=== PATIENT | female | born 1940 ===

== ENCOUNTER 2019-12-03 11:58 | Outpatient (REF) | payer OTHER, SELFPAY ==
[2019-12-03 14:17] LABS: Anion Gap 16 (12-20); Blood Urea Nitrogen 11 mg/dL (9-16); Calcium 9.4 mg/dL (8.4-10.2); Carbon Dioxide 30 mmol/L (22-29); Chloride 101 mmol/L (96-108); Cholesterol 117 mg/dL; Creatinine Urine 184.07 mg/dL; Estimated Glomerular Filt Rate 50; Glucose Random 154 mg/dL (60-115); HDL Cholesterol 45 mg/dL; LDL Cholesterol Calculated 43 mg/dl; Microalbum/Creatinine Ratio Ur 54.3 ug/mg cr; Potassium 4.8 mmol/l (3.3-5.1); Sodium 142 mmol/L (135-145); Triglycerides 149 mg/dL
[2019-12-03 14:28] LABS: Estimated Average Glucose 183 mg/dL
[2019-12-03 14:37] LABS: TSH reflex Free T4 0.76 mIU/mL (0.32-4.0)
== END 2019-12-03 11:59 | disposition home or self-care (01) ==
LOC: HO.HMGCLDS 11:58
PROVIDERS: PCP Nurse Practitioner Family; Visit Provider Nurse Practitioner Family
DX: E03.9 Hypothyroidism, unspecified (principal); E11.9 Type 2 diabetes mellitus without complications
CPT/HCPCS: 80048; 80061; 82043; 83036; 84443

== ENCOUNTER 2020-07-14 12:09 | Outpatient (REF) | payer OTHER, SELFPAY ==
[2020-07-14 14:14] LABS: Estimated Average Glucose 217 mg/dL; Hemoglobin A1c % 9.2 %
[2020-07-14 14:42] LABS: Alanine Aminotransferase 30 U/L (0-31); Albumin Level 4.1 g/dL (3.5-5.0); Alkaline Phosphatase 86 U/L (39-117); Anion Gap 20 (12-20); Aspartate Amino Transferase 32 U/L (5-31); Bilirubin Total 0.6 mg/dL (0.0-1.0); Blood Urea Nitrogen 13 mg/dL (9-16); Calcium 9.5 mg/dL (8.4-10.2); Carbon Dioxide 24 mmol/L (22-29); Chloride 100 mmol/L (96-108); Cholesterol 121 mg/dL; Estimated Glomerular Filt Rate 39; Glucose Fasting 273 mg/dL (60-99); HDL Cholesterol 49 mg/dL; LDL Cholesterol Calculated 43 mg/dl; Potassium 5.3 mmol/L (3.3-5.1); Sodium 139 mmol/L (135-145); Total Protein 6.7 g/dL (6.5-8.0); Triglycerides 148 mg/dL
[2020-07-14 14:49] LABS: TSH reflex Free T4 0.36 uIU/mL (0.32-4.0)
== END 2020-07-14 12:10 | disposition home or self-care (01) ==
LOC: HO.HMGCLDS 12:09
PROVIDERS: PCP Nurse Practitioner Family; Visit Provider Nurse Practitioner Family
DX: E11.9 Type 2 diabetes mellitus without complications (principal); E78.5 Hyperlipidemia, unspecified; Z78.0 Asymptomatic menopausal state
CPT/HCPCS: 36415; 80053; 80061; 83036; 84443

== ENCOUNTER 2020-07-17 | Outpatient (REF) | payer OTHER, SELFPAY ==
[2020-07-17 14:01] LABS: Glucose Urine UA NEG (NEG); Leukocyte Esterase Urine TRACE (NEG); Nitrite Urine NEG (NEG); PH 6.5 (5.0-8.0); Specific Gravity - Urine <= 1.005 (1.005-1.025); Urine Blood NEG (NEG); Urine Ketones NEG (NEG); Urine Protein NEG (NEG-TRACE)
[2020-07-17 14:02] LABS: Appearance Urine CLEAR; Color Urine STRAW
[2020-07-17 14:11] LABS: Oval Fat Bodies Urine NOTED; RBC Urine 0 /HPF (0); Renal Epithelial Cells Urine TRACE /LPF; Squamous Epithelial Cell Urine 1+ /LPF; WBC Urine 0-2 /HPF (0-4)
[2020-07-17 14:37] LABS: Creatinine Urine 40.28 mg/dL; Microalbum/Creatinine Ratio Ur 71.9 ug/mg cr
== END 2020-07-17 00:01 | disposition home or self-care (01) ==
LOC: HO.HMGCLNP
PROVIDERS: Visit Provider Nurse Practitioner Family
DX: E11.9 Type 2 diabetes mellitus without complications (principal)
CPT/HCPCS: 81001; 82043; 87086

== ENCOUNTER 2020-11-20 15:08 | Outpatient (REF) | payer MEDICARE, SELFPAY ==
[2020-11-20 15:40] LABS: MANUAL DIFF FLAG NO
[2020-11-20 15:51] LABS: Basophils Absolute Auto 0.1 X10*3/uL (0.0-0.2); Basophils Percent Auto 0.6 % (0-2); Eosinophils Absolute Auto 0.2 X10*3/uL (0.0-0.4); Eosinophils Percent Auto 2.1 % (0-4); Hematocrit 40.6 % (37-47); Hemoglobin 12.8 g/dl (12.0-16.0); Imm Gran Abs Auto 0.03 X10*3/uL (0.00-0.03); Imm Gran Pct Auto 0.4 % (0.0-0.4); Lymphocytes Absolute Auto 2.5 X10*3/uL (1.2-4.9); Lymphocytes Percent Auto 31.7 % (20-40); Mean Corpuscular HGB Conc 31.5 g/dl (31.0-35.0); Mean Corpuscular Hemoglobin 28.4 pg (27.0-33.0); Mean Platelet Volume 10.7 fL (9.4-12.3); Monocytes Absolute Auto 0.6 X10*3/uL (0.1-1.2); Monocytes Percent Auto 7.2 % (2-11); Neutrophils Absolute Auto 4.5 X10*3/uL (2.0-8.3); Platelet Count 204 X10*3/uL (160-400); Red Blood Count 4.51 X10*6/uL (4.20-5.50); Red Cell Distribution Width 14.1 % (11.0-16.0); White Blood Count 7.7 X10*3/uL (4.8-10.8)
[2020-11-20 15:58] LABS: Estimated Average Glucose 240 mg/dL
[2020-11-20 16:17] LABS: Alanine Aminotransferase 35 U/L (0-31); Albumin Level 4.2 g/dL (3.5-5.0); Alkaline Phosphatase 85 U/L (39-117); Anion Gap 13 (12-20); Aspartate Amino Transferase 35 U/L (5-31); Bilirubin Total 0.5 mg/dL (0.0-1.0); Blood Urea Nitrogen 12 mg/dL (9-16); Calcium 9.1 mg/dL (8.4-10.2); Carbon Dioxide 28 mmol/L (22-29); Chloride 100 mmol/L (96-108); Cholesterol 128 mg/dL; Estimated Glomerular Filt Rate 43; Glucose Fasting 188 mg/dL (60-99); HDL Cholesterol 37 mg/dL; Iron 65 mcg/dL (30-160); LDL Cholesterol Calculated 50 mg/dl; Percent Iron Saturation 20 % (15-50); Potassium 4.5 mmol/L (3.3-5.1); Sodium 136 mmol/L (135-145); Total Iron Binding Capacity 322 mcg/dL (228-428); Total Protein 6.9 g/dL (6.5-8.0); Triglycerides 205 mg/dL; Unsaturated Iron Binding 257 ug/dL
[2020-11-20 16:37] LABS: Ferritin 51 ng/mL (10-250)
[2020-11-20 16:47] LABS: Vitamin B12 240 pg/mL (200-900)
== END 2020-11-20 15:09 | disposition home or self-care (01) ==
LOC: HO.LAB 15:08
PROVIDERS: PCP Nurse Practitioner Family; Visit Provider Nurse Practitioner Family
DX: E11.9 Type 2 diabetes mellitus without complications (principal); R53.83 Other fatigue
CPT/HCPCS: 36415; 80053; 80061; 82607; 82728; 82746; 83036; 83540; 85025

== ENCOUNTER 2022-06-08 11:45 | Outpatient (REF) | payer MEDICARE, MEDICAID, SELFPAY ==
[2022-06-08 14:08] LABS: MANUAL DIFF FLAG NO
[2022-06-08 14:12] LABS: Basophils Percent Auto 0.6 % (0-2); Eosinophils Absolute Auto 0.2 X10*3/uL (0.0-0.4); Eosinophils Percent Auto 2.3 % (0-4); Hematocrit 42.4 % (37.0-47.0); Hemoglobin 13.4 g/dl (12.0-16.0); Imm Gran Abs Auto 0.03 X10*3/uL (0.00-0.03); Imm Gran Pct Auto 0.5 % (0.0-0.4); Lymphocytes Absolute Auto 1.5 X10*3/uL (1.2-4.9); Lymphocytes Percent Auto 22.4 % (20-40); Mean Corpuscular HGB Conc 31.6 g/dl (31.0-35.0); Mean Corpuscular Hemoglobin 28.8 pg (27.0-33.0); Mean Corpuscular Volume 91.2 fL (80.0-98.0); Mean Platelet Volume 11.1 fL (9.4-12.3); Monocytes Absolute Auto 0.4 X10*3/uL (0.1-1.2); Monocytes Percent Auto 6.3 % (2-11); Neutrophils Absolute Auto 4.5 x10*3/uL (2.0-8.3); Neutrophils Percent Auto 67.9 % (45-73); Platelet Count 245 X10*3/uL (160-400); Red Blood Count 4.65 X10*6/uL (4.20-5.50); Red Cell Distribution Width 13.8 % (11.0-16.0); White Blood Count 6.6 X10*3/uL (4.8-10.8)
[2022-06-08 14:30] LABS: Alanine Aminotransferase 22 U/L (0-31); Albumin Level 3.9 g/dL (3.5-5.0); Alkaline Phosphatase 77 U/L (39-117); Anion Gap 14 (12-20); Aspartate Amino Transferase 20 U/L (5-31); Bilirubin Total 0.6 mg/dL (0.0-1.0); Blood Urea Nitrogen 14 mg/dL (9-16); Calcium 9.2 mg/dL (8.4-10.2); Carbon Dioxide 30 mmol/L (22-29); Chloride 100 mmol/L (96-108); Cholesterol 109 mg/dL; Estimated Glomerular Filt Rate 48; Glucose Fasting 265 mg/dL (60-99); HDL Cholesterol 40 mg/dL; LDL Cholesterol Calculated 46 mg/dl; Potassium 4.5 mmol/L (3.3-5.1); Sodium 139 mmol/L (135-145); Total Protein 6.2 g/dL (6.5-8.0); Triglycerides 115 mg/dL
[2022-06-08 14:32] LABS: Estimated Average Glucose 243 mg/dL; Hemoglobin A1c % 10.1 %
[2022-06-08 14:47] LABS: TSH reflex Free T4 0.31 uIU/mL (0.32-4.0)
[2022-06-08 15:47] LABS: Free T4 (Free Thyroxine) 1.55 ng/dL (0.71-1.85)
== END 2022-06-08 11:46 | disposition home or self-care (01) ==
LOC: HO.HMGCLDS 11:45
PROVIDERS: PCP Nurse Practitioner Family; Visit Provider Nurse Practitioner Family
DX: E11.9 Type 2 diabetes mellitus without complications (principal)
CPT/HCPCS: 36415; 80053; 80061; 83036; 84439; 84443; 85025

== ENCOUNTER 2022-08-16 11:27 | Outpatient (REF) | payer MEDICARE, MEDICAID, SELFPAY ==
[2022-08-16 14:21] LABS: Appearance Urine Clear; Color Urine Yellow; Glucose Urine UA >=1000 mg/dL (Negative); Leukocyte Esterase Urine Negative (Negative); Nitrite Urine Negative (Negative); Specific Gravity - Urine >= 1.030 (1.005-1.025); UMIC TRIGGER UACC YES; Urine Blood Negative (Negative); Urine Ketones Trace mg/dL (Negative); Urine Protein Negative (Neg-Trace)
[2022-08-16 14:28] LABS: Bacteria Urine None Seen (None Seen); Hyaline Casts Urine 0-2 /LPF (0-2); RBC Urine 0-2 /HPF (0-2); UACC Culture Trigger YES
[2022-08-16 14:48] LABS: Creatinine Urine 84.23 mg/dL
== END 2022-08-16 11:28 | disposition home or self-care (01) ==
LOC: HO.LAB 11:27
PROVIDERS: Visit Provider Nurse Practitioner Family
DX: E11.9 Type 2 diabetes mellitus without complications (principal); R82.90 Unspecified abnormal findings in urine
CPT/HCPCS: 81001; 81003; 82043; 87086

== ENCOUNTER 2023-03-23 13:11 | Outpatient (AMB) | payer MEDICARE, MEDICAID, SELFPAY ==
[2023-03-23 13:19] VITALS: BP 138/80; PULSE 69; O2SAT 100; BMI 23.3
--- NOTE | 2023-03-23 13:19 | A.OFFPC_ITS ---
Vital Signs 03/23/23 13:19 Height 5 ft Weight 119 lb 4 oz BMI 23.3 BP 138/80 Blood Pressure Location Lt brachial Position Sitting Pulse 69 Pulse Source Pulse Oximeter Pulse Oximetry (%) 100 Oxygen Delivery Method Room Air Intake Visit Reasons: F/U Appt. Intake Note: Pt is here to follow up for her DM Allergies No Known Allergies [No Known Allergies*] Allergy (Verified 03/23/23 13:36) Medication List - Last Reconciled 03/23/23 by MARTHA Ding citalopram 30 mg (1.5 x 20 mg) PO DAILY empagliflozin (Jardiance) 10 mg PO DAILY insulin glargine (Lantus U-100 Insulin) 10 units (0.1 mL) subcut QPM levothyroxine 100 mcg PO DAILY lisinopril 20 mg PO DAILY 90 days loperamide 2 mg PO QID PRN metformin 1,000 mg PO BID olanzapine 1.25 mg (1/2 x 2.5 mg) PO DAILY rosuvastatin 5 mg PO DAILY Tobacco use date assessed: 03/23/23 Fall risk assessment: 2 + Falls in past year Last assessed Fall Risk: 03/23/23 Dental Screening Dental Screen Date: 03/23/23 Did you have a dental visit in the last 12 months?: No Did you have a dental problem in the last 6 months where you did not have access to dental care?: No Was dental information given to patient?: No HPI F/U Appt. HPI Details Pt is a diabetic, on an NENA and a statin. A1C in office today is 9.1. Microalbumin is up to date. Denies polyuria, polydipsia, and neuropathy. Pt denies any signs and symptoms of hypoglycemia and does know how to correct it. Eye exam is up to date. Pt is not currently on any insulin. Will start lantus 10 units. Pt has dementia, she is here with her son who is her primary caregiver. [facility] Medical History Hypertension Osteoporosis Hearing decreased Hypothyroid Diabetes Surgical History History of lumpectomy of right breast Family History Father CAD (coronary artery disease) CVD (cardiovascular disease) Mother Lymphoma Cancer Sister Thyroid disorder Other Substance use disorder Social History Housing: House Patient Tobacco Use Status: Never used Tobacco Second Hand Smoke Exposure: Yes Current occupational status: retired Questionnaire Thrive Questionnaire Date Thrive assessed: 11/04/20 VIRAJ-7 AMB Questionnaire VIRAJ-7 Date VIRAJ - 7 assessed: 08/13/21 Source: Developed by Drs. Srini Sosa, Amalia Mcdowell, Reed Way and colleagues, with an educational jason from [employer]. Review of Systems Const Reports as per HPI Physical exam (Primary Care) Vital Signs: Last Vital Signs Pulse 69 03/23/23 13:19 BP 138/80 03/23/23 13:19 Pulse Ox 100 03/23/23 13:19 Oxygen Delivery Method Room Air 03/23/23 13:19 BMI result Body Mass Index 23.3 Tobacco/Smoking Status: Tobacco use Status Tobacco use date assessed 03/23/23 03/23/23 13:27 Patient Tobacco Use Status Never used Tobacco 03/23/23 13:27 Thrive Assessment: Date of Thrive Assessment Date Thrive assessed 11/04/20 03/23/23 13:27 Const Other: in wheelchair, Hx of dementia General: cooperative Resp Effort & Inspection: normal respiratory effort Auscultation: clear to auscultation bilaterally (slightly dim bilat) Cardio Rate: regular rate Rhythm: regular rhythm Heart sounds: S1 normal heart sound present and S2 normal heart sound present Extrem Other: bilat feet: + sensation with use of monofilament, feet intact Psych Appearance: grossly normal Speech and movement: Normal speech and movement present Affect: normal affect Attitude: cooperative Results AMB Hemoglobin A1c AMB Hemoglobin A1c 9.1 % Last Edit by Margy Benavidez CMA on 03/23/23 13: 58 Assessment and Plan Assessment & Plan (1) Diabetes: Code(s): E11.9 - Type 2 diabetes mellitus without complications Plan: starting lantus, 10 units Q night Plan The patient agreed to the use of a medical technologist for this encounter. Scribed for MARTHA Sr by Ariana Pro medical technologist, on 03/23/2023 at 13:30 EST. Orders: Orders AMB Hemoglobin A1c Today E11.9 - Type 2 diabetes mellitus without complications Medications: New pen needle, diabetic (BD Ultra-Fine Mini Pen Needle) QHS 100 ea 3RF diabetes insulin glargine 10 units (0.1 mL) subcut QPM 15 mL 0RF Discontinued insulin glargine (Lantus U-100 Insulin) Discontinued Reason: Duplicate 10 units (0.1 mL) subcut QPM 10 mL 0RF Coding Level of Care Code Est Pt Level 3 (63935) Diagnoses Diabetes E11.9
== END 2023-03-23 14:43 | disposition home or self-care (01) ==
PROVIDERS: PCP Nurse Practitioner Family; Visit Provider Nurse Practitioner Family
DX: E11.9 Type 2 diabetes mellitus without complications (principal)
CPT/HCPCS: 83036; 99213

== ENCOUNTER 2023-03-23 14:02 | Outpatient (REF) | payer MEDICARE, MEDICAID, SELFPAY ==
[2023-03-23 16:07] LABS: MANUAL DIFF FLAG NO
[2023-03-23 16:14] LABS: Basophils Absolute Auto 0.1 X10*3/uL (0.0-0.2); Basophils Percent Auto 1.1 % (0-2); Eosinophils Absolute Auto 0.1 X10*3/uL (0.0-0.4); Eosinophils Percent Auto 2.5 % (0-4); Hematocrit 42.7 % (37.0-47.0); Hemoglobin 13.4 g/dl (12.0-16.0); Imm Gran Abs Auto 0.02 X10*3/uL (0.00-0.03); Imm Gran Pct Auto 0.4 % (0.0-0.4); Lymphocytes Absolute Auto 1.6 X10*3/uL (1.2-4.9); Lymphocytes Percent Auto 28.5 % (20-40); Mean Corpuscular HGB Conc 31.4 g/dl (31.0-35.0); Mean Corpuscular Hemoglobin 29.1 pg (27.0-33.0); Mean Corpuscular Volume 92.8 fL (80.0-98.0); Mean Platelet Volume 10.9 fL (9.4-12.3); Monocytes Absolute Auto 0.4 X10*3/uL (0.1-1.2); Monocytes Percent Auto 7.4 % (2-11); Neutrophils Absolute Auto 3.4 x10*3/uL (2.0-8.3); Neutrophils Percent Auto 60.1 % (45-73); Platelet Count 212 X10*3/uL (160-400); Red Cell Distribution Width 14.5 % (11.0-16.0); White Blood Count 5.6 X10*3/uL (4.8-10.8)
[2023-03-23 16:40] LABS: Alanine Aminotransferase 24 U/L (0-31); Albumin Level 3.8 g/dL (3.5-5.0); Alkaline Phosphatase 64 U/L (39-117); Anion Gap 13 (12-20); Aspartate Amino Transferase 22 U/L (5-31); Bilirubin Total 0.4 mg/dL (0.0-1.0); Blood Urea Nitrogen 17 mg/dL (9-16); Calcium 9.5 mg/dL (8.4-10.2); Carbon Dioxide 29 mmol/L (22-29); Chloride 103 mmol/L (96-108); Cholesterol 115 mg/dL (<200); Estimated Glomerular Filt Rate 52; Glucose Fasting 161 mg/dL (60-99); HDL Cholesterol 45 mg/dL (>40); LDL Cholesterol Calculated 48 mg/dL (<100); Potassium 4.3 mmol/L (3.3-5.1); Sodium 141 mmol/L (135-145); Total Protein 6.5 g/dL (6.5-8.0); Triglycerides 111 mg/dL (<150)
[2023-03-23 16:47] LABS: TSH reflex Free T4 1.02 uIU/mL (0.32-4.0)
== END 2023-03-23 14:03 | disposition home or self-care (01) ==
LOC: HO.HMGCLDS 14:02
PROVIDERS: PCP Nurse Practitioner Family; Visit Provider Nurse Practitioner Family
DX: E11.9 Type 2 diabetes mellitus without complications (principal)
CPT/HCPCS: 36415; 80053; 80061; 84443; 85025

== ENCOUNTER 2023-09-05 14:34 | Outpatient (AMB) | payer MEDICARE, MEDICAID, SELFPAY ==
--- NOTE | 2023-09-05 14:37 | A.OFFVIS_ITS ---
Intake Vital Signs 09/05/23 14:44 Weight 120 lb BP 116/74 Blood Pressure Location Rt brachial Position Sitting Pulse 86 Pulse Source Pulse Oximeter Pulse Oximetry (%) 97 Oxygen Delivery Method Room Air Intake Visit Reasons: AWV G0439 Allergies No Known Allergies [No Known Allergies*] Allergy (Verified 09/05/23 14:42) Do you need a note to return to daycare/school/sports/work: No HPI AWV G0439 HPI Details AWV. no longer gets colon screens or mammos. Son is pt's primary caregiver, here with mother (pt). Pt has dementia as well. Son is looking to get her into a chcf. Pt is becoming more uncooperative. DALY not filled out. PPP checklist in skin pile. Pt is a diabetic, takes her medication (administered by son). Pt also sees endo. most questions were answered by son (HCP) [facility] Medical History Hypertension Osteoporosis Hearing decreased Hypothyroid Diabetes Surgical History History of lumpectomy of right breast Family History Father CAD (coronary artery disease) CVD (cardiovascular disease) Mother Lymphoma Cancer Sister Thyroid disorder Other Substance use disorder Social History Housing: House Patient Tobacco Use Status: Never used Tobacco Second Hand Smoke Exposure: Yes Current occupational status: retired Questionnaire Medicare Wellness Checkup What is your age?: 80 or older What gender do you identify with?: male During the past 4 weeks, how much have you been bothered by emotional problems such as feeling anxious, depressed, irritable, sad or downhearted, and blue?: quite a bit During the past 4 weeks, has your physical & emotional health limited your social activities with family, friends, neighbors, or groups?: quite a bit During the past 4 weeks, how much bodily pain have you generally had?: no pain During the past 4 weeks, was someone available to help you if you needed & wanted help?: yes, quite a bit During the past 4 weeks, what was the hardest physical activity you could do for at least 2 minutes?: very light Can you get to places out of walking distance without help? (For eg., can you travel alone on buses, taxis or drive your car?): No Can you go shopping for groceries or clothes without someone's help?: No Can you prepare your own meals?: No Can you do your housework without help?: No Because of any health problems, do you need the help of another person with your personal care needs such as eating, bathing, dressing or getting around the house?: Yes Can you handle your own money without help?: No During the past 4 weeks, how would you rate your health in general?: fair During the past 4 weeks how have things been going for you?: pretty bad Are you having difficulties driving your car?: no Do you always fasten your seat belt when you are in a car?: no During past 4 weeks, have you been bothered by the following: never: Sexual problems?, Trouble eating well? and Teeth or denture problems? and often: Falling or dizzy when standing up, Problems using the telephone? and Tiredness or fatigue? Have you fallen 2 or more times in the past year?: No Are you afraid of falling?: Yes Are you a smoker?: no During the past 4 weeks, how many drinks of wine, beer, or other alcoholic beverages did you have?: no alcohol at all Do you exercise for about 20 minutes 3 or more times a week?: no, I usually do not exercise this much Have you been given information to help with the following?: yes: Hazards in your house that might hurt you? and no: Keeping track of your medications? How often do you have trouble taking medicines the way you have been told to take them?: I always take medicine as prescribed How confident are you that you can control & manage most of your health problems?: not very confident What is your race?: White Mini Mental State Exam (MMSE) Orientation What is the (year) (season) (date) (day) (month)?: year (does not know), season (does not know), date, day (does not know) and month (does not know) Where are we (state) (county) (town or city) (hospital) (floor)?: state ([facility] and town or city (unable to answer) Attention & Calculation (CHOOSE ONE) Spell WORLD backwards (DLROW): 0 letters Language Show patient a wristwatch & ask what it is. Repeat for pencil.: watch and pencil Ask the patient to repeat the phrase 'No ifs, ands, or buts' after you.: incorrect Score Score: 10 Activity of Daily Living Bathing - sponge bath, tub bath or shower: receives help in bathing more than one body part (or not bathed) Dressing - getting clothes from closets & drawers, including inner/outer garments & fasteners.: receives help getting clothes or getting dressed, or stays undressed Toileting - going to the 'toilet room' for urine/bowel elimination & cleaning self/arranging clothes: does not go to room termed toilet for elimination process Transfer: moves in & out of bed or chair with help Continence: supervision helps urination/bowel control; catheter use; incontinent Feeding: receives help feeding or is partly/completely fed by tubes/intravenous Total Score: 5 Information obtained from: patient (and HCP (son alec)) Using telephone: dependent Traveling: dependent Shopping: dependent Preparing meals: dependent Housework: dependent Taking medicine: dependent Managing money: dependent PHQ-9 Over the last 2 weeks, how often have you been bothered by any of the following problems? 30677 - PHQ-9 Billing: Patient declined-do not bill Source: Developed by Drs. Srini Sosa, Amalia Mcdowell, Reed Way and colleagues, with an educational jason from [employer]. Physical Exam Vital Signs: Last Vital Signs Pulse 86 09/05/23 14:44 BP 116/74 09/05/23 14:44 Pulse Ox 97 09/05/23 14:44 Oxygen Delivery Method Room Air 09/05/23 14:44 Const Other: pleasantly confused., in wheelchair Skin Other: female health science specialist in room. diaper present, no skin breakdown to buttocks noted. Assessment & Plan Assessment & Plan (1) Diabetes: Code(s): E11.9 - Type 2 diabetes mellitus without complications Plan: will await labs and adjust meds accordingly (2) Encounter for annual wellness visit (AWV) in Medicare patient: Code(s): Z00.00 - Encounter for general adult medical examination without abnormal findings Plan: dementia (pleasantly confused) (3) Dementia: Code(s): F03.90 - Unspecified dementia, unspecified severity, without behavioral disturbance, psychotic disturbance, mood disturbance, and anxiety Plan: pt has a primary caregiver that liver with her. Son looking into chcf Orders: Orders Comprehensive [place]. Panel Fast Today E11.9 - Type 2 diabetes mellitus without complications, Z00.00 - Encounter for general adult medical examination without abnormal findings UA CC w/rflx Micro + Cult Today E11.9 - Type 2 diabetes mellitus without complications, Z00.00 - Encounter for general adult medical examination without abnormal findings Complete Blood Count Auto Diff Today E11.9 - Type 2 diabetes mellitus without complications, Z00.00 - Encounter for general adult medical examination without abnormal findings TSH reflex Free T4 Today E11.9 - Type 2 diabetes mellitus without complications, Z00.00 - Encounter for general adult medical examination without abnormal findings Lipid Panel Today E11.9 - Type 2 diabetes mellitus without complications, Z00.00 - Encounter for general adult medical examination without abnormal findings Hemoglobin A1c Today E11.9 - Type 2 diabetes mellitus without complications, Z00.00 - Encounter for general adult medical examination without abnormal findings Coding Level of Care Code Medicare Subsequent (G0439) Est Pt Level 3 (58211) Diagnoses Diabetes E11.9 Encounter for annual wellness visit (AWV) in Medicare patient Z00.00 Dementia F03.90 CPT Codes Advance Care Planning - Time spent: 1-15 minutes, on File ([id number]) Advance Care Planning Forms completed: Health Care Proxy (pt's son will drop off original), MOLST (original form at home, recommended getting us a copy) and Living will (not done) Time spent: 1-15 minutes, on File Actual minutes spent: 15
[2023-09-05 14:44] VITALS: BP 116/74; PULSE 86; O2SAT 97
== END 2023-09-05 16:22 | disposition home or self-care (01) ==
PROVIDERS: PCP Nurse Practitioner Family; Visit Provider Nurse Practitioner Family
DX: Z00.00 Encounter for general adult medical examination without abnormal findings (principal); E11.9 Type 2 diabetes mellitus without complications; F03.90 Unspecified dementia, unspecified severity, without behavioral disturbance, psychotic disturbance, mood disturbance, and anxiety
CPT/HCPCS: 1123F; 99213; G0439

== ENCOUNTER 2024-09-20 15:08 | Outpatient (AMB) | payer MEDICARE, MEDICAID, SELFPAY ==
[2024-09-20 15:10] VITALS: BP 120/70; PULSE 87; O2SAT 95
--- NOTE | 2024-09-20 15:10 | MHC.PC.OV ---
Vital Signs 09/20/24 15:10 Height 5 ft BMI Reason not done Patient refused/unable BP 120/70 Blood Pressure Location Lt brachial Position Sitting Pulse 87 Pulse Source Pulse Oximeter Pulse Oximetry (%) 95 Oxygen Delivery Method Room Air Intake Visit Reasons: HDF Rap Artist Required: No Accompanied by: Son Allergies No Known Allergies (No Known Allergies*) Allergy (Verified 09/20/24 15:10) Tobacco use date assessed: 09/20/24 Fall risk assessment: No Falls in past year Last assessed Fall Risk: 09/20/24 Dental Screening Dental Screen Date: 09/20/24 Did you have a dental visit in the last 12 months?: No Did you have a dental problem in the last 6 months where you did not have access to dental care?: No Was dental information given to patient?: Patient declined HPI HPI Comments History of Present Illness Details The patient is an 84-year-old female with a past medical history of severe dementia, hearing loss, DM2 and hypothyroid who is here with her son who is her bulk delivery driver for a hospital discharge follow-up. She was admitted to [facility] on August 31 and discharged on September 04. Her son brought her there because she had a change in mental status. Labs showed she was hyponatremic at 120 and that she had a urinary tract infection, she also had a TSH of 90.6 and a T4 of 0.66. Her A1c was 10.7. She had a head CT that showed no acute intracranial abnormalities and a cervical spine CT which showed no acute findings in the spine she had an EKG which was normal with no acute changes She looked volume depleted on exam according to the notes. The notes also state that her son said that she was not taking her levothyroxine for the past 2 weeks because she refuses take medication p.o. when she has a UTI. She was given 1L NS normal saline and benztropine and was admitted. Her sodium went up to 131, she had an evaluation and was found to meet severe malnutrition criteria she also had wounds noted on her backside, she failed a swallow screening and was made NPO. The notes from the hospital indicate she was made NPO and that she should follow up with her HCP to decide if tube feeds would be warranted this apparently was not done and she was discharged home. Today, her son is with her and reports she has a twice weekly nurse visit. He states she has a runny nose which is chronic and has a new cough. He tells me she is eating, last meal was a little bit of meatloaf yesterday and some fish last Tuesday, some banana here and there . Today, she has had a half of a sip of ice tea. He tells me she has been taking her levothyroxine 12/14 days since discharge . She took the Cipro for the ESBL UTI but he spilled some and states she got most of it , he tells me she does not appear to be back to her baseline. He says she has a bedsore on her backside which he is worried is infected. She has taken 500mg metformin once daily since discharge . She is not taking her statin or HTN meds. He has nursing visits twice a week and he says all they do for the wound is take pictures of it, they do not do wound care , however when we were cleaning her wound, he told me that he did have wound care supplies at home. [facility] Medical History Hypertension Osteoporosis Hearing decreased Hypothyroid Diabetes Surgical History History of lumpectomy of right breast Family History Father CAD (coronary artery disease) CVD (cardiovascular disease) Mother Lymphoma Cancer Sister Thyroid disorder Other Substance use disorder Social History Housing: House Patient Tobacco Use Status: Never used Tobacco Second Hand Smoke Exposure: Yes Current occupational status: retired Questionnaire PHQ-9 Over the last 2 weeks, how often have you been bothered by any of the following problems? 38946 - PHQ-9 Billing: Patient declined-do not bill Source: Developed by Drs. Srini Sosa, Amalia Mcdowell, Reed Way and colleagues, with an educational jason from [employer]. Thrive Questionnaire Date Thrive assessed: 09/20/24 (patient declined) AUDIT C Alcohol Use Questionnaire (AUDIT-C) 1. How often do you have a drink containing alcohol?: Never 3. How often do you have six or more drinks on one occasion?: Never Total Score: 0 Score Reviewed/Action Taken: Yes VIRAJ-7 AMB Questionnaire VIRAJ-7 Date VIRAJ - 7 assessed: 09/20/24 (patient declined) Source: Developed by Drs. Srini Sosa, Amalia Mcdowell, Reed Way and colleagues, with an educational jason from [employer]. Review of Systems Const All systems reviewed & are unremarkable except as noted in HPI and below Physical exam (Primary Care) Vital Signs: Last Vital Signs Pulse 87 09/20/24 15:10 BP 120/70 09/20/24 15:10 Pulse Ox 95 09/20/24 15:10 Oxygen Delivery Method Room Air 09/20/24 15:10 Tobacco/Smoking Status: Tobacco use Status Tobacco use date assessed 09/20/24 09/20/24 15:13 Patient Tobacco Use Status Never used Tobacco 09/20/24 15:13 Thrive Assessment: Date of Thrive Assessment Date Thrive assessed 09/20/24 (patient declined) 09/20/24 15:13 Const General: ill appearing and poor hygiene Nutritional Appearance: malnourished Orientation/consciousness: Other orientation findings (baseline severe dementia and is nonverbal, was awake ) Limitations: wheelchair HENAL Head: Yes normal to inspection and Yes No palpable skull fracture present Ears: external ears normal Face and sinus: Yes normal facial exam Eyes Periorbital: periorbital findings normal Eyelids: Yes eyelids normal Conjunctivae: conjunctivae normal Sclerae: sclerae normal EOM: movement deficit (upward gaze) Neck Neck: Yes torticollis (to the right) Chest Chest palpation & inspection: normal inspection of the chest Resp Effort & Inspection: normal respiratory effort Auscultation: clear to auscultation bilaterally Cardio Rate: regular rate Rhythm: regular rhythm Heart sounds: S1 normal heart sound present and S2 normal heart sound present GI Other: adult diaper overflowing with soft brown stool, extending to her low back and down bilateral legs Palpation (GI): Soft to palpation Auscultation: Hyperactive bowel sounds present Skin Other: measure is in cm coccyx/sacral ulcer with stool in it no warmth or drainage noted Neuro General: Unable to assess gait Cognition (Neuro): abnormal cognition Speech: Global aphasia present Gait exam (Neuro): Unable to assess gait Extrem Other: Bilateral upper extremities are contracted Coding Level of Care Code Est Pt Level 5 (09875) Diagnoses Diabetes E11.9 Diabetes mellitus terminal operator insulin use: without terminal operator use Diabetes mellitus type: type 2 Hypothyroidism, unspecified type E03.9 Hypothyroidism type: unspecified Severe dementia, unspecified dementia type, unspecified whether behavioral, psychotic, or mood disturbance or anxiety F03.C0 Dementia behavioral or psychological symptom: unspecified whether behavioral, psychotic, or mood disturbance or anxiety Dementia severity: severe Dementia type: unspecified type Elevated TSH R79.89 Hospital discharge follow-up Z09 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 L98.429 Assessment & Plan Assessment & Plan (1) Diabetes: Code(s): E11.9 - Type 2 diabetes mellitus without complications Category: Medical Qualifiers: Diabetes mellitus terminal operator insulin use: without terminal operator use Diabetes mellitus type: type 2 (2) Hypothyroid: Code(s): E03.9 - Hypothyroidism, unspecified Category: Medical Qualifiers: Hypothyroidism type: unspecified Qualified Code(s): E03.9 - Hypothyroidism, unspecified (3) Dementia: Code(s): F03.90 - Unspecified dementia, unspecified severity, without behavioral disturbance, psychotic disturbance, mood disturbance, and anxiety Category: Medical Qualifiers: Dementia behavioral or psychological symptom: unspecified whether behavioral, psychotic, or mood disturbance or anxiety Dementia severity: severe Dementia type: unspecified type Qualified Code(s): F03.C0 - Unspecified dementia, severe, without behavioral disturbance, psychotic disturbance, mood disturbance, and anxiety (4) Elevated TSH: Code(s): R79.89 - Other specified abnormal findings of blood chemistry Category: Medical (5) Hospital discharge follow-up: Code(s): Z09 - Encounter for follow-up examination after completed treatment for conditions other than malignant neoplasm Category: Medical (6) 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 Her son tells me he is not she is not back to her baseline her having the UTI. She has been sporadically taking her medications and barely able to eat. It is unclear if she is actually taking her medications and able to eat, he put a straw with some ice tea up to her mouth and she did not tried to drink anything. She was discharged from [facility] without passing a swallow test, they had speech evaluate her but she was a unable to swallow and they diagnosed her with dysphagia and made her NPO while there. She is clearly malnourished with hyperactive bowel sounds and likely starving to . For her physical exam, she was covered in stool, which went right into a non bandaged stage III sacral ulcer. I had to help him clean her up and during this, I was trying to explain to him that she needs to have the wound assessed and had a bare minimum she needs wound care. 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 I highly recommended that he bring his mother to the [facility] Emergency Department for an evaluation of several things including a retest of her urine to make sure she actually cleared the ESBL UTI, a recheck of her thyroid, and evaluation of her sacral wound and an evaluation by speech to see if she can actually swallow. I explained that if he is not going to give her the medical care and nutrition that she needs then he needs to put her on hospice. He says that they did come out once and talked to him about her but he declined it. I told him that if we do not see him bringing her to the emergency room in the next 24-48 hours that we would arrange for hospice to go back out and talk to him and his family. He was agreeable to this plan.
--- OUTSIDE RECORDS SUMMARY | 2024-09-20 15:15 | XMS_ITS | Patient Health Record ---
Author Organization [facility] Address [address] [place] [address] Care Team Providers Care Orthopedic Designer Name Role Phone ASHUTOSHTERRA ROB Primary Care Provider Srini Reilly Unavailable [phone] Reason For Referral No Information Medications Medication SIG (Take, Route, Frequency, Duration) Notes Start Date End Date Status Alendronate Sodium 70mg Unknown CeleXA 20 MG 1 tablet Orally Once a day Active Lisinopril 40mg 1 tablet Orally Once a day Active Synthroid 75mcg 1 tablet Orally Once a day Active metFORMIN HCl 500 MG 1 tablet with a amanda l Orally Twice a day Active Immunizations Vaccine Route Administration Date Status Comme nts Flu vaccine no Preserv 3 and > Unknown 11/26/2014 Admin istered Problems Problem Type SNOMED Code ICD Code Onset Dates Problem Status W/U Status Risk Notes Problem 80600830 Diarrhea (R19.7) Active confirmed Problem 16342006 Hypertension (I10) Active confirmed Plan Of Treatment Pending Test Test Name Order Date CLOSTRIDIUM DIFF TOXIN A&B (C DIFF) 05/23 STOOL WBC 06/18/2015 OVA & PARASITES (O&P) 06/18/2015 CULTURE, STOOL 06/18/2015 Future Test Test Name Order Date COLONOSCOPY 05/06/2011 Insurance Providers Payer Name Payer Address Payer Phone Subscriber Number Group Number Insured Name Patient Relationship to Insured Coverage Start Date Coverage End Date [place] [address] [place] [id number] [id number] Self - patient is the insured MEDICAID OF [facility] [address] [place] [phone] [id number] RICKY JULY Self - patient is the insured Medical (General) History Medical History History ICD Code NIDDM HTN Hypothyroidism Hyperlipidemia Scoliosis Osteoporosis Arthritis Denies CVA,Lung disease,renal disease Breast cancer with lumpectomy and XRT/ c hemo at age 57 Told of a silent AR Her son reports that she has a component of dementia Surgical History Surgery Date(Month/Year) Lumpectomy for breast cancer as above Cataracts/lens implants
== END 2024-09-20 17:04 | disposition home or self-care (01) ==
LOC: HO.HMCC 15:09
PROVIDERS: PCP Nurse Practitioner Family; Visit Provider Physician Assistant
DX: E11.9 Type 2 diabetes mellitus without complications (principal); F03.C0 Unspecified dementia, severe, without behavioral disturbance, psychotic disturbance, mood disturbance, and anxiety; L98.429 Non-pressure chronic ulcer of back with unspecified severity; E03.9 Hypothyroidism, unspecified; R79.89 Other specified abnormal findings of blood chemistry; Z09 Encounter for follow-up examination after completed treatment for conditions other than malignant neoplasm

== ENCOUNTER → 2024-09-20 15:08 | Outpatient (BNVA) | payer MEDICARE, MEDICAID, SELFPAY | PROVIDERS: PCP Nurse Practitioner Family; Visit Provider Physician Assistant | DX: Z09 Encounter for follow-up examination after completed treatment for conditions other than malignant neoplasm (principal); E11.9 Type 2 diabetes mellitus without complications; E03.9 Hypothyroidism, unspecified; F03.C0 Unspecified dementia, severe, without behavioral disturbance, psychotic disturbance, mood disturbance, and anxiety; R79.89 Other specified abnormal findings of blood chemistry; L98.429 Non-pressure chronic ulcer of back with unspecified severity | CPT/HCPCS: 99212 ==

== ENCOUNTER 2024-09-20 18:05 | Inpatient (IN) | payer MEDICARE, MEDICAID, SELFPAY ==
[2024-09-20] VITALS (12 sets, daily range): BP systolic 129–171; BP diastolic 55–84; PULSE 82–100; RESP 12–24; TEMP 36.2–36.9; O2SAT 88–98; BMI 17.2
--- NOTE | ~2024-09-20 | XR_ITS ---
CLINICAL HISTORY: ET OG 1 view chest x-ray Comparison: None provided Findings: Small to moderate right pleural effusion. Interstitial prominence in both lungs. ET tube is within the thoracic inlet. The enteric tube is looped within the gastric fundus with its tip is likely in the region of gastric antrum. Normal size heart. No acute fracture. IMPRESSION: Satisfactory placement of the ET tube and the enteric tube. This document has been electronically signed by: Vishnu Connor MD on 10/01/2024 23:05:18
--- NOTE | ~2024-09-20 | XR_ITS ---
EXAMINATION: XR CHEST CLINICAL INFORMATION: Hypoxia COMPARISON: None available. TECHNIQUE: AP view of the chest was obtained. FINDINGS: Study is somewhat limited as the patient's chin obscures medial apices bilaterally. The cardiac, hilar, and mediastinal contours are normal. Aortic mural calcifications. There is a small layering right pleural effusion with underlying parenchymal consolidation. The left lung appears clear. No perceptible pneumothorax. No focal osseous or soft tissue abnormality. XR/XR chest 1V IMPRESSION: 1. Small right layering pleural effusion with associated right basilar consolidation. Differential includes passive atelectasis versus pneumonia in the appropriate clinical setting. Electronically signed by: David Cordova MD 09/21/2024 04:32 PM EDT
--- NOTE | ~2024-09-20 | XR_ITS ---
EXAMINATION: XR CHEST 1 VIEW HISTORY: Low O2 sats COMPARISON: Comparison is made with the prior examination dated 1124. FINDINGS: A single AP portable view of the chest performed at 7:04 AM is submitted. The endotracheal and orogastric tubes. There is near complete opacification of the right hemithorax. There is shift of the trachea to the right and elevation of the right hemidiaphragm, suggestive of atelectasis. The left lung is clear. There is no pneumothorax. The heart is normal in size. There is degenerative disc disease of the spine. XR/XR chest 1V IMPRESSION: Complete opacification of the right hemithorax suggestive of atelectasis. Electronically signed by: Srini Jay MD 10/04/2024 07:40 AM EDT
--- NOTE | ~2024-09-20 | CT_ITS ---
CLINICAL HISTORY: sacral ulcer osteo? CT abdomen and pelvis with contrast Comparison: CT - CT ABDOMEN PELVIS W IV CON - 09/20/24 19:57 EDT Findings: There is right lower lobe atelectasis and a small right effusion. Severe atherosclerotic disease of the coronary arteries. Prominent elevation of the right hemidiaphragm. The liver, gallbladder, spleen, adrenal glands and pancreas demonstrate no acute process. Kidneys, ureters and bladder are unremarkable. There is severe fecal retention in the rectosigmoid and significant diffuse colonic fecal retention. No small bowel obstruction Skin thickening over the distal sacrum. No definite bone destruction to suggest osteomyelitis. Diffuse degenerative changes within the spine. Old L4 compression fracture suggested. Impression: Severe fecal retention in the rectosigmoid and diffuse fecal retention elsewhere throughout the colon. Impaction suspected. Skin thickening over the sacrum with no definite osteomyelitis. Right lower lobe atelectasis with small right effusion. This document has been electronically signed by: Raj Castillo MD on 09/20/2024 21:21:23
--- NOTE | ~2024-09-20 | XR_ITS ---
EXAMINATION: XR CHEST CLINICAL INFORMATION: s/p intubation COMPARISON: October 04, 2024 at 7:04 AM. TECHNIQUE: Frontal view of the chest was obtained. FINDINGS: The endotracheal tube ends 1 cm above fadia. There is herniation of the right lung with low lung volume. No gross pneumothorax. Probable skin fold and the lateral aspect of the right hemithorax. Blunting of the right costophrenic angle. Cardiomediastinal silhouette size is small. Multilevel thoracolumbar spondylosis no fully evaluated. Degenerative changes in the shoulders. Osteopenia versus osteoporosis. XR/XR chest 1V IMPRESSION: Status post intubation ending 1 cm above fadia with aerated right lung. Consider prior mucous plug. Right-sided pleural effusion, moderate volume. Electronically signed by: Ck Clayton MD 10/04/2024 09:29 AM EDT
--- NOTE | ~2024-09-20 | CT_ITS ---
CLINICAL HISTORY: aspiration pNA CT chest with contrast Comparison: None provided Findings: No cardiomegaly. Severe atherosclerotic disease of the coronary arteries. Moderate atherosclerotic disease of the aorta. No dissection or aneurysm. No pericardial effusion. Near-complete atelectasis of the right lower lobe. Small right effusion. Additional patchy ground-glass airspace density throughout the right upper lobe. The left lung is clear. No acute osseous finding. Old compression fracture at T3. Impression: Near-complete right lower lobe atelectasis as well as multifocal right-sided pneumonia. Small right effusion. This document has been electronically signed by: Raj Castillo MD on 09/20/2024 21:27:46
--- NOTE | ~2024-09-20 | CT_ITS ---
CLINICAL HISTORY: hyponatremia, AMS --- Additional Notes or Special Instructions: injected at 2000pm - will scan after 0200am, provider aware. jat CT head without contrast Comparison: None provided Findings: There is no acute intracranial hemorrhage. There is ex vacuo dilation of the ventricles. No mass effect or midline shift is present. The delgado-white matter differentiation appears normal. There is generalized cerebral atrophy. Hypoattenuation in the deep cerebral white matter is consistent with chronic small vessel ischemic disease. The visualized portions of the orbits, paranasal sinuses, and mastoids are unremarkable. No fractures are identified. IMPRESSION: No acute intracranial abnormality. This document has been electronically signed by: Gordo Kiser MD on 09/21/2024 03:50:26
--- NOTE | 2024-09-20 18:52 | PC.NURSE ---
84 F presents to ED with ulcer on buttocks, appears very thin and unwell. Pt not talking or responding to staff. RR even and unlabored, no visible s/s of distress but cough noted with rhonchi in L lung. Small ulcer noted to buttock.
[2024-09-20 19:14] LABS: MANUAL DIFF FLAG NO
[2024-09-20 19:23] LABS: Hematocrit 45.3 % (37.0-47.0); Hemoglobin 16.1 g/dl (12.0-16.0); Imm Gran Abs Auto 0.09 X10*3/uL (0.00-0.03); Imm Gran Pct Auto 0.9 % (0.0-0.4); Lymphocytes Absolute Auto 0.6 X10*3/uL (1.2-4.9); Mean Corpuscular HGB Conc 35.5 g/dl (31.0-35.0); Mean Corpuscular Hemoglobin 30.7 pg (27.0-33.0); Mean Corpuscular Volume 86.3 fL (80.0-98.0); NRBC Abs Auto 0.000 X10*3/uL (0.0-0.012); NRBC Pct Auto 0.0 /100WBC (0.0-0.2); Platelet Count 334 X10*3/uL (160-400); Red Blood Count 5.25 X10*6/uL (4.20-5.50); White Blood Count 10.3 X10*3/uL (4.8-10.8)
[2024-09-20 19:48] LABS: Alanine Aminotransferase 20 U/L (0-31); Albumin Level 4.3 g/dL (3.5-5.0); Alkaline Phosphatase 127 U/L (39-117); Anion Gap 20 (12-20); Aspartate Amino Transferase 31 U/L (5-31); Blood Urea Nitrogen 14 mg/dL (9-16); Calcium 9.4 mg/dL (8.4-10.2); Carbon Dioxide 25 mmol/L (22-29); Chloride 84 mmol/L (96-108); Creatinine Clr Calc Pharmacy 35.7; Estimated Glomerular Filt Rate > 60; Magnesium 1.7 mg/dL (1.6-2.6); Potassium 4.7 mmol/L (3.3-5.1); Sodium 124 mmol/L (135-145); Total Protein 8.0 g/dL (6.5-8.0)
[2024-09-20 19:54] LABS: Resp Syncy Virus RNA Qual PCR NEGATIVE (Negative); SARS COV2 PCR INHOUSE NEGATIVE (Negative)
[2024-09-20] MEDS: iohexoL 350 MG/ML 100 ML INFUS..BTL IV (20:07)
--- NOTE | 2024-09-20 20:08 | PC.NURSE ---
Pt with CT Plan of care ongoing.
--- NOTE | 2024-09-20 20:37 | PC.NURSE ---
Complete bed change and ramon care. Pt given warm blankets and positioned in bed for comfort on right lateral. ulcer padding placed on coccyx wound. Pts family at bedside Plan of care ongoing.
[2024-09-20 20:44] LABS: Appearance Urine Cloudy; Glucose Urine UA Negative (Negative); PH 7.0 (5.0-9.0); Specific Gravity - Urine 1.025 (1.005-1.025); UMIC TRIGGER UACC YES
[2024-09-20 20:53] LABS: UACC Culture Trigger YES
--- NOTE | 2024-09-20 21:35 | ED.GENADULT ---
HPI - General Adult General Chief complaint: General Medical Stated complaint: buttocks wound Time Seen by Provider: 09/20/24 18:18 Source: old records reviewed Limitations: other (Advanced dementia) History of Present Illness ED Provider: Nakita Granados PA-C HPI narrative: 84-year-old female with a history of severe dementia, diabetes, hypothyroidism, with known stage III sacral ulcer who presents with failure to thrive. Patient was seen by primary care prior to arrival, who sent her here for further assessment. I am gathering my information from the primary care note from today, the son at bedside is not forthcoming about details surrounding his mother's present state of health. Patient was recently hospitalized at [facility] on August 31 and discharged on September 04. Her son brought her there because she had a change in mental status. Patient was managed for hyponatremia, UTI, and TSH of 90.6. She also failed a swallow eval during that time. During her admission, she was made NPO, there was discussion over the need for a feeding tube, the family was advised to have discussion with primary care, she was discharged home. The son still insists that the patient is eating. Furthermore, he states that she ate ?a [employer] hamburger before coming in to the emergency room?. The son further indicates that he has VNA services to the home, and they have been managing her sacral wound. Overall, from the primary care note, there was obvious concern that the family is not caring for the patient, they are not tending to her medical needs nor her nutritional needs. It was recommended that the patient be placed in hospice. The son apparently declined, he was agreeable to bring his mother to the emergency department. She is still a full code, he brought the healthcare proxy with him, his brother is also here at bedside. To note, I attempted to retrieve records from [facility], however medical records is closed, our only hope is to receive records in the morning. Related Data Previous Rx's ?Medication ?Instructions ?Recorded levothyroxine 100 mcg tablet 100 mcg PO DAILY #90 tabs 08/30/24 metformin 1,000 mg tablet 1,000 mg PO BID #180 tabs 08/30/24 Allergies Allergy/AdvReac Type Severity Reaction Status Date / Time No Known Allergies (No Known Allergy Verified 09/20/24 18:31 Allergies*) Review of Systems Review of Systems: Unable to obtain secondary to advanced dementia Yes all other systems are reviewed and are negative [facility] Past Medical History Medical History Hypertension Osteoporosis Hearing decreased Hypothyroid Diabetes Surgical History History of lumpectomy of right breast Family History Family History Father CAD (coronary artery disease) CVD (cardiovascular disease) Mother Lymphoma Cancer Sister Thyroid disorder Other Substance use disorder Social History Social History Housing: House Unable to assess alcohol history related to: Unable to respond Patient Tobacco Use Status: Never used Tobacco Smoked in Last 30 Days: No Second Hand Smoke Exposure: Yes Use of substances other than those prescribed or required for medical reasons: No Advance Directives: Yes Advance Directives on File: Yes Advance Directives Date on File: 09/20/24 Do you have a plan to hurt others: No Plan Current occupational status: retired Physical Exam ED Vital Signs: Vital Signs - 24 hr 09/20/24 18:27 09/20/24 18:35 09/20/24 20:38 Temperature 98.5 F 98.5 F 97.2 F Pulse Rate 100 100 95 Respiratory Rate 18 18 16 Blood Pressure 151/82 H 151/82 H 171/84 H Pulse Oximetry 94 94 95 Oxygen Delivery Method Room Air Room Air Room Air Oxygen Flow Rate 09/20/24 20:56 09/20/24 21:01 09/20/24 21:16 Temperature 97.7 F Pulse Rate 87 87 84 Respiratory Rate 16 23 H 15 Blood Pressure 130/55 L 145/71 H 140/69 H Pulse Oximetry 96 95 96 Oxygen Delivery Method Room Air Room Air Room Air Oxygen Flow Rate 09/20/24 21:37 09/20/24 21:40 09/20/24 21:46 Temperature 97.9 F 98.1 F Pulse Rate 90 91 88 Respiratory Rate 19 15 24 H Blood Pressure 145/64 H 166/72 H 149/68 H Pulse Oximetry 98 98 96 Oxygen Delivery Method Room Air Room Air Room Air Oxygen Flow Rate 09/20/24 22:19 09/20/24 22:26 09/20/24 23:30 Temperature 98.2 F Pulse Rate 82 86 Respiratory Rate 12 21 H Blood Pressure 129/61 142/74 H Pulse Oximetry 93 91 L 88 L Oxygen Delivery Method Room Air Room Air Room Air Oxygen Flow Rate 09/21/24 00:05 09/21/24 01:46 09/21/24 02:12 Temperature 98.4 F 98.6 F 98.6 F Pulse Rate 85 80 88 Respiratory Rate 19 20 17 Blood Pressure 128/68 135/64 112/53 L Pulse Oximetry 95 99 95 Oxygen Delivery Method Nasal Cannula Nasal Cannula Nasal Cannula Oxygen Flow Rate 2 2 2 BMI result Body Mass Index 17.2 Const Other: Cachectic, disheveled, dirty, contracted Resp Other: Audible crackles, wet cough poor inspiratory effort Cardio Other: Normal peripheral perfusion Skin Other: Neuro Other: Nonverbal, we will look at you when you speak her name General: no focal motor deficits and CN's II-XI intact bilaterally Extrem Other: Bilateral upper extremities are contracted Psych Other: Flat affect Course Reevaluation(s) Reevaluation #1: At 11:37 p.m. on September 20, sepsis focused exam was performed. Blood cultures and lactic were obtained already, adding ceftriaxone. IV fluid therapy was already initiated. Sepsis was prompted by hypothermia, warming blankets in place, nursing placed attempts sensing Granados Time: 20:37 Reevaluation #2: Lactic 1.9 Reevaluation #3: CT scan of the abdomen reveals severe constipation and impaction, ordering an enema Additional Reevaluation(s): I received report from nursing, the patient has spontaneously started having large volume bowel movements Medications Administered Generic Name Dose Route Start Last Admin Trade Name Freq PRN Reason Stop Dose Admin Piperacillin Sod/Tazobactam 50 mls @ 100 mls/hr 09/21/24 03:00 09/21/24 03:20 Sod 3.375 gm/ Sodium Chloride IV 100 mls/hr Q6H KARIME Administration Discontinued Medications Generic Name Dose Route Start Last Admin Trade Name Freq PRN Reason Stop Dose Admin Ceftriaxone Sodium 2 gm 09/20/24 20:37 09/20/24 20:39 Ceftriaxone Sodium 2 Gm Vial IVPUSH 09/20/24 20:38 2 gm ONCE ONE Administration Sodium Chloride 500 mls @ 500 mls/hr 09/20/24 19:50 09/20/24 21:32 Ns IV 09/20/24 20:49 Infused .Q1H ONE Infusion Doxycycline Hyclate 100 mg/ 250 mls @ 166.67 mls/hr 09/20/24 21:41 09/20/24 23:55 Sodium Chloride IV 09/20/24 23:10 Infused ONCE ONE Infusion Iohexol 100 ml 09/20/24 20:07 09/20/24 20:07 Iohexol 350 Mg/Ml 100 Ml Infus..Btl IV 09/20/24 20:08 85 ml ONCE ONE Administration Mineral Oil 133 ml 09/20/24 21:36 09/20/24 22:09 Mineral Oil Enema 133 Ml Enema TX 09/20/24 21:37 Not Given ONCE ONE Procedures Procedure Narrative Procedure Narrative: Ultrasound-guided IV 20 gauge 1.16 in IV placed in left lower extremity. Adequate blood return, flushes well, secured with Tegaderm Need for additional access, 18 gauge 1-3/4 inch IV placed in right upper extremity. Adequate blood return, flushes well secured with Tegaderm. Medical Decision Making Medical Decision Making MDM Narrative: 84-year-old female with a history of severe dementia, diabetes, hypothyroidism, with known stage III sacral ulcer who presents with failure to thrive. Patient was seen by primary care prior to arrival, who sent her here for further assessment. I am gathering my information from the primary care note from today, the son at bedside is not forthcoming about details surrounding his mother's present state of health. Patient was recently hospitalized at [facility] on August 31 and discharged on September 04. Her son brought her there because she had a change in mental status. Patient was managed for hyponatremia, UTI, and TSH of 90.6. She also failed a swallow eval during that time. During her admission, she was made NPO, there was discussion over the need for a feeding tube, the family was advised to have discussion with primary care, she was discharged home. The son still insists that the patient is eating. Furthermore, he states that she ate ?a [employer] hamburger before coming in to the emergency room?. The son further indicates that he has VNA services to the home, and they have been managing her sacral wound. Overall, from the primary care note, there was obvious concern that the family is not caring for the patient, they are not tending to her medical needs nor her nutritional needs. It was recommended that the patient be placed in hospice. The son apparently declined, he was agreeable to bring his mother to the emergency department. She is still a full code, he brought the healthcare proxy with him, his brother is also here at bedside. To note, I attempted to retrieve records from [facility], however medical records is closed, our only hope is to receive records in the morning. Problem: Advanced dementia, diabetes, nonverbal, bed-bound, known sacral ulcer History: Per primary care record I have considered the following differential diagnoses: Failure to thrive, sepsis, myxedema coma, UTI, pneumonia, osteomyelitis, electrolyte abnormality, dehydration, Plan: Thus far the patient's vitals are stable, however we placed attempts sensing Granados, it revealed she is hypothermic. This is likely from her known underlying thyroid dysfunction, she has not been taking her medications. In addition to screening labs we will be adding on TSH and free T4. Now that it is known she is hypothermic, she meets sepsis criteria, we will be adding blood cultures, lactic, giving IV fluid, placing a temperature sensing Granados. I am concerned for pneumonia, she has a audible crackles. I am concerned for potential osteomyelitis over her known sacral ulcer. We will be obtaining a CT scan of the chest and abdomen and pelvis. We will also collect a urine sample, adding on a viral panel. Labs: No overall leukocytosis, left shift noted, not anemic, hemo concentrated, hyponatremic , no additional electrolyte abnormalities, lactic 1.9, TSH 34.89, urine infected, viral panel negative We will be adding on CT brain given the hyponatremia CT abdomen and pelvis:Findings: There is right lower lobe atelectasis and a small right effusion. Severe atherosclerotic disease of the coronary arteries. Prominent elevation of the right hemidiaphragm. The liver, gallbladder, spleen, adrenal glands and pancreas demonstrate no acute process. Kidneys, ureters and bladder are unremarkable. There is severe fecal retention in the rectosigmoid and significant diffuse colonic fecal retention. No small bowel obstruction Skin thickening over the distal sacrum. No definite bone destruction to suggest osteomyelitis. Diffuse degenerative changes within the spine. Old L4 compression fracture suggested. Impression: Severe fecal retention in the rectosigmoid and diffuse fecal retention elsewhere throughout the colon. Impaction suspected. Skin thickening over the sacrum with no definite osteomyelitis. Right lower lobe atelectasis with small right effusion. CT chest:No cardiomegaly. Severe atherosclerotic disease of the coronary arteries. Moderate atherosclerotic disease of the aorta. No dissection or aneurysm. No pericardial effusion. Near-complete atelectasis of the right lower lobe. Small right effusion. Additional patchy ground-glass airspace density throughout the right upper lobe. The left lung is clear. No acute osseous finding. Old compression fracture at T3. Impression: Near-complete right lower lobe atelectasis as well as multifocal right-sided pneumonia. Small right effusion. CT brain: Lab Data 09/20/24 19:09 09/20/24 19:09 Labs: Lab Results 09/20/24 09/20/24 09/20/24 Range/Units 19:07 19:09 19:33 WBC 10.3 (4.8-10.8) X10*3/uL RBC 5.25 (4.20-5.50) X10*6/uL Hgb 16.1 H D (12.0-16.0) g/dl Hct 45.3 (37.0-47.0) % MCV 86.3 (80.0-98.0) fL MCH 30.7 (27.0-33.0) pg MCHC 35.5 H (31.0-35.0) g/dl RDW 14.3 (11.0-16.0) % Plt Count 334 D (160-400) X10*3/uL MPV 9.5 (9.4-12.3) fL Immature Gran % (Auto) 0.9 H (0.0-0.4) % Neut % (Auto) 88.2 H (45-73) % Lymph % (Auto) 6.0 L (20-40) % Warrick % (Auto) 4.2 (2-11) % Eos % (Auto) 0.1 (0-4) % Baso % (Auto) 0.6 (0-2) % Lymph # (Auto) 0.6 L (1.2-4.9) X10*3/uL Warrick # (Auto) 0.4 (0.1-1.2) X10*3/uL Eos # (Auto) 0.0 (0.0-0.4) X10*3/uL Baso # (Auto) 0.1 (0.0-0.2) X10*3/uL Abs Immat Gran (auto) 0.09 H (0.00-0.03) X10*3/uL Absolute Neuts (auto) 9.1 H (2.0-8.3) x10*3/uL Absolute Nucleated RBC 0.000 (0.0-0.012) X10*3/uL Nucleated RBC % (auto) 0.0 (0.0-0.2) /100WBC Sodium 124 L (135-145) mmol/L Potassium 4.7 (3.3-5.1) mmol/L Chloride 84 L (96-108) mmol/L Carbon Dioxide 25 (22-29) mmol/L Anion Gap 20 (12-20) BUN 14 (9-16) mg/dL Creatinine 0.70 (0.5-1.4) mg/dL Estim Creat Clear Calc 35.7 Estimated GFR > 60 Random Glucose 224 H (60-115) mg/dL Lactic Acid 1.9 (0.5-2.0) mmol/L Calcium 9.4 (8.4-10.2) mg/dL Magnesium 1.7 (1.6-2.6) mg/dL Total Bilirubin 1.0 (0.0-1.0) mg/dL AST 31 (5-31) U/L ALT 20 (0-31) U/L Alkaline Phosphatase 127 H (39-117) U/L Total Protein 8.0 (6.5-8.0) g/dL Albumin 4.3 (3.5-5.0) g/dL TSH 34.89 H (0.32-4.0) uIU/mL Free T4 0.94 (0.71-1.85) ng/dL Urine Color Urine Appearance Urine pH (5.0-9.0) Ur Specific [place] (1.005-1.025) Urine Protein (Neg-Trace) mg/dL Urine Glucose (UA) (Negative) mg/dL Urine Ketones (Negative) mg/dL Urine Blood (Negative) Urine Nitrite (Negative) Ur Leukocyte Esterase (Negative) Urine RBC (0-2) /HPF Urine WBC (0-5) /HPF Ur Squamous Epith Cells (0-2) /HPF Urine Bacteria (None Seen) Hyaline Casts (0-2) /LPF Influenza Type A (PCR) NEGATIVE (Negative) Influenza Type B (PCR) NEGATIVE (Negative) RSV RNA Qual (PCR) NEGATIVE (Negative) SARS-CoV-2 RNA (RT-PCR) NEGATIVE (Negative) 09/20/24 Range/Units 20:33 WBC (4.8-10.8) X10*3/uL RBC (4.20-5.50) X10*6/uL Hgb (12.0-16.0) g/dl Hct (37.0-47.0) % MCV (80.0-98.0) fL MCH (27.0-33.0) pg MCHC (31.0-35.0) g/dl RDW (11.0-16.0) % Plt Count (160-400) X10*3/uL MPV (9.4-12.3) fL Immature Gran % (Auto) (0.0-0.4) % Neut % (Auto) (45-73) % Lymph % (Auto) (20-40) % [place]rick % (Auto) (2-11) % Eos % (Auto) (0-4) % Baso % (Auto) (0-2) % Lymph # (Auto) (1.2-4.9) X10*3/uL [place]rick # (Auto) (0.1-1.2) X10*3/uL Eos # (Auto) (0.0-0.4) X10*3/uL Baso # (Auto) (0.0-0.2) X10*3/uL Abs Immat Gran (auto) (0.00-0.03) X10*3/uL Absolute Neuts (auto) (2.0-8.3) x10*3/uL Absolute Nucleated RBC (0.0-0.012) X10*3/uL Nucleated RBC % (auto) (0.0-0.2) /100WBC Sodium (135-145) mmol/L Potassium (3.3-5.1) mmol/L Chloride (96-108) mmol/L Carbon Dioxide (22-29) mmol/L Anion Gap (12-20) BUN (9-16) mg/dL Creatinine (0.5-1.4) mg/dL Estim Creat Clear Calc Estimated GFR Random Glucose (60-115) mg/dL Lactic Acid (0.5-2.0) mmol/L Calcium (8.4-10.2) mg/dL Magnesium (1.6-2.6) mg/dL Total Bilirubin (0.0-1.0) mg/dL AST (5-31) U/L ALT (0-31) U/L Alkaline Phosphatase (39-117) U/L Total Protein (6.5-8.0) g/dL Albumin (3.5-5.0) g/dL TSH (0.32-4.0) uIU/mL Free T4 (0.71-1.85) ng/dL Urine Color Yellow Urine Appearance Cloudy Urine pH 7.0 (5.0-9.0) Ur Specific [place] 1.025 (1.005-1.025) Urine Protein Trace (Neg-Trace) mg/dL Urine Glucose (UA) Negative (Negative) mg/dL Urine Ketones 15 (Negative) mg/dL Urine Blood Small (1+) H (Negative) Urine Nitrite Negative (Negative) Ur Leukocyte Esterase Large (3+) H (Negative) Urine RBC >20 H (0-2) /HPF Urine WBC 11-20 H (0-5) /HPF Ur Squamous Epith Cells 11-20 (0-2) /HPF Urine Bacteria 4+ (None Seen) Hyaline Casts 3-5 (0-2) /LPF Influenza Type A (PCR) (Negative) Influenza Type B (PCR) (Negative) RSV RNA Qual (PCR) (Negative) SARS-CoV-2 RNA (RT-PCR) (Negative) Critical Care Time Critical Care Time Critical Care Time: Yes Total Critical Care Time: 45 Attestation: I Nakita Granados PA-C have personally performed 45 minutes of critical care time not including lines and procedures; sepsis measures, hyponatremia, Discharge Plan Discharge Clinical Impression: Sepsis, Adult failure to thrive, Dementia, Urinary tract infection, Cellulitis, Hypothyroidism, Constipation Patient Disposition: Admitted As Inpatient
--- NOTE | 2024-09-20 22:07 | PC.NURSE ---
per PA Granados, no enema need as patient is actively passing stool at this time.
[2024-09-20 22:11] LABS: Free T4 (Free Thyroxine) 0.94 ng/dL (0.71-1.85)
--- NOTE | 2024-09-20 22:24 | PC.NURSE ---
Pt medicated per [facility] Plan of care ongoing.
--- NOTE | 2024-09-20 22:24 | PC.NURSE ---
Pts son jenelle would like to be called with any updates @ [phone].
[2024-09-21] VITALS (7 sets, daily range): BP systolic 112–160; BP diastolic 53–92; PULSE 80–91; RESP 12–20; TEMP 36.1–37.1; O2SAT 95–100; BMI 17.6
--- NOTE | 2024-09-21 00:08 | PC.NURSE ---
RN to charge station at which time it could be noted that the pt had an O2 sat of 87-88% with a good pleth. Upon arrival to bedside, the pt was found laying on her right side resting comfortably without distress noted as she appeared to be sleeping. The pt was placed on supplemental O2 at 2lpm via NC to assist with O2 support while sleeping with positive effect. Provider to be made aware.
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
[2024-09-21] MEDS: Dextrose 5 % and Lactated Ring 1,000 ML 50 ML IVCONT (05:38)
[2024-09-21 05:39] LABS: MANUAL DIFF FLAG NO
[2024-09-21 05:41] LABS: Hematocrit 36.5 % (37.0-47.0); Hemoglobin 12.9 g/dl (12.0-16.0); Imm Gran Abs Auto 0.04 X10*3/uL (0.00-0.03); Imm Gran Pct Auto 0.5 % (0.0-0.4); Lymphocytes Absolute Auto 1.0 X10*3/uL (1.2-4.9); Mean Corpuscular HGB Conc 35.3 g/dl (31.0-35.0); Mean Corpuscular Hemoglobin 30.5 pg (27.0-33.0); Mean Corpuscular Volume 86.3 fL (80.0-98.0); NRBC Abs Auto 0.000 X10*3/uL (0.0-0.012); NRBC Pct Auto 0.0 /100WBC (0.0-0.2); Platelet Count 254 X10*3/uL (160-400); Red Blood Count 4.23 X10*6/uL (4.20-5.50); White Blood Count 7.6 X10*3/uL (4.8-10.8)
[2024-09-21 05:57] LABS: Alanine Aminotransferase 10 U/L (0-31); Albumin Level 3.1 g/dL (3.5-5.0); Alkaline Phosphatase 93 U/L (39-117); Anion Gap 14 (12-20); Aspartate Amino Transferase 20 U/L (5-31); Blood Urea Nitrogen 12 mg/dL (9-16); Calcium 8.0 mg/dL (8.4-10.2); Carbon Dioxide 25 mmol/L (22-29); Chloride 93 mmol/L (96-108); Creatinine Clr Calc Pharmacy 46.3; Estimated Glomerular Filt Rate > 60; Potassium 3.6 mmol/L (3.3-5.1); Sodium 128 mmol/L (135-145); Total Protein 5.8 g/dL (6.5-8.0)
--- NOTE | 2024-09-21 07:24 | PC.NURSE ---
patient awake, non verbal to this nurse, surgery at bedside-evaluated wound and did digital stool removal- pt tolerated well. pt cardiac nurse intact- nsr on monitor vss, rr equal/non labored- lungs clear at this time despite cough, mckeon cath patient/draining clear yellow urine, turned/positioned, IVF running per order, pt medicated per order, call singh within reach, plan of care ongoing
[2024-09-21 07:40] LABS: Glucose, Whole Blood 133 mg/dL (60-115)
--- NOTE | 2024-09-21 08:14 | HO.PM.IMPN ---
Subjective Subjective Date of Service: 09/21/24 Review of Systems Review of Systems: Yes Unobtainable due to mental condition Physical Exam Exam: Exam: Alert, nonverbal, non participatory, contracted, decubitus ulcer, decreased breath sounds on right Vital Signs: Vital Signs: Last Vital Signs Temp 98.4 F 09/21/24 05:08 Pulse 88 09/21/24 05:08 Resp 16 09/21/24 05:08 BP 123/66 09/21/24 05:08 Pulse Ox 99 09/21/24 05:08 O2 Del Method Nasal Cannula 09/21/24 05:08 O2 Flow Rate 2 09/21/24 05:08 BMI result Body Mass Index 17.2 Objective Data Active Medications Acetaminophen (Acetaminophen 325 Mg Tablet) 650 mg PO Q6H PRN PRN Reason: Pain, Mild 1-3,fever,headache Calcium Carbonate (Calcium Carbonate 750 Mg Tab.Chew) 750 mg PO Q4H PRN PRN Reason: Heartburn Dextrose (Dextrose 50 % 25 Gm/50 Ml Syringe) 25 gm IVPUSH Q15M PRN; Protocol PRN Reason: per Hypoglycemia Standing Ord. Glucose (Glucose Gel 15 Gm Gel..Gram.) 15 gm PO Q15M PRN; Protocol PRN Reason: per Hypoglycemia Standing Ord. Piperacillin Sod/Tazobactam (Sod 3.375 gm/ Sodium Chloride) 50 mls @ 100 mls/hr IV Q6H [facility] Last Infusion: 09/21/24 03:58 Dose: Infused Documented By: NITHIN Vancomycin HCl 500 mg/ Sodium (Chloride) 110 mls @ 110 mls/hr IV Q12H [facility] Sodium Chloride (Ns) 1,000 mls @ 75 mls/hr IVCONT .[id number] [facility] Last Admin: 09/21/24 07:56 Dose: 75 mls/hr Documented By: LACEY Insulin Human Lispro (Insulin Lispro 100 Unit/Ml 3 Ml Vial) 0 unit SUBCUT QIDACHS [facility]; Protocol Last Admin: 09/21/24 07:50 Dose: Not Given Documented By: LACEY Non-Admin Reason: No Insulin Coverage Levothyroxine Sodium (Levothyroxine Sodium 100 Mcg/5 Ml Vial) 50 mcg IVPUSH DAILY@0600 [facility] Last Admin: 09/21/24 07:21 Dose: 50 mcg Documented By: LACEY Magnesium Hydroxide (Milk Of Magnesia 30 Ml Oral.Susp) 30 ml PO DAILY PRN PRN Reason: Constipation Melatonin (Melatonin 3 Mg Tablet) 6 mg PO BEDTIME PRN PRN Reason: Insomnia Pharmacy Consult (Consult Rx Vancomycin Dosing) 1 each MISCELLANE DAILY PRN PRN Reason: Consult order Sodium Chloride (0.9 % Sodium Chloride Flush 3 Ml Syringe) 3 ml IVFLUSH QSHIFT [facility] Last Admin: 09/21/24 06:58 Dose: Not Given Documented By: LACEY Non-Admin Reason: IV Running Labs 09/21/24 05:17 09/21/24 05:17 Labs: Laboratory Results - last 24 hr 09/20/24 09/20/24 09/20/24 19:07 19:09 19:33 MCV 86.3 MCH 30.7 MCHC 35.5 H RDW 14.3 Plt Count 334 D MPV 9.5 Immature Gran % (Auto) 0.9 H Neut % (Auto) 88.2 H Lymph % (Auto) 6.0 L [place] % (Auto) 4.2 Eos % (Auto) 0.1 Baso % (Auto) 0.6 Lymph # (Auto) 0.6 L [place] # (Auto) 0.4 Eos # (Auto) 0.0 Baso # (Auto) 0.1 Abs Immat Gran (auto) 0.09 H Absolute Neuts (auto) 9.1 H Absolute Nucleated RBC 0.000 Nucleated RBC % (auto) 0.0 Anion Gap 20 Estim Creat Clear Calc 35.7 Estimated GFR > 60 POC Glucose Random Glucose 224 H Lactic Acid 1.9 Calcium 9.4 Magnesium 1.7 Total Bilirubin 1.0 AST 31 ALT 20 Alkaline Phosphatase 127 H Total Protein 8.0 Albumin 4.3 TSH 34.89 H Free T4 0.94 Urine Color Urine Appearance Urine pH Ur Specific [place] Urine Protein Urine Glucose (UA) Urine Ketones Urine Blood Urine Nitrite Ur Leukocyte Esterase Urine RBC Urine WBC Ur Squamous Epith Cells Urine Bacteria Hyaline Casts Urine Osmolality Ur Random Sodium Influenza Type A (PCR) NEGATIVE Influenza Type B (PCR) NEGATIVE RSV RNA Qual (PCR) NEGATIVE SARS-CoV-2 RNA (RT-PCR) NEGATIVE 09/20/24 09/21/24 09/21/24 20:33 05:17 07:37 MCV 86.3 MCH 30.5 MCHC 35.3 H RDW 14.3 Plt Count 254 MPV 9.0 L Immature Gran % (Auto) 0.5 H Neut % (Auto) 77.8 H Lymph % (Auto) 13.1 L [place] % (Auto) 7.8 Eos % (Auto) 0.4 Baso % (Auto) 0.4 Lymph # (Auto) 1.0 L [place] # (Auto) 0.6 Eos # (Auto) 0.0 Baso # (Auto) 0.0 Abs Immat Gran (auto) 0.04 H Absolute Neuts (auto) 5.9 Absolute Nucleated RBC 0.000 Nucleated RBC % (auto) 0.0 Anion Gap 14 Estim Creat Clear Calc 46.3 Estimated GFR > 60 POC Glucose 133 H Random Glucose 131 H Lactic Acid Calcium 8.0 L D Magnesium Total Bilirubin 0.5 AST 20 ALT 10 Alkaline Phosphatase 93 Total Protein 5.8 L Albumin 3.1 L TSH Free T4 Urine Color Yellow Urine Appearance Cloudy Urine pH 7.0 Ur Specific [place] 1.025 Urine Protein Trace Urine Glucose (UA) Negative Urine Ketones 15 Urine Blood Small (1+) H Urine Nitrite Negative Ur Leukocyte Esterase Large (3+) H Urine RBC >20 H Urine WBC 11-20 H Ur Squamous Epith Cells 11-20 Urine Bacteria 4+ Hyaline Casts 3-5 Urine Osmolality Ur Random Sodium Influenza Type A (PCR) Influenza Type B (PCR) RSV RNA Qual (PCR) SARS-CoV-2 RNA (RT-PCR) 09/21/24 07:44 MCV MCH MCHC RDW Plt Count MPV Immature Gran % (Auto) Neut % (Auto) Lymph % (Auto) [place] % (Auto) Eos % (Auto) Baso % (Auto) Lymph # (Auto) [place] # (Auto) Eos # (Auto) Baso # (Auto) Abs Immat Gran (auto) Absolute Neuts (auto) Absolute Nucleated RBC Nucleated RBC % (auto) Anion Gap Estim Creat Clear Calc Estimated GFR POC Glucose Random Glucose Lactic Acid Calcium Magnesium Total Bilirubin AST ALT Alkaline Phosphatase Total Protein Albumin TSH Free T4 Urine Color Urine Appearance Urine pH Ur Specific [place] Urine Protein Urine Glucose (UA) Urine Ketones Urine Blood Urine Nitrite Ur Leukocyte Esterase Urine RBC Urine WBC Ur Squamous Epith Cells Urine Bacteria Hyaline Casts Urine Osmolality 348 L Ur Random Sodium 45.0 Influenza Type A (PCR) Influenza Type B (PCR) RSV RNA Qual (PCR) SARS-CoV-2 RNA (RT-PCR) Assessment and Plan (1) Hypothyroidism: Status: Acute Plan 84F PMH advanced Alzheimer dementia with severe protein calorie malnutrition, nonverbal, hypothyroid, sacral decubitus ulcer sent by PCP for failure to thrive, hyponatremia, infected ulcer Advanced Alzheimer's dementia with failure to thrive, severe protein calorie malnutrition, dysphagia Currently NPO, we will likely there need feeding tube versus hospice Speech eval Aspiration pneumonia Not septic Continue vancomycin and Zosyn Stage III decubitus ulcer with surrounding cellulitis Vancomycin Zosyn, wound care Hypothyroid Continue Synthroid IV Diabetes Insulin sliding scale DVT prophylaxis with heparin subQ Full code reason for continued hospitalization: IV antibiotics, NPO Quality Stroke Does the patient have a stroke diagnosis?: No VTE Prior VTE?: No VTE Risk Level:: Medical - moderate - high VTE Device Contraindication: Treatment Not Indicated VTE Drug Contraindication: N/A - Med Ordered
--- NOTE | 2024-09-21 08:24 | PHA.MEDREC ---
Addendum entered by Ganesh Madden PharmD 09/21/24 08:27: reviewed Original Note: Pharmacy Consult ? Medication Reconciliation Pharmacy has completed the medication reconciliation. Spoke to patients manpreet Rosas to confirm med list. Son states patient only takes Levothyroxine 100 mcg and Metformin 1,000 mg. Son states patient last had her medications 09/19/24.
--- NOTE | 2024-09-21 08:37 | PM.CNGS ---
History of Present Illness Consult details Consult date: 09/21/24 Reason for consult: other (fecal impaction ) Narrative: History obtained from EMR. 84 year old female with PMH of advanced Alzheimer dementia, nonverbal, severe protein calorie malnutrition, hypothyroid, sacral decubitus ulcer brought to ED by family. She had a recent admission to [facility] for UTI. She had a follow-up appointment with the PCP yesterday and was sent to the ED with concern for failure to thrive, hyponatremia, concern for infected sacral ulcer. She was admitted to the hospitalist service for failure to thrive with severe protein calorie malnutrition, dysphagia and aspiration pneumonia. She had a CT scan abd pelvis as part of her work up which showed colon full of stool throughout with severe fecal retention in the rectosigmoid. General surgery was consulted for fecal impaction. RN at bedside reports she has been having soft bowel movements. Review of Systems Review of Systems: Yes Unobtainable due to mental condition PMFSH Past Medical History Medical History Hypertension Osteoporosis Hearing decreased Hypothyroid Diabetes Family History Family History Father CAD (coronary artery disease) CVD (cardiovascular disease) Mother Lymphoma Cancer Sister Thyroid disorder Other Substance use disorder Surgical History Surgical History History of lumpectomy of right breast Social History Social History Housing: House Unable to assess alcohol history related to: Unable to respond Patient Tobacco Use Status: Never used Tobacco Smoked in Last 30 Days: No Second Hand Smoke Exposure: Yes Use of substances other than those prescribed or required for medical reasons: No Advance Directives: Yes Advance Directives on File: Yes Advance Directives Date on File: 09/20/24 Do you have a plan to hurt others: No Plan Current occupational status: retired [employer] Allergies Allergy/AdvReac Type Severity Reaction Status Date / Time No Known Allergies (No Known Allergy Verified 09/20/24 18:31 Allergies*) Active Medications: Current Medications Acetaminophen (Acetaminophen 325 Mg Tablet) 650 mg PO Q6H PRN PRN Reason: Pain, Mild 1-3,fever,headache Calcium Carbonate (Calcium Carbonate 750 Mg Tab.Chew) 750 mg PO Q4H PRN PRN Reason: Heartburn Dextrose (Dextrose 50 % 25 Gm/50 Ml Syringe) 25 gm IVPUSH Q15M PRN; Protocol PRN Reason: per Hypoglycemia Standing Ord. Glucose (Glucose Gel 15 Gm Gel..Gram.) 15 gm PO Q15M PRN; Protocol PRN Reason: per Hypoglycemia Standing Ord. Piperacillin Sod/Tazobactam (Sod 3.375 gm/ Sodium Chloride) 50 mls @ 100 mls/hr IV Q6H [facility] Last Admin: 09/21/24 08:17 Dose: 100 mls/hr Vancomycin HCl 500 mg/ Sodium (Chloride) 110 mls @ 110 mls/hr IV Q12H [facility] Sodium Chloride (Ns) 1,000 mls @ 75 mls/hr IVCONT .[id number] [facility] Last Admin: 09/21/24 07:56 Dose: 75 mls/hr Insulin Human Lispro (Insulin Lispro 100 Unit/Ml 3 Ml Vial) 0 unit SUBCUT QIDACHS [facility]; Protocol Last Admin: 09/21/24 07:50 Dose: Not Given Levothyroxine Sodium (Levothyroxine Sodium 100 Mcg/5 Ml Vial) 50 mcg IVPUSH DAILY@0600 [facility] Last Admin: 09/21/24 07:21 Dose: 50 mcg Magnesium Hydroxide (Milk Of Magnesia 30 Ml Oral.Susp) 30 ml PO DAILY PRN PRN Reason: Constipation Melatonin (Melatonin 3 Mg Tablet) 6 mg PO BEDTIME PRN PRN Reason: Insomnia Pharmacy Consult (Consult Rx Vancomycin Dosing) 1 each MISCELLANE DAILY PRN PRN Reason: Consult order Sodium Chloride (0.9 % Sodium Chloride Flush 3 Ml Syringe) [facility] Last Admin: 09/21/24 06:58 Dose: Not Given Home Medications ?Medication ?Instructions ?Recorded ?Confirmed ?Last Taken ?Type levothyroxine 100 mcg tablet 100 mcg PO DAILY@0600 09/21/24 09/21/24 09/19/24 History Physical Exam Vital Signs: Vital Signs: Last Vital Signs Temp 98.4 F 09/21/24 05:08 Pulse 88 09/21/24 05:08 Resp 16 09/21/24 05:08 BP 123/66 09/21/24 05:08 Pulse Ox 99 09/21/24 05:08 O2 Del Method Nasal Cannula 09/21/24 05:08 O2 Flow Rate 2 09/21/24 05:08 BMI result Body Mass Index 17.2 Const: Nutritional Appearance: cachectic GI: Other: large amount of soft brown stool in rectal vault, gentle disimpaction performed with evacuation of moderate amount of stool Back/Spine/Pelvis: Other: sacral decubitus ulcer with shallow ulceration into subq tissue with mild surrounding erythema, no necrotic tissue Results Labs 09/21/24 05:17 09/21/24 05:17 Labs: Abnormal lab results 09/20/24 09/20/24 09/21/24 Range/Units 19:09 20:33 05:17 Hgb 16.1 H D (12.0-16.0) g/dl Hct 36.5 L (37.0-47.0) % MCHC 35.5 H 35.3 H (31.0-35.0) g/dl MPV 9.0 L (9.4-12.3) fL Immature Gran % (Auto) 0.9 H 0.5 H (0.0-0.4) % Neut % (Auto) 88.2 H 77.8 H (45-73) % Lymph % (Auto) 6.0 L 13.1 L (20-40) % Lymph # (Auto) 0.6 L 1.0 L (1.2-4.9) X10*3/uL Abs Immat Gran (auto) 0.09 H 0.04 H (0.00-0.03) X10*3/uL Absolute Neuts (auto) 9.1 H (2.0-8.3) x10*3/uL Sodium 124 L 128 L (135-145) mmol/L Chloride 84 L 93 L (96-108) mmol/L POC Glucose (60-115) mg/dL Random Glucose 224 H 131 H (60-115) mg/dL Calcium 8.0 L D (8.4-10.2) mg/dL Alkaline Phosphatase 127 H (39-117) U/L Total Protein 5.8 L (6.5-8.0) g/dL Albumin 3.1 L (3.5-5.0) g/dL TSH 34.89 H (0.32-4.0) uIU/mL Urine Blood Small (1+) H (Negative) Ur Leukocyte Esterase Large (3+) H (Negative) Urine RBC >20 H (0-2) /HPF Urine WBC 11-20 H (0-5) /HPF Urine Osmolality (373-1093) mosm/kg 09/21/24 09/21/24 Range/Units 07:37 07:44 Hgb (12.0-16.0) g/dl Hct (37.0-47.0) % MCHC (31.0-35.0) g/dl MPV (9.4-12.3) fL Immature Gran % (Auto) (0.0-0.4) % Neut % (Auto) (45-73) % Lymph % (Auto) (20-40) % Lymph # (Auto) (1.2-4.9) X10*3/uL Abs Immat Gran (auto) (0.00-0.03) X10*3/uL Absolute Neuts (auto) (2.0-8.3) x10*3/uL Sodium (135-145) mmol/L Chloride (96-108) mmol/L POC Glucose 133 H (60-115) mg/dL Random Glucose (60-115) mg/dL Calcium (8.4-10.2) mg/dL Alkaline Phosphatase (39-117) U/L Total Protein (6.5-8.0) g/dL Albumin (3.5-5.0) g/dL TSH (0.32-4.0) uIU/mL Urine Blood (Negative) Ur Leukocyte Esterase (Negative) Urine RBC (0-2) /HPF Urine WBC (0-5) /HPF Urine Osmolality 348 L (373-1093) mosm/kg Short CBC 09/20/24 09/21/24 Range/Units 19:09 05:17 WBC 10.3 7.6 (4.8-10.8) X10*3/uL Hgb 16.1 H D 12.9 (12.0-16.0) g/dl Hct 45.3 36.5 L (37.0-47.0) % Plt Count 334 D 254 (160-400) X10*3/uL BMP 09/20/24 09/21/24 19:09 05:17 Sodium 124 L 128 L Potassium 4.7 3.6 D Chloride 84 L 93 L Carbon Dioxide 25 25 BUN 14 12 Creatinine 0.70 0.54 Calcium 9.4 8.0 L D Liver Function 09/20/24 09/21/24 Range/Units 19:09 05:17 Total Bilirubin 1.0 0.5 (0.0-1.0) mg/dL AST 31 20 (5-31) U/L ALT 20 10 (0-31) U/L Alkaline Phosphatase 127 H 93 (39-117) U/L Albumin 4.3 3.1 L (3.5-5.0) g/dL Urine 09/20/24 Range/Units 20:33 Urine Color Yellow Urine Appearance Cloudy Urine pH 7.0 (5.0-9.0) Ur Specific [place] 1.025 (1.005-1.025) Urine Protein Trace (Neg-Trace) mg/dL Urine Glucose (UA) Negative (Negative) mg/dL All other labs normal. Imaging Abdomen CT scan report/results: report reviewed and image reviewed Assessment and Plan (1) Constipation: Status: Acute (2) 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: Status: Acute Plan 84 year old female with PMH of advanced Alzheimer dementia, nonverbal, severe protein calorie malnutrition, hypothyroid, sacral decubitus ulcer admitted for failure to thrive, hyponatremia, sacral ulcer with surrounding cellulitis. Colon FOS on imaging with large stool burden in rectosigmoid. She is having soft, formed bowel movements per nursing staff however she did have a large amount of soft stool in her rectal vault which was gently disimpacted. Would recommend bowel regimen once able to tolerate oral intake. Stage III decubitus ulcer with surrounding cellulitis- no necrotic tissue to debride currently. Recommend allevyn foam pad, frequent repositioning and offloading, wound care consult for further recommendations. Procedures Date of Service Date of Service: 09/21/24
--- NOTE | 2024-09-21 09:03 | MHC.CM.PN ---
Patient has Advanced Alzheimer's Dementia and is non-verbal; CM spoke with listed Primary Contact/Son/ Ralph at [phone] and addressed IMM with him (original will be mailed certified letter to Son and a copy placed on the chart). Patient lives in a house with her Son/Ralph and is active with a VNA for sacral ulcer wound care;Son does not know the name of the VNA(CM awaits a return call from PCP/[facility] TE[facility]NICIAN Cameron Ferrera's office with the name of the VNA). Son's goal is for Patient to return home and resume existing services. CM has initiated and will follow for dc planning. There is documentation that questions if Patient is receiving adequate care/nutrition at home; an [facility] may be helpful if Patient does return home. CM will follow. [facility]/Ralph will transport to home and [facility] is the Primary HCP.
--- NOTE | 2024-09-21 10:13 | HO.SKINPHOTO ---
Location: Category: Stage: Length: Width: Depth: cm Location: Category: Stage: Length: Width: Depth: cm Location: Category: Stage: Length: Width: Depth: cm Location: Category: Stage: Length: Width: Depth: cm Location: Category: Stage: Length: Width: Depth: cm Location: Category: Stage: Length: Width: Depth: cm
--- NOTE | 2024-09-21 10:35 | MHC.SLORD ---
Speech Language Pathology Order Status: Order received for bedside dysphagia evaluation. Nursing staff were unable to complete RN swallow screening in the ED d/t difficulty positioning patient, therefore patient is NPO pending [employer] eval. Patient was unkempt on presentation when seen by PCP, covered in feces, and reportedly has not been eating. RN adjusted patient to sit upright in bed. Patient is contracted, head tucked downward into chest. Patient opened eyes, pumping tongue when lips were brushed, butt closed mouth tightly and would not allow for swabbing or administration of ice chips. Unable to complete clinical swallow evaluation at this time. Notified RN & Dr. Thibodeaux via [place].
[2024-09-21 11:06] LABS: Glucose, Whole Blood 126 mg/dL (60-115)
--- NOTE | 2024-09-21 11:39 | MHC.CLN ---
PT IS SEVERELY MALNOURISHED PT WITH MODERATELY DEPLETED SUBCUTANEOUS FAT AND MUSCLE MASS WITH BMI 17 AND 29% SIGNIFICANT WT LOSS X1 YEAR WITH CHRONIC POOR PO INTAKE IN ADDITION, PT WITH INCREASED NUTRITION RISK R/T PRESSURE INJURY PT IS NPO PENDING SWALLOW EVAL WHEN DIET TO ADVANCE, RECOMMEND ADDING ENSURE BID TO INCREASE KCALS SUPP TO PROVIDE 700KCALS, 40G PROTEIN MONITOR PO INTAKE AND ENCOURAGE SUPPLEMENTS SEE FULL NUTRITION ASSESSMENT
--- NOTE | 2024-09-21 11:40 | P.PNNP_ITS ---
Subjective Subjective Date of Service: 09/21/24 Interval history: 84 y/o female with hypothyroidism, alzheimers, sacral decubitus ulcer, hx UTI, diabetes, chronic hyponatremia, severe protein calorie malnutrition, nonverbal, ESBL infection. Presented 09/20 with altered mental status from PCP office. Imaging suggested pneumonia, also being treated for cellulitis around sacral ulcer. Nephrology consulted for hyponatremia. Serum sodium 124 on presentation, has received IVF and sodium this a.m. is 128 TSH is elevated at 34 on presentation, reportedly higher on previous labs per hospitalist note. urine sodium 45, urine osm 348 this a.m. Patient is in bed, contracted, nonverbal. Son is at bedside, states she lives with other son in [facility], has been caring for her and doing the best he can per son. Physical Exam 2 Vital Signs: Vital Signs: Last Vital Signs Temp 98.8 F 09/21/24 10:29 Pulse 91 09/21/24 10:29 Resp 18 09/21/24 10:29 BP 114/81 09/21/24 10:29 Pulse Ox 97 09/21/24 10:29 O2 Del Method Nasal Cannula 09/21/24 10:29 O2 Flow Rate 2 09/21/24 10:29 BMI result Body Mass Index 17.6 Const: General: no acute distress and awake Resp: Effort & Inspection: normal respiratory effort Auscultation: rhonchi Cardio: Rate: regular rate Rhythm: regular rhythm Heart sounds: S1 normal heart sound present and S2 normal heart sound present Skin: Rashes: no rashes Extrem: General: No edema Objective Data Labs 09/21/24 05:17 09/21/24 05:17 Labs: Laboratory Results - last 24 hr 09/20/24 09/20/24 09/20/24 19:07 19:09 19:33 WBC 10.3 RBC 5.25 Hgb 16.1 H D Hct 45.3 MCV 86.3 MCH 30.7 MCHC 35.5 H RDW 14.3 Plt Count 334 D MPV 9.5 Immature Gran % (Auto) 0.9 H Neut % (Auto) 88.2 H Lymph % (Auto) 6.0 L [place] % (Auto) 4.2 Eos % (Auto) 0.1 Baso % (Auto) 0.6 Lymph # (Auto) 0.6 L [place] # (Auto) 0.4 Eos # (Auto) 0.0 Baso # (Auto) 0.1 Abs Immat Gran (auto) 0.09 H Absolute Neuts (auto) 9.1 H Absolute Nucleated RBC 0.000 Nucleated RBC % (auto) 0.0 Sodium 124 L Potassium 4.7 Chloride 84 L Carbon Dioxide 25 Anion Gap 20 BUN 14 Creatinine 0.70 Estim Creat Clear Calc 35.7 Estimated GFR > 60 POC Glucose Random Glucose 224 H Lactic Acid 1.9 Calcium 9.4 Magnesium 1.7 Total Bilirubin 1.0 AST 31 ALT 20 Alkaline Phosphatase 127 H Total Protein 8.0 Albumin 4.3 TSH 34.89 H Free T4 0.94 Urine Color Urine Appearance Urine pH Ur Specific [employer] Urine Protein Urine Glucose (UA) Urine Ketones Urine Blood Urine Nitrite Ur Leukocyte Esterase Urine RBC Urine WBC Ur Squamous Epith Cells Urine Bacteria Hyaline Casts Urine Osmolality Ur Random Sodium Influenza Type A (PCR) NEGATIVE Influenza Type B (PCR) NEGATIVE RSV RNA Qual (PCR) NEGATIVE SARS-CoV-2 RNA (RT-PCR) NEGATIVE 09/20/24 09/21/24 09/21/24 20:33 05:17 07:37 WBC 7.6 RBC 4.23 Hgb 12.9 Hct 36.5 L MCV 86.3 MCH 30.5 MCHC 35.3 H RDW 14.3 Plt Count 254 MPV 9.0 L Immature Gran % (Auto) 0.5 H Neut % (Auto) 77.8 H Lymph % (Auto) 13.1 L [place] % (Auto) 7.8 Eos % (Auto) 0.4 Baso % (Auto) 0.4 Lymph # (Auto) 1.0 L [place] # (Auto) 0.6 Eos # (Auto) 0.0 Baso # (Auto) 0.0 Abs Immat Gran (auto) 0.04 H Absolute Neuts (auto) 5.9 Absolute Nucleated RBC 0.000 Nucleated RBC % (auto) 0.0 Sodium 128 L Potassium 3.6 D Chloride 93 L Carbon Dioxide 25 Anion Gap 14 BUN 12 Creatinine 0.54 Estim Creat Clear Calc 46.3 Estimated GFR > 60 POC Glucose 133 H Random Glucose 131 H Lactic Acid Calcium 8.0 L D Magnesium Total Bilirubin 0.5 AST 20 ALT 10 Alkaline Phosphatase 93 Total Protein 5.8 L Albumin 3.1 L TSH Free T4 Urine Color Yellow Urine Appearance Cloudy Urine pH 7.0 Ur Specific [employer] 1.025 Urine Protein Trace Urine Glucose (UA) Negative Urine Ketones 15 Urine Blood Small (1+) H Urine Nitrite Negative Ur Leukocyte Esterase Large (3+) H Urine RBC >20 H Urine WBC 11-20 H Ur Squamous Epith Cells 11-20 Urine Bacteria 4+ Hyaline Casts 3-5 Urine Osmolality Ur Random Sodium Influenza Type A (PCR) Influenza Type B (PCR) RSV RNA Qual (PCR) SARS-CoV-2 RNA (RT-PCR) 09/21/24 09/21/24 07:44 11:01 WBC RBC Hgb Hct MCV MCH MCHC RDW Plt Count MPV Immature Gran % (Auto) Neut % (Auto) Lymph % (Auto) [place] % (Auto) Eos % (Auto) Baso % (Auto) Lymph # (Auto) [place] # (Auto) Eos # (Auto) Baso # (Auto) Abs Immat Gran (auto) Absolute Neuts (auto) Absolute Nucleated RBC Nucleated RBC % (auto) Sodium Potassium Chloride Carbon Dioxide Anion Gap BUN Creatinine Estim Creat Clear Calc Estimated GFR POC Glucose 126 H Random Glucose Lactic Acid Calcium Magnesium Total Bilirubin AST ALT Alkaline Phosphatase Total Protein Albumin TSH Free T4 Urine Color Urine Appearance Urine pH Ur Specific [employer] Urine Protein Urine Glucose (UA) Urine Ketones Urine Blood Urine Nitrite Ur Leukocyte Esterase Urine RBC Urine WBC Ur Squamous Epith Cells Urine Bacteria Hyaline Casts Urine Osmolality 348 L Ur Random Sodium 45.0 Influenza Type A (PCR) Influenza Type B (PCR) RSV RNA Qual (PCR) SARS-CoV-2 RNA (RT-PCR) Microbiology Microbiology Results: Microbiology 09/20/24 20:55 Urine clean catch - Clean Catch Midstream Urine Culture - Preliminary No growth to date. Procedures Date of Service Date of Service: 09/21/24 Assessment & Plan Assessment and plan (1) Hyponatremia: Status: Acute Plan Hyponatremia likely multifactorial urine sodium and osm suggest hypothyroidism likely significant contributor to hyponatremia- though may have also been dry on presentation (urine osm and urine sodium collected today) which may have contributed given serum sodium has improved with fluids. recommend continuing thyroid replacement. Recommend continuing IVF. recommend repeating BMP in afternoon for monitoring. Oral fluid restriction of 1.5L/24hrs. Discussed with Dr Fabian. Time Spent With Patient Time: Total time managing care of this patient today ____ minutes. Progress Note: Quality Stroke Does the patient have a stroke diagnosis?: No
[2024-09-21 12:40] LABS: Glucose, Whole Blood 218 mg/dL (60-115)
--- NOTE | 2024-09-21 13:36 | MHC.CM.PN ---
[phone] and confirmed that Patient was admitted yesterday for FTT.
[2024-09-21 13:53] LABS: Anion Gap 13 (12-20); Blood Urea Nitrogen 9 mg/dL (9-16); Calcium 8.1 mg/dL (8.4-10.2); Carbon Dioxide 27 mmol/L (22-29); Chloride 93 mmol/L (96-108); Creatinine Clr Calc Pharmacy 42.7; Estimated Glomerular Filt Rate > 60; Potassium 4.4 mmol/L (3.3-5.1); Sodium 129 mmol/L (135-145)
[2024-09-21] MEDS: 0.9 % Sodium Chloride Flush 3 ML SYRINGE IVFLUSH (16:08)
[2024-09-21 16:20] LABS: Glucose, Whole Blood 147 mg/dL (60-115)
[2024-09-21 21:21] LABS: Glucose, Whole Blood 132 mg/dL (60-115)
[2024-09-22 00:01] VITALS: BP 178/82; PULSE 87; RESP 12; TEMP 36.1; O2SAT 100
[2024-09-22] MEDS: 0.9 % Sodium Chloride Flush 3 ML SYRINGE IVFLUSH ×3 (02:46→21:38)
[2024-09-22 03:34] VITALS: BP 155/76; PULSE 80; RESP 12; TEMP 36; O2SAT 100
[2024-09-22 07:20] LABS: Glucose, Whole Blood 104 mg/dL (60-115)
[2024-09-22 08:00] VITALS: BP 158/79; PULSE 77; RESP 20; TEMP 36.1; O2SAT 100
--- NOTE | 2024-09-22 09:17 | P.PNIM_ITS ---
Subjective Subjective Date of Service: 09/22/24 Review of Systems Review of Systems: Yes Unobtainable due to mental condition Physical Exam 2 Vital Signs: Vital Signs: Last Vital Signs Temp 97.0 F 09/22/24 08:00 Pulse 77 09/22/24 08:00 Resp 20 09/22/24 08:00 BP 158/79 H 09/22/24 08:00 Pulse Ox 100 09/22/24 08:00 O2 Del Method Nasal Cannula 09/22/24 08:00 O2 Flow Rate 2 09/22/24 08:00 BMI result Body Mass Index 17.6 Const: General: no acute distress and awake Resp: Effort & Inspection: normal respiratory effort Auscultation: rhonchi Cardio: Rate: regular rate Rhythm: regular rhythm Heart sounds: S1 normal heart sound present and S2 normal heart sound present Skin: Rashes: no rashes Extrem: General: No edema Objective Data Active Medications Acetaminophen (Acetaminophen 325 Mg Tablet) 650 mg PO Q6H PRN PRN Reason: Pain, Mild 1-3,fever,headache Calcium Carbonate (Calcium Carbonate 750 Mg Tab.Chew) 750 mg PO Q4H PRN PRN Reason: Heartburn Dextrose (Dextrose 50 % 25 Gm/50 Ml Syringe) 25 gm IVPUSH Q15M PRN; Protocol PRN Reason: per Hypoglycemia Standing Ord. Glucose (Glucose Gel 15 Gm Gel..Gram.) 15 gm PO Q15M PRN; Protocol PRN Reason: per Hypoglycemia Standing Ord. Piperacillin Sod/Tazobactam (Sod 3.375 gm/ Sodium Chloride) 50 mls @ 100 mls/hr IV Q6H [facility] Last Infusion: 09/22/24 03:16 Dose: Infused Documented By: THELMA Vancomycin HCl 500 mg/ Sodium (Chloride) 110 mls @ 110 mls/hr IV Q12H [facility] Last Infusion: 09/22/24 04:48 Dose: Infused Documented By: THELMA Sodium Chloride (Ns) 1,000 mls @ 75 mls/hr IVCONT .[id number] [facility] Last Admin: 09/21/24 21:43 Dose: 75 mls/hr Documented By: THELMA Insulin Human Lispro (Insulin Lispro 100 Unit/Ml 3 Ml Vial) 0 unit SUBCUT QIDACHS [facility]; Protocol Last Admin: 09/21/24 21:02 Dose: Not Given Documented By: THELMA Non-Admin Reason: No Insulin Coverage Levothyroxine Sodium (Levothyroxine Sodium 100 Mcg/5 Ml Vial) 50 mcg IVPUSH DAILY@0600 [facility] Last Admin: 09/22/24 05:49 Dose: 50 mcg Documented By: THELMA Magnesium Hydroxide (Milk Of Magnesia 30 Ml Oral.Susp) 30 ml PO DAILY PRN PRN Reason: Constipation Melatonin (Melatonin 3 Mg Tablet) 6 mg PO BEDTIME PRN PRN Reason: Insomnia Pharmacy Consult (Consult Rx Vancomycin Dosing) 1 each MISCELLANE DAILY PRN PRN Reason: Consult order Sodium Chloride (0.9 % Sodium Chloride Flush 3 Ml Syringe) 3 ml IVFLUSH QSHIFT [facility] Last Admin: 09/22/24 02:46 Dose: 3 ml Documented By: THELMA Labs 09/21/24 05:17 09/21/24 13:04 Labs: Laboratory Results - last 24 hr 09/20/24 09/21/24 09/21/24 18:39 11:01 13:04 Anion Gap 13 Estim Creat Clear Calc 42.7 Estimated GFR > 60 POC Glucose 218 H 126 H Random Glucose 138 H Calcium 8.1 L 09/21/24 09/21/24 09/22/24 16:16 21:17 07:11 Anion Gap Estim Creat Clear Calc Estimated GFR POC Glucose 147 H 132 H 104 Random Glucose Calcium Microbiology Microbiology Results: Microbiology 09/20/24 19:09 Blood Culture - Preliminary Blood - Venous No growth after 24 hours. 09/20/24 19:09 Blood Culture - Preliminary Blood - Venous No growth after 24 hours. 09/20/24 20:55 Urine Culture - Preliminary Urine clean catch - Clean Catch Midstream No growth to date. Assessment and Plan (1) Hypothyroidism: Status: Acute Plan 84F PMH advanced Alzheimer dementia with severe protein calorie malnutrition, nonverbal, hypothyroid, sacral decubitus ulcer sent by PCP for failure to thrive, hyponatremia, infected ulcer Advanced Alzheimer's dementia with failure to thrive, severe protein calorie malnutrition, dysphagia Currently NPO, will likely need feeding tube versus hospice, patient's sons to discuss Speech eval Aspiration pneumonia Not septic Continue vancomycin and Zosyn Stage III decubitus ulcer with surrounding cellulitis Vancomycin Zosyn, wound care Hypothyroid Continue Synthroid IV Diabetes Insulin sliding scale DVT prophylaxis with heparin subQ Full code reason for continued hospitalization: IV antibiotics, NPO Quality Stroke Does the patient have a stroke diagnosis?: No VTE Prior VTE?: No VTE Risk Level:: Medical - moderate - high VTE Device Contraindication: Treatment Not Indicated VTE Drug Contraindication: N/A - Med Ordered
[2024-09-22 09:50] LABS: Hematocrit 29.2 % (37.0-47.0); Mean Corpuscular HGB Conc 35.6 g/dl (31.0-35.0); Mean Corpuscular Hemoglobin 31.0 pg (27.0-33.0); Mean Corpuscular Volume 87.2 fL (80.0-98.0); NRBC Abs Auto 0.000 X10*3/uL (0.0-0.012); NRBC Pct Auto 0.0 /100WBC (0.0-0.2); Platelet Count 199 X10*3/uL (160-400); Red Blood Count 3.35 X10*6/uL (4.20-5.50); White Blood Count 5.2 X10*3/uL (4.8-10.8)
[2024-09-22 10:12] LABS: Hemoglobin 10.4 g/dl (12.0-16.0)
[2024-09-22 10:15] LABS: Anion Gap 15 (12-20); Blood Urea Nitrogen 6 mg/dL (9-16); Calcium 7.3 mg/dL (8.4-10.2); Carbon Dioxide 24 mmol/L (22-29); Chloride 98 mmol/L (96-108); Creatinine Clr Calc Pharmacy 54.5; Estimated Glomerular Filt Rate > 60; Magnesium 1.4 mg/dL (1.6-2.6); Potassium 2.8 mmol/L (3.3-5.1); Sodium 134 mmol/L (135-145)
[2024-09-22] MEDS: Magnesium Sulfate/H2O 2 GM/50 ML PIGGYBACK IV (10:58)
[2024-09-22 11:36] LABS: Glucose, Whole Blood 100 mg/dL (60-115)
[2024-09-22 11:53] VITALS: BP 152/77; PULSE 86; RESP 20; TEMP 36.2; O2SAT 100
[2024-09-22] MEDS: Potassium Chloride/H20 10 MEQ/100 ML PIGGYBACK 100 MEQ IV ×4 (12:24→16:36)
[2024-09-22 16:00] VITALS: BP 169/81; PULSE 85; RESP 20; TEMP 36.1; O2SAT 100
[2024-09-22 16:25] LABS: Glucose, Whole Blood 101 mg/dL (60-115)
[2024-09-22 19:18] VITALS: BP 169/77; PULSE 92; RESP 12; TEMP 36.4; O2SAT 100
[2024-09-22 21:36] LABS: Glucose, Whole Blood 84 mg/dL (60-115)
[2024-09-23 00:54] LABS: Glucose, Whole Blood 73 mg/dL (60-115)
[2024-09-23] MEDS: Dextrose 5 % and Lactated Ring 1,000 ML 50 ML IVCONT ×3 (01:15→23:33)
[2024-09-23 03:27] VITALS: BP 131/85; PULSE 87; RESP 12; TEMP 36.5; O2SAT 100
[2024-09-23 05:21] LABS: Glucose, Whole Blood 105 mg/dL (60-115)
[2024-09-23 06:55] LABS: Creatinine Clr Calc Pharmacy 45.7; Estimated Glomerular Filt Rate > 60
[2024-09-23 07:25] LABS: Glucose, Whole Blood 125 mg/dL (60-115)
[2024-09-23 08:00] VITALS: BP 168/81; PULSE 89; RESP 20; TEMP 36.5; O2SAT 98
--- NOTE | 2024-09-23 08:42 | HO.PM.IMPN ---
Subjective Subjective Date of Service: 09/23/24 Review of Systems Review of Systems: Yes Unobtainable due to mental condition Physical Exam Vital Signs: Vital Signs: Last Vital Signs Temp 97.7 F 09/23/24 08:00 Pulse 89 09/23/24 08:00 Resp 20 09/23/24 08:00 BP 168/81 H 09/23/24 08:00 Pulse Ox 98 09/23/24 08:00 O2 Del Method Nasal Cannula 09/23/24 08:00 O2 Flow Rate 2 09/23/24 08:00 BMI result Body Mass Index 17.6 Const: General: no acute distress and awake Resp: Effort & Inspection: normal respiratory effort Auscultation: rhonchi Cardio: Rate: regular rate Rhythm: regular rhythm Heart sounds: S1 normal heart sound present and S2 normal heart sound present Skin: Rashes: no rashes Extrem: General: No edema Objective Data Active Medications Acetaminophen (Acetaminophen 325 Mg Tablet) 650 mg PO Q6H PRN PRN Reason: Pain, Mild 1-3,fever,headache Calcium Carbonate (Calcium Carbonate 750 Mg Tab.Chew) 750 mg PO Q4H PRN PRN Reason: Heartburn Dextrose (Dextrose 50 % 25 Gm/50 Ml Syringe) 25 gm IVPUSH Q15M PRN; Protocol PRN Reason: per Hypoglycemia Standing Ord. Glucose (Glucose Gel 15 Gm Gel..Gram.) 15 gm PO Q15M PRN; Protocol PRN Reason: per Hypoglycemia Standing Ord. Piperacillin Sod/Tazobactam (Sod 3.375 gm/ Sodium Chloride) 50 mls @ 100 mls/hr IV Q6H [facility] Last Infusion: 09/23/24 03:55 Dose: Infused Documented By: THELMA Vancomycin HCl 750 mg/ Sodium (Chloride) 265 mls @ 265 mls/hr IV Q12H [facility] Last Infusion: 09/23/24 05:06 Dose: Infused Documented By: THELMA Dextrose/Lactated Ringer's (D5lr) 1,000 mls @ 50 mls/hr IVCONT .Q20H [facility] Last Admin: 09/23/24 01:15 Dose: 50 mls/hr Documented By: THELMA Insulin Human Lispro (Insulin Lispro 100 Unit/Ml 3 Ml Vial) 0 unit SUBCUT QIDACHS [facility]; Protocol Last Admin: 09/23/24 08:09 Dose: Not Given Documented By: JEREMIAH Non-Admin Reason: No Insulin Coverage Levothyroxine Sodium (Levothyroxine Sodium 100 Mcg/5 Ml Vial) 50 mcg IVPUSH DAILY@0600 [facility] Last Admin: 09/23/24 06:01 Dose: 50 mcg Documented By: THELMA Magnesium Hydroxide (Milk Of Magnesia 30 Ml Oral.Susp) 30 ml PO DAILY PRN PRN Reason: Constipation Melatonin (Melatonin 3 Mg Tablet) 6 mg PO BEDTIME PRN PRN Reason: Insomnia Pharmacy Consult (Consult Rx Vancomycin Dosing) 1 each MISCELLANE DAILY PRN PRN Reason: Consult order Sodium Chloride (0.9 % Sodium Chloride Flush 3 Ml Syringe) 3 ml IVFLUSH QSHIFT [facility] Last Admin: 09/22/24 21:38 Dose: 3 ml Documented By: THELMA Labs 09/22/24 09:38 09/23/24 06:28 Labs: Laboratory Results - last 24 hr 09/22/24 09/22/24 09/22/24 09:38 11:10 13:46 MCV 87.2 MCH 31.0 MCHC 35.6 H RDW 14.3 Plt Count 199 MPV 8.7 L Absolute Nucleated RBC 0.000 Nucleated RBC % (auto) 0.0 Anion Gap 15 Estim Creat Clear Calc 54.5 Estimated GFR > 60 POC Glucose 100 Random Glucose 100 Calcium 7.3 L D Magnesium 1.4 L* Random Vancomycin 12.6 L 09/22/24 09/22/24 09/23/24 16:08 21:32 00:48 MCV MCH MCHC RDW Plt Count MPV Absolute Nucleated RBC Nucleated RBC % (auto) Anion Gap Estim Creat Clear Calc Estimated GFR POC Glucose 101 84 73 Random Glucose Calcium Magnesium Random Vancomycin 09/23/24 09/23/24 09/23/24 05:14 06:28 07:22 MCV MCH MCHC RDW Plt Count MPV Absolute Nucleated RBC Nucleated RBC % (auto) Anion Gap Estim Creat Clear Calc 45.7 Estimated GFR > 60 POC Glucose 105 125 H Random Glucose Calcium Magnesium Random Vancomycin Microbiology Microbiology Results: Microbiology 09/20/24 19:09 Blood Culture - Preliminary Blood - Venous No growth after 48 hours. 09/20/24 19:09 Blood Culture - Preliminary Blood - Venous No growth after 48 hours. 09/20/24 20:55 Urine Culture - Final Urine clean catch - Clean Catch Midstream Assessment and Plan (1) Hypothyroidism: Status: Acute Plan 84F PMH advanced Alzheimer dementia with severe protein calorie malnutrition, nonverbal, hypothyroid, sacral decubitus ulcer sent by PCP for failure to thrive, hyponatremia, infected ulcer Advanced Alzheimer's dementia with failure to thrive, severe protein calorie malnutrition, dysphagia Currently NPO, d/w hcp, jenelle, would like surgical eval for possible Gtube Speech following Aspiration pneumonia Not septic Continue vancomycin and Zosyn Stage III decubitus ulcer with surrounding cellulitis Vancomycin Zosyn, wound care Hypothyroid Continue Synthroid IV Diabetes Insulin sliding scale DVT prophylaxis with heparin subQ Full code reason for continued hospitalization: IV antibiotics, NPO Quality Stroke Does the patient have a stroke diagnosis?: No VTE Prior VTE?: No VTE Risk Level:: Medical - moderate - high VTE Device Contraindication: Treatment Not Indicated VTE Drug Contraindication: N/A - Med Ordered
[2024-09-23] MEDS: 0.9 % Sodium Chloride Flush 3 ML SYRINGE IVFLUSH ×2 (09:44→17:06)
[2024-09-23 11:54] LABS: Glucose, Whole Blood 170 mg/dL (60-115)
[2024-09-23 12:00] VITALS: BP 194/92; PULSE 96; RESP 20; TEMP 36.2; O2SAT 100
--- NOTE | 2024-09-23 14:05 | HE.PHANOTE ---
RE VANCO TROUGH SLIGHTLY ELEVATED. LIKELY STILL WITHIN THERAPEUTIC AUC BUT WILL DECREASE DOSING TO 1250 Q24 AND PUSH NEXT DOSE TO 2200 TONIGHT WITH NEXT LEVEL TO BE DRAWN 09/24 @1999.
[2024-09-23 15:48] VITALS: BP 152/74; PULSE 98; RESP 20; TEMP 36.5; O2SAT 100
[2024-09-23 17:07] LABS: Glucose, Whole Blood 142 mg/dL (60-115)
[2024-09-23 20:00] VITALS: BP 134/70; PULSE 95; RESP 20; TEMP 36.2; O2SAT 100
[2024-09-23 22:13] LABS: Glucose, Whole Blood 157 mg/dL (60-115)
[2024-09-24] VITALS (7 sets, daily range): BP systolic 118–169; BP diastolic 69–89; PULSE 83–102; RESP 14–22; TEMP 36.2–36.7; O2SAT 96–100
[2024-09-24 07:22] LABS: Hematocrit 38.7 % (37.0-47.0); Hemoglobin 13.6 g/dl (12.0-16.0); Mean Corpuscular HGB Conc 35.1 g/dl (31.0-35.0); Mean Corpuscular Hemoglobin 30.9 pg (27.0-33.0); Mean Corpuscular Volume 88.0 fL (80.0-98.0); NRBC Abs Auto 0.000 X10*3/uL (0.0-0.012); NRBC Pct Auto 0.0 /100WBC (0.0-0.2); Platelet Count 316 X10*3/uL (160-400); Red Blood Count 4.40 X10*6/uL (4.20-5.50); White Blood Count 7.2 X10*3/uL (4.8-10.8)
[2024-09-24 07:33] LABS: Glucose, Whole Blood 197 mg/dL (60-115)
--- NOTE | 2024-09-24 07:39 | P.PNGS_ITS ---
Subjective Subjective Date of Service: 09/24/24 <Sruthi Mejia PA-C - Last Filed: 09/24/24 07:55> 09/24/24 <Tuan Shirley MD - Last Filed: 09/24/24 13:01> Interval history: Family requesting PEG tube placement. <Sruthi Mejia PA-C - Last Filed: 09/24/24 07:55> Physical Exam 2 Vital Signs: Vital Signs: Last Vital Signs Temp 97.8 F 09/24/24 07:22 Pulse 102 H 09/24/24 07:22 Resp 20 09/24/24 07:22 BP 118/69 09/24/24 07:22 Pulse Ox 98 09/24/24 07:22 O2 Del Method Nasal Cannula 09/24/24 07:22 O2 Flow Rate 4 09/24/24 07:22 BMI result Body Mass Index 17.6 <Sruthi Mejia PA-C - Last Filed: 09/24/24 07:55> Const: General: no acute distress; No ill appearing <Sruthi Mejia PA-C - Last Filed: 09/24/24 07:55> Nutritional Appearance: cachectic <Sruthi Mejia PA-C - Last Filed: 09/24/24 07:55> Resp: Effort & Inspection: normal respiratory effort <YO Weinstein Last Filed: 09/24/24 07:55> GI: Other: rectal vault with large amount of soft stool, gently disimpacted and removed <Sruthi Mejia PA-C - Last Filed: 09/24/24 07:55> Inspection: Yes normal to inspection, No distended and No scar <Sruthi Mejia PA-C - Last Filed: 09/24/24 07:55> Palpation (GI): Soft to palpation, nontender and no guarding <YO Weinstein Last Filed: 09/24/24 07:55> Percussion: Yes normal to percussion <YO Weinstein Last Filed: 09/24/24 07:55> Objective Data Active Medications Acetaminophen (Acetaminophen 325 Mg Tablet) 650 mg PO Q6H PRN PRN Reason: Pain, Mild 1-3,fever,headache Calcium Carbonate (Calcium Carbonate 750 Mg Tab.Chew) 750 mg PO Q4H PRN PRN Reason: Heartburn Dextrose (Dextrose 50 % 25 Gm/50 Ml Syringe) 25 gm IVPUSH Q15M PRN; Protocol PRN Reason: per Hypoglycemia Standing Ord. Glucose (Glucose Gel 15 Gm Gel..Gram.) 15 gm PO Q15M PRN; Protocol PRN Reason: per Hypoglycemia Standing Ord. Piperacillin Sod/Tazobactam (Sod 3.375 gm/ Sodium Chloride) 50 mls @ 100 mls/hr IV Q6H [facility] Last Infusion: 09/24/24 03:20 Dose: Infused Documented By: FARHAT Dextrose/Lactated Ringer's (D5lr) 1,000 mls @ 50 mls/hr IVCONT .Q20H [facility] Last Admin: 09/23/24 23:33 Dose: 50 mls/hr Documented By: FARHAT Vancomycin HCl 1,250 mg/ (Sodium Chloride) 250 mls @ 166.667 mls/hr IV Q24H [facility] Last Infusion: 09/24/24 00:47 Dose: Infused Documented By: FARHAT Insulin Human Lispro (Insulin Lispro 100 Unit/Ml 3 Ml Vial) 0 unit SUBCUT QIDACHS [facility]; Protocol Last Admin: 09/23/24 22:17 Dose: 2 unit Documented By: FARHAT Levothyroxine Sodium (Levothyroxine Sodium 100 Mcg/5 Ml Vial) 50 mcg IVPUSH DAILY@0600 [facility] Last Admin: 09/24/24 06:07 Dose: 50 mcg Documented By: FARHAT Magnesium Hydroxide (Milk Of Magnesia 30 Ml Oral.Susp) 30 ml PO DAILY PRN PRN Reason: Constipation Melatonin (Melatonin 3 Mg Tablet) 6 mg PO BEDTIME PRN PRN Reason: Insomnia Pharmacy Consult (Consult Rx Vancomycin Dosing) 1 each MISCELLANE DAILY PRN PRN Reason: Consult order Sodium Chloride (0.9 % Sodium Chloride Flush 3 Ml Syringe) 3 ml IVFLUSH QSHIFT [facility] Last Admin: 09/24/24 01:22 Dose: Not Given Documented By: FARHAT Non-Admin Reason: IV Running <Sruthi Mejia PA-C - Last Filed: 09/24/24 07:55> Labs CBC & Chem 7: 09/24/24 06:48 09/24/24 06:48 <Sruthi Mejia PA-C - Last Filed: 09/24/24 07:55> Labs: Laboratory Results - last 24 hr 09/23/24 09/23/24 09/23/24 11:50 13:38 16:52 MCV MCH MCHC RDW Plt Count MPV Absolute Nucleated RBC Nucleated RBC % (auto) POC Glucose 170 H 142 H Random Vancomycin 20.2 H 09/23/24 09/24/24 09/24/24 20:53 06:48 07:19 MCV 88.0 MCH 30.9 MCHC 35.1 H RDW 14.1 Plt Count 316 D MPV 8.9 L Absolute Nucleated RBC 0.000 Nucleated RBC % (auto) 0.0 POC Glucose 157 H 197 H Random Vancomycin <Sruthi Mejia PA-C - Last Filed: 09/24/24 07:55> Procedures Date of Service Date of Service: 09/24/24 <Sruthi Mejia PA-C - Last Filed: 09/24/24 07:55> 09/24/24 <Tuan Shirley MD - Last Filed: 09/24/24 13:01> Progress Note: A&P Assessment and plan (1) Adult failure to thrive: Status: Acute <Sruthi Mejia PA-C - Last Filed: 09/24/24 07:55> Assessment and Plan: Patient is not communicative Failure to thrive with poor oral intake Abdomen is soft and benign No obvious surgical scars Cat scan reviewed - good window for accessing the anterior stomach wall for PEG tube Attempted to call healthcare proxy multiple times today Temporarily on the schedule for PEG tube placement tomorrow in the OR if the family consents Seen and examined independently <Tuan Shirley MD - Last Filed: 09/24/24 13:01> (2) Constipation: Status: Acute <Sruthi Mejia PA-C - Last Filed: 09/24/24 07:55> Assessment and Plan: 84 year old female with PMH of advanced Alzheimer dementia with severe protein calorie malnutrition, nonverbal, hypothyroid, sacral decubitus ulcer sent to the ED by PCP for failure to thrive, hyponatremia, infected ulcer. She was admitted to the hospitalist service for further treatment. Initially seen for fecal impaction with large amount of stool in rectal vault which was gently disimpacted. She has had no further BM since 09/21/24- CT scan shows colon FOS- large amount of stool on rectal exam again which was gently disimpacted again at bedside with large amount of soft stool evacuated. Needs good bowel regimen. Family has requested PEG tube. No hx of abdominal surgeries noted in EMR, no abdominal scars present. Abd very benign- soft, nontender, non distended. CT scan again reviewed and good window for PEG tube placement. Will discuss with family and add tenatively onto OR schedule for tomorrow. <Sruthi Mejia PA-C - Last Filed: 09/24/24 07:55> Time Spent With Patient Time: Total time managing care of this patient today ____ minutes. <Sruthi Mejia PA-C - Last Filed: 09/24/24 07:55> Quality Stroke Does the patient have a stroke diagnosis?: No <Sruthi Mejia PA-C - Last Filed: 09/24/24 07:55> VTE Prior VTE?: No <Sruthi Mejia PA-C - Last Filed: 09/24/24 07:55> VTE Risk Level:: Medical - moderate - high <YO Weinstein Last Filed: 09/24/24 07:55> VTE Device Contraindication: Treatment Not Indicated <YO Weinstein Last Filed: 09/24/24 07:55> VTE Drug Contraindication: N/A - Med Ordered <YO Weinstein Last Filed: 09/24/24 07:55>
[2024-09-24 07:57] LABS: Blood Urea Nitrogen 6 mg/dL (9-16); Creatinine Clr Calc Pharmacy 45.0; Estimated Glomerular Filt Rate > 60; Magnesium 1.5 mg/dL (1.6-2.6)
[2024-09-24] MEDS: 0.9 % Sodium Chloride Flush 3 ML SYRINGE IVFLUSH ×2 (07:59→15:51)
[2024-09-24 08:17] LABS: Anion Gap 15 (12-20); Calcium 8.5 mg/dL (8.4-10.2); Carbon Dioxide 26 mmol/L (22-29); Chloride 95 mmol/L (96-108); Potassium 2.9 mmol/L (3.3-5.1); Sodium 133 mmol/L (135-145)
--- NOTE | 2024-09-24 09:40 | P.PNIM_ITS ---
Subjective Subjective Date of Service: 09/24/24 Review of Systems Review of Systems: Yes Unobtainable due to mental condition Physical Exam 2 Vital Signs: Vital Signs: Last Vital Signs Temp 97.8 F 09/24/24 07:22 Pulse 102 H 09/24/24 07:22 Resp 20 09/24/24 07:22 BP 118/69 09/24/24 07:22 Pulse Ox 98 09/24/24 07:22 O2 Del Method Nasal Cannula 09/24/24 07:22 O2 Flow Rate 4 09/24/24 07:22 BMI result Body Mass Index 17.6 Const: General: no acute distress; No ill appearing Nutritional Appearance: cachectic Resp: Effort & Inspection: normal respiratory effort GI: Other: rectal vault with large amount of soft stool, gently disimpacted and removed Inspection: Yes normal to inspection, No distended and No scar Palpation (GI): Soft to palpation, nontender and no guarding Percussion: Yes normal to percussion Objective Data Active Medications Acetaminophen (Acetaminophen 325 Mg Tablet) 650 mg PO Q6H PRN PRN Reason: Pain, Mild 1-3,fever,headache Calcium Carbonate (Calcium Carbonate 750 Mg Tab.Chew) 750 mg PO Q4H PRN PRN Reason: Heartburn Dextrose (Dextrose 50 % 25 Gm/50 Ml Syringe) 25 gm IVPUSH Q15M PRN; Protocol PRN Reason: per Hypoglycemia Standing Ord. Glucose (Glucose Gel 15 Gm Gel..Gram.) 15 gm PO Q15M PRN; Protocol PRN Reason: per Hypoglycemia Standing Ord. Piperacillin Sod/Tazobactam (Sod 3.375 gm/ Sodium Chloride) 50 mls @ 100 mls/hr IV Q6H [facility] Last Admin: 09/24/24 07:59 Dose: 100 mls/hr Documented By: KELLEE Dextrose/Lactated Ringer's (D5lr) 1,000 mls @ 50 mls/hr IVCONT .Q20H [facility] Last Admin: 09/23/24 23:33 Dose: 50 mls/hr Documented By: FARHAT Vancomycin HCl 1,250 mg/ (Sodium Chloride) 250 mls @ 166.667 mls/hr IV Q24H [facility] Last Infusion: 09/24/24 00:47 Dose: Infused Documented By: FARHAT Magnesium Sulfate (Magnesium Sulfate/H2o) 2 gm in 50 mls @ 25 mls/hr IV ONCE ONE Stop: 09/24/24 10:13 Potassium Chloride (Potassium Chloride/H20) 10 meq in 100 mls @ 100 mls/hr IV Q1H [facility] Stop: 09/24/24 12:14 Insulin Human Lispro (Insulin Lispro 100 Unit/Ml 3 Ml Vial) 0 unit SUBCUT QIDACHS [facility]; Protocol Last Admin: 09/24/24 07:58 Dose: 2 unit Documented By: KELLEE Levothyroxine Sodium (Levothyroxine Sodium 100 Mcg/5 Ml Vial) 50 mcg IVPUSH DAILY@0600 [facility] Last Admin: 09/24/24 06:07 Dose: 50 mcg Documented By: FARHAT Magnesium Hydroxide (Milk Of Magnesia 30 Ml Oral.Susp) 30 ml PO DAILY PRN PRN Reason: Constipation Melatonin (Melatonin 3 Mg Tablet) 6 mg PO BEDTIME PRN PRN Reason: Insomnia Pharmacy Consult (Consult Rx Vancomycin Dosing) 1 each MISCELLANE DAILY PRN PRN Reason: Consult order Sodium Chloride (0.9 % Sodium Chloride Flush 3 Ml Syringe) 3 ml IVFLUSH [facility] Last Admin: 09/24/24 07:59 Dose: 3 ml Documented By: KELLEE Labs 09/24/24 06:48 09/24/24 06:48 Labs: Laboratory Results - last 24 hr 09/23/24 09/23/24 09/23/24 11:50 13:38 16:52 MCV MCH MCHC RDW Plt Count MPV Absolute Nucleated RBC Nucleated RBC % (auto) Anion Gap Estim Creat Clear Calc Estimated GFR POC Glucose 170 H 142 H Random Glucose Calcium Magnesium Random Vancomycin 20.2 H 09/23/24 09/24/24 09/24/24 20:53 06:48 07:19 MCV 88.0 MCH 30.9 MCHC 35.1 H RDW 14.1 Plt Count 316 D MPV 8.9 L Absolute Nucleated RBC 0.000 Nucleated RBC % (auto) 0.0 Anion Gap 15 Estim Creat Clear Calc 45.0 Estimated GFR > 60 POC Glucose 157 H 197 H Random Glucose 191 H Calcium 8.5 D Magnesium 1.5 L Random Vancomycin Assessment and Plan (1) Hypothyroidism: Status: Acute Plan 84F PMH advanced Alzheimer dementia with severe protein calorie malnutrition, nonverbal, hypothyroid, sacral decubitus ulcer sent by PCP for failure to thrive, hyponatremia, infected ulcer Advanced Alzheimer's dementia with failure to thrive, severe protein calorie malnutrition, dysphagia Currently NPO, d/w hcp, jenelle, would like surgical eval for possible Gtube - possibly 09/25/24 with gen surgery Speech following Aspiration pneumonia Not septic Continue vancomycin and Zosyn acute hypokalemia replace and monitor Stage III decubitus ulcer with surrounding cellulitis Vancomycin Zosyn, wound care Hypothyroid Continue Synthroid IV Diabetes Insulin sliding scale DVT prophylaxis with heparin subQ Full code reason for continued hospitalization: IV antibiotics, NPO Quality Stroke Does the patient have a stroke diagnosis?: No VTE Prior VTE?: No VTE Risk Level:: Medical - moderate - high VTE Device Contraindication: Treatment Not Indicated VTE Drug Contraindication: N/A - Med Ordered
--- NOTE | 2024-09-24 10:26 | MHC.CM.PN ---
Per ROUNDS discussion, Patient is not yet medically cleared for dc (PEG tomorrow); Patient may benefit from a PT Eval to assist with disposition.CM will continue to follow.
[2024-09-24] MEDS: Potassium Chloride/H20 10 MEQ/100 ML PIGGYBACK 100 MEQ IV ×4 (10:37→15:49)
[2024-09-24] MEDS: Magnesium Sulfate/H2O 2 GM/50 ML PIGGYBACK IV (10:40)
--- NOTE | 2024-09-24 10:51 | P.PNNP_ITS ---
Subjective Subjective Date of Service: 09/24/24 Interval history: pt here with altered mental status from PCP office. Being treated for failure to thrive, cellulitis around sacral ulcer and hyponatremia. Nephrology following for hyponatremia. Serum sodium 124 on presentation, receiving gentle IVF hydration. Serum sodium 133 today, 134 yesterday. TSH is elevated at 34 on presentation, reportedly higher on previous labs per hospitalist note. urine sodium 45, urine osm 348 on 09/21 Patient is in bed, contracted, nonverbal. Physical Exam 2 Vital Signs: Vital Signs: Last Vital Signs Temp 97.8 F 09/24/24 07:22 Pulse 102 H 09/24/24 07:22 Resp 20 09/24/24 07:22 BP 118/69 09/24/24 07:22 Pulse Ox 98 09/24/24 07:22 O2 Del Method Nasal Cannula 09/24/24 07:22 O2 Flow Rate 4 09/24/24 07:22 BMI result Body Mass Index 17.6 Const: General: no acute distress and awake Resp: Effort & Inspection: normal respiratory effort Auscultation: rhonchi Cardio: Rate: regular rate Rhythm: regular rhythm Heart sounds: S1 normal heart sound present and S2 normal heart sound present Skin: Rashes: no rashes Extrem: General: No edema Objective Data Labs 09/24/24 06:48 09/24/24 06:48 Labs: Laboratory Results - last 24 hr 09/23/24 09/23/24 09/23/24 11:50 13:38 16:52 WBC RBC Hgb Hct MCV MCH MCHC RDW Plt Count MPV Absolute Nucleated RBC Nucleated RBC % (auto) Sodium Potassium Chloride Carbon Dioxide Anion Gap BUN Creatinine Estim Creat Clear Calc Estimated GFR POC Glucose 170 H 142 H Random Glucose Calcium Magnesium Random Vancomycin 20.2 H 09/23/24 09/24/24 09/24/24 20:53 06:48 07:19 WBC 7.2 RBC 4.40 D Hgb 13.6 D Hct 38.7 D MCV 88.0 MCH 30.9 MCHC 35.1 H RDW 14.1 Plt Count 316 D MPV 8.9 L Absolute Nucleated RBC 0.000 Nucleated RBC % (auto) 0.0 Sodium 133 L Potassium 2.9 L* Chloride 95 L Carbon Dioxide 26 Anion Gap 15 BUN 6 L Creatinine 0.57 Estim Creat Clear Calc 45.0 Estimated GFR > 60 POC Glucose 157 H 197 H Random Glucose 191 H Calcium 8.5 D Magnesium 1.5 L Random Vancomycin Microbiology Microbiology Results: Microbiology 09/20/24 19:09 Blood - Venous Blood Culture - Preliminary No growth after 48 hours. 09/20/24 19:09 Blood - Venous Blood Culture - Preliminary No growth after 48 hours. 09/20/24 20:55 Urine clean catch - Clean Catch Midstream Urine Culture - Final Procedures Date of Service Date of Service: 09/24/24 Assessment & Plan Assessment and plan (1) Hyponatremia: Status: Acute Plan Hyponatremia likely multifactorial - improving urine sodium and osm suggest hypothyroidism likely significant contributor to hyponatremia- though may have also been dry on presentation (urine osm and urine sodium collected today) which may have contributed given serum sodium has improved with fluids. serum sodium is acceptable, recommend continuing with current regimen, will continue to monitor. recommend continuing thyroid replacement. Recommend continuing IVF. Continue oral fluid restriction of 1.5L/24hrs. Discussed with Dr Costa. Time Spent With Patient Time: Total time managing care of this patient today ____ minutes. Progress Note: Quality Stroke Does the patient have a stroke diagnosis?: No
[2024-09-24 11:15] LABS: Glucose, Whole Blood 135 mg/dL (60-115)
--- NOTE | 2024-09-24 11:18 | MHC.SL.SWA ---
Speech Pathologist Impression: Age-related dysphagia (presbyphagia), significant0 weakness and advanced dementia Risk of Aspiration Due to: Hx of aspiration Weakness FTT Advancing Alzheimer's Dysphasia Diet Status: Liquid Consistency and Strategies for Safe Swallow: Liquid Intake Recommendation: [place] Thick Liquid Intake Strategies: Solid Food Consistency: Dietary Recommendations: Pureed (NDD1) Additional Modifications to Solid Foods: Oral Medication Intake: Crushed with Puree Please contact the pharmacy regarding appropriate crushable or liquid drug formulations that are available whenever modified delivery is recommended. Compensatory Strategies and Precautions to be Taken for Safe Swallow: Supervision While Eating and Drinking for Safe Swallow: Total Assistance (1:1) Foods to Avoid: Swallowing Recommended Treatments: Recommendation for Speech: Inpatient Speech Therapy Comment: Pt is contracted, unable to vocalize, but pt does look at others when spoken to. RN providing care, repositioned pt in upright position. RN and [employer] [facility] spoke to pt during care, and pt maintained excellent eye contact. Pt alert to oral stim task, opening mouth for swab when oral swabbing provided. Oral phase of swallow WFL for trials of small boluses of applesauce, water sips by tsp, water by straw sips, NTL by straw sips and small boluses of ice cream. Pharyngeal phase of swallow unremarkable, but pt showed mild tongue pumping s/p consecutive swallows of thins. Pt is non-verbal; therefore, changes to voicing could not be assessed. It is anticipated pt intake will be limited d/t hx of FTT and advanced stage of dementia. [employer] recc NDD1 with NTL by straw sips, 1:1 feeding, meds crushed in puree, aspiration precautions. Frequency/Duration: M-F daily Date Range for Service Req: Timeline to reassess: Nail Machine Operator Clinican/Clinical Fellow: No Supervisory Statement: I have reviewed and agree with the student/clinical fellow's documentation: N/A Speech Language Pathologist: Natalie Thorpe M.S., [facility]-[employer] [facility]
--- NOTE | 2024-09-24 13:25 | MHC.CLN ---
F/U PT IS SEVERELY MALNOURISHED SEE FULL NUTRITION ASSESSMENT DATED 09/21/24 IN ADDITION, PT WITH INCREASED NUTRITION RISK R/T PRESSURE INJURY DIET ADVANCED TO PUREED WITH NT LIQ PER COMPOUNDING PHARMACY TECHNICIAN RECOMMEND ADDING ENSURE BID TO INCREASE KCALS SUPP TO PROVIDE 700KCALS, 40G PROTEIN MONITOR PO INTAKE AND ENCOURAGE SUPPLEMENTS
[2024-09-24 16:10] LABS: Glucose, Whole Blood 165 mg/dL (60-115)
--- NOTE | 2024-09-24 18:34 | HO.WOUND ---
Wound Consult: Initial 84yr old?female admitted to [facility] [place] on 09/21/24 - See progress notes and H&P for detailed history.? Wound consult placed for coccyx.? Patient agreeable to assessment and photo documentation.? Sacrum Etiology: ?Deep Tissue Injury in Evolution ?Present on Admission Wound Bed: marbled red nonblanchable purple and adherent white yellow slough Edges: ? Irregular Preeti wound: ?MASD No Induration, Fluctuance or Warmth noted Goals of Treatment: ? Off Load Pressure and Triad Recommendations: 1. Turn and Reposition every 2 hours and as needed for patient comfort.? Use pillows or wedges to support off loading positions. 2. Off Load all bony prominences with use of pillows and heel boots if needed.? Apply Preventative foams where needed. ? 3. Monitor for incontinence and moisture control, use barrier creams when needed for prevention and treatment. 4. Provide adequate and supplemental nutrition.? 5. Order low air loss mattress. 6. When applicable maintain blood glucose levels per Providers order. Sacrum - Off Load Pressure with Q2 hr turns and use of willows. Cleanse with NS or PH balanced wipes, pat dry. Apply Triad layer to wound bed and surrounding tissue.? Do not remove all of paste between applications as this may cause further damage to wound bed. Re-consult wound care Nurse for wound deterioration or wound changes.
--- NOTE | 2024-09-24 20:25 | HE.PHANOTE ---
Re: [place] Stable renal function. Trough returned high: 21.4. Dose held for 10 hours and reduced, next dose to start 09/25 @ 0800. New dose to be 1,000mg q24h with predict AUC 559, and predicted trough 16.5. next trough 09/26 @ 0600.
[2024-09-24 20:57] LABS: Glucose, Whole Blood 177 mg/dL (60-115)
[2024-09-25 03:56] VITALS: BP 151/82; PULSE 85; RESP 18; TEMP 36.2; O2SAT 99
[2024-09-25] MEDS: 0.9 % Sodium Chloride Flush 3 ML SYRINGE IVFLUSH ×4 (05:00→21:05)
[2024-09-25] MEDS: Dextrose 5 % and Lactated Ring 1,000 ML 50 ML IVCONT (05:49)
[2024-09-25 07:01] LABS: Hematocrit 39.2 % (37.0-47.0); Hemoglobin 13.7 g/dl (12.0-16.0); Mean Corpuscular HGB Conc 34.9 g/dl (31.0-35.0); Mean Corpuscular Hemoglobin 30.5 pg (27.0-33.0); Mean Corpuscular Volume 87.3 fL (80.0-98.0); NRBC Abs Auto 0.000 X10*3/uL (0.0-0.012); NRBC Pct Auto 0.0 /100WBC (0.0-0.2); Platelet Count 298 X10*3/uL (160-400); Red Blood Count 4.49 X10*6/uL (4.20-5.50); White Blood Count 6.6 X10*3/uL (4.8-10.8)
[2024-09-25 07:24] LABS: Glucose, Whole Blood 170 mg/dL (60-115)
[2024-09-25 07:36] LABS: Anion Gap 11 (12-20); Blood Urea Nitrogen 4 mg/dL (9-16); Calcium 8.4 mg/dL (8.4-10.2); Carbon Dioxide 31 mmol/L (22-29); Chloride 93 mmol/L (96-108); Creatinine Clr Calc Pharmacy 53.4; Estimated Glomerular Filt Rate > 60; Magnesium 1.4 mg/dL (1.6-2.6); Potassium 3.1 mmol/L (3.3-5.1); Sodium 132 mmol/L (135-145)
[2024-09-25 07:55] VITALS: BP 150/81; PULSE 89; RESP 17; TEMP 36.2; O2SAT 100
--- NOTE | 2024-09-25 08:06 | PC.NURSE ---
Pt. kept NPO last evening as pt. w/ mild cough and unable to follow commands. At approx. 2330 pt. desat'd to 85-86%, increased from 1L NC to 3NC and sat's 84-86%; respiration shallow and weak cough. Pt. very rhonchorus on auscultation ARABELLA > RUL and unable to produce. RT in and deep suctioned pt. for large amt of liquid results. O2 sat's up to 99-100% on 3L NC; pt. decreased back to L NC and maintained sat's of 99% remainder of night. NPO after 12am.
[2024-09-25] MEDS: Magnesium Sulfate/H2O 2 GM/50 ML PIGGYBACK IV (08:14)
--- NOTE | 2024-09-25 09:46 | MHC.SLORD ---
Speech Language Pathology Order Status: Pt NPO for PEG placement, therefore not appropriate to participate in PO trials w/ WOMENS VOLLEYBALL COACH.
--- NOTE | 2024-09-25 10:35 | HO.PM.IMPN ---
Subjective Subjective Date of Service: 09/25/24 Review of Systems Review of Systems: Yes Unobtainable due to mental condition Physical Exam Vital Signs: Vital Signs: Last Vital Signs Temp 97.2 F 09/25/24 07:55 Pulse 89 09/25/24 07:55 Resp 17 09/25/24 07:55 BP 150/81 H 09/25/24 07:55 Pulse Ox 100 09/25/24 07:55 O2 Del Method Nasal Cannula 09/25/24 07:55 O2 Flow Rate 2 09/25/24 07:55 BMI result Body Mass Index 17.6 Const: General: no acute distress and awake Resp: Effort & Inspection: normal respiratory effort Auscultation: rhonchi Cardio: Rate: regular rate Rhythm: regular rhythm Heart sounds: S1 normal heart sound present and S2 normal heart sound present Skin: Rashes: no rashes Extrem: General: No edema Objective Data Active Medications Acetaminophen (Acetaminophen 325 Mg Tablet) 650 mg PO Q6H PRN PRN Reason: Pain, Mild 1-3,fever,headache Calcium Carbonate (Calcium Carbonate 750 Mg Tab.Chew) 750 mg PO Q4H PRN PRN Reason: Heartburn Dextrose (Dextrose 50 % 25 Gm/50 Ml Syringe) 25 gm IVPUSH Q15M PRN; Protocol PRN Reason: per Hypoglycemia Standing Ord. Glucose (Glucose Gel 15 Gm Gel..Gram.) 15 gm PO Q15M PRN; Protocol PRN Reason: per Hypoglycemia Standing Ord. Piperacillin Sod/Tazobactam (Sod 3.375 gm/ Sodium Chloride) 50 mls @ 100 mls/hr IV Q6H ON LICENSE OF [facility] Last Infusion: 09/25/24 09:43 Dose: Infused Documented By: BEATRIZ Dextrose/Lactated Ringer's (D5lr) 1,000 mls @ 50 mls/hr IVCONT .Q20H ON LICENSE OF [facility] Last Admin: 09/25/24 05:49 Dose: 50 mls/hr Documented By: FARHAT Vancomycin HCl 1,000 mg/ (Sodium Chloride) 270 mls @ 270 mls/hr IV Q24H ON LICENSE OF [facility] Last Admin: 09/25/24 10:24 Dose: 270 mls/hr Documented By: BEATRIZ Insulin Human Lispro (Insulin Lispro 100 Unit/Ml 3 Ml Vial) 0 unit SUBCUT QIDACHS ON LICENSE OF [facility]; Protocol Last Admin: 09/25/24 09:03 Dose: Not Given Documented By: BEATRIZ Non-Admin Reason: med held pt VALERIO MD loza Levothyroxine Sodium (Levothyroxine Sodium 100 Mcg/5 Ml Vial) 50 mcg IVPUSH DAILY@0600 ON LICENSE OF [facility] Last Admin: 09/25/24 05:36 Dose: 50 mcg Documented By: FARHAT Magnesium Hydroxide (Milk Of Magnesia 30 Ml Oral.Susp) 30 ml PO DAILY PRN PRN Reason: Constipation Melatonin (Melatonin 3 Mg Tablet) 6 mg PO BEDTIME PRN PRN Reason: Insomnia Pharmacy Consult (Consult Rx Vancomycin Dosing) 1 each MISCELLANE DAILY PRN PRN Reason: Consult order Sodium Chloride (0.9 % Sodium Chloride Flush 3 Ml Syringe) 3 ml IVFLUSH QSHIFT ON LICENSE OF [facility] Last Admin: 09/25/24 08:18 Dose: 3 ml Documented By: BEATRIZ Labs 09/25/24 06:25 09/25/24 06:25 Labs: Laboratory Results - last 24 hr 09/24/24 09/24/24 09/24/24 11:06 16:06 19:52 MCV MCH MCHC RDW Plt Count MPV Absolute Nucleated RBC Nucleated RBC % (auto) Anion Gap Estim Creat Clear Calc Estimated GFR POC Glucose 135 H 165 H Random Glucose Calcium Magnesium Random Vancomycin 21.4 H 09/24/24 09/25/24 09/25/24 20:45 06:25 07:18 MCV 87.3 MCH 30.5 MCHC 34.9 RDW 14.3 Plt Count 298 MPV 8.8 L Absolute Nucleated RBC 0.000 Nucleated RBC % (auto) 0.0 Anion Gap 11 L Estim Creat Clear Calc 53.4 Estimated GFR > 60 POC Glucose 177 H 170 H Random Glucose 193 H Calcium 8.4 Magnesium 1.4 L* Random Vancomycin Assessment and Plan (1) Hypothyroidism: Status: Acute Plan 84F PMH advanced Alzheimer dementia with severe protein calorie malnutrition, nonverbal, hypothyroid, sacral decubitus ulcer sent by PCP for failure to thrive, hyponatremia, infected ulcer Advanced Alzheimer's dementia with failure to thrive, severe protein calorie malnutrition, dysphagia d/w hcp, jenelle, would like surgical eval for possible Gtube Speech following - currently recommending pureed with nectar thick liquid, but giving fluctuating mentation, poor intake, and likely decline in abilities, plan to continue to pursue Gtube today Aspiration pneumonia Not septic Continue vancomycin and Zosyn acute hypokalemia, hypomagnesemia replace and monitor Stage III decubitus ulcer with surrounding cellulitis Vancomycin Zosyn, wound care Hypothyroid Continue Synthroid IV Diabetes Insulin sliding scale DVT prophylaxis with heparin subQ Full code reason for continued hospitalization: IV antibiotics, gtube Quality Stroke Does the patient have a stroke diagnosis?: No VTE Prior VTE?: No VTE Risk Level:: Medical - moderate - high VTE Device Contraindication: Treatment Not Indicated VTE Drug Contraindication: N/A - Med Ordered
--- NOTE | 2024-09-25 10:39 | P.PNNP_ITS ---
Subjective Subjective Date of Service: 09/25/24 Interval history: pt here with altered mental status from PCP office. Being treated for failure to thrive, cellulitis around sacral ulcer and hyponatremia. Nephrology following for hyponatremia. Serum sodium 124 on presentation, receiving gentle IVF hydration. Serum sodium 132 today, 133 yesterday. TSH is elevated at 34 on presentation, reportedly higher on previous labs per hospitalist note. urine sodium 45, urine osm 348 on 09/21 Patient is in bed, contracted, nonverbal. Physical Exam 2 Vital Signs: Vital Signs: Last Vital Signs Temp 97.2 F 09/25/24 07:55 Pulse 89 09/25/24 07:55 Resp 17 09/25/24 07:55 BP 150/81 H 09/25/24 07:55 Pulse Ox 100 09/25/24 07:55 O2 Del Method Nasal Cannula 09/25/24 07:55 O2 Flow Rate 2 09/25/24 07:55 BMI result Body Mass Index 17.6 Const: General: no acute distress and awake Resp: Effort & Inspection: normal respiratory effort Auscultation: rhonchi Cardio: Rate: regular rate Rhythm: regular rhythm Heart sounds: S1 normal heart sound present and S2 normal heart sound present Skin: Rashes: no rashes Extrem: General: No edema Objective Data Labs 09/25/24 06:25 09/25/24 06:25 Labs: Laboratory Results - last 24 hr 09/24/24 09/24/24 09/24/24 11:06 16:06 19:52 WBC RBC Hgb Hct MCV MCH MCHC RDW Plt Count MPV Absolute Nucleated RBC Nucleated RBC % (auto) Sodium Potassium Chloride Carbon Dioxide Anion Gap BUN Creatinine Estim Creat Clear Calc Estimated GFR POC Glucose 135 H 165 H Random Glucose Calcium Magnesium Random Vancomycin 21.4 H 09/24/24 09/25/24 09/25/24 20:45 06:25 07:18 WBC 6.6 RBC 4.49 Hgb 13.7 Hct 39.2 MCV 87.3 MCH 30.5 MCHC 34.9 RDW 14.3 Plt Count 298 MPV 8.8 L Absolute Nucleated RBC 0.000 Nucleated RBC % (auto) 0.0 Sodium 132 L Potassium 3.1 L Chloride 93 L Carbon Dioxide 31 H Anion Gap 11 L BUN 4 L Creatinine 0.48 L Estim Creat Clear Calc 53.4 Estimated GFR > 60 POC Glucose 177 H 170 H Random Glucose 193 H Calcium 8.4 Magnesium 1.4 L* Random Vancomycin Microbiology Microbiology Results: Microbiology 09/20/24 19:09 Blood - Venous Blood Culture - Preliminary No growth after 48 hours. 09/20/24 19:09 Blood - Venous Blood Culture - Preliminary No growth after 48 hours. 09/20/24 20:55 Urine clean catch - Clean Catch Midstream Urine Culture - Final Procedures Date of Service Date of Service: 09/25/24 Assessment & Plan Assessment and plan (1) Hyponatremia: Status: Acute Plan Hyponatremia likely multifactorial - stable initial urine sodium and osm suggest hypothyroidism likely significant contributor to hyponatremia- though may have also been dry on presentation (urine osm and urine sodium collected today) which may have contributed given serum sodium has improved with fluids. will get repeat urine osm and urine sodium serum sodium is acceptable, recommend continuing with current regimen, will continue to monitor. recommend continuing thyroid replacement. Recommend replacing potassium and magnesium as needed- hypokalemia likely driven by alkalosis. Recommend continuing IVF. Continue oral fluid restriction of 1.5L/24hrs. Discussed with Dr Costa. Time Spent With Patient Time: Total time managing care of this patient today ____ minutes. Progress Note: Quality Stroke Does the patient have a stroke diagnosis?: No
[2024-09-25 11:50] LABS: Glucose, Whole Blood 160 mg/dL (60-115)
[2024-09-25 11:59] VITALS: BP 172/84; PULSE 82; RESP 16; TEMP 36.5; O2SAT 100
--- NOTE | 2024-09-25 13:42 | MHC.SL.SWA ---
Dysphasia Diet Status: no change Liquid Consistency and Strategies for Safe Swallow: Liquid Intake Recommendation: [place] Thick Solid Food Consistency: Dietary Recommendations: Pureed (NDD1) Oral Medication Intake: Crushed with Puree Please contact the pharmacy regarding appropriate crushable or liquid drug formulations that are available whenever modified delivery is recommended. Compensatory Strategies and Precautions to be Taken for Safe Swallow: Sitting Upright (90 deg) Small Bites and Sips Remain upright 30 min after PO Supervision While Eating and Drinking for Safe Swallow: Total Assistance (1:1) Recommendation for Speech: Inpatient Speech Therapy Comment: Recommend to continue w/ diet recommended by HEATING ELEMENT BUILDER yesterday: puree/nectar thick. 1-1 assist. Pt must be awake, alert, and engaged for PO consumption. Do not feed if pt is not engaged with PO. Remain upright for 30 minutes after meal. Frequency/Duration: M-F daily Reading Aide Clinican/Clinical Fellow: No Supervisory Statement: I have reviewed and agree with the student/clinical fellow's documentation: N/A Speech Language Pathologist: Geraldine Stanley M.A., CCC-HEATING ELEMENT BUILDER
--- NOTE | 2024-09-25 14:14 | HO.WOUND ---
Wound Consult: Follow up 84yr old?female admitted to [facility] on 09/21/24 - See progress notes and H&P for detailed history.? Wound consult placed for coccyx.? Patient agreeable to assessment and photo documentation.? Sacrum Etiology: ?Deep Tissue Injury in Evolution ?Present on Admission Wound Bed: marbled red nonblanchable purple and adherent white yellow slough Edges: ? Irregular Pretei wound: ?MASD with fungal dermatitis No Induration, Fluctuance or Warmth noted Goals of Treatment: ? Off Load Pressure and Triad antifungal powder Recommendations: 1. Turn and Reposition every 2 hours and as needed for patient comfort.? Use pillows or wedges to support off loading positions. 2. Off Load all bony prominences with use of pillows and heel boots if needed.? Apply Preventative foams where needed. ? 3. Monitor for incontinence and moisture control, use barrier creams when needed for prevention and treatment. 4. Provide adequate and supplemental nutrition.? 5. Order low air loss mattress. 6. When applicable maintain blood glucose levels per Providers order. Sacrum - Off Load Pressure with Q2 hr turns and use of willows. Cleanse with NS or PH balanced wipes, pat dry. Apply Triad layer to wound bed and surrounding tissue.? Do not remove all of paste between applications as this may cause further damage to wound bed. Apply antifungal power to assist with moisture management.? Be sure to dust of excess powder to prevent caking on skin and in folds. Apply per provider orders. Re-consult wound care Nurse for wound deterioration or wound changes.
--- NOTE | 2024-09-25 14:51 | PM.PNGS ---
Subjective Subjective Date of Service: 09/25/24 Interval history: No changes in status Patient remains nonverbal Physical Exam Vital Signs: Vital Signs: Last Vital Signs Temp 97.7 F 09/25/24 11:59 Pulse 82 09/25/24 11:59 Resp 16 09/25/24 11:59 BP 172/84 H 09/25/24 11:59 Pulse Ox 100 09/25/24 11:59 O2 Del Method Nasal Cannula 09/25/24 11:59 O2 Flow Rate 4 09/25/24 11:59 BMI result Body Mass Index 17.6 Const: Other: Nonverbal, non communicative, does not appear to be in distress, frail looking Resp: Effort & Inspection: normal respiratory effort Cardio: Rate: regular rate GI: Palpation (GI): Soft to palpation and not firm Objective Data Active Medications Acetaminophen (Acetaminophen 325 Mg Tablet) 650 mg PO Q6H PRN PRN Reason: Pain, Mild 1-3,fever,headache Calcium Carbonate (Calcium Carbonate 750 Mg Tab.Chew) 750 mg PO Q4H PRN PRN Reason: Heartburn Dextrose (Dextrose 50 % 25 Gm/50 Ml Syringe) 25 gm IVPUSH Q15M PRN; Protocol PRN Reason: per Hypoglycemia Standing Ord. Glucose (Glucose Gel 15 Gm Gel..Gram.) 15 gm PO Q15M PRN; Protocol PRN Reason: per Hypoglycemia Standing Ord. Piperacillin Sod/Tazobactam (Sod 3.375 gm/ Sodium Chloride) 50 mls @ 100 mls/hr IV Q6H [facility] Last Infusion: 09/25/24 09:43 Dose: Infused Documented By: BEATRIZ Dextrose/Lactated Ringer's (D5lr) 1,000 mls @ 50 mls/hr IVCONT .Q20H [facility] Last Admin: 09/25/24 05:49 Dose: 50 mls/hr Documented By: FARHAT Vancomycin HCl 1,000 mg/ (Sodium Chloride) 270 mls @ 270 mls/hr IV Q24H [facility] Last Infusion: 09/25/24 11:36 Dose: Infused Documented By: BEATRIZ Insulin Human Lispro (Insulin Lispro 100 Unit/Ml 3 Ml Vial) 0 unit SUBCUT QIDACHS [facility]; Protocol Last Admin: 09/25/24 13:43 Dose: Not Given Documented By: BEATRIZ Non-Admin Reason: pt NPO Levothyroxine Sodium (Levothyroxine Sodium 100 Mcg/5 Ml Vial) 50 mcg IVPUSH DAILY@0600 [facility] Last Admin: 09/25/24 05:36 Dose: 50 mcg Documented By: FARHAT Magnesium Hydroxide (Milk Of Magnesia 30 Ml Oral.Susp) 30 ml PO DAILY PRN PRN Reason: Constipation Melatonin (Melatonin 3 Mg Tablet) 6 mg PO BEDTIME PRN PRN Reason: Insomnia Pharmacy Consult (Consult Rx Vancomycin Dosing) 1 each MISCELLANE DAILY PRN PRN Reason: Consult order Sodium Chloride (0.9 % Sodium Chloride Flush 3 Ml Syringe) 3 ml IVFLUSH QSHIFT [facility] Last Admin: 09/25/24 08:18 Dose: 3 ml Documented By: BEATRIZ Labs 09/25/24 06:25 09/25/24 06:25 Labs: Laboratory Results - last 24 hr 09/24/24 09/24/24 09/24/24 16:06 19:52 20:45 MCV MCH MCHC RDW Plt Count MPV Absolute Nucleated RBC Nucleated RBC % (auto) Anion Gap Estim Creat Clear Calc Estimated GFR POC Glucose 165 H 177 H Random Glucose Calcium Magnesium Random Vancomycin 21.4 H 09/25/24 09/25/24 09/25/24 06:25 07:18 11:41 MCV 87.3 MCH 30.5 MCHC 34.9 RDW 14.3 Plt Count 298 MPV 8.8 L Absolute Nucleated RBC 0.000 Nucleated RBC % (auto) 0.0 Anion Gap 11 L Estim Creat Clear Calc 53.4 Estimated GFR > 60 POC Glucose 170 H 160 H Random Glucose 193 H Calcium 8.4 Magnesium 1.4 L* Random Vancomycin Procedures Date of Service Date of Service: 09/25/24 Progress Note: A&P Assessment and plan (1) Adult failure to thrive: Status: Acute Assessment and Plan: The patient was scheduled for PEG tube placement today I had a long discussion with her sons Both sons Diallo and Ralph have expressed their hesitation with proceeding with any invasive intervention The wanted to hold off on PEG tube placement today They will continue to discuss among the 2 of them as to whether they will proceed or not I will touch base with him again tomorrow Time Spent With Patient Time: Total time managing care of this patient today ____ minutes. Quality Stroke Does the patient have a stroke diagnosis?: No VTE Prior VTE?: No VTE Risk Level:: Medical - moderate - high VTE Device Contraindication: Treatment Not Indicated VTE Drug Contraindication: N/A - Med Ordered
[2024-09-25 15:35] VITALS: BP 179/89; PULSE 82; RESP 16; TEMP 36.3; O2SAT 100
[2024-09-25 16:31] LABS: Glucose, Whole Blood 193 mg/dL (60-115)
[2024-09-25 20:00] VITALS: BP 166/82; PULSE 92; RESP 18; TEMP 36.2; O2SAT 98
[2024-09-25 20:34] LABS: Glucose, Whole Blood 195 mg/dL (60-115)
[2024-09-26] VITALS (7 sets, daily range): BP systolic 119–150; BP diastolic 63–88; PULSE 76–103; RESP 16–20; TEMP 36.2–36.5; O2SAT 99–100; BMI 17.6
[2024-09-26] MEDS: Dextrose 5 % and Lactated Ring 1,000 ML 50 ML IVCONT (01:39)
[2024-09-26] MEDS: 0.9 % Sodium Chloride Flush 3 ML SYRINGE IVFLUSH ×3 (05:57→22:04)
[2024-09-26 06:44] LABS: Hematocrit 39.6 % (37.0-47.0); Hemoglobin 13.6 g/dl (12.0-16.0); Mean Corpuscular HGB Conc 34.3 g/dl (31.0-35.0); Mean Corpuscular Hemoglobin 30.1 pg (27.0-33.0); Mean Corpuscular Volume 87.6 fL (80.0-98.0); NRBC Abs Auto 0.000 X10*3/uL (0.0-0.012); NRBC Pct Auto 0.0 /100WBC (0.0-0.2); Platelet Count 286 X10*3/uL (160-400); Red Blood Count 4.52 X10*6/uL (4.20-5.50); White Blood Count 6.7 X10*3/uL (4.8-10.8)
[2024-09-26 06:56] LABS: Anion Gap 12 (12-20); Blood Urea Nitrogen 4 mg/dL (9-16); Calcium 8.6 mg/dL (8.4-10.2); Carbon Dioxide 33 mmol/L (22-29); Chloride 92 mmol/L (96-108); Creatinine Clr Calc Pharmacy 50.2; Estimated Glomerular Filt Rate > 60; Magnesium 1.6 mg/dL (1.6-2.6); Potassium 2.6 mmol/L (3.3-5.1); Sodium 134 mmol/L (135-145)
--- NOTE | 2024-09-26 07:11 | HE.PHANOTE ---
Re: VANCO Trough came back at 17.9. Based on predicted AUC of 543 and trough 16.2, will keep same dose of 1000 mg Q24H. Will continue to monitor renal function and trough levels to ensure safety and efficacy. Next Trough 09/27 @0600.
[2024-09-26 07:41] LABS: Glucose, Whole Blood 182 mg/dL (60-115)
[2024-09-26] MEDS: Potassium Chloride/H20 10 MEQ/100 ML PIGGYBACK 100 MEQ IV ×5 (08:06→14:52)
--- NOTE | 2024-09-26 09:10 | P.PNNP_ITS ---
Subjective Subjective Date of Service: 09/26/24 Interval history: pt here with altered mental status from PCP office. Being treated for failure to thrive, cellulitis around sacral ulcer and hyponatremia. Nephrology following for hyponatremia. Serum sodium 124 on presentation, receiving gentle IVF hydration. Serum sodium has been stable btween 132-134. TSH is elevated at 34 on presentation, reportedly higher on previous labs per hospitalist note. urine sodium 45, urine osm 348 on 09/21 Patient is in bed, contracted, nonverbal. Physical Exam 2 Vital Signs: Vital Signs: Last Vital Signs Temp 97.3 F 09/26/24 07:06 Pulse 87 09/26/24 07:06 Resp 17 09/26/24 07:06 BP 146/88 H 09/26/24 07:06 Pulse Ox 100 09/26/24 07:06 O2 Del Method Nasal Cannula 09/26/24 07:06 O2 Flow Rate 4 09/26/24 07:06 BMI result Body Mass Index 17.6 Const: General: no acute distress and awake Resp: Effort & Inspection: normal respiratory effort Auscultation: rhonchi Cardio: Rate: regular rate Rhythm: regular rhythm Heart sounds: S1 normal heart sound present and S2 normal heart sound present Skin: Rashes: no rashes Extrem: General: No edema Objective Data Labs 09/26/24 06:14 09/26/24 06:14 Labs: Laboratory Results - last 24 hr 09/25/24 09/25/24 09/25/24 11:41 16:23 20:31 WBC RBC Hgb Hct MCV MCH MCHC RDW Plt Count MPV Absolute Nucleated RBC Nucleated RBC % (auto) Sodium Potassium Chloride Carbon Dioxide Anion Gap BUN Creatinine Estim Creat Clear Calc Estimated GFR POC Glucose 160 H 193 H 195 H Random Glucose Calcium Magnesium Random Vancomycin 09/26/24 09/26/24 06:14 07:31 WBC 6.7 RBC 4.52 Hgb 13.6 Hct 39.6 MCV 87.6 MCH 30.1 MCHC 34.3 RDW 14.0 Plt Count 286 MPV 8.8 L Absolute Nucleated RBC 0.000 Nucleated RBC % (auto) 0.0 Sodium 134 L Potassium 2.6 L* Chloride 92 L Carbon Dioxide 33 H Anion Gap 12 BUN 4 L Creatinine 0.51 Estim Creat Clear Calc 50.2 Estimated GFR > 60 POC Glucose 182 H Random Glucose 168 H Calcium 8.6 Magnesium 1.6 Random Vancomycin 17.9 Microbiology Microbiology Results: Microbiology 09/20/24 19:09 Blood - Venous Blood Culture - Final No growth after 5 days. 09/20/24 19:09 Blood - Venous Blood Culture - Final No growth after 5 days. 09/20/24 20:55 Urine clean catch - Clean Catch Midstream Urine Culture - Final Procedures Date of Service Date of Service: 09/26/24 Assessment & Plan Assessment and plan (1) Hyponatremia: Status: Acute Plan Hyponatremia likely multifactorial - stable initial urine sodium and osm suggest hypothyroidism likely significant contributor to hyponatremia- though may have also been dry on presentation (urine osm and urine sodium collected today) which may have contributed given serum sodium has improved from presentation with fluids. serum sodium is acceptable, recommend continuing with current regime. recommend continuing thyroid replacement. Recommend replacing potassium and magnesium as needed- hypokalemia likely driven by alkalosis. Recommend continuing IVF. Continue oral fluid restriction of 1.5L/24hrs. replace potassium and magnesium as needed- sodium, potassium and magnesium levels may be addressed by adjusting parenteral nutrition. Will sign off, happy to see her in the future if changes or new concerns arise. Discussed with Dr Fabian. Time Spent With Patient Time: Total time managing care of this patient today ____ minutes. Progress Note: Quality Stroke Does the patient have a stroke diagnosis?: No
--- NOTE | 2024-09-26 09:12 | MHC.SLORD ---
Addendum entered and electronically signed by Natalie Thorpe MS, CCC-LAGGING MACHINE OPERATOR 09/26/24 10:34: RN reported pt family refused PEG. See LAGGING MACHINE OPERATOR tx for pt PO tolerance summary. Original Note: Speech Language Pathology Order Status: PEG surgery today. LAGGING MACHINE OPERATOR to followup tomorrow.
--- NOTE | 2024-09-26 10:47 | MHC.SL.SWA ---
Speech Pathologist Impression: Mild to moderate (variable) oral phase dysphagia, mild pharyngeal phase dysphagia (age and condition related) Risk of Aspiration Due to: Physical condition Advancing neurocognitive decline Dysphasia Diet Status: Recc NDD1 with NTL by tsp, aspiration precautions: upright positioning, 1:1 feeding, slow pacing, frequent breaks, verbal cueing. Encourage orientation to task of eating with verbal cues, side presentation of spoon. RD adding Magic Cup to pt diet. Anticipate pt intake to be reduced in setting of advanced dementia. WWE WRESTLER following. Liquid Consistency and Strategies for Safe Swallow: Liquid Intake Recommendation: [place] Thick Liquid Intake Strategies: Liquids by Teaspoon Only Solid Food Consistency: Dietary Recommendations: Pureed (NDD1) Additional Modifications to Solid Foods: Oral Medication Intake: Crushed with Puree Please contact the pharmacy regarding appropriate crushable or liquid drug formulations that are available whenever modified delivery is recommended. Compensatory Strategies and Precautions to be Taken for Safe Swallow: Sitting Upright (90 deg) Small Bites and Sips Supervision While Eating and Drinking for Safe Swallow: Total Assistance (1:1) Foods to Avoid: Swallowing Recommended Treatments: Compens. Strategy Educat. Recommendation for Speech: Inpatient Speech Therapy Comment: Pt seen for dysphagia treatment. MD and RN suggested trying ice cream. Pt was alert when spoken to, remains in contracted position but able to hold head up slightly, opening mouth when mucous cleared from surface of lips with moist oral swab. Pt bit the swab but released when verbally cued. Pt initially bit the straw when NTL trialed. Pt unable to coordinate sip/swallow upon this first attempt. Anterior loss occurred with NTL by tsp upon first attempt. Oral phase of swallow improved steadily with vanilla ice cream using side presentation of spoon technique. Over course of several boluses, pt's oral phase of swallow continued to improve, with good lip rounding and retrieval of bolus from spoon, efficient anterior to posterior transit of bolus, adequate laryngeal elevation and unremarkable completion of swallow. Pt tolerated approximately 2.5 oz of vanilla ice cream. NTL presented by tsp sip again, with adequate oropharyngeal phase coordination. Trials of NTL by straw attempted; pt exhibited functional oropharyngeal coordination, but experienced reflexive cough after consecutive sips. Pt unable to self-monitor. Pureed fruit offered to pt with verbal/tactile cueing, but pt closed lips tightly in refusal. RN and MD notified of findings. Frequency/Duration: M-F daily Date Range for Service Req: Timeline to reassess: Chain Person Clinican/Clinical Fellow: No Supervisory Statement: I have reviewed and agree with the student/clinical fellow's documentation: N/A Speech Language Pathologist: Natalie Thorpe M.S., CCC-WWE WRESTLER
--- NOTE | 2024-09-26 10:49 | MHC.CLN ---
CONSULT PT IS SEVERELY MALNOURISHED PT WITH MODERATELY DEPLETED SUBCUTANEOUS FAT AND MUSCLE MASS WITH BMI 17 AND 29% SIGNIFICANT WT LOSS X1 YEAR WITH CHRONIC POOR PO INTAKE IN ADDITION, PT WITH INCREASED NUTRITION RISK R/T PRESSURE INJURY DIET ADVANCED TO PURRED WITH NT LIQ PER FELTING MACHINE OPERATOR RECEIVING MAGIC CUP AND ENSURE BID TO INCREASE KCALS TO START PPN PER MD REVIEWED LABS DISCUSSED WT PHARMACY RECOMMEND PPN AT 45ML/HR TO PROVIDE 551KCALS, 108G DEXTROSE, 46G PROTEIN REPLETE LYTES NEEDED PT IS AT RISK FOR RE-FEEDING; MONITOR MG, PHOS AND K+ CONTINUE TO MONITOR PO INTAKE AND ENCOURAGE SUPPLEMENTS SEE FULL ASSESSMENT
[2024-09-26 11:38] LABS: Glucose, Whole Blood 160 mg/dL (60-115)
--- NOTE | 2024-09-26 12:11 | MHC.CM.PN ---
Per ROUNDS discussion, Patient is not yet medically cleared for dc (IV Synthroid, 2 IV ABX, PPN/Family currently declining PEG); dc plan is TBD. CM will follow..
--- NOTE | 2024-09-26 14:32 | P.PNIM_ITS ---
Subjective Subjective Date of Service: 09/26/24 Interval History: dec po intake hyponatremia Review of Systems awake no new overnight events Review of Systems: Yes all other systems are reviewed and are negative Physical Exam 2 Exam: Exam: Appearance: awake,not in distress cvs: rrr, [id number] res: clear to auscultation ,no rhonchii or wheezing abd: no rebound or guarding ,nt, bs present. ext pulses present , no cyanosis . neuro: axo3 , nonfocal. Vital Signs: Vital Signs: Last Vital Signs Temp 97.5 F 09/26/24 11:20 Pulse 85 09/26/24 11:20 Resp 18 09/26/24 11:20 BP 144/88 H 09/26/24 11:20 Pulse Ox 100 09/26/24 11:20 O2 Del Method Nasal Cannula 09/26/24 11:20 O2 Flow Rate 2 09/26/24 11:20 BMI result Body Mass Index 17.6 Objective Data Active Medications Acetaminophen (Acetaminophen 325 Mg Tablet) 650 mg PO Q6H PRN PRN Reason: Pain, Mild 1-3,fever,headache Calcium Carbonate (Calcium Carbonate 750 Mg Tab.Chew) 750 mg PO Q4H PRN PRN Reason: Heartburn Dextrose (Dextrose 50 % 25 Gm/50 Ml Syringe) 25 gm IVPUSH Q15M PRN; Protocol PRN Reason: per Hypoglycemia Standing Ord. Glucose (Glucose Gel 15 Gm Gel..Gram.) 15 gm PO Q15M PRN; Protocol PRN Reason: per Hypoglycemia Standing Ord. Piperacillin Sod/Tazobactam (Sod 3.375 gm/ Sodium Chloride) 50 mls @ 100 mls/hr IV Q6H [facility] Last Infusion: 09/26/24 08:19 Dose: Infused Documented By: JEREMIAH Vancomycin HCl 1,000 mg/ (Sodium Chloride) 270 mls @ 270 mls/hr IV Q24H [facility] Last Infusion: 09/26/24 09:51 Dose: Infused Documented By: JEREMIAH Nutrition (Parenteral) (Parenteral Nutrition) 1,080 mls @ 45 mls/hr IV .Q24H [facility]; Protocol Stop: 09/27/24 20:59 Insulin Human Lispro (Insulin Lispro 100 Unit/Ml 3 Ml Vial) 0 unit SUBCUT QIDACHS [facility]; Protocol Last Admin: 09/26/24 12:02 Dose: 2 unit Documented By: JEREMIAH Levothyroxine Sodium (Levothyroxine Sodium 100 Mcg/5 Ml Vial) 50 mcg IVPUSH DAILY@0600 [facility] Last Admin: 09/26/24 05:57 Dose: 50 mcg Documented By: MANUELA Magnesium Hydroxide (Milk Of Magnesia 30 Ml Oral.Susp) 30 ml PO DAILY PRN PRN Reason: Constipation Melatonin (Melatonin 3 Mg Tablet) 6 mg PO BEDTIME PRN PRN Reason: Insomnia Pharmacy Consult (Consult Rx Vancomycin Dosing) 1 each MISCELLANE DAILY PRN PRN Reason: Consult order Pharmacy Consult (Consult Rx Parenteral Nutrition Ordering) 1 each MISCELLANE DAILY PRN PRN Reason: Consult order Sodium Chloride (0.9 % Sodium Chloride Flush 3 Ml Syringe) 3 ml IVFLUSH QSHIFT [facility] Last Admin: 09/26/24 07:45 Dose: 3 ml Documented By: JEREMIAH Labs 09/26/24 06:14 09/26/24 06:14 Labs: Laboratory Results - last 24 hr 09/25/24 09/25/24 09/26/24 16:23 20:31 06:14 MCV 87.6 MCH 30.1 MCHC 34.3 RDW 14.0 Plt Count 286 MPV 8.8 L Absolute Nucleated RBC 0.000 Nucleated RBC % (auto) 0.0 Anion Gap 12 Estim Creat Clear Calc 50.2 Estimated GFR > 60 POC Glucose 193 H 195 H Random Glucose 168 H Calcium 8.6 Phosphorus 2.1 L Magnesium 1.6 Random Vancomycin 17.9 09/26/24 09/26/24 07:31 11:30 MCV MCH MCHC RDW Plt Count MPV Absolute Nucleated RBC Nucleated RBC % (auto) Anion Gap Estim Creat Clear Calc Estimated GFR POC Glucose 182 H 160 H Random Glucose Calcium Phosphorus Magnesium Random Vancomycin Microbiology Microbiology Results: Microbiology 09/20/24 19:09 Blood Culture - Final Blood - Venous No growth after 5 days. 09/20/24 19:09 Blood Culture - Final Blood - Venous No growth after 5 days. Assessment and Plan (1) Adult failure to thrive: Status: Acute (2) Hyponatremia: Status: Acute Plan 84F PMH advanced Alzheimer dementia with severe protein calorie malnutrition, nonverbal, hypothyroid, sacral decubitus ulcer sent by PCP for failure to thrive, hyponatremia, infected ulcer Advanced Alzheimer's dementia with failure to thrive, severe protein calorie malnutrition, dysphagia d/w hcp, jenelle, surgical eval for possible Gtube -currently Both sons Jenelle and Ralph have expressed their hesitation with proceeding with any invasive intervention. Speech following - currently recommending pureed with nectar thick liquid, but giving fluctuating mentation, poor intake, added ppn ,encourage for po intake and hydration Aspiration pneumonia Not septic Continue vancomycin and Zosyn acute hypokalemia replace and monitor Stage III decubitus ulcer with surrounding cellulitis Vancomycin Zosyn, wound care Sacrum:?Deep Tissue Injury in Evolution ? 1. Turn and Reposition every 2 hours and as needed for patient comfort.? Use pillows or wedges to support off loading positions. 2. Off Load all bony prominences with use of pillows and heel boots if needed.? Apply Preventative foams where needed. ? 3. Monitor for incontinence and moisture control, use barrier creams when needed for prevention and treatment. 4. Provide adequate and supplemental nutrition.? 5. Order low air loss mattress. 6. When applicable maintain blood glucose levels per Providers order. Sacrum - Off Load Pressure with Q2 hr turns and use of willows. Cleanse with NS or PH balanced wipes, pat dry. Apply Triad layer to wound bed and surrounding tissue.? Do not remove all of paste between applications as this may cause further damage to wound bed. Apply antifungal power to assist with moisture management.? Be sure to dust of excess powder to prevent caking on skin and in folds. Hypothyroid Continue Synthroid IV Diabetes Insulin sliding scale DVT prophylaxis with heparin subQ Full code reason for continued hospitalization: IV antibiotics, gtube Quality Stroke Does the patient have a stroke diagnosis?: No VTE Prior VTE?: No VTE Risk Level:: Medical - moderate - high VTE Device Contraindication: Treatment Not Indicated VTE Drug Contraindication: N/A - Med Ordered
[2024-09-26 15:34] LABS: Potassium 5.1 mmol/L (3.3-5.1)
[2024-09-26 16:18] LABS: Glucose, Whole Blood 215 mg/dL (60-115)
[2024-09-26 16:52] LABS: Anion Gap 15 (12-20); Blood Urea Nitrogen 8 mg/dL (9-16); Calcium 8.7 mg/dL (8.4-10.2); Carbon Dioxide 30 mmol/L (22-29); Chloride 94 mmol/L (96-108); Creatinine Clr Calc Pharmacy 46.6; Estimated Glomerular Filt Rate > 60; Potassium 4.6 mmol/L (3.3-5.1); Sodium 134 mmol/L (135-145)
[2024-09-26 21:06] LABS: Glucose, Whole Blood 228 mg/dL (60-115)
[2024-09-26] MEDS: Parenteral Nutrition 1,080 ML 45 ML IV (21:50)
[2024-09-27 04:00] VITALS: BP 141/79; PULSE 86; RESP 16; TEMP 36.3; O2SAT 96
[2024-09-27 07:25] LABS: Anion Gap 13 (12-20); Blood Urea Nitrogen 12 mg/dL (9-16); Calcium 9.0 mg/dL (8.4-10.2); Carbon Dioxide 33 mmol/L (22-29); Chloride 92 mmol/L (96-108); Creatinine Clr Calc Pharmacy 45.0; Estimated Glomerular Filt Rate > 60; Magnesium 1.9 mg/dL (1.6-2.6); Potassium 3.8 mmol/L (3.3-5.1); Sodium 134 mmol/L (135-145)
--- NOTE | 2024-09-27 07:31 | HE.PHANOTE ---
Re: Sheng Poor renal function. Trough returned at 20.6, dose was reduced and delayed by 8 hours. Dose reduced to 750mg q24 with predicted AUC 467, predicted trough 14.6. Next trough 09/28 @ 1400.
[2024-09-27 07:58] LABS: Glucose, Whole Blood 247 mg/dL (60-115)
[2024-09-27 08:00] VITALS: BP 148/78; PULSE 94; RESP 20; TEMP 36.6; O2SAT 98
--- NOTE | 2024-09-27 08:27 | PM.PNGS ---
Subjective Subjective Date of Service: 09/27/24 Interval history: As per nurse, no events Physical Exam Vital Signs: Vital Signs: Last Vital Signs Temp 97.9 F 09/27/24 08:00 Pulse 94 09/27/24 08:00 Resp 20 09/27/24 08:00 BP 148/78 H 09/27/24 08:00 Pulse Ox 98 09/27/24 08:00 O2 Del Method Nasal Cannula 09/27/24 08:00 O2 Flow Rate 2 09/27/24 08:00 BMI result Body Mass Index 17.6 Const: Other: Noncommunicative, nonverbal General: comfortable and no acute distress Resp: Effort & Inspection: normal respiratory effort GI: Palpation (GI): Soft to palpation, not firm and nontender Objective Data Active Medications Acetaminophen (Acetaminophen 325 Mg Tablet) 650 mg PO Q6H PRN PRN Reason: Pain, Mild 1-3,fever,headache Calcium Carbonate (Calcium Carbonate 750 Mg Tab.Chew) 750 mg PO Q4H PRN PRN Reason: Heartburn Dextrose (Dextrose 50 % 25 Gm/50 Ml Syringe) 25 gm IVPUSH Q15M PRN; Protocol PRN Reason: per Hypoglycemia Standing Ord. Glucose (Glucose Gel 15 Gm Gel..Gram.) 15 gm PO Q15M PRN; Protocol PRN Reason: per Hypoglycemia Standing Ord. Piperacillin Sod/Tazobactam (Sod 3.375 gm/ Sodium Chloride) 50 mls @ 100 mls/hr IV Q6H [facility] Last Infusion: 09/27/24 03:24 Dose: Infused Documented By: TONI Nutrition (Parenteral) (Parenteral Nutrition) 1,080 mls @ 45 mls/hr IV .Q24H [facility]; Protocol Stop: 09/27/24 20:59 Last Admin: 09/26/24 21:50 Dose: 45 mls/hr Documented By: TONI Insulin Human Lispro (Insulin Lispro 100 Unit/Ml 3 Ml Vial) 0 unit SUBCUT QIDACHS [facility]; Protocol Last Admin: 09/26/24 22:03 Dose: 4 unit Documented By: TONI Levothyroxine Sodium (Levothyroxine Sodium 100 Mcg/5 Ml Vial) 50 mcg IVPUSH DAILY@0600 [facility] Last Admin: 09/27/24 05:20 Dose: 50 mcg Documented By: TONI Magnesium Hydroxide (Milk Of Magnesia 30 Ml Oral.Susp) 30 ml PO DAILY PRN PRN Reason: Constipation Melatonin (Melatonin 3 Mg Tablet) 6 mg PO BEDTIME PRN PRN Reason: Insomnia Pharmacy Consult (Consult Rx Vancomycin Dosing) 1 each MISCELLANE DAILY PRN PRN Reason: Consult order Pharmacy Consult (Consult Rx Parenteral Nutrition Ordering) 1 each MISCELLANE DAILY PRN PRN Reason: Consult order Sodium Chloride (0.9 % Sodium Chloride Flush 3 Ml Syringe) 3 ml IVFLUSH QSHIFT [facility] Last Admin: 09/26/24 22:04 Dose: 3 ml Documented By: TONI Labs 09/26/24 06:14 09/27/24 06:18 Labs: Laboratory Results - last 24 hr 09/26/24 09/26/24 09/26/24 06:14 11:30 16:11 Hold Purple Top Anion Gap Estim Creat Clear Calc Estimated GFR POC Glucose 160 H 215 H Random Glucose Calcium Phosphorus 2.1 L Magnesium Urine Osmolality Ur Random Sodium Ur Random Potassium Ur Random Chloride Random Vancomycin 09/26/24 09/26/24 09/27/24 16:25 20:46 05:26 Hold Purple Top Anion Gap 15 Estim Creat Clear Calc 46.6 Estimated GFR > 60 POC Glucose 228 H Random Glucose 276 H Calcium 8.7 Phosphorus Magnesium Urine Osmolality 525 Ur Random Sodium 75.0 Ur Random Potassium 45.9 Ur Random Chloride 121.0 Random Vancomycin 09/27/24 09/27/24 09/27/24 06:17 06:18 07:48 Hold Purple Top SEE NOTE Anion Gap 13 Estim Creat Clear Calc 45.0 Estimated GFR > 60 POC Glucose 247 H Random Glucose 211 H Calcium 9.0 Phosphorus 3.1 Magnesium 1.9 Urine Osmolality Ur Random Sodium Ur Random Potassium Ur Random Chloride Random Vancomycin 20.6 H Procedures Date of Service Date of Service: 09/27/24 Progress Note: A&P Assessment and plan (1) Adult failure to thrive: Status: Acute Assessment and Plan: As per family, no PEG tube placement for now I would like to try her on oral intake again Family would prefer to avoid any invasive interventions Time Spent With Patient Time: Total time managing care of this patient today ____ minutes. Quality Stroke Does the patient have a stroke diagnosis?: No VTE Prior VTE?: No VTE Risk Level:: Medical - moderate - high VTE Device Contraindication: Treatment Not Indicated VTE Drug Contraindication: N/A - Med Ordered
[2024-09-27] MEDS: 0.9 % Sodium Chloride Flush 3 ML SYRINGE IVFLUSH ×2 (08:31→14:41)
--- NOTE | 2024-09-27 11:02 | MHC.CLN ---
F/U PT IS SEVERELY MALNOURISHED SEE NUTRITION ASSESSMENT DATED 09/26/24 IN ADDITION, PT WITH INCREASED NUTRITION RISK R/T PRESSURE INJURY DIET RX: PUREED WITH NT LIQ PER MRI TECH RECEIVING MAGIC CUP AND ENSURE BID TO INCREASE KCALS REVIEWED LABS DISCUSSED [facility] PHARMACY RECOMMEND PPN AT 45ML/HR WITH 61G LIPIDS TO PROVIDE 1161KCALS (30KCALS/KG), 108G DEXTROSE, 46G PROTEIN (1.2G/KG) REPLETE LYTES NEEDED CONTINUE TO MONITOR PO INTAKE AND ENCOURAGE SUPPLEMENTS GOAL TO REDUCE PPN PO INTAKE IMPROVES
[2024-09-27 11:13] LABS: Triglycerides 110 mg/dL (<150)
[2024-09-27 11:27] LABS: Glucose, Whole Blood 265 mg/dL (60-115)
[2024-09-27 11:55] VITALS: BP 142/80; PULSE 100; RESP 20; TEMP 36.2; O2SAT 96
--- NOTE | 2024-09-27 13:51 | MHC.SL.SWA ---
Speech Pathologist Impression: Risk of Aspiration Due to: Dysphasia Diet Status: Recc NDD1 with NTL by tsp, aspiration precautions: upright positioning, 1:1 feeding, slow pacing, frequent breaks, verbal cueing. Encourage orientation to task of eating with verbal cues, side presentation of spoon. Liquid Consistency and Strategies for Safe Swallow: Liquid Intake Recommendation: Bonifay Thick Liquid Intake Strategies: Liquids by Teaspoon Only Solid Food Consistency: Dietary Recommendations: Pureed (NDD1) Additional Modifications to Solid Foods: Oral Medication Intake: Crushed with Puree Please contact the pharmacy regarding appropriate crushable or liquid drug formulations that are available whenever modified delivery is recommended. Compensatory Strategies and Precautions to be Taken for Safe Swallow: Sitting Upright (90 deg) Small Bites and Sips Supervision While Eating and Drinking for Safe Swallow: Total Assistance (1:1) Foods to Avoid: Swallowing Recommended Treatments: Compens. Strategy Educat. Recommendation for Speech: Inpatient Speech Therapy Comment: Patient seen at breakfast for dysphagia tx. Patient's tray was retrieved as SMALL MACHINE BINDERY OPERATOR had finished attempting meal with patient eating very little. Per RN patient ate well at dinner 8/6, might have less of an appetite this a.m. Patient was offered and fed most of magic cup that came with tray, with patient taking small bites, producing a mildly delayed oral phase, with occasional oral holding, followed by timely swallow. Patient consumed 3/4 of the magic cup, slowly but steadily. Patient demonstrating some improvement in both intake and swallow. Recommend continue on Puree (NDD1) with NECTAR THICK liquids, pills crushed in puree. Frequency/Duration: M-F daily Date Range for Service Req: Timeline to reassess: Data Communications Technician Clinican/Clinical Fellow: No Supervisory Statement: I have reviewed and agree with the student/clinical fellow's documentation: N/A Speech Language Pathologist: Natalie Thorpe M.S., CCC-HOOP PUNCHER
--- NOTE | 2024-09-27 14:43 | HO.WOUND ---
Wound Consult: Follow up 84yr old?female admitted to [facility] on 09/21/24 - See progress notes and H&P for detailed history.? Wound consult follow up for coccyx.? Discussed case with Provider and direct care team concern from direct care team with slight bleeding noted when cleansed and Triad attempted to be removed. Discussed with staff benefits of not scrubbing and rubbing wound bed but rather pat and dab when tirad is in use and soiled. The triad benefits the wound bed when it is left in place to allow for healing. After photo review and discussion no new topical recommendations needed at this time. Recommend continue to off load and continue with Triad to sacrum. 09/27/24 Continues as DTI in evolution. 09/25/24 Sacrum Etiology: ?Deep Tissue Injury in Evolution ?Present on Admission Wound Bed: marbled red nonblanchable purple and adherent white yellow slough Edges: ? Irregular Preeti wound: ?MASD with fungal dermatitis No Induration, Fluctuance or Warmth noted Goals of Treatment: ? Off Load Pressure and Triad antifungal powder Recommendations: 1. Turn and Reposition every 2 hours and as needed for patient comfort.? Use pillows or wedges to support off loading positions. 2. Off Load all bony prominences with use of pillows and heel boots if needed.? Apply Preventative foams where needed. ? 3. Monitor for incontinence and moisture control, use barrier creams when needed for prevention and treatment. 4. Provide adequate and supplemental nutrition.? 5. Order low air loss mattress. 6. When applicable maintain blood glucose levels per Providers order. Sacrum - Off Load Pressure with Q2 hr turns and use of willows. Cleanse with NS or PH balanced wipes, pat dry. Apply Triad layer to wound bed and surrounding tissue.? Do not remove all of paste between applications as this may cause further damage to wound bed. Apply antifungal power to assist with moisture management.? Be sure to dust of excess powder to prevent caking on skin and in folds. Apply per provider orders. Re-consult wound care Nurse for wound deterioration or wound changes.
[2024-09-27 15:22] LABS: Glucose, Whole Blood 353 mg/dL (60-115)
[2024-09-27 16:00] VITALS: BP 172/98; PULSE 109; RESP 16; TEMP 36.3; O2SAT 97
[2024-09-27 16:26] LABS: Glucose, Whole Blood 287 mg/dL (60-115)
--- NOTE | 2024-09-27 18:23 | HO.PM.IMPN ---
Subjective Subjective Date of Service: 09/27/24 Interval History: dec po intake hyponatremia Review of Systems awake no new overnight events Physical Exam Exam: Exam: Appearance: awake,not in distress cvs: rrr, [id number] res: clear to auscultation ,no rhonchii or wheezing abd: no rebound or guarding ,nt, bs present. ext pulses present , no cyanosis . neuro: axo3 , nonfocal. Vital Signs: Vital Signs: Last Vital Signs Temp 97.3 F 09/27/24 16:00 Pulse 109 H 09/27/24 16:00 Resp 16 09/27/24 16:00 BP 172/98 H 09/27/24 16:00 Pulse Ox 97 09/27/24 16:00 O2 Del Method Room Air 09/27/24 16:00 O2 Flow Rate 2 09/27/24 11:55 BMI result Body Mass Index 17.6 Objective Data Active Medications Acetaminophen (Acetaminophen 325 Mg Tablet) 650 mg PO Q6H PRN PRN Reason: Pain, Mild 1-3,fever,headache Calcium Carbonate (Calcium Carbonate 750 Mg Tab.Chew) 750 mg PO Q4H PRN PRN Reason: Heartburn Dextrose (Dextrose 50 % 25 Gm/50 Ml Syringe) 25 gm IVPUSH Q15M PRN; Protocol PRN Reason: per Hypoglycemia Standing Ord. Docusate Sodium (Docusate Sodium 100 Mg/10 Ml Liquid) 100 mg PO BID [facility] Last Admin: 09/27/24 10:50 Dose: 100 mg Documented By: JEREMIAH Glucose (Glucose Gel 15 Gm Gel..Gram.) 15 gm PO Q15M PRN; Protocol PRN Reason: per Hypoglycemia Standing Ord. Piperacillin Sod/Tazobactam (Sod 3.375 gm/ Sodium Chloride) 50 mls @ 100 mls/hr IV Q6H [facility] Last Infusion: 09/27/24 15:27 Dose: Infused Documented By: JEREMIAH Nutrition (Parenteral) (Parenteral Nutrition) 1,080 mls @ 45 mls/hr IV .Q24H [facility]; Protocol Stop: 09/27/24 20:59 Last Admin: 09/26/24 21:50 Dose: 45 mls/hr Documented By: N-DESSK Nutrition (Parenteral) (Parenteral Nutrition) 1,080 mls @ 45 mls/hr IV .Q24H [facility]; Protocol Stop: 09/28/24 20:59 Insulin Human Lispro (Insulin Lispro 100 Unit/Ml 3 Ml Vial) 0 unit SUBCUT QIDACHS [facility]; Protocol Last Admin: 09/27/24 16:40 Dose: 6 unit Documented By: JEREMIAH Levothyroxine Sodium (Levothyroxine Sodium 100 Mcg/5 Ml Vial) 50 mcg IVPUSH DAILY@0600 [facility] Last Admin: 09/27/24 05:20 Dose: 50 mcg Documented By: DALILA-MARK ANTHONY Magnesium Hydroxide (Milk Of Magnesia 30 Ml Oral.Susp) 30 ml PO DAILY PRN PRN Reason: Constipation Melatonin (Melatonin 3 Mg Tablet) 6 mg PO BEDTIME PRN PRN Reason: Insomnia Pharmacy Consult (Consult Rx Parenteral Nutrition Ordering) 1 each MISCELLANE DAILY PRN PRN Reason: Consult order Sodium Chloride (0.9 % Sodium Chloride Flush 3 Ml Syringe) 3 ml IVFLUSH QSHIFT [facility] Last Admin: 09/27/24 14:41 Dose: 3 ml Documented By: JEREMIAH Labs 09/26/24 06:14 09/27/24 06:18 Labs: Laboratory Results - last 24 hr 09/26/24 09/27/24 09/27/24 20:46 05:26 06:17 Hold Purple Top Anion Gap Estim Creat Clear Calc Estimated GFR POC Glucose 228 H Random Glucose Calcium Phosphorus Magnesium Triglycerides Urine Osmolality 525 Ur Random Sodium 75.0 Ur Random Potassium 45.9 Ur Random Chloride 121.0 Random Vancomycin 20.6 H 09/27/24 09/27/24 09/27/24 06:18 07:48 11:24 Hold Purple Top SEE NOTE Anion Gap 13 Estim Creat Clear Calc 45.0 Estimated GFR > 60 POC Glucose 247 H 265 H Random Glucose 211 H Calcium 9.0 Phosphorus 3.1 Magnesium 1.9 Triglycerides 110 Urine Osmolality Ur Random Sodium Ur Random Potassium Ur Random Chloride Random Vancomycin 09/27/24 09/27/24 15:18 16:11 Hold Purple Top Anion Gap Estim Creat Clear Calc Estimated GFR POC Glucose 353 H* 287 H Random Glucose Calcium Phosphorus Magnesium Triglycerides Urine Osmolality Ur Random Sodium Ur Random Potassium Ur Random Chloride Random Vancomycin Assessment and Plan (1) Adult failure to thrive: Status: Acute (2) Hyponatremia: Status: Acute Plan 84F PMH advanced Alzheimer dementia with severe protein calorie malnutrition, nonverbal, hypothyroid, sacral decubitus ulcer sent by PCP for failure to thrive, hyponatremia, infected ulcer Advanced Alzheimer's dementia with failure to thrive, severe protein calorie malnutrition, dysphagia d/w hcp, jenelle, surgical eval for possible Gtube -currently Both sons Jenelle and Ralph have expressed their hesitation with proceeding with any invasive intervention. Speech following - currently recommending pureed with nectar thick liquid, but giving fluctuating mentation, poor intake, added ppn ,encourage for po intake and hydration Aspiration pneumonia Not septic Continue vancomycin and Zosyn acute hypokalemia replace and monitor Stage III decubitus ulcer with surrounding cellulitis Vancomycin Zosyn, wound care Sacrum:?Deep Tissue Injury in Evolution ? 1. Turn and Reposition every 2 hours and as needed for patient comfort.? Use pillows or wedges to support off loading positions. 2. Off Load all bony prominences with use of pillows and heel boots if needed.? Apply Preventative foams where needed. ? 3. Monitor for incontinence and moisture control, use barrier creams when needed for prevention and treatment. 4. Provide adequate and supplemental nutrition.? 5. Order low air loss mattress. 6. When applicable maintain blood glucose levels per Providers order. Sacrum - Off Load Pressure with Q2 hr turns and use of willows. Cleanse with NS or PH balanced wipes, pat dry. Apply Triad layer to wound bed and surrounding tissue.? Do not remove all of paste between applications as this may cause further damage to wound bed. Apply antifungal power to assist with moisture management.? Be sure to dust of excess powder to prevent caking on skin and in folds. Hypothyroid Continue Synthroid IV Diabetes Insulin sliding scale DVT prophylaxis with heparin subQ Full code reason for continued hospitalization: IV antibiotics, gtube Quality Stroke Does the patient have a stroke diagnosis?: No VTE Prior VTE?: No VTE Risk Level:: Medical - moderate - high VTE Device Contraindication: Treatment Not Indicated VTE Drug Contraindication: N/A - Med Ordered
[2024-09-27 20:00] VITALS: BP 160/90; PULSE 110; RESP 20; TEMP 36.2; O2SAT 99
[2024-09-27 21:25] LABS: Glucose, Whole Blood 317 mg/dL (60-115)
[2024-09-27] MEDS: Parenteral Nutrition 1,080 ML 45 ML IV (21:35)
[2024-09-27 23:54] VITALS: BP 116/72; PULSE 105; RESP 20; TEMP 36.1; O2SAT 99
[2024-09-28 03:51] VITALS: BP 117/64; PULSE 97; RESP 20; TEMP 36.6; O2SAT 99
[2024-09-28 07:03] VITALS: BP 133/72; PULSE 91; RESP 18; TEMP 36.4; O2SAT 99
[2024-09-28 07:14] LABS: Glucose, Whole Blood 261 mg/dL (60-115)
[2024-09-28] MEDS: 0.9 % Sodium Chloride Flush 3 ML SYRINGE IVFLUSH ×3 (07:55→21:32)
[2024-09-28 08:13] LABS: Anion Gap 13 (12-20); Blood Urea Nitrogen 18 mg/dL (9-16); Calcium 8.6 mg/dL (8.4-10.2); Carbon Dioxide 31 mmol/L (22-29); Chloride 92 mmol/L (96-108); Creatinine Clr Calc Pharmacy 44.2; Estimated Glomerular Filt Rate > 60; Magnesium 2.0 mg/dL (1.6-2.6); Potassium 4.1 mmol/L (3.3-5.1); Sodium 132 mmol/L (135-145)
--- NOTE | 2024-09-28 08:26 | ECG_ITS ---
Test Reason : vtach Blood Pressure : */* mmHG Vent. Rate : 90 BPM Atrial Rate : 90 BPM P-R Int : 158 ms QRS Dur : 68 ms QT Int : 390 ms P-R-T Axes : 56 -5 52 degrees QTcB Int : 477 ms Sinus rhythm with occasional Premature ventricular complexes Otherwise normal ECG When compared with ECG of 11-Nov-2016 21:00, Premature ventricular complexes are now Present Referred By: Lelo Colón Electronically Signed By: JESUS ARREAGA
--- NOTE | 2024-09-28 09:52 | MHC.SLORD ---
Speech Language Pathology Order Status: CRIMPER OPERATOR attempted to see patient at breakfast. Patient sleeping with chin tucked forward and not waking to sternal rub. Breakfast tray set aside, appeared untouched. No PO given d/t decreased responsiveness. CRIMPER OPERATOR will continue to follow.
--- NOTE | 2024-09-28 10:05 | MHC.CLN ---
F/U PO INTAKE 100% AND 25% DIET RX: PUREED WITH NT LIQ PER ADVERTISING TRAFFIC MANAGER RECEIVING MAGIC CUP AND ENSURE BID TO INCREASE KCALS REVIEWED LABS DISCUSSED [facility] CONTINUE PPN AT MAX GOAL RATE OF 45ML/HR WITH 61G LIPIDS PROVIDES 1161KCALS (30KCALS/KG), 108G DEXTROSE, 46G PROTEIN (1.2G/KG) REPLETE LYTES NEEDED CONTINUE TO MONITOR PO INTAKE AND ENCOURAGE SUPPLEMENTS GOAL TO REDUCE PPN PO INTAKE IMPROVES RD CAN BE REACHED DURING OFF HOURS VIA TIGER CONNECT IF NEEDED
[2024-09-28 11:28] VITALS: BP 146/76; PULSE 91; RESP 17; TEMP 36.2; O2SAT 97
[2024-09-28 11:33] LABS: Glucose, Whole Blood 251 mg/dL (60-115)
--- NOTE | 2024-09-28 11:39 | MHC.CM.PN ---
Per ROUNDS discussion, Patient is not yet medically cleared for dc (monitoring PO intake, ? of PEG);Patient may benefit from a PT Eval to assist with disposition.
--- NOTE | 2024-09-28 13:00 | P.CNID_ITS ---
History of Present Illness Data of Consult Service Date: 09/28/24 Requesting physician: Lelo Colón Primary Care Provider: RISHI Wolff- HPI Reason for consult: mental status changes She presents with weakness and failure to thrive. She has been at [facility] for UTI concerns 08/31-09/04,reviewed And no OM found sacral area. Cultures negative so far. Review of Systems 2 Review of Systems: Yes Unobtainable due to mental condition PMFSH Past Medical History Medical History Hypertension Osteoporosis Hearing decreased Hypothyroid Diabetes Family History Family History Father CAD (coronary artery disease) CVD (cardiovascular disease) Mother Lymphoma Cancer Sister Thyroid disorder Other Substance use disorder Surgical History Surgical History History of lumpectomy of right breast Social History Social History Household Members: Unknown / Unable to assess Housing: Unknown / Unable to assess Unable to assess alcohol history related to: Unable to respond Comment: patient is bedfast Patient Tobacco Use Status: Never used Tobacco Second Hand Smoke Exposure: Yes Advance Directives Date on File: 09/20/24 service: No Current occupational status: retired [employer] Allergies Allergy/AdvReac Type Severity Reaction Status Date / Time No Known Allergies (No Known Allergy Verified 09/20/24 18:31 Allergies*) Active Medications: Current Medications Acetaminophen (Acetaminophen 325 Mg Tablet) 650 mg PO Q6H PRN PRN Reason: Pain, Mild 1-3,fever,headache Calcium Carbonate (Calcium Carbonate 750 Mg Tab.Chew) 750 mg PO Q4H PRN PRN Reason: Heartburn Dextrose (Dextrose 50 % 25 Gm/50 Ml Syringe) 25 gm IVPUSH Q15M PRN; Protocol PRN Reason: per Hypoglycemia Standing Ord. Docusate Sodium (Docusate Sodium 100 Mg/10 Ml Liquid) 100 mg PO BID [facility] Last Admin: 09/28/24 07:53 Dose: 100 mg Glucose (Glucose Gel 15 Gm Gel..Gram.) 15 gm PO Q15M PRN; Protocol PRN Reason: per Hypoglycemia Standing Ord. Piperacillin Sod/Tazobactam (Sod 3.375 gm/ Sodium Chloride) 50 mls @ 100 mls/hr IV Q6H [facility] Last Infusion: 09/28/24 08:30 Dose: Infused Nutrition (Parenteral) (Parenteral Nutrition) 1,080 mls @ 45 mls/hr IV .Q24H [facility]; Protocol Stop: 09/28/24 20:59 Last Admin: 09/27/24 21:35 Dose: 45 mls/hr Nutrition (Parenteral) (Parenteral Nutrition) 1,080 mls @ 45 mls/hr IV .Q24H [facility]; Protocol Stop: 09/29/24 20:59 Insulin Human Lispro (Insulin Lispro 100 Unit/Ml 3 Ml Vial) 0 unit SUBCUT QIDACHS [facility]; Protocol Last Admin: 09/28/24 11:39 Dose: 6 unit Levothyroxine Sodium (Levothyroxine Sodium 100 Mcg/5 Ml Vial) 50 mcg IVPUSH DAILY@0600 [facility] Last Admin: 09/28/24 05:39 Dose: 50 mcg Magnesium Hydroxide (Milk Of Magnesia 30 Ml Oral.Susp) 30 ml PO DAILY PRN PRN Reason: Constipation Melatonin (Melatonin 3 Mg Tablet) 6 mg PO BEDTIME PRN PRN Reason: Insomnia Pharmacy Consult (Consult Rx Parenteral Nutrition Ordering) 1 each MISCELLANE DAILY PRN PRN Reason: Consult order Sodium Chloride (0.9 % Sodium Chloride Flush 3 Ml Syringe) 3 ml IVFLUSH QSHIFT [facility] Last Admin: 09/28/24 07:55 Dose: 3 ml Home Medications ?Medication ?Instructions ?Recorded ?Confirmed ?Last Taken ?Type levothyroxine 100 mcg tablet 100 mcg PO DAILY@0600 03/1709/21/24 09/19/24 History Physical Exam 2 Vital Signs: Vital Signs: Last Vital Signs Temp 97.1 F 09/28/24 11:28 Pulse 91 09/28/24 11:28 Resp 17 09/28/24 11:28 BP 146/76 H 09/28/24 11:28 Pulse Ox 97 09/28/24 11:28 O2 Del Method Nasal Cannula 09/28/24 11:28 O2 Flow Rate 1 09/28/24 11:28 BMI result Body Mass Index 17.6 Const: General: cooperative HEENT: Head: Yes normal to inspection Face and sinus: Yes normal facial exam Mouth: Normal oral and palatal mucosa present Teeth and gingiva: d entition normal Eyes: General: appearance normal, both eyes and all related structures P upils: Equal, round and reactive pupils present Resp: Effort & Inspection: normal respiratory effort Cardio: Rate: regular rate Rhythm: regular rhythm GI: Palpation (GI): Soft to palpation and nontender : General: Yes no CVA tenderness Back/Spine/Pelvis: Back: no CVA tenderness Skin: General skin exam: no rashes or lesions noted Neuro: General: moves all extremities Cranial nerves: Yes Equal, round and reactive pupils present Extrem: Other: not speaking Psych: Appearance: grossly normal Results Labs 09/26/24 06:14 09/28/24 07:15 Labs: BMP 09/28/24 07:15 Sodium 132 L Potassium 4.1 Chloride 92 L Carbon Dioxide 31 H BUN 18 H Creatinine 0.58 Calcium 8.6 Microbiology Microbiology Results: Microbiology 09/20/24 19:09 Blood - Venous Blood Culture - Final No growth after 5 days. 09/20/24 19:09 Blood - Venous Blood Culture - Final No growth after 5 days. 09/20/24 20:55 Urine clean catch - Clean Catch Midstream Urine Culture - Final Assessment and Plan (1) Hypothyroidism: Status: Acute (2) Adult failure to thrive: Status: Acute Plan Po Doxycycline cover any occult cellulitis at buttock area 10 days. No further treatment for UTI as no specific organism seen.
[2024-09-28 15:30] VITALS: BP 139/80; PULSE 97; RESP 17; TEMP 36.4; O2SAT 99
[2024-09-28 16:23] LABS: Glucose, Whole Blood 252 mg/dL (60-115)
--- NOTE | 2024-09-28 17:29 | HO.PM.IMPN ---
Subjective Subjective Date of Service: 09/28/24 Interval History: dec po intake hyponatremia Review of Systems awake 4 pvc's no new events Review of Systems: Yes all other systems are reviewed and are negative Physical Exam Exam: Exam: Appearance: awake,not in distress cvs: rrr, [id number] res: clear to auscultation ,no rhonchii or wheezing abd: no rebound or guarding ,nt, bs present. ext pulses present , no cyanosis . neuro: axo3 , nonfocal. Vital Signs: Vital Signs: Last Vital Signs Temp 97.5 F 09/28/24 15:30 Pulse 97 09/28/24 15:30 Resp 17 09/28/24 15:30 BP 139/80 09/28/24 15:30 Pulse Ox 99 09/28/24 15:30 O2 Del Method Nasal Cannula 09/28/24 15:30 O2 Flow Rate 1 09/28/24 15:30 BMI result Body Mass Index 17.6 Objective Data Active Medications Acetaminophen (Acetaminophen 325 Mg Tablet) 650 mg PO Q6H PRN PRN Reason: Pain, Mild 1-3,fever,headache Calcium Carbonate (Calcium Carbonate 750 Mg Tab.Chew) 750 mg PO Q4H PRN PRN Reason: Heartburn Dextrose (Dextrose 50 % 25 Gm/50 Ml Syringe) 25 gm IVPUSH Q15M PRN; Protocol PRN Reason: per Hypoglycemia Standing Ord. Docusate Sodium (Docusate Sodium 100 Mg/10 Ml Liquid) 100 mg PO BID [facility] Last Admin: 09/28/24 07:53 Dose: 100 mg Documented By: RADHA Glucose (Glucose Gel 15 Gm Gel..Gram.) 15 gm PO Q15M PRN; Protocol PRN Reason: per Hypoglycemia Standing Ord. Piperacillin Sod/Tazobactam (Sod 3.375 gm/ Sodium Chloride) 50 mls @ 100 mls/hr IV Q6H [facility] Last Infusion: 09/28/24 17:04 Dose: Infused Documented By: RADHA Nutrition (Parenteral) (Parenteral Nutrition) 1,080 mls @ 45 mls/hr IV .Q24H [facility]; Protocol Stop: 09/28/24 20:59 Last Admin: 09/27/24 21:35 Dose: 45 mls/hr Documented By: THELMA Nutrition (Parenteral) (Parenteral Nutrition) 1,080 mls @ 45 mls/hr IV .Q24H [facility]; Protocol Stop: 09/29/24 20:59 Insulin Human Lispro (Insulin Lispro 100 Unit/Ml 3 Ml Vial) 0 unit SUBCUT QIDACHS [facility]; Protocol Last Admin: 09/28/24 16:34 Dose: 6 unit Documented By: RADHA Levothyroxine Sodium (Levothyroxine Sodium 100 Mcg/5 Ml Vial) 50 mcg IVPUSH DAILY@0600 [facility] Last Admin: 09/28/24 05:39 Dose: 50 mcg Documented By: THELMA Magnesium Hydroxide (Milk Of Magnesia 30 Ml Oral.Susp) 30 ml PO DAILY PRN PRN Reason: Constipation Melatonin (Melatonin 3 Mg Tablet) 6 mg PO BEDTIME PRN PRN Reason: Insomnia Pharmacy Consult (Consult Rx Parenteral Nutrition Ordering) 1 each MISCELLANE DAILY PRN PRN Reason: Consult order Sodium Chloride (0.9 % Sodium Chloride Flush 3 Ml Syringe) 3 ml IVFLUSH QSHIFT [facility] Last Admin: 09/28/24 16:32 Dose: 3 ml Documented By: RADHA Labs 09/26/24 06:14 09/28/24 07:15 Labs: Laboratory Results - last 24 hr 09/27/24 09/28/24 09/28/24 21:21 07:05 07:15 Anion Gap 13 Estim Creat Clear Calc 44.2 Estimated GFR > 60 POC Glucose 317 H 261 H Random Glucose 248 H Calcium 8.6 Phosphorus 3.4 Magnesium 2.0 Vancomycin Trough 09/28/24 09/28/24 09/28/24 11:28 12:18 16:16 Anion Gap Estim Creat Clear Calc Estimated GFR POC Glucose 251 H 252 H Random Glucose Calcium Phosphorus Magnesium Vancomycin Trough 11.8 Assessment and Plan (1) Adult failure to thrive: Status: Acute (2) Hyponatremia: Status: Acute Plan 84F PMH advanced Alzheimer dementia with severe protein calorie malnutrition, nonverbal, hypothyroid, sacral decubitus ulcer sent by PCP for failure to thrive, hyponatremia, infected ulcer Advanced Alzheimer's dementia with failure to thrive, severe protein calorie malnutrition, dysphagia d/w hcp, jenelle, surgical eval for possible Gtube -currently Both jessa Landrum and Ralph have expressed their hesitation with proceeding with any invasive intervention. Speech following - currently recommending pureed with nectar thick liquid, but giving fluctuating mentation, poor intake, added ppn ,encourage for po intake and hydration Aspiration pneumonia Not septic Continue vancomycin and Zosyn acute hypokalemia replace and monitor Stage III decubitus ulcer with surrounding cellulitis Vancomycin Zosyn, wound care Sacrum:?Deep Tissue Injury in Evolution ? 1. Turn and Reposition every 2 hours and as needed for patient comfort.? Use pillows or wedges to support off loading positions. 2. Off Load all bony prominences with use of pillows and heel boots if needed.? Apply Preventative foams where needed. ? 3. Monitor for incontinence and moisture control, use barrier creams when needed for prevention and treatment. 4. Provide adequate and supplemental nutrition.? 5. Order low air loss mattress. 6. When applicable maintain blood glucose levels per Providers order. Sacrum - Off Load Pressure with Q2 hr turns and use of willows. Cleanse with NS or PH balanced wipes, pat dry. Apply Triad layer to wound bed and surrounding tissue.? Do not remove all of paste between applications as this may cause further damage to wound bed. Apply antifungal power to assist with moisture management.? Be sure to dust of excess powder to prevent caking on skin and in folds. Hypothyroid Continue Synthroid IV Diabetes Insulin sliding scale DVT prophylaxis with heparin subQ Full code reason for continued hospitalization: IV antibiotics, gtube plan Quality Stroke Does the patient have a stroke diagnosis?: No VTE Prior VTE?: No VTE Risk Level:: Medical - moderate - high VTE Device Contraindication: Treatment Not Indicated VTE Drug Contraindication: N/A - Med Ordered
[2024-09-28 20:00] VITALS: BP 135/76; PULSE 95; RESP 16; TEMP 36.7; O2SAT 98
[2024-09-28 20:39] LABS: Glucose, Whole Blood 148 mg/dL (60-115)
[2024-09-28] MEDS: Parenteral Nutrition 1,080 ML 45 ML IV (21:32)
[2024-09-28 23:54] VITALS: BP 168/87; PULSE 77; RESP 18; TEMP 37; O2SAT 100
[2024-09-29 04:00] VITALS: BP 142/78; PULSE 103; RESP 16; TEMP 37.1; O2SAT 100
[2024-09-29 07:34] VITALS: BP 156/82; PULSE 96; RESP 20; TEMP 36.2; O2SAT 98
[2024-09-29 07:47] LABS: Glucose, Whole Blood 305 mg/dL (60-115)
[2024-09-29 09:22] LABS: Anion Gap 15 (12-20); Blood Urea Nitrogen 19 mg/dL (9-16); Calcium 8.5 mg/dL (8.4-10.2); Carbon Dioxide 30 mmol/L (22-29); Chloride 91 mmol/L (96-108); Creatinine Clr Calc Pharmacy 46.6; Estimated Glomerular Filt Rate > 60; Magnesium 1.8 mg/dL (1.6-2.6); Potassium 4.1 mmol/L (3.3-5.1); Sodium 132 mmol/L (135-145)
--- NOTE | 2024-09-29 11:04 | PM.PNGS ---
Subjective Subjective Date of Service: 09/29/24 Interval history: no significant changes with patient's status On TPN Physical Exam Vital Signs: Vital Signs: Last Vital Signs Temp 97.2 F 09/29/24 07:34 Pulse 96 09/29/24 07:34 Resp 20 09/29/24 07:34 BP 156/82 H 09/29/24 07:34 Pulse Ox 98 09/29/24 07:34 O2 Del Method Nasal Cannula 09/29/24 07:34 O2 Flow Rate 1 09/29/24 07:34 BMI result Body Mass Index 17.6 Const: Other: Asleep, not verbally communicative, not responsive Resp: Effort & Inspection: normal respiratory effort Cardio: Rate: regular rate GI: Palpation (GI): Soft to palpation Objective Data Active Medications Acetaminophen (Acetaminophen 325 Mg Tablet) 650 mg PO Q6H PRN PRN Reason: Pain, Mild 1-3,fever,headache Calcium Carbonate (Calcium Carbonate 750 Mg Tab.Chew) 750 mg PO Q4H PRN PRN Reason: Heartburn Dextrose (Dextrose 50 % 25 Gm/50 Ml Syringe) 25 gm IVPUSH Q15M PRN; Protocol PRN Reason: per Hypoglycemia Standing Ord. Docusate Sodium (Docusate Sodium 100 Mg/10 Ml Liquid) 100 mg PO BID [facility] Last Admin: 09/28/24 21:30 Dose: 100 mg Documented By: EBONI Glucose (Glucose Gel 15 Gm Gel..Gram.) 15 gm PO Q15M PRN; Protocol PRN Reason: per Hypoglycemia Standing Ord. Nutrition (Parenteral) (Parenteral Nutrition) 1,080 mls @ 45 mls/hr IV .Q24H [facility]; Protocol Stop: 09/29/24 20:59 Last Admin: 09/28/24 21:32 Dose: 45 mls/hr Documented By: EBONI Doxycycline Hyclate 100 mg/ (Sodium Chloride) 250 mls @ 166.67 mls/hr IV Q12H [facility] Stop: 10/08/24 09:29 Last Infusion: 09/29/24 09:21 Dose: Infused Documented By: MATTHEW Insulin Human Lispro (Insulin Lispro 100 Unit/Ml 3 Ml Vial) 0 unit SUBCUT QIDACHS [facility]; Protocol Last Admin: 09/29/24 07:50 Dose: 8 unit Documented By: MATTHEW Levothyroxine Sodium (Levothyroxine Sodium 100 Mcg/5 Ml Vial) 50 mcg IVPUSH DAILY@0600 [facility] Last Admin: 09/29/24 05:46 Dose: 50 mcg Documented By: EBONI Magnesium Hydroxide (Milk Of Magnesia 30 Ml Oral.Susp) 30 ml PO DAILY PRN PRN Reason: Constipation Melatonin (Melatonin 3 Mg Tablet) 6 mg PO BEDTIME PRN PRN Reason: Insomnia Pharmacy Consult (Consult Rx Parenteral Nutrition Ordering) 1 each MISCELLANE DAILY PRN PRN Reason: Consult order Sodium Chloride (0.9 % Sodium Chloride Flush 3 Ml Syringe) 3 ml IVFLUSH QSHIFT [facility] Last Admin: 09/29/24 08:00 Dose: Not Given Documented By: MATTHEW Non-Admin Reason: IV Running Labs 09/26/24 06:14 09/29/24 08:52 Labs: Laboratory Results - last 24 hr 09/28/24 09/28/24 09/28/24 11:28 12:18 16:16 Hold Purple Top Anion Gap Estim Creat Clear Calc Estimated GFR POC Glucose 251 H 252 H Random Glucose Calcium Phosphorus Magnesium Vancomycin Trough 11.8 09/28/24 09/29/24 09/29/24 20:34 07:33 08:52 Hold Purple Top SEE NOTE Anion Gap 15 Estim Creat Clear Calc 46.6 Estimated GFR > 60 POC Glucose 148 H 305 H Random Glucose 290 H Calcium 8.5 Phosphorus 3.4 Magnesium 1.8 Vancomycin Trough Procedures Date of Service Date of Service: 09/29/24 Progress Note: A&P Assessment and plan (1) Adult failure to thrive: Status: Acute Assessment and Plan: As per hospitalist, the patient has son had wanted to proceed with PEG tube I had a long discussion with son Ralph at bedside I explained to him the technique of the procedure I reviewed the risks including but not limited to bleeding, infections, injury to other organs, inherent risks of anesthesia including loss of airway requiring mechanical ventilation, even He understands that in view of the patient's overall extreme frailty, she does present with significant risks I also explained to him what to expect afterwards I did explain to him that the PEG tube placement with all its risks, does not improve her quality of life He says that he feels he needs to think more about proceeding with a PEG We will talk again on Tuesday and check with him if he was to proceed Time Spent With Patient Time: Total time managing care of this patient today ____ minutes. Quality Stroke Does the patient have a stroke diagnosis?: No VTE Prior VTE?: No VTE Risk Level:: Medical - moderate - high VTE Device Contraindication: Treatment Not Indicated VTE Drug Contraindication: N/A - Med Ordered
[2024-09-29 11:09] VITALS: BP 164/89; PULSE 98; RESP 20; TEMP 36.6; O2SAT 96
--- NOTE | 2024-09-29 11:32 | P.PNIM_ITS ---
Subjective Subjective Date of Service: 09/29/24 Interval History: dec po intake hyponatremia Review of Systems has few pvc's on tele. staff aware for po intake. no new events Review of Systems: Yes all other systems are reviewed and are negative Physical Exam 2 Vital Signs: Vital Signs: Last Vital Signs Temp 97.8 F 09/29/24 11:09 Pulse 98 09/29/24 11:09 Resp 20 09/29/24 11:09 BP 164/89 H 09/29/24 11:09 Pulse Ox 96 09/29/24 11:09 O2 Del Method Nasal Cannula 09/29/24 11:09 O2 Flow Rate 1 09/29/24 11:09 BMI result Body Mass Index 17.6 Appearance: awake,not in distress cvs: rrr, [id number] res: clear to auscultation ,no rhonchii or wheezing abd: no rebound or guarding ,nt, bs present. ext pulses present , no cyanosis . neuro: axo3 , nonfocal Objective Data Active Medications Acetaminophen (Acetaminophen 325 Mg Tablet) 650 mg PO Q6H PRN PRN Reason: Pain, Mild 1-3,fever,headache Calcium Carbonate (Calcium Carbonate 750 Mg Tab.Chew) 750 mg PO Q4H PRN PRN Reason: Heartburn Dextrose (Dextrose 50 % 25 Gm/50 Ml Syringe) 25 gm IVPUSH Q15M PRN; Protocol PRN Reason: per Hypoglycemia Standing Ord. Docusate Sodium (Docusate Sodium 100 Mg/10 Ml Liquid) 100 mg PO BID [facility] Last Admin: 09/28/24 21:30 Dose: 100 mg Documented By: EBONI Glucose (Glucose Gel 15 Gm Gel..Gram.) 15 gm PO Q15M PRN; Protocol PRN Reason: per Hypoglycemia Standing Ord. Nutrition (Parenteral) (Parenteral Nutrition) 1,080 mls @ 45 mls/hr IV .Q24H [facility]; Protocol Stop: 09/29/24 20:59 Last Admin: 09/28/24 21:32 Dose: 45 mls/hr Documented By: EBONI Doxycycline Hyclate 100 mg/ (Sodium Chloride) 250 mls @ 166.67 mls/hr IV Q12H [facility] Stop: 10/08/24 09:29 Last Infusion: 09/29/24 09:21 Dose: Infused Documented By: MATTHEW Nutrition (Parenteral) (Parenteral Nutrition) 1,080 mls @ 45 mls/hr IV .Q24H [facility]; Protocol Stop: 09/30/24 20:59 Insulin Human Lispro (Insulin Lispro 100 Unit/Ml 3 Ml Vial) 0 unit SUBCUT QIDACHS [facility]; Protocol Last Admin: 09/29/24 07:50 Dose: 8 unit Documented By: MATTHEW Levothyroxine Sodium (Levothyroxine Sodium 100 Mcg/5 Ml Vial) 50 mcg IVPUSH DAILY@0600 [facility] Last Admin: 09/29/24 05:46 Dose: 50 mcg Documented By: EBONI Magnesium Hydroxide (Milk Of Magnesia 30 Ml Oral.Susp) 30 ml PO DAILY PRN PRN Reason: Constipation Melatonin (Melatonin 3 Mg Tablet) 6 mg PO BEDTIME PRN PRN Reason: Insomnia Pharmacy Consult (Consult Rx Parenteral Nutrition Ordering) 1 each MISCELLANE DAILY PRN PRN Reason: Consult order Sodium Chloride (0.9 % Sodium Chloride Flush 3 Ml Syringe) 3 ml IVFLUSH QSHIFT [facility] Last Admin: 09/29/24 08:00 Dose: Not Given Documented By: MATTHEW Non-Admin Reason: IV Running Labs 09/26/24 06:14 09/29/24 08:52 Labs: Laboratory Results - last 24 hr 09/28/24 09/28/24 09/28/24 11:28 12:18 16:16 Hold Purple Top Anion Gap Estim Creat Clear Calc Estimated GFR POC Glucose 251 H 252 H Random Glucose Calcium Phosphorus Magnesium Vancomycin Trough 11.8 09/28/24 09/29/24 09/29/24 20:34 07:33 08:52 Hold Purple Top SEE NOTE Anion Gap 15 Estim Creat Clear Calc 46.6 Estimated GFR > 60 POC Glucose 148 H 305 H Random Glucose 290 H Calcium 8.5 Phosphorus 3.4 Magnesium 1.8 Vancomycin Trough Assessment and Plan (1) Adult failure to thrive: Status: Acute Plan 84F PMH advanced Alzheimer dementia with severe protein calorie malnutrition, nonverbal, hypothyroid, sacral decubitus ulcer sent by PCP for failure to thrive, hyponatremia, infected ulcer Advanced Alzheimer's dementia with failure to thrive, severe protein calorie malnutrition, dysphagia d/w hcp, jenelle, surgical eval for possible Gtube -currently Both jessa Landrum and Ralph have expressed their hesitation with proceeding with any invasive intervention. Speech following - currently recommending pureed with nectar thick liquid, but giving fluctuating mentation, poor intake, added ppn ,encourage for po intake and hydration on tele -has few pvc's: potassium 4.1 ,mag 1.8 will add iv mag continue to moniter on tele Aspiration pneumonia Not septic Po Doxycycline cover any occult cellulitis at buttock area 10 days. No further treatment for UTI as no specific organism seen. completed zosyn for 8days,will stop. acute hypokalemia replace and monitor Stage III decubitus ulcer with surrounding cellulitis Po Doxycycline cover any occult cellulitis at buttock area 10 days. Sacrum:?Deep Tissue Injury in Evolution ? 1. Turn and Reposition every 2 hours and as needed for patient comfort.? Use pillows or wedges to support off loading positions. 2. Off Load all bony prominences with use of pillows and heel boots if needed.? Apply Preventative foams where needed. ? 3. Monitor for incontinence and moisture control, use barrier creams when needed for prevention and treatment. 4. Provide adequate and supplemental nutrition.? 5. Order low air loss mattress. 6. When applicable maintain blood glucose levels per Providers order. Sacrum - Off Load Pressure with Q2 hr turns and use of willows. Cleanse with NS or PH balanced wipes, pat dry. Apply Triad layer to wound bed and surrounding tissue.? Do not remove all of paste between applications as this may cause further damage to wound bed. Apply antifungal power to assist with moisture management.? Be sure to dust of excess powder to prevent caking on skin and in folds. Hypothyroid Continue Synthroid IV Diabetes Insulin sliding scale DVT prophylaxis with heparin subQ Full code reason for continued hospitalization: IV antibiotics, gtube plan Quality Stroke Does the patient have a stroke diagnosis?: No VTE Prior VTE?: No VTE Risk Level:: Medical - moderate - high VTE Device Contraindication: Treatment Not Indicated VTE Drug Contraindication: N/A - Med Ordered
[2024-09-29 11:47] LABS: Glucose, Whole Blood 216 mg/dL (60-115)
[2024-09-29 15:57] LABS: Glucose, Whole Blood 307 mg/dL (60-115)
[2024-09-29 15:58] VITALS: BP 119/72; PULSE 107; RESP 19; TEMP 36.3; O2SAT 98
[2024-09-29] MEDS: 0.9 % Sodium Chloride Flush 3 ML SYRINGE IVFLUSH ×2 (16:04→21:45)
[2024-09-29 19:14] VITALS: BP 136/78; PULSE 111; RESP 17; TEMP 36.7; O2SAT 97
[2024-09-29 21:11] LABS: Glucose, Whole Blood 425 mg/dL (60-115)
[2024-09-29] MEDS: Parenteral Nutrition 1,080 ML 45 ML IV (21:39)
[2024-09-29 22:11] LABS: Glucose, Whole Blood 356 mg/dL (60-115)
[2024-09-29 23:21] VITALS: BP 153/74; PULSE 106; RESP 17; TEMP 36.6; O2SAT 96
[2024-09-30 03:00] VITALS: BP 143/84; PULSE 95; RESP 16; TEMP 36.6; O2SAT 98
[2024-09-30 07:07] LABS: Anion Gap 13 (12-20); Blood Urea Nitrogen 22 mg/dL (9-16); Calcium 8.5 mg/dL (8.4-10.2); Carbon Dioxide 29 mmol/L (22-29); Chloride 93 mmol/L (96-108); Creatinine Clr Calc Pharmacy 53.4; Estimated Glomerular Filt Rate > 60; Magnesium 1.9 mg/dL (1.6-2.6); Potassium 4.0 mmol/L (3.3-5.1); Sodium 131 mmol/L (135-145)
[2024-09-30 07:56] VITALS: BP 172/85; PULSE 99; RESP 17; TEMP 36.3; O2SAT 97
[2024-09-30 08:12] LABS: Glucose, Whole Blood 277 mg/dL (60-115)
[2024-09-30] MEDS: 0.9 % Sodium Chloride Flush 3 ML SYRINGE IVFLUSH ×2 (09:06→16:22)
[2024-09-30] MEDS: Insulin Glargine,Hum.rec.anlog 100 UNIT/ML 10 ML VIAL SUBCUT (09:23)
--- NOTE | 2024-09-30 10:50 | HO.PM.IMPN ---
Subjective Subjective Date of Service: 09/30/24 Interval History: ftt Review of Systems po intake is very low no new ovenright events Physical Exam Exam: Exam: Appearance: sleep,not in distress cvs: rrr, [id number] res: clear to auscultation ,no rhonchii or wheezing abd: no rebound or guarding ,nt, bs present. ext pulses present , no cyanosis . neuro: axo3 , nonfocal Vital Signs: Vital Signs: Last Vital Signs Temp 97.3 F 09/30/24 07:56 Pulse 99 09/30/24 07:56 Resp 17 09/30/24 07:56 BP 172/85 H 09/30/24 07:56 Pulse Ox 97 09/30/24 07:56 O2 Del Method Room Air 09/30/24 07:56 O2 Flow Rate 1 09/30/24 03:00 BMI result Body Mass Index 17.6 Objective Data Active Medications Acetaminophen (Acetaminophen 325 Mg Tablet) 650 mg PO Q6H PRN PRN Reason: Pain, Mild 1-3,fever,headache Calcium Carbonate (Calcium Carbonate 750 Mg Tab.Chew) 750 mg PO Q4H PRN PRN Reason: Heartburn Dextrose (Dextrose 50 % 25 Gm/50 Ml Syringe) 25 gm IVPUSH Q15M PRN; Protocol PRN Reason: per Hypoglycemia Standing Ord. Docusate Sodium (Docusate Sodium 100 Mg/10 Ml Liquid) 100 mg PO BID [facility] Last Admin: 09/30/24 09:00 Dose: Not Given Documented By: TIFFANIE Non-Admin Reason: Lethargic, inability to swallow Glucose (Glucose Gel 15 Gm Gel..Gram.) 15 gm PO Q15M PRN; Protocol PRN Reason: per Hypoglycemia Standing Ord. Doxycycline Hyclate 100 mg/ (Sodium Chloride) 250 mls @ 166.67 mls/hr IV Q12H [facility] Stop: 10/08/24 09:29 Last Infusion: 09/30/24 10:35 Dose: Infused Documented By: TIFFANIE Nutrition (Parenteral) (Parenteral Nutrition) 1,080 mls @ 45 mls/hr IV .Q24H [facility]; Protocol Stop: 09/30/24 20:59 Last Admin: 09/29/24 21:39 Dose: 45 mls/hr Documented By: EBONI Nutrition (Parenteral) (Parenteral Nutrition) 1,080 mls @ 45 mls/hr IV .Q24H [facility]; Protocol Stop: 10/01/24 20:59 Insulin Glargine (Insulin Glargine,Hum.Rec.Anlog 100 Unit/Ml 10 Ml Vial) 5 unit SUBCUT DAILY [facility] Last Admin: 09/30/24 09:23 Dose: 5 unit Documented By: TIFFANIE Insulin Human Lispro (Insulin Lispro 100 Unit/Ml 3 Ml Vial) 0 unit SUBCUT QIDACHS [facility]; Protocol Last Admin: 09/30/24 09:06 Dose: 6 unit Documented By: TIFFANIE Levothyroxine Sodium (Levothyroxine Sodium 100 Mcg/5 Ml Vial) 50 mcg IVPUSH DAILY@0600 [facility] Last Admin: 09/30/24 05:34 Dose: 50 mcg Documented By: EBONI Magnesium Hydroxide (Milk Of Magnesia 30 Ml Oral.Susp) 30 ml PO DAILY PRN PRN Reason: Constipation Melatonin (Melatonin 3 Mg Tablet) 6 mg PO BEDTIME PRN PRN Reason: Insomnia Pharmacy Consult (Consult Rx Parenteral Nutrition Ordering) 1 each MISCELLANE DAILY PRN PRN Reason: Consult order Sodium Chloride (0.9 % Sodium Chloride Flush 3 Ml Syringe) 3 ml IVFLUSH QSHIFT [facility] Last Admin: 09/30/24 09:06 Dose: 3 ml Documented By: TIFFANIE Labs 09/26/24 06:14 09/30/24 06:12 Labs: Laboratory Results - last 24 hr 09/29/24 09/29/24 09/29/24 11:08 15:26 20:40 Anion Gap Estim Creat Clear Calc Estimated GFR POC Glucose 216 H 307 H 425 H* Random Glucose Calcium Phosphorus Magnesium 09/29/24 09/30/24 09/30/24 22:06 06:12 07:43 Anion Gap 13 Estim Creat Clear Calc 53.4 Estimated GFR > 60 POC Glucose 356 H* 277 H Random Glucose 263 H Calcium 8.5 Phosphorus 3.0 Magnesium 1.9 Assessment and Plan (1) Adult failure to thrive: Status: Acute Plan 84F PMH advanced Alzheimer dementia with severe protein calorie malnutrition, nonverbal, hypothyroid, sacral decubitus ulcer sent by PCP for failure to thrive, hyponatremia, infected ulcer Advanced Alzheimer's dementia with failure to thrive, severe protein calorie malnutrition, dysphagia d/w hcp, jenelle, surgical eval for possible Gtube -currently Both sons Jenelle and Ralph have expressed their hesitation with proceeding with any invasive intervention. Speech following - currently recommending pureed with nectar thick liquid, but giving fluctuating mentation, poor intake, added ppn ,encourage for po intake and hydration on tele -has few pvc's on 09/29/24: potassium 4 ,mag 1.9 added iv mag continue to moniter on tele Aspiration pneumonia Not septic Po Doxycycline cover any occult cellulitis at buttock area 10 days. No further treatment for UTI as no specific organism seen. completed zosyn for 8days. acute hypokalemia replted and resolved. Stage III decubitus ulcer with surrounding cellulitis Po Doxycycline cover any occult cellulitis at buttock area 10 days. Sacrum:?Deep Tissue Injury in Evolution ? 1. Turn and Reposition every 2 hours and as needed for patient comfort.? Use pillows or wedges to support off loading positions. 2. Off Load all bony prominences with use of pillows and heel boots if needed.? Apply Preventative foams where needed. ? 3. Monitor for incontinence and moisture control, use barrier creams when needed for prevention and treatment. 4. Provide adequate and supplemental nutrition.? 5. Order low air loss mattress. 6. When applicable maintain blood glucose levels per Providers order. Sacrum - Off Load Pressure with Q2 hr turns and use of willows. Cleanse with NS or PH balanced wipes, pat dry. Apply Triad layer to wound bed and surrounding tissue.? Do not remove all of paste between applications as this may cause further damage to wound bed. Apply antifungal power to assist with moisture management.? Be sure to dust of excess powder to prevent caking on skin and in folds. Hypothyroid Continue Synthroid IV Diabetes Insulin sliding scale DVT prophylaxis with heparin subQ Full code reason for continued hospitalization: IV antibiotics, gtube plan Quality Stroke Does the patient have a stroke diagnosis?: No VTE Prior VTE?: No VTE Risk Level:: Medical - moderate - high VTE Device Contraindication: Treatment Not Indicated VTE Drug Contraindication: N/A - Med Ordered
[2024-09-30 11:49] VITALS: BP 139/85; PULSE 103; RESP 18; TEMP 36.5; O2SAT 98
[2024-09-30 11:49] LABS: Glucose, Whole Blood 240 mg/dL (60-115)
[2024-09-30 15:57] VITALS: BP 126/63; PULSE 101; RESP 18; TEMP 36.4; O2SAT 95
[2024-09-30 16:18] LABS: Glucose, Whole Blood 147 mg/dL (60-115)
[2024-09-30 20:00] VITALS: BP 142/77; PULSE 118; RESP 12; TEMP 37.1; O2SAT 94
[2024-09-30 20:30] LABS: Glucose, Whole Blood 146 mg/dL (60-115)
[2024-09-30] MEDS: Parenteral Nutrition 1,080 ML 45 ML IV (22:04)
[2024-09-30 23:58] VITALS: BP 122/58; PULSE 113; RESP 12; TEMP 36.8; O2SAT 94
[2024-10-01] VITALS (14 sets, daily range): BP systolic 54–194; BP diastolic 27–93; PULSE 87–117; RESP 12–20; TEMP 32–37.2; O2SAT 92–100
[2024-10-01 07:30] LABS: Anion Gap 14 (12-20); Blood Urea Nitrogen 27 mg/dL (9-16); Calcium 8.6 mg/dL (8.4-10.2); Carbon Dioxide 27 mmol/L (22-29); Chloride 95 mmol/L (96-108); Creatinine Clr Calc Pharmacy 46.6; Estimated Glomerular Filt Rate > 60; Magnesium 2.2 mg/dL (1.6-2.6); Potassium 4.7 mmol/L (3.3-5.1); Sodium 131 mmol/L (135-145)
[2024-10-01 07:31] LABS: Glucose, Whole Blood 272 mg/dL (60-115)
[2024-10-01] MEDS: Insulin Glargine,Hum.rec.anlog 100 UNIT/ML 10 ML VIAL SUBCUT (08:50)
--- NOTE | 2024-10-01 11:21 | MHC.SLORD ---
Speech Language Pathology Order Status: RN consulted, pt is not waking for PO, team considering hospice. ICE GUARD INSPECTOR following as indicated.
--- NOTE | 2024-10-01 11:27 | MHC.CLN ---
F/U PO INTAKE BITES/SIPS OR 25% OCCASIONALLY DIET RX: PUREED WITH NT LIQ PER [employer] RECEIVING MAGIC CUP AND ENSURE BID TO INCREASE KCALS REVIEWED LABS DISCUSSED [facility] CONTINUE PPN AT MAX GOAL RATE OF 45ML/HR WITH 61G LIPIDS PROVIDES 1161KCALS (30KCALS/KG), 108G DEXTROSE, 46G PROTEIN (1.2G/KG) REPLETE LYTES NEEDED FOLLOWING WITH TEAM
[2024-10-01 11:39] LABS: Glucose, Whole Blood 235 mg/dL (60-115)
--- NOTE | 2024-10-01 12:10 | P.PNIM_ITS ---
Subjective Subjective Date of Service: 10/01/24 Interval History: ftt, generalised weak Review of Systems no new changes overnight intermittent awake Physical Exam 2 Vital Signs: Vital Signs: Last Vital Signs Temp 97.8 F 10/01/24 12:00 Pulse 95 10/01/24 12:00 Resp 20 10/01/24 12:00 BP 122/78 10/01/24 12:00 Pulse Ox 96 10/01/24 12:00 O2 Del Method Nasal Cannula 10/01/24 12:00 O2 Flow Rate 1 10/01/24 12:00 BMI result Body Mass Index 17.6 Objective Data Active Medications Acetaminophen (Acetaminophen 325 Mg Tablet) 650 mg PO Q6H PRN PRN Reason: Pain, Mild 1-3,fever,headache Calcium Carbonate (Calcium Carbonate 750 Mg Tab.Chew) 750 mg PO Q4H PRN PRN Reason: Heartburn Dextrose (Dextrose 50 % 25 Gm/50 Ml Syringe) 25 gm IVPUSH Q15M PRN; Protocol PRN Reason: per Hypoglycemia Standing Ord. Docusate Sodium (Docusate Sodium 100 Mg/10 Ml Liquid) 100 mg PO BID [facility] Last Admin: 10/01/24 08:51 Dose: Not Given Documented By: JABARI Non-Admin Reason: pt is lethargic/drowsy Glucose (Glucose Gel 15 Gm Gel..Gram.) 15 gm PO Q15M PRN; Protocol PRN Reason: per Hypoglycemia Standing Ord. Doxycycline Hyclate 100 mg/ (Sodium Chloride) 250 mls @ 166.67 mls/hr IV Q12H [facility] Stop: 10/08/24 09:29 Last Infusion: 10/01/24 10:15 Dose: Infused Documented By: JABARI Nutrition (Parenteral) (Parenteral Nutrition) 1,080 mls @ 45 mls/hr IV .Q24H [facility]; Protocol Stop: 10/01/24 20:59 Last Admin: 09/30/24 22:04 Dose: 45 mls/hr Documented By: HIRA Nutrition (Parenteral) (Parenteral Nutrition) 1,080 mls @ 45 mls/hr IV .Q24H [facility]; Protocol Stop: 10/02/24 20:59 Insulin Glargine (Insulin Glargine,Hum.Rec.Anlog 100 Unit/Ml 10 Ml Vial) 5 unit SUBCUT DAILY [facility] Last Admin: 10/01/24 08:50 Dose: 5 unit Documented By: JABARI Insulin Human Lispro (Insulin Lispro 100 Unit/Ml 3 Ml Vial) 0 unit SUBCUT QIDACHS [facility]; Protocol Last Admin: 10/01/24 08:50 Dose: 6 unit Documented By: JABARI Levothyroxine Sodium (Levothyroxine Sodium 100 Mcg/5 Ml Vial) 50 mcg IVPUSH DAILY@0600 [facility] Last Admin: 10/01/24 06:06 Dose: 50 mcg Documented By: THELMA Magnesium Hydroxide (Milk Of Magnesia 30 Ml Oral.Susp) 30 ml PO DAILY PRN PRN Reason: Constipation Melatonin (Melatonin 3 Mg Tablet) 6 mg PO BEDTIME PRN PRN Reason: Insomnia Pharmacy Consult (Consult Rx Parenteral Nutrition Ordering) 1 each MISCELLANE DAILY PRN PRN Reason: Consult order Sodium Chloride (0.9 % Sodium Chloride Flush 3 Ml Syringe) 3 ml IVFLUSH QSHIFT [facility] Last Admin: 10/01/24 08:46 Dose: Not Given Documented By: JABARI Non-Admin Reason: IV Running Labs 09/26/24 06:14 10/01/24 06:20 Labs: Laboratory Results - last 24 hr 09/30/24 09/30/24 10/01/24 16:09 20:27 06:20 Hold Purple Top SEE NOTE Anion Gap 14 Estim Creat Clear Calc 46.6 Estimated GFR > 60 POC Glucose 147 H 146 H Random Glucose 278 H Calcium 8.6 Phosphorus 3.2 Magnesium 2.2 10/01/24 10/01/24 07:23 11:25 Hold Purple Top Anion Gap Estim Creat Clear Calc Estimated GFR POC Glucose 272 H 235 H Random Glucose Calcium Phosphorus Magnesium Assessment and Plan (1) Adult failure to thrive: Status: Acute Plan 84F PMH advanced Alzheimer dementia with severe protein calorie malnutrition, nonverbal, hypothyroid, sacral decubitus ulcer sent by PCP for failure to thrive, hyponatremia, infected ulcer Advanced Alzheimer's dementia with failure to thrive, severe protein calorie malnutrition, dysphagia d/w hcp, jenelle, surgical eval for possible Gtube -currently Both jessa Landrum and Ralph have expressed their hesitation with proceeding with any invasive intervention. Speech following - currently recommending pureed with nectar thick liquid, but giving fluctuating mentation, poor intake, added ppn ,encourage for po intake and hydration on tele -has few pvc's on 09/29/24: potassium 4 ,mag 1.9 added iv mag continue to moniter on tele Aspiration pneumonia Not septic Po Doxycycline cover any occult cellulitis at buttock area 10 days. No further treatment for UTI as no specific organism seen. completed zosyn for 8days. acute hypokalemia replted and resolved. Stage III decubitus ulcer with surrounding cellulitis Po Doxycycline cover any occult cellulitis at buttock area 10 days. Sacrum:?Deep Tissue Injury in Evolution ? 1. Turn and Reposition every 2 hours and as needed for patient comfort.? Use pillows or wedges to support off loading positions. 2. Off Load all bony prominences with use of pillows and heel boots if needed.? Apply Preventative foams where needed. ? 3. Monitor for incontinence and moisture control, use barrier creams when needed for prevention and treatment. 4. Provide adequate and supplemental nutrition.? 5. Order low air loss mattress. 6. When applicable maintain blood glucose levels per Providers order. Sacrum - Off Load Pressure with Q2 hr turns and use of willows. Cleanse with NS or PH balanced wipes, pat dry. Apply Triad layer to wound bed and surrounding tissue.? Do not remove all of paste between applications as this may cause further damage to wound bed. Apply antifungal power to assist with moisture management.? Be sure to dust of excess powder to prevent caking on skin and in folds. Hypothyroid Continue Synthroid IV Diabetes Insulin sliding scale DVT prophylaxis with heparin subQ Full code reason for continued hospitalization: IV antibiotics, gtube plan. information for son ralph marquez -he leaning towards hospice , for now wants to be continue current care ,full code . we d/w with him in detail nursing staff present. Quality Stroke Does the patient have a stroke diagnosis?: No VTE Prior VTE?: No VTE Risk Level:: Medical - moderate - high VTE Device Contraindication: Treatment Not Indicated VTE Drug Contraindication: N/A - Med Ordered
[2024-10-01 16:15] LABS: Glucose, Whole Blood 155 mg/dL (60-115)
--- NOTE | 2024-10-01 16:59 | MHC.CM.PN ---
A Hospice referral has been sent to Hospice care in the [facility]. The son met with the agency recently. Kerri fischer liason will call son to discuss DME and DP. Patient will transport via BLS.
[2024-10-01 19:47] LABS: Glucose, Whole Blood 196 mg/dL (60-115)
--- NOTE | 2024-10-01 20:55 | PM.EVENT ---
Event Note Date of Service: 10/01/24 Event Note: Rapid response called for hypoxia. Patient with ongoing aspiration in the setting of dementia. Oxygenation improved with suctioning A 2nd rapid response was called for oxygenation in the 20s. Patient with labored breathing and tachypnea. Patient was placed on a non-rebreather. Acute hypoxemic respiratory failure due to recurrent aspiration. Blood pressure: 190/80. Called Ralph, son and informed him about the acute events who confirmed that patient is a full code and he wanted everything to be done including endotracheal intubation and mechanical ventilation. Discussed with ICU provider and will transfer the patient to ICU. Time Spent With Patient Time: Total time managing care of this patient today ____ minutes.
--- NOTE | 2024-10-01 22:18 | PC.NURSE ---
2044 This nurse was called to room 450 and was desating at 70%. P cynanotic. Rapid response initiated, suctioning performed. Jenny RN arrived first and did oral suctioning.Dr Antunez, respiratory, nurse supervisor tumbling and rolling and ICU team at bedside. Respiratory performed deep suctioning. Nonrebreather placed on pt with improved saturation to 96%. Pt stabilized and on oxymask on 2L flow. 2128: This nurse was called to room 450 at 2128 and notified that pt is desating at 27%. Extremities blue and cold upon arrival. Rapid response initiated. This nurse suctioned pt prior to help arrived. Dr Antunez, code nurse, ED provider, dope house operator helper and respiratory at bedside. Respiratory deep suctioned pt, non rebreather placed on pt with 15L flow. Decision was made to intubate patient. Pt son was called to confirm code status: full code confirmed, pt transport initiated to ICU. At 2135 pt vitals as follow: BP: 244/18, P:130, O2: 100% at 15L nonrebreather. Pt arrived at ICU at 2139 vital signs as follow: BP: 194/83, P: 117, O2: 100%. ICU nurse is taking over care of the patient.
--- NOTE | 2024-10-01 22:23 | W.PM.CCCN ---
History of Present Illness Data of Consult Service Date: 10/01/24 Requesting physician: Yovany Antunez Primary Care Provider: Cameron Ferrera [facility] HPI Reason for consult: AMS/ Hypoxia 84-year-old female with a past medical history of advanced Alzheimer's dementia, non-verbal, sacral decubitus ulcer, history of UTI/ESBL, diabetes, hypothyroidism chronic hyponatremia,? failure to thrive, severe protein calorie malnutrition, presented to the hospital on 09/20/2024 with altered mental status,? admitted to Hospital Medicine for aspiration pneumonia, UTI, and decubitus ulcer with surrounding cellulitis ?Tonight 2? rapid response called for hypoxemia,? initially resolved with suctioning, but later unable to protect airway, hypoxic to 20s.? The family was contacted by hospitalist physician,? who? wanted to continue full code.? Patient emergently transferred to the ICU for intubation Review of Systems Review of Systems: Yes unobtainable due to endotracheal tube PMFSH Past Medical History Medical History Hypertension Osteoporosis Hearing decreased Hypothyroid Diabetes Family History Family History Father CAD (coronary artery disease) CVD (cardiovascular disease) Mother Lymphoma Cancer Sister Thyroid disorder Other Substance use disorder Surgical History Surgical History History of lumpectomy of right breast Social History Social History Household Members: Unknown / Unable to assess Housing: Unknown / Unable to assess Unable to assess alcohol history related to: Unable to respond Comment: patient is bedfast Patient Tobacco Use Status: Never used Tobacco Second Hand Smoke Exposure: Yes Advance Directives Date on File: 09/20/24 service: No Current occupational status: retired Meds Allergies Allergy/AdvReac Type Severity Reaction Status Date / Time No Known Allergies (No Known Allergy Verified 09/20/24 18:31 Allergies*) Active Medications: Current Medications Acetaminophen (Acetaminophen 325 Mg Tablet) 650 mg PO Q6H PRN PRN Reason: Pain, Mild 1-3,fever,headache Calcium Carbonate (Calcium Carbonate 750 Mg Tab.Chew) 750 mg PO Q4H PRN PRN Reason: Heartburn Dextrose (Dextrose 50 % 25 Gm/50 Ml Syringe) 25 gm IVPUSH Q15M PRN; Protocol PRN Reason: per Hypoglycemia Standing Ord. Docusate Sodium (Docusate Sodium 100 Mg/10 Ml Liquid) 100 mg PO BID [facility] Last Admin: 10/01/24 20:17 Dose: 100 mg Glucose (Glucose Gel 15 Gm Gel..Gram.) 15 gm PO Q15M PRN; Protocol PRN Reason: per Hypoglycemia Standing Ord. Doxycycline Hyclate 100 mg/ (Sodium Chloride) 250 mls @ 166.67 mls/hr IV Q12H [facility] Stop: 10/08/24 09:29 Last Admin: 10/01/24 20:12 Dose: 166.67 mls/hr Nutrition (Parenteral) (Parenteral Nutrition) 1,080 mls @ 45 mls/hr IV .Q24H [facility]; Protocol Stop: 10/02/24 20:59 Insulin Glargine (Insulin Glargine,Hum.Rec.Anlog 100 Unit/Ml 10 Ml Vial) 5 unit SUBCUT DAILY [facility] Last Admin: 10/01/24 08:50 Dose: 5 unit Insulin Human Lispro (Insulin Lispro 100 Unit/Ml 3 Ml Vial) 0 unit SUBCUT QIDACHS [facility]; Protocol Last Admin: 10/01/24 20:06 Dose: 2 unit Levothyroxine Sodium (Levothyroxine Sodium 100 Mcg/5 Ml Vial) 50 mcg IVPUSH DAILY@0600 [facility] Last Admin: 10/01/24 06:06 Dose: 50 mcg Magnesium Hydroxide (Milk Of Magnesia 30 Ml Oral.Susp) 30 ml PO DAILY PRN PRN Reason: Constipation Melatonin (Melatonin 3 Mg Tablet) 6 mg PO BEDTIME PRN PRN Reason: Insomnia Pharmacy Consult (Consult Rx Parenteral Nutrition Ordering) 1 each MISCELLANE DAILY PRN PRN Reason: Consult order Sodium Chloride (0.9 % Sodium Chloride Flush 3 Ml Syringe) 3 ml IVFLUSH QSHIFT [facility] Last Admin: 10/01/24 17:09 Dose: Not Given Home Medications ?Medication ?Instructions ?Recorded ?Confirmed ?Last Taken ?Type levothyroxine 100 mcg tablet 100 mcg PO DAILY@0600 09/21/24 09/21/24 09/19/24 History Physical Exam Exam: Exam: Constitutional: cachectic, frail looking, intubated Mental Status: non verbal at baseline Eyes: Pupils are equal, round, and reactive to light. Ear, Nose, and Throat: Oropharynx clear, mucous membranes moist. Trachea midline. Respiratory: Diffuse coarse crackles at bases Cardiovascular: S1, S2 regular. No murmurs, rubs, or gallops. Gastrointestinal: Abdomen soft, non-tender, non-distended. Normal bowel sounds. Neurologic: Cranial nerves II-XII are grossly intact bilaterally. No focal neurological deficits. Moves all extremities spontaneously. Skin: unstagable decubitis ulcer in sacral region Musculoskeletal: No cyanosis. BLE/ BUE contracted Extremities: No edema. Vital Signs: Vital Signs: Last Vital Signs Temp 98.5 F 10/01/24 19:24 Pulse 116 H 10/01/24 19:24 Resp 18 10/01/24 19:24 BP 133/64 10/01/24 19:24 Pulse Ox 92 10/01/24 19:30 O2 Del Method Room Air 10/01/24 19:30 O2 Flow Rate 1 10/01/24 19:24 BMI result Body Mass Index 17.6 Results Labs 10/02/24 05:38 10/02/24 05:38 Labs: BMP 10/01/24 06:20 Sodium 131 L Potassium 4.7 Chloride 95 L Carbon Dioxide 27 BUN 27 H Creatinine 0.55 Calcium 8.6 Microbiology Microbiology Results: Microbiology 09/20/24 19:09 Blood - Venous Blood Culture - Final No growth after 5 days. 09/20/24 19:09 Blood - Venous Blood Culture - Final No growth after 5 days. 09/20/24 20:55 Urine clean catch - Clean Catch Midstream Urine Culture - Final Assessment and Plan (1) Sepsis: Status: Acute (2) Acute hypoxic respiratory failure: Status: Acute (3) Unstageable decubitus ulcer: Status: Acute (4) Aspiration pneumonia: Status: Acute Plan 84-year-old female with a past medical history of advanced Alzheimer's dementia, non-verbal, sacral decubitus ulcer, history of UTI/ESBL, diabetes, hypothyroidism chronic hyponatremia,? failure to thrive, severe protein calorie malnutrition? admitted to ICU for management of acute hypoxic respiratory failure in the setting of? recurrent aspirations Plan: Neuro:? ?No acute issues Cardiac:?? Sepsis-? from aspiration pneumonia, no evidence of septic shock lactic was negative. ? On doxycycline,? we will broaden antibiotic coverage.? Hypotension:? from? ventilatory sedation,? no evidence of septic shock.? Pulmonary:?? Acute hypoxic respiratory failure- ? from aspiration pneumonia. Patient had completed 8 days of Zosyn,? now on doxycycline.? We will broaden coverage with Unasyn due to decompensation.? Continue antibiotics.? Wean off of? ventilator as tolerated Renal:? ?No acute issues Endo:? No acute issues.?? GI:?? ?No acute issues ID:? Aspiration pneumonia:? continue Unasyn.? Blood cultures collected and pending decubitus ulcer with surrounding cellulitis, cont Po Doxycycline cover any occult cellulitis at buttock area 10 days. Heme/Onc:? No acute issues. Psych:? No acute issues. Miscellaneous:?? ?Goals of care conversation held by hospitalist during the day, per documentation family was heading towards hospice.? Tonight,? I talked to son Ralph and Diallo regarding patient? clinical? status and goals of care.? They would like to continue full code.? Prophylaxis: Subcut heparin ? Critical care time: x 90 minutes CODE: ? FULL CODE confirmed with family?
[2024-10-01 22:51] LABS: Hematocrit 36.6 % (37.0-47.0); Hemoglobin 12.9 g/dl (12.0-16.0); Imm Gran Abs Auto 0.11 X10*3/uL (0.00-0.03); Imm Gran Pct Auto 0.9 % (0.0-0.4); Lymphocytes Absolute Auto 0.2 X10*3/uL (1.2-4.9); MANUAL DIFF FLAG SCAN; Mean Corpuscular HGB Conc 35.2 g/dl (31.0-35.0); Mean Corpuscular Hemoglobin 31.2 pg (27.0-33.0); Mean Corpuscular Volume 88.6 fL (80.0-98.0); NRBC Abs Auto 0.000 X10*3/uL (0.0-0.012); NRBC Pct Auto 0.0 /100WBC (0.0-0.2); Platelet Count 167 X10*3/uL (160-400); Red Blood Count 4.13 X10*6/uL (4.20-5.50); SCAN SMEAR FLAG 1; White Blood Count 12.8 X10*3/uL (4.8-10.8)
[2024-10-01 22:52] LABS: Venous Blood Gas Refer to POC result
[2024-10-01 22:54] LABS: VBG HCO3 32 mmol/L (22-26); VBG O2 % Saturation 99.0 %
[2024-10-01 23:09] LABS: Alanine Aminotransferase 49 U/L (0-31); Albumin Level 3.2 g/dL (3.5-5.0); Alkaline Phosphatase 183 U/L (39-117); Anion Gap 12 (12-20); Aspartate Amino Transferase 111 U/L (5-31); Blood Urea Nitrogen 29 mg/dL (9-16); Calcium 8.9 mg/dL (8.4-10.2); Carbon Dioxide 28 mmol/L (22-29); Chloride 98 mmol/L (96-108); Creatinine Clr Calc Pharmacy 49.3; Estimated Glomerular Filt Rate > 60; Magnesium 1.8 mg/dL (1.6-2.6); Potassium 3.4 mmol/L (3.3-5.1); Sodium 135 mmol/L (135-145); Total Protein 6.2 g/dL (6.5-8.0)
--- NOTE | 2024-10-01 23:11 | W.PM.CCHP ---
Procedures Date of Service Date of Service: 10/01/24 <Jose Elias Hamlin NP - Last Filed: 10/01/24 23:15> 10/02/24 <Wil Gbariel MD - Last Filed: 10/02/24 10:57> Intubation Intubation Comments: Patient in acute respiratory distress, requiring emergent intubation for hypoxemia.? Patient intubated with 7 cuffed ET tube under glide scope guidance with visualization of vocal cords, without immediate complications. ET tube position verified with Chest XRAY. <Jose Elias Hamlin NP - Last Filed: 10/01/24 23:15> Consent for Procedure: Emergent-no informed consent obtained <Jose Elias Hamlin NP - Last Filed: 10/01/24 23:15> Time out performed: Yes <Jose Elias Hamlin NP - Last Filed: 10/01/24 23:15> Sedative: propofol <Jose Elias Hamlin NP - Last Filed: 10/01/24 23:15> Mg given: 80 <Jose Elias Hamlin NP - Last Filed: 10/01/24 23:15> Paralytic: rocuronium <Jose Elias Hamlin NP - Last Filed: 10/01/24 23:15> Mg given: 30 <Jose Elias Hamlin NP - Last Filed: 10/01/24 23:15> Laryngoscope: fiber optic video scope <Jose Elias Hamlin NP - Last Filed: 10/01/24 23:15> ET tube size: 7 <Jose Elias Hamlin NP - Last Filed: 10/01/24 23:15> ET tube uncuffed: No <Jose Elias Hamlin NP - Last Filed: 10/01/24 23:15> Tube secured depth (cm): 25 <Jose Elias Hamlin NP - Last Filed: 10/01/24 23:15> Tube secured location: lips <Jose Elias Hamlin NP - Last Filed: 10/01/24 23:15> Tube placement confirmation: visualized tube passing through cords, equal breath sounds bilaterally, no breath sounds over epigastrium and confirmation by capnometry <Jose Elias Hamlin NP - Last Filed: 10/01/24 23:15> Patient tolerated procedure: well and no complications <Jose Elias Hamlin NP - Last Filed: 10/01/24 23:15> Intubation complications: none <Jose Elias Hamlin NP - Last Filed: 10/01/24 23:15>
[2024-10-01] MEDS: Parenteral Nutrition 1,080 ML 45 ML IV (23:27)
[2024-10-02] VITALS (46 sets, daily range): BP systolic 105–178; BP diastolic 49–85; PULSE 62–96; RESP 13–20; TEMP 32–37.1; O2SAT 94–100; BMI 22.0
[2024-10-02] MEDS: Potassium Chloride Packet 20 MEQ PACKET 40 MEQ PO (00:16)
[2024-10-02] MEDS: Albumin Human 25 % 100 ML IV ×4 (00:25→17:22)
[2024-10-02] MEDS: 0.9 % Sodium Chloride Flush 3 ML SYRINGE IVFLUSH ×3 (00:27→15:52)
--- NOTE | 2024-10-02 04:12 | PC.NURSE ---
Assumed care at approx 2200. Patient arrived to ICU from Med/Tele secondary to MECHANICS SUPERVISOR called for low oxygen saturations/aspiration event. Patient transferred to ICU and intubated by VALERI Hamlin emergently upon arrival for airway protection. Upon initial assessment, patient sedated with propofol gtt (see MAR), RASS -1 to -3. SR/ST on tele, HR 80s-100s with occasional PVCs. Levophed gtt running?per APR for BP support. Several IVs lost or infiltrated, new access obtained (see IV assessment). Patient intubated?with 7.0 ETT, 25 cm?@ lip,?+color change and placement confirmed via pCXR. See vent assessment. Patient with copious oral and in line secretions, oral care and frequent suctioning provided. Abdomen soft and flat, OGT placed and confirmed via pCXR. Parenteral nutrition running per APR. Purewick external catheter in place, draining clear yellow urine. Stage III/Unstageable ulcer to coccyx/sacrum, see skin note. Cleansed and redressed by this RN. Prophylactic foams to bilateral heels replaced. Patient repositioned Q2HR, bed locked in lowest position, soft wrist restraints in place for safety. Patient HCP updated at bedside by VALERI Hamlin on plan of care. VALERI Hamlin notified of all critical?labs and values. See EMR for further details.?
--- NOTE | 2024-10-02 04:15 | HO.SKINPHOTO ---
Location: Coccyx Stage: Stage III/? Unstagable
[2024-10-02 05:52] LABS: Hematocrit 29.5 % (37.0-47.0); Hemoglobin 10.1 g/dl (12.0-16.0); Imm Gran Abs Auto 0.17 X10*3/uL (0.00-0.03); Imm Gran Pct Auto 1.3 % (0.0-0.4); Lymphocytes Absolute Auto 0.7 X10*3/uL (1.2-4.9); MANUAL DIFF FLAG NO; Mean Corpuscular HGB Conc 34.2 g/dl (31.0-35.0); Mean Corpuscular Hemoglobin 30.4 pg (27.0-33.0); Mean Corpuscular Volume 88.9 fL (80.0-98.0); NRBC Abs Auto 0.000 X10*3/uL (0.0-0.012); NRBC Pct Auto 0.0 /100WBC (0.0-0.2); Platelet Count 150 X10*3/uL (160-400); Red Blood Count 3.32 X10*6/uL (4.20-5.50); White Blood Count 12.6 X10*3/uL (4.8-10.8)
[2024-10-02 05:58] LABS: Venous Blood Gas Refer to POC result
[2024-10-02 05:59] LABS: VBG HCO3 29 mmol/L (22-26); VBG O2 % Saturation 99.0 %
[2024-10-02 06:58] LABS: Albumin Level 3.8 g/dL (3.5-5.0); Anion Gap 13 (12-20); Blood Urea Nitrogen 28 mg/dL (9-16); Calcium 8.5 mg/dL (8.4-10.2); Carbon Dioxide 27 mmol/L (22-29); Chloride 100 mmol/L (96-108); Creatinine Clr Calc Pharmacy 51.0; Estimated Glomerular Filt Rate > 60; Magnesium 2.0 mg/dL (1.6-2.6); Potassium 4.2 mmol/L (3.3-5.1); Sodium 136 mmol/L (135-145)
[2024-10-02 07:27] LABS: Glucose, Whole Blood 236 mg/dL (60-115)
[2024-10-02] MEDS: Chlorhexidine Gluc Oral Rinse 15 ML MOUTHWASH BUCCAL ×2 (07:53→15:43)
--- NOTE | 2024-10-02 07:55 | MHC.SLORD ---
Speech Language Pathology Order Status: Speech consult deferred, as patient has been intubated. HYDROMETER CALIBRATOR will continue to follow.
--- NOTE | 2024-10-02 10:37 | MHC.CLN ---
F/U PT TRANSFERRED TO ICU PT IS INTUBATED AND SEDATED DISCUSSED AT ROUNDS WITH MD REVIEWED LABS DISCUSSED [facility] INCREASE PPN TO MAX GOAL RATE OF 55ML/HR WITH 48G LIPIDS TO PROVIDE 1153KCALS (1341 WITH SEDATION; 34KCALS/KG), 132G DEXTROSE, 56G PROTEIN (1.5G/KG) REPLETE LYTES NEEDED FORMULA WILL PROMOTE WOUND HEALING
--- NOTE | 2024-10-02 10:57 | P.PNCC_ITS ---
Subjective Subjective Date of Service: 10/02/24 Interval History: 84-year-old lady with underlying advanced Alzheimer's, nonverbal, essentially bed bound with large sacral decubitus ulcer, prior history of ESBL UTI, diabetes mellitus, hypothyroidism, chronic hyponatremia, failure to thrive, severe protein calorie malnutrition admitted on 09/02/2024 with alteration of mental status, aspiration pneumonia, UTI and worsening cellulitis around the decubitus ulcer. Patient was treated with broad-spectrum antibiotics in family discussion was not going regarding possible PEG placement when on 10/01/2024 patient had an aspiration event with profound hypoxemia requiring intubation and ventilatory support. No events overnight. Ventilatory support requirements improved. Critical Care Time (minutes): 60 Physical Exam 2 Vital Signs: Vital Signs: Last Vital Signs Temp 97.0 F 10/02/24 08:00 Pulse 62 10/02/24 10:32 Resp 16 10/02/24 10:00 BP 168/77 H 10/02/24 10:32 Pulse Ox 100 10/02/24 10:00 O2 Del Method Mechanical Ventil ation 10/02/24 10:00 O2 Flow Rate 15 10/01/24 21:25 FiO2 21 10/02/24 10:00 Oxygen Flow Rate 15 10/01/24 21:25 BMI result Body Mass Index 22.0 Const: General: no acute distress and other (Sedated on ventilatory support) Nutritional Appearance: malnourished Eyes: Sclerae: sclerae normal Neck: Neck: Yes no lymphadenopathy, Yes trachea midline and Yes supple Resp: Auscultation: clear to auscultation bilaterally Cardio: Rate: regular rate Rhythm: regular rhythm Heart sounds: no gallops, no murmurs and no rubs GI: Palpation (GI): Soft to palpation and Other GI palpation findings present ( Nontender) Auscultation: normal bowel sounds Extrem: General: Yes no pedal edema, No clubbing and No cyanosis Objective Data Labs 10/02/24 05:38 10/02/24 05:38 Labs: Laboratory Results - last 24 hr 10/01/24 10/01/24 10/01/24 16:06 19:39 WBC RBC Hgb Hct MCV MCH MCHC RDW Plt Count MPV Immature Gran % (Auto) Neut % (Auto) Lymph % (Auto) [place] % (Auto) Eos % (Auto) Baso % (Auto) Lymph # (Auto) [place] # (Auto) Eos # (Auto) Baso # (Auto) Abs Immat Gran (auto) Absolute Neuts (auto) Absolute Nucleated RBC Nucleated RBC % (auto) Smear Tech's Comments VBG pH VBG pCO2 VBG pO2 VBG HCO3 VBG O2 Saturation VBG Base Excess Sodium Potassium Chloride Carbon Dioxide Anion Gap BUN Creatinine Estim Creat Clear Calc Estimated GFR POC Glucose 235 H 155 H 196 H Random Glucose Lactic Acid Calcium Phosphorus Magnesium Total Bilirubin AST ALT Alkaline Phosphatase Total Protein Albumin 10/01/24 10/01/24 10/02/24 22:42 22:49 05:38 WBC 12.8 H 12.6 H RBC 4.13 L 3.32 L Hgb 12.9 10.1 L D Hct 36.6 L 29.5 L MCV 88.6 88.9 MCH 31.2 30.4 MCHC 35.2 H 34.2 RDW 14.8 14.7 Plt Count 167 D 150 L MPV 9.6 9.8 Immature Gran % (Auto) 0.9 H 1.3 H Neut % (Auto) 93.8 H 84.2 H Lymph % (Auto) 1.9 L 5.2 L [place] % (Auto) 2.9 9.1 Eos % (Auto) 0.3 0.0 Baso % (Auto) 0.2 0.2 Lymph # (Auto) 0.2 L 0.7 L [place] # (Auto) 0.4 1.2 Eos # (Auto) 0.0 0.0 Baso # (Auto) 0.0 0.0 Abs Immat Gran (auto) 0.11 H 0.17 H Absolute Neuts (auto) 12.0 H 10.6 H Absolute Nucleated RBC 0.000 0.000 Nucleated RBC % (auto) 0.0 0.0 Smear Tech's Comments VERIFIED VBG pH 7.48 H VBG pCO2 42 VBG pO2 102 VBG HCO3 32 H VBG O2 Saturation 99.0 VBG Base Excess 7.8 Sodium 135 136 Potassium 3.4 D 4.2 D Chloride 98 100 Carbon Dioxide 28 27 Anion Gap 12 13 BUN 29 H 28 H Creatinine 0.52 0.55 Estim Creat Clear Calc 49.3 51.0 Estimated GFR > 60 > 60 POC Glucose Random Glucose 139 H 203 H Lactic Acid 1.6 Calcium 8.9 8.5 Phosphorus 2.9 2.2 L Magnesium 1.8 2.0 Total Bilirubin 0.6 AST 111 H ALT 49 H Alkaline Phosphatase 183 H Total Protein 6.2 L Albumin 3.2 L 3.8 10/02/24 10/02/24 05:47 07:22 WBC RBC Hgb Hct MCV MCH MCHC RDW Plt Count MPV Immature Gran % (Auto) Neut % (Auto) Lymph % (Auto) [place] % (Auto) Eos % (Auto) Baso % (Auto) Lymph # (Auto) [place] # (Auto) Eos # (Auto) Baso # (Auto) Abs Immat Gran (auto) Absolute Neuts (auto) Absolute Nucleated RBC Nucleated RBC % (auto) Smear Tech's Comments VBG pH 7.56 H VBG pCO2 32 VBG pO2 93 VBG HCO3 29 H VBG O2 Saturation 99.0 VBG Base Excess 7.5 Sodium Potassium Chloride Carbon Dioxide Anion Gap BUN Creatinine Estim Creat Clear Calc Estimated GFR POC Glucose 236 H Random Glucose Lactic Acid Calcium Phosphorus Magnesium Total Bilirubin AST ALT Alkaline Phosphatase Total Protein Albumin Microbiology Microbiology Results: Microbiology 09/20/24 19:09 Blood - Venous Blood Culture - Final No growth after 5 days. 09/20/24 19:09 Blood - Venous Blood Culture - Final No growth after 5 days. 09/20/24 20:55 Urine clean catch - Clean Catch Midstream Urine Culture - Final Progress Note: A&P Assessment and plan (1) Acute hypoxic respiratory failure: Status: Acute (2) Pulmonary aspiration: Status: Acute (3) Dementia: Status: Acute (4) 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: Status: Acute (5) Urinary tract infection: Status: Acute (6) Adult failure to thrive: Status: Acute Plan Assessment: 84-year-old lady with advanced Alzheimer's dementia admitted with worsening cellulitis around decubitus ulcer and UTI with hospital course complicated by pulmonary aspiration required this baseline ventilatory support. Plan: Neuro: No acute issues. Underlying advanced Alzheimer's dementia. Cardiac: No acute issues. Pulmonary: Acute hypoxic respiratory failure secondary to pulmonary aspiration requiring ventilatory support, continue to titrate off as tolerated. Renal: No acute issues. Endo: No acute issues. Underlying diabetes mellitus and hypothyroidism. GI: No acute issues. ID: Empiric coverage for pulmonary aspiration. Heme/Onc: No acute issues. Psych: No acute issues. Miscellaneous: Discussions of goals of care ongoing with the family. Prophylaxis: Heparin, famotidine Diet: PPN Critical care time spent: 60 minutes Quality Stroke Does the patient have a stroke diagnosis?: No VTE Prior VTE?: No VTE Risk Level:: Medical - moderate - high VTE Device Contraindication: Treatment Not Indicated VTE Drug Contraindication: N/A - Med Ordered
[2024-10-02 11:31] LABS: Glucose, Whole Blood 197 mg/dL (60-115)
[2024-10-02 17:45] LABS: Glucose, Whole Blood 208 mg/dL (60-115)
--- NOTE | 2024-10-02 19:41 | PC.NURSE ---
Assumed care of patient at 0700 Neuro: patient sedated and vented this morning, sedation vacation done and patient extubated at 1605, opens eyes at times but doesn?t respond or follow commands, nonverbal at baseline. Resp: lung sounds Dim with insp and exp rhonchi through out, extubated and placed on venti mask currently at 1l/min,? Cardiac: SR. Edema noted to left forearm,? compression boots in place GI/: NPO, purewick in place and good output noted, slight smear but no BM noted Intigumentary: DTI to coccyx/Sacral, pink foam changed.
[2024-10-02] MEDS: Parenteral Nutrition 1,200 ML 55 ML IV (22:26)
[2024-10-03] VITALS (22 sets, daily range): BP systolic 98–169; BP diastolic 54–77; PULSE 73–99; RESP 16–22; TEMP 36.2–36.5; O2SAT 92–100; BMI 20.2
[2024-10-03 00:12] LABS: Glucose, Whole Blood 151 mg/dL (60-115)
[2024-10-03] MEDS: 0.9 % Sodium Chloride Flush 3 ML SYRINGE IVFLUSH ×4 (00:27→21:52)
--- NOTE | 2024-10-03 05:36 | PC.NURSE ---
Approx 0100 pt SpO2 dropping to 40s on RA. This RN and SAP HANA ARCHITECT Hamlin to bedside. Pt placed on NRB and nasopharyngeal?suctioned for copious thick white secretions. Pt with weak cough?and absent gag. SpO2 improved, pt placed on 2L oxymask.?
[2024-10-03 06:01] LABS: Venous Blood Gas Refer to POC result
[2024-10-03 06:03] LABS: VBG HCO3 34 mmol/L (22-26); VBG O2 % Saturation 99.0 %
[2024-10-03 06:06] LABS: MANUAL DIFF FLAG NO
[2024-10-03 06:20] LABS: Hematocrit 29.0 % (37.0-47.0); Hemoglobin 9.9 g/dl (12.0-16.0); Imm Gran Abs Auto 0.09 X10*3/uL (0.00-0.03); Imm Gran Pct Auto 1.1 % (0.0-0.4); Lymphocytes Absolute Auto 0.5 X10*3/uL (1.2-4.9); Mean Corpuscular HGB Conc 34.1 g/dl (31.0-35.0); Mean Corpuscular Hemoglobin 31.0 pg (27.0-33.0); Mean Corpuscular Volume 90.9 fL (80.0-98.0); NRBC Abs Auto 0.000 X10*3/uL (0.0-0.012); NRBC Pct Auto 0.0 /100WBC (0.0-0.2); Platelet Count 142 X10*3/uL (160-400); Red Blood Count 3.19 X10*6/uL (4.20-5.50); White Blood Count 8.4 X10*3/uL (4.8-10.8)
[2024-10-03 06:27] LABS: Alanine Aminotransferase 26 U/L (0-31); Albumin Level 3.9 g/dL (3.5-5.0); Alkaline Phosphatase 102 U/L (39-117); Anion Gap 12 (12-20); Aspartate Amino Transferase 44 U/L (5-31); Blood Urea Nitrogen 23 mg/dL (9-16); Calcium 8.8 mg/dL (8.4-10.2); Carbon Dioxide 30 mmol/L (22-29); Chloride 102 mmol/L (96-108); Creatinine Clr Calc Pharmacy 60.9; Estimated Glomerular Filt Rate > 60; Magnesium 1.9 mg/dL (1.6-2.6); Potassium 3.5 mmol/L (3.3-5.1); Sodium 140 mmol/L (135-145); Total Protein 6.0 g/dL (6.5-8.0)
[2024-10-03] MEDS: Potassium Chloride/H20 10 MEQ/100 ML PIGGYBACK 100 MEQ IV ×2 (08:45→10:23)
--- NOTE | 2024-10-03 09:38 | PM.CCPN ---
Subjective Subjective Date of Service: 10/03/24 Interval History: 84-year-old lady with underlying advanced Alzheimer's, nonverbal, essentially bed bound with large sacral decubitus ulcer, prior history of ESBL UTI, diabetes mellitus, hypothyroidism, chronic hyponatremia, failure to thrive, severe protein calorie malnutrition admitted on 09/02/2024 with alteration of mental status, aspiration pneumonia, UTI and worsening cellulitis around the decubitus ulcer. Patient was treated with broad-spectrum antibiotics in family discussion was not going regarding possible PEG placement when on 10/01/2024 patient had an aspiration event with profound hypoxemia requiring intubation and ventilatory support. Extubated uneventfully on 10/02/2024. No events overnight. Remains at constant risk of recurrent aspirations. Critical Care Time (minutes): 0 Physical Exam Vital Signs: Vital Signs: Last Vital Signs Temp 97.2 F 10/03/24 08:00 Pulse 78 10/03/24 08:00 Resp 18 10/03/24 08:00 BP 130/66 10/03/24 08:00 Pulse Ox 97 10/03/24 08:00 O2 Del Method Oxymask 10/03/24 08:00 O2 Flow Rate 1 10/03/24 08:00 FiO2 21 10/02/24 16:00 Oxygen Flow Rate 15 10/01/24 21:25 BMI result Body Mass Index 20.2 Const: General: no acute distress and lethargic Nutritional Appearance: thin Orientation/consciousness: lethargic Eyes: Sclerae: sclerae normal EOM: EOMs intact bilaterally Neck: Neck: Yes no lymphadenopathy, Yes trachea midline and Yes supple Resp: Effort & Inspection: normal respiratory effort and no respiratory distress Auscultation: clear to auscultation bilaterally Cardio: Rate: regular rate Rhythm: regular rhythm Heart sounds: no gallops, no murmurs and no rubs GI: Palpation (GI): Soft to palpation and Other GI palpation findings present ( Nontender) Auscultation: normal bowel sounds Extrem: General: Yes no pedal edema, No clubbing and No cyanosis Objective Data Labs 10/03/24 05:51 10/03/24 05:51 Labs: Laboratory Results - last 24 hr 10/02/24 10/02/24 10/03/24 11:19 17:41 00:07 WBC RBC Hgb Hct MCV MCH MCHC RDW Plt Count MPV Immature Gran % (Auto) Neut % (Auto) Lymph % (Auto) [place] % (Auto) Eos % (Auto) Baso % (Auto) Lymph # (Auto) [place] # (Auto) Eos # (Auto) Baso # (Auto) Abs Immat Gran (auto) Absolute Neuts (auto) Absolute Nucleated RBC Nucleated RBC % (auto) VBG pH VBG pCO2 VBG pO2 VBG HCO3 VBG O2 Saturation VBG Base Excess Sodium Potassium Chloride Carbon Dioxide Anion Gap BUN Creatinine Estim Creat Clear Calc Estimated GFR POC Glucose 197 H 208 H 151 H Random Glucose Calcium Phosphorus Magnesium Total Bilirubin AST ALT Alkaline Phosphatase Total Protein Albumin 10/03/24 10/03/24 05:51 06:00 WBC 8.4 RBC 3.19 L Hgb 9.9 L Hct 29.0 L MCV 90.9 MCH 31.0 MCHC 34.1 RDW 15.1 Plt Count 142 L MPV 10.9 Immature Gran % (Auto) 1.1 H Neut % (Auto) 82.5 H Lymph % (Auto) 6.1 L [place] % (Auto) 9.2 Eos % (Auto) 0.7 Baso % (Auto) 0.4 Lymph # (Auto) 0.5 L [place] # (Auto) 0.8 Eos # (Auto) 0.1 Baso # (Auto) 0.0 Abs Immat Gran (auto) 0.09 H Absolute Neuts (auto) 6.9 Absolute Nucleated RBC 0.000 Nucleated RBC % (auto) 0.0 VBG pH 7.51 H VBG pCO2 42 VBG pO2 139 VBG HCO3 34 H VBG O2 Saturation 99.0 VBG Base Excess 10.6 Sodium 140 Potassium 3.5 Chloride 102 Carbon Dioxide 30 H Anion Gap 12 BUN 23 H Creatinine 0.46 L Estim Creat Clear Calc 60.9 Estimated GFR > 60 POC Glucose Random Glucose 199 H Calcium 8.8 Phosphorus 2.8 Magnesium 1.9 Total Bilirubin 0.6 AST 44 H ALT 26 Alkaline Phosphatase 102 Total Protein 6.0 L Albumin 3.9 Microbiology Microbiology Results: Microbiology 10/01/24 22:42 Blood - Venous Blood Culture - Preliminary Prelim: GPC Gram Stain only 10/01/24 22:42 Blood - Venous Blood Culture - Preliminary Prelim: GPC Gram Stain only 09/20/24 19:09 Blood - Venous Blood Culture - Final No growth after 5 days. 09/20/24 19:09 Blood - Venous Blood Culture - Final No growth after 5 days. 09/20/24 20:55 Urine clean catch - Clean Catch Midstream Urine Culture - Final Progress Note: A&P Assessment and plan (1) Diabetes: Status: Acute (2) Hypothyroid: Status: Acute (3) Adult failure to thrive: Status: Acute (4) Pulmonary aspiration: Status: Acute (5) Gram-positive bacteremia: Status: Acute (6) 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: Status: Acute (7) Dementia: Status: Acute Plan Assessment: 84-year-old lady with advanced Alzheimer's dementia admitted with worsening cellulitis around decubitus ulcer and UTI with hospital course complicated by pulmonary aspiration required this baseline ventilatory support. Plan: Neuro: No acute issues. Underlying advanced Alzheimer's dementia. Cardiac: No acute issues. Pulmonary: Acute hypoxic respiratory failure secondary to pulmonary aspiration initially requiring ventilatory support, extubated 10/02/2024. Remains at constant risk of recurrent aspirations. Renal: No acute issues. Endo: No acute issues. Underlying diabetes mellitus and hypothyroidism. GI: No acute issues. ID: Gram-positive bacteremia with likely soft tissue source, continue empiric antibiotics. Heme/Onc: No acute issues. Psych: No acute issues. Miscellaneous: Discussions of goals of care ongoing with the family. Prophylaxis: Heparin Diet: PPN Quality Stroke Does the patient have a stroke diagnosis?: No VTE Prior VTE?: No VTE Risk Level:: Medical - moderate - high VTE Device Contraindication: Treatment Not Indicated VTE Drug Contraindication: N/A - Med Ordered
--- NOTE | 2024-10-03 10:02 | MHC.CLN ---
F/U PT EXTUBATED YESTERDAY DISCUSSED AT ROUNDS WITH MD REVIEWED LABS DISCUSSED [facility] CONTINUE PPN AT MAX GOAL RATE OF 55ML/HR WITH 48G LIPIDS PROVIDES 1153KCALS (30KCALS/KG), 132G DEXTROSE, 56G PROTEIN (1.5G/KG) REPLETE LYTES NEEDED FORMULA WILL PROMOTE WOUND HEALING
--- NOTE | 2024-10-03 10:26 | MHC.SLORD ---
Speech Language Pathology Order Status: Pt extubated 10/02, GRAPPLE CREW LEADER to re-assess as appropriate. Prognosis for safe and adequate resumption of PO is poor at this time d/t significance of comorbidities.
[2024-10-03 12:34] LABS: Glucose, Whole Blood 225 mg/dL (60-115)
--- NOTE | 2024-10-03 12:34 | HO.WOUND ---
Wound Consult: Follow up 84yr old?female admitted to [facility] [place] on 09/21/24 - See progress notes and H&P for detailed history.? Wound consult follow up for coccyx sacral area. Patient was seen in the ICU and is pending transfer back to the inpatient units. She continued to have a diagnosis of failure to thrive and is non interactive with her environment. She has contracture to her arm and legs padding and preventative foams in place to elbows and heels. After assessment review and discussion no new topical recommendations needed at this time. Recommend continue to off load and continue with Triad to sacrum. 10/03/24 Todays assessment reveal worsening of the wound bed - does not appear to have fully declared as of yet so will remain Deep Tissue Injury in Evolution at this time - suspect will evolve to Unstageable pressure injury. There has only been foam dressing in use, I continue to recommend Triad use to attempt to allow for autolytic debridement and moist wound healing. Discussed with direct care nurse. Per discussion with direct care nurse there are goal of care discussions on going. 09/27/24 Continues as DTI in evolution. 09/25/24 Sacrum Etiology: ?Deep Tissue Injury in Evolution ?Present on Admission Wound Bed: marbled red nonblanchable purple and adherent white yellow slough Edges: ? Irregular Preeti wound: ?MASD with fungal dermatitis No Induration, Fluctuance or Warmth noted Goals of Treatment: ? Off Load Pressure and Triad antifungal powder Recommendations: 1. Turn and Reposition every 2 hours and as needed for patient comfort.? Use pillows or wedges to support off loading positions. 2. Off Load all bony prominences with use of pillows and heel boots if needed.? Apply Preventative foams where needed. ? 3. Monitor for incontinence and moisture control, use barrier creams when needed for prevention and treatment. 4. Provide adequate and supplemental nutrition.? 5. Order low air loss mattress. 6. When applicable maintain blood glucose levels per Providers order. Sacrum - Off Load Pressure with Q2 hr turns and use of willows. Cleanse with NS or PH balanced wipes, pat dry. Apply Triad layer to wound bed and surrounding tissue.? Do not remove all of paste between applications as this may cause further damage to wound bed. Apply antifungal power to assist with moisture management.? Be sure to dust of excess powder to prevent caking on skin and in folds. Apply per provider orders. Re-consult wound care Nurse for wound deterioration or wound changes.
--- NOTE | 2024-10-03 15:09 | MHC.CM.PN ---
EMR REVIEWED,CM CONTACTED PT'S SON/HCP NICK ON CELL# [phone] TO DISCUSS DISPO, NICK REPORTS THEY ARE STILL DECIDING ON HOSPICE AND NICK REPORTS HE WILL BE IN THIS EVENING AFTER WORK AND HIS BROTHER AMEENA WILL BE IN AROUND 4-4:30PM. PT CURRENTLY REMAINS ON PPN AND PT WILL NEED PEG TUBE IF FAMILY DECIDES AGAINST HOSPICE. PER ICU NURSE PT'S SON DURAN WHO PT RESIDES WITH WOULD LIKE HOSPICE HOWEVER NICK IS THE DECISION MAKER HE IS ONLY PERSON LISTED ON HCP. CM WILL CONT TO FOLLOW DC NEEDS.
[2024-10-03 18:25] LABS: Glucose, Whole Blood 225 mg/dL (60-115)
[2024-10-03] MEDS: Parenteral Nutrition 1,320 ML 55 ML IV (21:49)
[2024-10-04] VITALS (43 sets, daily range): BP systolic 55–196; BP diastolic 26–102; PULSE 63–115; RESP 16–22; TEMP 34.4–37.7; O2SAT 88–100; BMI 20.1
[2024-10-04 00:41] LABS: Glucose, Whole Blood 139 mg/dL (60-115)
[2024-10-04 05:39] LABS: Glucose, Whole Blood 210 mg/dL (60-115)
--- NOTE | 2024-10-04 06:57 | PM.EVENT ---
Event Note Date of Service: 10/04/24 Event Note: 6:33 am - contacted by nursing to notify patient's O2 sats dropped to 79% about 5 minutes after suctioning. She was placed on non-rebreather and currently on 12 L/min. O2 sat is 99%. On evaluation, patient was unresponsive. Cardiopulmonary exam showed prominent rhonchi. Plan: -Stat high flow -CXR stat -Labs stat: VBG, CBC, CMP, lactic acid -DuoNeb Time Spent With Patient Time: Total time managing care of this patient today ____ minutes.
[2024-10-04] MEDS: Albuterol/Iprat 2.5/0.5MG 3 ML AMPUL.NEB INHALE (07:20)
--- NOTE | 2024-10-04 07:34 | PC.RT ---
Pt placed on High Flow nasal cannula. AT 60% 50/ Rhinci Mason, One time duoneb ordered by . CXR done and shows a full right white out. Will continue to NTS prn and wean accordingly per protocol.
[2024-10-04 07:57] LABS: MANUAL DIFF FLAG NO
[2024-10-04 07:58] LABS: Hematocrit 40.7 % (37.0-47.0); Imm Gran Abs Auto 0.28 X10*3/uL (0.00-0.03); Imm Gran Pct Auto 2.2 % (0.0-0.4); Lymphocytes Absolute Auto 2.4 X10*3/uL (1.2-4.9); Mean Corpuscular HGB Conc 33.2 g/dl (31.0-35.0); Mean Corpuscular Hemoglobin 30.8 pg (27.0-33.0); Mean Corpuscular Volume 92.9 fL (80.0-98.0); NRBC Abs Auto 0.000 X10*3/uL (0.0-0.012); NRBC Pct Auto 0.0 /100WBC (0.0-0.2); Platelet Count 201 X10*3/uL (160-400); Red Blood Count 4.38 X10*6/uL (4.20-5.50); White Blood Count 12.6 X10*3/uL (4.8-10.8)
[2024-10-04 08:02] LABS: VBG HCO3 31 mmol/L (22-26); VBG O2 % Saturation 84.0 %
[2024-10-04 08:03] LABS: Venous Blood Gas Refer to POC result
--- NOTE | 2024-10-04 08:16 | HO.PM.IMPN ---
Subjective Subjective Date of Service: 10/04/24 Interval History: desatted at 630am Physical Exam Exam: Exam: contracted, non verbal, ill appearing, no lung sounds over right Vital Signs: Vital Signs: Last Vital Signs Temp 95.6 F L 10/04/24 07:41 Pulse 115 H 10/04/24 07:41 Resp 22 H 10/04/24 07:41 BP 196/102 H 10/04/24 07:41 Pulse Ox 88 L 10/04/24 07:41 O2 Del Method High Flow Nasal C annula 10/04/24 07:41 O2 Flow Rate 1 10/04/24 04:00 FiO2 21 10/02/24 16:00 Oxygen Flow Rate 15 10/01/24 21:25 BMI result Body Mass Index 20.1 Objective Data Active Medications Dextrose (Dextrose 50 % 25 Gm/50 Ml Syringe) 25 gm IVPUSH Q15M PRN; Protocol PRN Reason: per Hypoglycemia Standing Ord. Famotidine (Famotidine/Pf 20 Mg/2 Ml Vial) 20 mg IVPUSH DAILY [facility] Last Admin: 10/03/24 08:45 Dose: 20 mg Documented By: JOSE Glucose (Glucose Gel 15 Gm Gel..Gram.) 15 gm PO Q15M PRN; Protocol PRN Reason: per Hypoglycemia Standing Ord. Heparin Sodium (Porcine) (Heparin Sodium,Porcine 5,000 Unit/Ml Vial) 5,000 unit SUBCUT Q8H [facility] Last Admin: 10/04/24 00:31 Dose: 5,000 unit Documented By: EBONI Ampicillin Sodium/Sulbactam (Sodium 3 gm/ Sodium Chloride) 100 mls @ 200 mls/hr IV Q6H K[facility]IME Last Admin: 10/04/24 05:37 Dose: 200 mls/hr Documented By: EBONI Nutrition (Parenteral) (Parenteral Nutrition) 1,320 mls @ 55 mls/hr IV .Q24H KARIME; Protocol Stop: 10/04/24 20:59 Last Admin: 10/03/24 21:49 Dose: 55 mls/hr Documented By: EBONI Insulin Human Lispro (Insulin Lispro 100 Unit/Ml 3 Ml Vial) 0 unit SUBCUT Q6H KARIME; Protocol Last Admin: 10/04/24 05:45 Dose: 4 unit Documented By: EBONI Levothyroxine Sodium (Levothyroxine Sodium 100 Mcg/5 Ml Vial) 50 mcg IVPUSH DAILY@0600 [facility] Last Admin: 10/04/24 05:37 Dose: 50 mcg Documented By: EBONI Magnesium Hydroxide (Milk Of Magnesia 30 Ml Oral.Susp) 30 ml PO DAILY PRN PRN Reason: Constipation Melatonin (Melatonin 3 Mg Tablet) 6 mg PO BEDTIME PRN PRN Reason: Insomnia Pharmacy Consult (Consult Rx Parenteral Nutrition Ordering) 1 each MISCELLANE DAILY PRN PRN Reason: Consult order Sodium Chloride (0.9 % Sodium Chloride Flush 3 Ml Syringe) 3 ml IVFLUSH QSHIFT [facility] Last Admin: 10/03/24 21:52 Dose: 3 ml Documented By: EBONI Labs 10/03/24 05:51 10/03/24 05:51 Labs: Laboratory Results - last 24 hr 10/03/24 10/03/24 10/04/24 12:29 18:21 00:34 VBG pH VBG pCO2 VBG pO2 VBG HCO3 VBG O2 Saturation VBG Base Excess POC Glucose 225 H 225 H 139 H 10/04/24 10/04/24 05:33 07:56 VBG pH 7.35 VBG pCO2 56 VBG pO2 56 VBG HCO3 31 H VBG O2 Saturation 84.0 VBG Base Excess 4.6 POC Glucose 210 H Microbiology Microbiology Results: Microbiology 10/01/24 22:42 Blood Culture - Preliminary Blood - Venous Staphylococcus species 10/01/24 22:42 Blood Culture - Preliminary Blood - Venous Staphylococcus species Assessment and Plan (1) Adult failure to thrive: Status: Acute Plan 84F PMH advanced Alzheimer dementia with severe protein calorie malnutrition, nonverbal, hypothyroid, sacral decubitus ulcer sent by PCP for failure to thrive, hyponatremia, infected ulcer, course complicated by aspiraiotn requiring intubation, downgraded 10/03/24, now with mucus plugging event For failure due to mucus plugging/aspiration due to below Discussed with healthcare proxy, wishes to reintubate his mother Will reintubate and transfer to ICU Advanced Alzheimer's dementia with failure to thrive, severe protein calorie malnutrition, dysphagia d/w hcp, jenelle, surgical eval for possible Gtube -currently Both sons Jenelle and Ralph have expressed their hesitation with proceeding with any invasive intervention. Speech following - currently recommending pureed with nectar thick liquid, but giving fluctuating mentation, poor intake, added ppn ,encourage for po intake and hydration Aspiration pneumonia completed zosyn for 8days., currently on unasyn acute hypokalemia replted and resolved. Stage III decubitus ulcer with surrounding cellulitis Sacrum:?Deep Tissue Injury in Evolution ? 1. Turn and Reposition every 2 hours and as needed for patient comfort.? Use pillows or wedges to support off loading positions. 2. Off Load all bony prominences with use of pillows and heel boots if needed.? Apply Preventative foams where needed. ? 3. Monitor for incontinence and moisture control, use barrier creams when needed for prevention and treatment. 4. Provide adequate and supplemental nutrition.? 5. Order low air loss mattress. 6. When applicable maintain blood glucose levels per Providers order. Sacrum - Off Load Pressure with Q2 hr turns and use of willows. Cleanse with NS or PH balanced wipes, pat dry. Apply Triad layer to wound bed and surrounding tissue.? Do not remove all of paste between applications as this may cause further damage to wound bed. Apply antifungal power to assist with moisture management.? Be sure to dust of excess powder to prevent caking on skin and in folds. Hypothyroid Continue Synthroid IV Diabetes Insulin sliding scale DVT prophylaxis with heparin subQ Full code - confirmed 10/04/24 reason for continued hospitalization: hypoxia Quality Stroke Does the patient have a stroke diagnosis?: No VTE Prior VTE?: No VTE Risk Level:: Medical - moderate - high VTE Device Contraindication: Treatment Not Indicated VTE Drug Contraindication: N/A - Med Ordered
[2024-10-04 08:26] LABS: Hemoglobin 13.5 g/dl (12.0-16.0)
[2024-10-04 08:30] LABS: Alanine Aminotransferase 59 U/L (0-31); Albumin Level 4.6 g/dL (3.5-5.0); Alkaline Phosphatase 176 U/L (39-117); Aspartate Amino Transferase 103 U/L (5-31); Blood Urea Nitrogen 22 mg/dL (9-16); Calcium 9.1 mg/dL (8.4-10.2); Creatinine Clr Calc Pharmacy 57.2; Estimated Glomerular Filt Rate > 60; Total Protein 7.6 g/dL (6.5-8.0)
--- NOTE | 2024-10-04 08:30 | PC.NURSE ---
recieved report fr night RN. pt was having difficulty breathing and hypoxia after deep suction per night RN. pt was placed on High Flow during report time. pt then require multiple deep suction dt frequent desat to 80%, also unresponsive, nonverbal at basline. RT and MD was happened to be in the room seeing the pt at the same time, thus PAIN MANAGEMENT NURSE PRACTITIONER was not initiated. pt was maxed out on HFNC setting by RT. at 8:10, ER doctor (DR Batres) and ER Nurse presented at bedside to start intubation process. pt was placed on the ambu bag by RT. 0814 etomidate 20mg and rocuronium 50mg was deliver via IVP by MACHINE QUILT STUFFER per MD. 0815 DR Batres successfully intubated pt with 22 lip line 7.5mm of ETT. vital sign checked BP 136/89 TOMÁS, O2 sat has been 99-100% entire time of intubation, ETCO2 33, equal rhonchi, positive colorimetric per RT (Matthew). 0817, MACHINE QUILT STUFFER was giving pt Versed 2mg and Fentanyl 100mg via IVP per MD. pt then transferred to ICU, report given at bedside to EDUCATION AND TRAINING COORDINATOR (Zbigniew).
[2024-10-04 08:44] LABS: Anion Gap 19 (12-20); Carbon Dioxide 24 mmol/L (22-29); Chloride 100 mmol/L (96-108); Potassium 4.5 mmol/L (3.3-5.1); Sodium 138 mmol/L (135-145)
[2024-10-04 08:58] LABS: Magnesium 2.1 mg/dL (1.6-2.6)
[2024-10-04] MEDS: 0.9 % Sodium Chloride Flush 3 ML SYRINGE IVFLUSH ×3 (10:02→22:28)
[2024-10-04] MEDS: Chlorhexidine Gluc Oral Rinse 15 ML MOUTHWASH BUCCAL ×3 (10:07→22:27)
--- NOTE | 2024-10-04 10:11 | MHC.CLN ---
F/U PT RE-INTUBATED AND TRANSFERRED BACK TO ICU DISCUSSED AT ROUNDS WITH MD REVIEWED LABS DISCUSSED [facility] CONTINUE PPN AT MAX GOAL RATE OF 55ML/HR WITH 48G LIPIDS PROVIDES 1153KCALS (30KCALS/KG), 132G DEXTROSE, 56G PROTEIN (1.5G/KG) REPLETE LYTES NEEDED FORMULA WILL PROMOTE WOUND HEALING
--- NOTE | 2024-10-04 10:47 | PM.CCPN ---
Subjective Subjective Date of Service: 10/04/24 Interval History: 84-year-old lady with underlying advanced Alzheimer's, nonverbal, essentially bed bound with large sacral decubitus ulcer, prior history of ESBL UTI, diabetes mellitus, hypothyroidism, chronic hyponatremia, failure to thrive, severe protein calorie malnutrition admitted on 09/02/2024 with alteration of mental status, aspiration pneumonia, UTI and worsening cellulitis around the decubitus ulcer. Patient was treated with broad-spectrum antibiotics in family discussion was not going regarding possible PEG placement when on 10/01/2024 patient had an aspiration event with profound hypoxemia requiring intubation and ventilatory support. Extubated uneventfully on 10/02/2024. But remains at constant further aspiration risk. Patient with another aspiration event on 10/04/2024 in the morning on the telemetry unit requiring intubation and transfer back to intensive care unit. Critical Care Time (minutes): 60 Physical Exam Vital Signs: Vital Signs: Last Vital Signs Temp 95.6 F L 10/04/24 07:41 Pulse 67 10/04/24 10:23 Resp 22 H 10/04/24 07:41 BP 139/73 10/04/24 10:23 Pulse Ox 100 10/04/24 10:42 O2 Del Method High Flow Nasal C annula 10/04/24 07:41 O2 Flow Rate 1 10/04/24 04:00 FiO2 30 10/04/24 10:42 Oxygen Flow Rate 15 10/01/24 21:25 BMI result Body Mass Index 20.1 Const: General: no acute distress and other (Sedated on ventilatory support) Nutritional Appearance: malnourished Eyes: Sclerae: sclerae normal EOM: EOMs intact bilaterally Neck: Neck: Yes no lymphadenopathy, Yes trachea midline and Yes supple Resp: Auscultation: other (No right-sided air movement) Cardio: Rate: regular rate Rhythm: regular rhythm Heart sounds: no gallops, no murmurs and no rubs GI: Palpation (GI): Soft to palpation and Other GI palpation findings present ( Nontender) Auscultation: normal bowel sounds Extrem: General: Yes no pedal edema, No clubbing and No cyanosis Objective Data Labs 10/04/24 07:51 10/04/24 07:51 Labs: Laboratory Results - last 24 hr 08/13/25 08/13/25 08/14/25 12:29 18:21 00:34 WBC RBC Hgb Hct MCV MCH MCHC RDW Plt Count MPV Immature Gran % (Auto) Neut % (Auto) Lymph % (Auto) [place] % (Auto) Eos % (Auto) Baso % (Auto) Lymph # (Auto) [place] # (Auto) Eos # (Auto) Baso # (Auto) Abs Immat Gran (auto) Absolute Neuts (auto) Absolute Nucleated RBC Nucleated RBC % (auto) VBG pH VBG pCO2 VBG pO2 VBG HCO3 VBG O2 Saturation VBG Base Excess Sodium Potassium Chloride Carbon Dioxide Anion Gap BUN Creatinine Estim Creat Clear Calc Estimated GFR POC Glucose 225 H 225 H 139 H Random Glucose Calcium Phosphorus Magnesium Total Bilirubin AST ALT Alkaline Phosphatase Total Protein Albumin 10/04/24 10/04/24 10/04/24 05:33 07:51 07:51 WBC 12.6 H RBC 4.38 D Hgb 13.5 D Hct 40.7 D MCV 92.9 MCH 30.8 MCHC 33.2 RDW 15.2 Plt Count 201 D MPV 10.5 Immature Gran % (Auto) 2.2 H Neut % (Auto) 66.9 Lymph % (Auto) 18.8 L [place] % (Auto) 10.5 Eos % (Auto) 0.7 Baso % (Auto) 0.9 Lymph # (Auto) 2.4 [place] # (Auto) 1.3 H Eos # (Auto) 0.1 Baso # (Auto) 0.1 Abs Immat Gran (auto) 0.28 H Absolute Neuts (auto) 8.5 H Absolute Nucleated RBC 0.000 Nucleated RBC % (auto) 0.0 VBG pH VBG pCO2 VBG pO2 VBG HCO3 VBG O2 Saturation VBG Base Excess Sodium Cancelled 138 Potassium Cancelled Chloride Carbon Dioxide Anion Gap BUN Creatinine Estim Creat Clear Calc Estimated GFR POC Glucose 210 H Random Glucose Calcium Phosphorus Magnesium Total Bilirubin AST ALT Alkaline Phosphatase Total Protein Albumin 10/04/24 10/04/24 10/04/24 07:51 07:51 07:51 WBC RBC Hgb Hct MCV MCH MCHC RDW Plt Count MPV Immature Gran % (Auto) Neut % (Auto) Lymph % (Auto) [place] % (Auto) Eos % (Auto) Baso % (Auto) Lymph # (Auto) [place] # (Auto) Eos # (Auto) Baso # (Auto) Abs Immat Gran (auto) Absolute Neuts (auto) Absolute Nucleated RBC Nucleated RBC % (auto) VBG pH VBG pCO2 VBG pO2 VBG HCO3 VBG O2 Saturation VBG Base Excess Sodium Potassium 4.5 D Chloride Cancelled 100 Carbon Dioxide Cancelled 24 Anion Gap Cancelled BUN Creatinine Estim Creat Clear Calc Estimated GFR POC Glucose Random Glucose Calcium Phosphorus Magnesium Total Bilirubin AST ALT Alkaline Phosphatase Total Protein Albumin 10/04/24 10/04/24 10/04/24 07:51 07:51 07:51 WBC RBC Hgb Hct MCV MCH MCHC RDW Plt Count MPV Immature Gran % (Auto) Neut % (Auto) Lymph % (Auto) [place] % (Auto) Eos % (Auto) Baso % (Auto) Lymph # (Auto) [place] # (Auto) Eos # (Auto) Baso # (Auto) Abs Immat Gran (auto) Absolute Neuts (auto) Absolute Nucleated RBC Nucleated RBC % (auto) VBG pH VBG pCO2 VBG pO2 VBG HCO3 VBG O2 Saturation VBG Base Excess Sodium Potassium Chloride Carbon Dioxide Anion Gap 19 BUN Cancelled 22 H Creatinine Cancelled 0.49 L Estim Creat Clear Calc Cancelled Estimated GFR POC Glucose Random Glucose Calcium Phosphorus Magnesium Total Bilirubin AST ALT Alkaline Phosphatase Total Protein Albumin 10/04/24 10/04/24 10/04/24 07:51 07:51 07:51 WBC RBC Hgb Hct MCV MCH MCHC RDW Plt Count MPV Immature Gran % (Auto) Neut % (Auto) Lymph % (Auto) [place] % (Auto) Eos % (Auto) Baso % (Auto) Lymph # (Auto) [place] # (Auto) Eos # (Auto) Baso # (Auto) Abs Immat Gran (auto) Absolute Neuts (auto) Absolute Nucleated RBC Nucleated RBC % (auto) VBG pH VBG pCO2 VBG pO2 VBG HCO3 VBG O2 Saturation VBG Base Excess Sodium Potassium Chloride Carbon Dioxide Anion Gap BUN Creatinine Estim Creat Clear Calc 57.2 Estimated GFR Cancelled > 60 POC Glucose Random Glucose Cancelled 255 H Calcium Cancelled Phosphorus Magnesium Total Bilirubin AST ALT Alkaline Phosphatase Total Protein Albumin 10/04/24 10/04/24 10/04/24 07:51 07:51 07:51 WBC RBC Hgb Hct MCV MCH MCHC RDW Plt Count MPV Immature Gran % (Auto) Neut % (Auto) Lymph % (Auto) [place] % (Auto) Eos % (Auto) Baso % (Auto) Lymph # (Auto) [place] # (Auto) Eos # (Auto) Baso # (Auto) Abs Immat Gran (auto) Absolute Neuts (auto) Absolute Nucleated RBC Nucleated RBC % (auto) VBG pH VBG pCO2 VBG pO2 VBG HCO3 VBG O2 Saturation VBG Base Excess Sodium Potassium Chloride Carbon Dioxide Anion Gap BUN Creatinine Estim Creat Clear Calc Estimated GFR POC Glucose Random Glucose Calcium 9.1 Phosphorus Cancelled 3.3 Magnesium Cancelled 2.1 Total Bilirubin 0.7 AST 103 H ALT 59 H Alkaline Phosphatase 176 H Total Protein 7.6 Albumin 4.6 10/04/24 07:56 WBC RBC Hgb Hct MCV MCH MCHC RDW Plt Count MPV Immature Gran % (Auto) Neut % (Auto) Lymph % (Auto) [place] % (Auto) Eos % (Auto) Baso % (Auto) Lymph # (Auto) [place] # (Auto) Eos # (Auto) Baso # (Auto) Abs Immat Gran (auto) Absolute Neuts (auto) Absolute Nucleated RBC Nucleated RBC % (auto) VBG pH 7.35 VBG pCO2 56 VBG pO2 56 VBG HCO3 31 H VBG O2 Saturation 84.0 VBG Base Excess 4.6 Sodium Potassium Chloride Carbon Dioxide Anion Gap BUN Creatinine Estim Creat Clear Calc Estimated GFR POC Glucose Random Glucose Calcium Phosphorus Magnesium Total Bilirubin AST ALT Alkaline Phosphatase Total Protein Albumin Microbiology Microbiology Results: Microbiology 10/01/24 22:42 Blood - Venous Blood Culture - Final Staphylococcus hominis ssp isha 10/01/24 22:42 Blood - Venous Blood Culture - Final Staphylococcus hominis ssp isha 09/20/24 19:09 Blood - Venous Blood Culture - Final No growth after 5 days. 09/20/24 19:09 Blood - Venous Blood Culture - Final No growth after 5 days. 09/20/24 20:55 Urine clean catch - Clean Catch Midstream Urine Culture - Final Progress Note: A&P Assessment and plan (1) Adult failure to thrive: Status: Acute (2) Hypothyroidism: Status: Acute (3) Diabetes: Status: Acute (4) 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: Status: Acute (5) Dementia: Status: Acute (6) Acute hypoxic respiratory failure: Status: Acute (7) Aspiration pneumonia: Status: Acute Plan Assessment: 84-year-old lady with advanced Alzheimer's dementia admitted with worsening cellulitis around decubitus ulcer and UTI with hospital course complicated by pulmonary aspiration required this baseline ventilatory support. Plan: Neuro: No acute issues. Underlying advanced Alzheimer's dementia. Cardiac: No acute issues. Pulmonary: Acute hypoxic respiratory failure secondary to pulmonary aspiration requiring re-intubation and ventilatory support, continue to titrate off ventilatory support as tolerated. Remains at constant risk of recurrent aspirations. Renal: No acute issues. Endo: No acute issues. Underlying diabetes mellitus and hypothyroidism. GI: No acute issues. ID: Gram-positive bacteremia with likely soft tissue source, continue empiric antibiotics. Heme/Onc: No acute issues. Psych: No acute issues. Miscellaneous: Discussions of goals of care are ongoing with the family. Prophylaxis: Heparin, famotidine Diet: PPN Quality Stroke Does the patient have a stroke diagnosis?: No VTE Prior VTE?: No VTE Risk Level:: Medical - moderate - high VTE Device Contraindication: Treatment Not Indicated VTE Drug Contraindication: N/A - Med Ordered
--- NOTE | 2024-10-04 11:08 | HE.PHANOTE ---
Re: Sheng Thibodeaux D/C on 10/03, Dr. Gabriel restarted on 10/04. Pt only missed dose on 10/03. Pt to resume 1000mg q24h with predicted AUC 526, predicted trough 16.3. Next Trough 10/06 @ 0900.
--- NOTE | 2024-10-04 11:46 | MHC.CM.PN ---
Addendum entered by Mora Carolina RN 10/04/24 16:15: CM RECEIVED CALL BACK FROM PCP OFFICE NURSE WHO REPORTED THEY HAVE THE SAME UNWITNESSED HCP ON FILE [facility] [place] HAS ON FILE IN [facility], PCP NURSE ALSO REPORTS THAT PT WAS IN [facility]. Original Note: EMR REVIEWED, PT INTUBATED IN ICU, CM MET W/PT'S SON/HCP NICK AT BEDSIDE, NICK REPORTS THAT HE DID NOT REALIZE PT WOULD DECOMPENSATE SO QUICKLY AND HE WOULD NOT WANT HER TO BE INTUBATED AGAIN HOWEVER NICK IS NOT READY TO CHANGE PT'S CODE STATUS. NICK REQUESTING MEETING W/CM TOMORROW W/HIS BROTHER AMEENA, MTG WILL BE AT 11AM AND CM WILL MEET FAMILY AT BEDSIDE WHETHER IN ICU OR IMC. AFTER CHART REVIEW AND CONCERNS OF INADEQUATE CARE OF PT, CM AWAITING CALL BACK FROM PCP OFFICE REGARDING COPY OF HCP AND IF ELDER AT RISK WAS FILED. CM CONTACTED PT'S [facility] [phone] TO ENQUIRE IF ELDER AT RISK WAS FILED HOWEVER THEY REPORT THERE WAS NO ELDER AT RISK FILED AND PT WAS ONLY SEEN 4-5TIMES AND HER CERT RAN OUT.
[2024-10-04 12:32] LABS: Glucose, Whole Blood 186 mg/dL (60-115)
[2024-10-04 18:14] LABS: Glucose, Whole Blood 239 mg/dL (60-115)
[2024-10-04] MEDS: Parenteral Nutrition 1,320 ML 55 ML IV (21:27)
[2024-10-04 22:06] LABS: Venous Blood Gas Refer to POC result
[2024-10-04 22:08] LABS: VBG HCO3 28 mmol/L (22-26); VBG O2 % Saturation 98.0 %
[2024-10-04 22:20] LABS: Albumin Level 3.4 g/dL (3.5-5.0); Anion Gap 17 (12-20); Blood Urea Nitrogen 32 mg/dL (9-16); Calcium 8.5 mg/dL (8.4-10.2); Carbon Dioxide 24 mmol/L (22-29); Chloride 102 mmol/L (96-108); Creatinine Clr Calc Pharmacy 47.5; Estimated Glomerular Filt Rate > 60; Magnesium 2.0 mg/dL (1.6-2.6); Potassium 4.3 mmol/L (3.3-5.1); Sodium 139 mmol/L (135-145)
[2024-10-05] VITALS (32 sets, daily range): BP systolic 100–180; BP diastolic 50–92; PULSE 67–86; RESP 15–18; TEMP 34.8–37.6; O2SAT 96–100
[2024-10-05 00:05] LABS: Glucose, Whole Blood 196 mg/dL (60-115)
[2024-10-05 04:50] LABS: VBG HCO3 22 mmol/L (22-26); VBG O2 % Saturation 99.0 %
[2024-10-05 04:54] LABS: Venous Blood Gas Refer to POC result
[2024-10-05 05:17] LABS: Albumin Level 3.3 g/dL (3.5-5.0); Anion Gap 19 (12-20); Blood Urea Nitrogen 36 mg/dL (9-16); Calcium 8.7 mg/dL (8.4-10.2); Carbon Dioxide 22 mmol/L (22-29); Chloride 101 mmol/L (96-108); Creatinine Clr Calc Pharmacy 46.8; Estimated Glomerular Filt Rate > 60; Magnesium 2.1 mg/dL (1.6-2.6); Potassium 4.3 mmol/L (3.3-5.1); Sodium 138 mmol/L (135-145)
[2024-10-05 05:41] LABS: Hematocrit 30.1 % (37.0-47.0); Hemoglobin 10.4 g/dl (12.0-16.0); Imm Gran Abs Auto 0.23 X10*3/uL (0.00-0.03); Imm Gran Pct Auto 2.9 % (0.0-0.4); Lymphocytes Absolute Auto 1.5 X10*3/uL (1.2-4.9); MANUAL DIFF FLAG SCAN; Mean Corpuscular HGB Conc 34.6 g/dl (31.0-35.0); Mean Corpuscular Hemoglobin 30.5 pg (27.0-33.0); Mean Corpuscular Volume 88.3 fL (80.0-98.0); NRBC Abs Auto 0.000 X10*3/uL (0.0-0.012); NRBC Pct Auto 0.0 /100WBC (0.0-0.2); PLT CLUMP 1; Red Blood Count 3.41 X10*6/uL (4.20-5.50); SCAN SMEAR FLAG 1
[2024-10-05 06:24] LABS: White Blood Count 7.9 X10*3/uL (4.8-10.8)
[2024-10-05 06:25] LABS: Platelet Count 150 X10*3/uL (160-400)
--- NOTE | 2024-10-05 06:53 | HE.PHANOTE ---
RE: VANCO DOSING Renal function worsened. Dose is decreased to 750 mg q24h, next trough remains at 1100 on 10/06/24.
[2024-10-05] MEDS: Chlorhexidine Gluc Oral Rinse 15 ML MOUTHWASH BUCCAL ×3 (08:12→21:23)
[2024-10-05] MEDS: Albumin Human 25 % 100 ML IV ×2 (08:12→14:21)
[2024-10-05] MEDS: 0.9 % Sodium Chloride Flush 3 ML SYRINGE IVFLUSH ×3 (08:12→22:38)
--- NOTE | 2024-10-05 08:48 | P.PNCC_ITS ---
Subjective Subjective Date of Service: 10/05/24 Interval History: 84-year-old lady with underlying advanced Alzheimer's, nonverbal, essentially bed bound with large sacral decubitus ulcer, prior history of ESBL UTI, diabetes mellitus, hypothyroidism, chronic hyponatremia, failure to thrive, severe protein calorie malnutrition admitted on 09/02/2024 with alteration of mental status, aspiration pneumonia, UTI and worsening cellulitis around the decubitus ulcer. Patient was treated with broad-spectrum antibiotics in family discussion was not going regarding possible PEG placement when on 10/01/2024 patient had an aspiration event with profound hypoxemia requiring intubation and ventilatory support. Extubated uneventfully on 10/02/2024. But remains at constant further aspiration risk. Patient with another aspiration event on 10/04/2024 in the morning on the telemetry unit requiring intubation and transfer back to intensive care unit. Overnight. Ventilatory support requirements improved. Critical Care Time (minutes): 45 Physical Exam 2 Vital Signs: Vital Signs: Last Vital Signs Temp 98.6 F 10/05/24 08:00 Pulse 76 10/05/24 08:00 Resp 16 10/05/24 08:00 BP 125/63 10/05/24 08:00 Pulse Ox 99 10/05/24 08:00 O2 Del Method Mechanical Ventil ation 10/05/24 07:00 O2 Flow Rate 1 10/04/24 04:00 FiO2 21 10/05/24 08:15 Oxygen Flow Rate 15 10/01/24 21:25 BMI result Body Mass Index 20.1 Const: General: no acute distress and other (Sedated on ventilatory support) Nutritional Appearance: malnourished Eyes: Sclerae: sclerae normal EOM: EOMs intact bilaterally Neck: Neck: Yes no lymphadenopathy, Yes trachea midline and Yes supple Resp: Auscultation: clear to auscultation bilaterally Cardio: Rate: regular rate Rhythm: regular rhythm Heart sounds: no gallops, no murmurs and no rubs GI: Palpation (GI): Soft to palpation and Other GI palpation findings present ( Nontender) Auscultation: normal bowel sounds Extrem: General: Yes no pedal edema, No clubbing and No cyanosis Objective Data Labs 10/05/24 05:32 10/05/24 04:50 Labs: Laboratory Results - last 24 hr 10/04/24 10/04/24 10/04/24 07:51 12:28 18:03 WBC RBC Hgb Hct MCV MCH MCHC RDW Plt Count MPV Immature Gran % (Auto) Neut % (Auto) Lymph % (Auto) [place] % (Auto) Eos % (Auto) Baso % (Auto) Lymph # (Auto) [place] # (Auto) Eos # (Auto) Baso # (Auto) Abs Immat Gran (auto) Absolute Neuts (auto) Absolute Nucleated RBC Nucleated RBC % (auto) Smear Tech's Comments VBG pH VBG pCO2 VBG pO2 VBG HCO3 VBG O2 Saturation VBG Base Excess Sodium Potassium Chloride Carbon Dioxide Anion Gap BUN Creatinine Estim Creat Clear Calc Estimated GFR POC Glucose 186 H 239 H Random Glucose Calcium Phosphorus 3.3 Magnesium 2.1 Albumin 10/04/24 10/04/24 10/05/24 21:59 22:04 00:02 WBC RBC Hgb Hct MCV MCH MCHC RDW Plt Count MPV Immature Gran % (Auto) Neut % (Auto) Lymph % (Auto) [place] % (Auto) Eos % (Auto) Baso % (Auto) Lymph # (Auto) [place] # (Auto) Eos # (Auto) Baso # (Auto) Abs Immat Gran (auto) Absolute Neuts (auto) Absolute Nucleated RBC Nucleated RBC % (auto) Smear Tech's Comments VBG pH 7.51 H VBG pCO2 35 VBG pO2 77 VBG HCO3 28 H VBG O2 Saturation 98.0 VBG Base Excess 6.0 Sodium 139 Potassium 4.3 Chloride 102 Carbon Dioxide 24 Anion Gap 17 BUN 32 H Creatinine 0.59 Estim Creat Clear Calc 47.5 Estimated GFR > 60 POC Glucose 196 H Random Glucose 236 H Calcium 8.5 D Phosphorus 2.9 Magnesium 2.0 Albumin 3.4 L 10/05/24 10/05/24 10/05/24 04:46 04:50 05:32 WBC 7.9 RBC 3.41 L D Hgb 10.4 L D Hct 30.1 L D MCV 88.3 MCH 30.5 MCHC 34.6 RDW 15.1 Plt Count 150 L D MPV 11.2 Immature Gran % (Auto) 2.9 H Neut % (Auto) 64.5 Lymph % (Auto) 19.3 L [place] % (Auto) 10.6 Eos % (Auto) 1.7 Baso % (Auto) 1.0 Lymph # (Auto) 1.5 [place] # (Auto) 0.8 Eos # (Auto) 0.1 Baso # (Auto) 0.1 Abs Immat Gran (auto) 0.23 H Absolute Neuts (auto) 5.1 Absolute Nucleated RBC 0.000 Nucleated RBC % (auto) 0.0 Smear Tech's Comments VERIFIED VBG pH 7.62 H* VBG pCO2 21 VBG pO2 188 VBG HCO3 22 VBG O2 Saturation 99.0 VBG Base Excess 3.1 Sodium 138 Potassium 4.3 Chloride 101 Carbon Dioxide 22 Anion Gap 19 BUN 36 H Creatinine 0.60 Estim Creat Clear Calc 46.8 Estimated GFR > 60 POC Glucose Random Glucose 186 H Calcium 8.7 Phosphorus 3.2 Magnesium 2.1 Albumin 3.3 L Microbiology Microbiology Results: Microbiology 10/01/24 22:42 Blood - Venous Blood Culture - Final Staphylococcus hominis ssp isha 10/01/24 22:42 Blood - Venous Blood Culture - Final Staphylococcus hominis ssp isha 09/20/24 19:09 Blood - Venous Blood Culture - Final No growth after 5 days. 09/20/24 19:09 Blood - Venous Blood Culture - Final No growth after 5 days. 09/20/24 20:55 Urine clean catch - Clean Catch Midstream Urine Culture - Final Progress Note: A&P Assessment and plan (1) Hypothyroidism: Status: Acute (2) Diabetes: Status: Acute (3) Gram-positive bacteremia: Status: Acute (4) 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: Status: Acute (5) Dementia: Status: Acute (6) Adult failure to thrive: Status: Acute (7) Pulmonary aspiration: Status: Acute (8) Acute hypoxic respiratory failure: Status: Acute Plan Assessment: 84-year-old lady with advanced Alzheimer's dementia admitted with worsening cellulitis around decubitus ulcer and UTI with hospital course complicated by pulmonary aspiration required this baseline ventilatory support. Plan: Neuro: No acute issues. Underlying advanced Alzheimer's dementia. Cardiac: No acute issues. Pulmonary: Acute hypoxic respiratory failure secondary to pulmonary aspiration requiring re-intubation and ventilatory support, continue to titrate off ventilatory support as tolerated. Remains at constant risk of recurrent aspirations. Renal: No acute issues. Endo: No acute issues. Underlying diabetes mellitus and hypothyroidism. GI: No acute issues. ID: Gram-positive bacteremia with likely soft tissue source, continue empiric antibiotics. Heme/Onc: No acute issues. Psych: No acute issues. Miscellaneous: Discussions of goals of care are ongoing with the family. Prophylaxis: Heparin, famotidine Diet: PPN Critical care time spent: 45 minutes Quality Stroke Does the patient have a stroke diagnosis?: No VTE Prior VTE?: No VTE Risk Level:: Medical - moderate - high VTE Device Contraindication: Treatment Not Indicated VTE Drug Contraindication: N/A - Med Ordered
--- NOTE | 2024-10-05 10:11 | MHC.CLN ---
F/U PT REMAINS INTUBATED DISCUSSED AT ROUNDS WITH MD-FAMILY MEETING WITH CM TODAY REVIEWED LABS DISCUSSED [facility] CONTINUE PPN AT MAX GOAL RATE OF 55ML/HR WITH 48G LIPIDS PROVIDES 1153KCALS (30KCALS/KG), 132G DEXTROSE, 56G PROTEIN (1.5G/KG) REPLETE LYTES NEEDED FORMULA WILL PROMOTE WOUND HEALING RD CAN BE REACHED DURING OFF HOURS VIA TIGER CONNECT IF NEEDED
--- NOTE | 2024-10-05 11:24 | MHC.CM.PN ---
CM MET W/PT'S SON NICK, NICK REPORTS THAT PT'S SON DURAN IS RUNNING BEHIND D/T TRAFFIC HOWEVER THEY HAD A CONVERSATION REGARDING WHAT THEIR WISHES FOR PT ARE. ADDITIONALLY CM SW ALSO PRESENT AND PER DISCUSSION NICK WOULD LIKE TO KEEP PT ON VENT FOR ANOTHER 24HRS SO HE CAN REACH OUT TO FAMILY SO THEY CAN COME AND VISIT W/PT, ONCE EXTUBATED FAMILY WOULD LIKE TECHNICAL PUBLICATIONS WRITER VS [facility]. PT RN AND CEN[employer]OR UPDATED. [facility] UPDATED IN EXPANSE OF POSSIBLE REQUEST FOR GIP EVAL OVER W/E IF NEEDED/RECOMMENDED.
[2024-10-05 12:06] LABS: Glucose, Whole Blood 241 mg/dL (60-115)
[2024-10-05 17:54] LABS: Glucose, Whole Blood 176 mg/dL (60-115)
[2024-10-05 19:47] LABS: VBG HCO3 24 mmol/L (22-26); VBG O2 % Saturation 99.0 %
[2024-10-05 20:06] LABS: Albumin Level 4.2 g/dL (3.5-5.0); Anion Gap 17 (12-20); Blood Urea Nitrogen 31 mg/dL (9-16); Calcium 8.7 mg/dL (8.4-10.2); Carbon Dioxide 21 mmol/L (22-29); Chloride 105 mmol/L (96-108); Creatinine Clr Calc Pharmacy 49.1; Estimated Glomerular Filt Rate > 60; Magnesium 2.2 mg/dL (1.6-2.6); Potassium 3.6 mmol/L (3.3-5.1); Sodium 139 mmol/L (135-145)
[2024-10-05] MEDS: Parenteral Nutrition 1,320 ML 55 ML IV (21:22)
[2024-10-05] MEDS: Potassium Chloride/H20 10 MEQ/100 ML PIGGYBACK 100 MEQ IV ×2 (21:29→22:37)
[2024-10-05 22:30] LABS: Venous Blood Gas Refer to POC result
[2024-10-06] VITALS (31 sets, daily range): BP systolic 103–144; BP diastolic 46–67; PULSE 62–87; RESP 10–16; TEMP 30.8–37.4; O2SAT 95–100; BMI 20.1
[2024-10-06 00:06] LABS: Glucose, Whole Blood 194 mg/dL (60-115)
[2024-10-06 04:44] LABS: VBG HCO3 23 mmol/L (22-26); VBG O2 % Saturation 100.0 %
[2024-10-06 05:24] LABS: Albumin Level 3.8 g/dL (3.5-5.0); Anion Gap 21 (12-20); Blood Urea Nitrogen 34 mg/dL (9-16); Calcium 8.6 mg/dL (8.4-10.2); Carbon Dioxide 20 mmol/L (22-29); Chloride 101 mmol/L (96-108); Creatinine Clr Calc Pharmacy 45.9; Estimated Glomerular Filt Rate > 60; Magnesium 2.2 mg/dL (1.6-2.6); Potassium 4.0 mmol/L (3.3-5.1); Sodium 138 mmol/L (135-145)
[2024-10-06] MEDS: 0.9 % Sodium Chloride Flush 3 ML SYRINGE IVFLUSH ×2 (08:21→15:23)
[2024-10-06 08:55] LABS: Venous Blood Gas Refer to POC result
[2024-10-06 09:53] LABS: Hematocrit 27.8 % (37.0-47.0); Hemoglobin 9.5 g/dl (12.0-16.0); Mean Corpuscular HGB Conc 34.2 g/dl (31.0-35.0); Mean Corpuscular Hemoglobin 30.5 pg (27.0-33.0); Mean Corpuscular Volume 89.4 fL (80.0-98.0); NRBC Abs Auto 0.000 X10*3/uL (0.0-0.012); NRBC Pct Auto 0.0 /100WBC (0.0-0.2); Platelet Count 159 X10*3/uL (160-400); Red Blood Count 3.11 X10*6/uL (4.20-5.50); White Blood Count 5.7 X10*3/uL (4.8-10.8)
[2024-10-06] MEDS: Chlorhexidine Gluc Oral Rinse 15 ML MOUTHWASH BUCCAL ×3 (09:54→21:33)
[2024-10-06 10:25] LABS: Band Neutrophils Percent 3 % (3-5); Eosinophils Absolute Manual 0.3 X10*3/uL (0.0-0.4); Eosinophils Percent Manual 5 % (0-4); Lymphocytes Absolute Manual 1.0 X10*3/uL (1.2-4.9); Lymphocytes Percent Manual 17 % (20-40); Metamyelocytes Absolute 0.2 X10*3/uL; Metamyelocytes Percent 3 %; Monocytes Absolute Manual 0.1 X10*3/uL (0.1-1.2); Monocytes Percent Manual 2 % (2-11); Neutrophils Absolute Manual 4.2 X10*3/uL (2.0-8.3); Neutrophils Percent Manual 70 % (45-73)
[2024-10-06 10:27] LABS: Acanthocytes 1+ (0-2) /OIF; Burr Cells 1+ (0-2) /OIF; Large Platelet PRESENT; RBC Morphology NOTED; Smudge Cells PRESENT; Tear Drop Cells 1+ (0-2) /OIF
--- NOTE | 2024-10-06 10:36 | PM.CCPN ---
Subjective Subjective Date of Service: 10/06/24 Interval History: 84-year-old lady with underlying advanced Alzheimer's, nonverbal, essentially bed bound with large sacral decubitus ulcer, prior history of ESBL UTI, diabetes mellitus, hypothyroidism, chronic hyponatremia, failure to thrive, severe protein calorie malnutrition admitted on 09/02/2024 with alteration of mental status, aspiration pneumonia, UTI and worsening cellulitis around the decubitus ulcer. Patient was treated with broad-spectrum antibiotics in family discussion was not going regarding possible PEG placement when on 10/01/2024 patient had an aspiration event with profound hypoxemia requiring intubation and ventilatory support. Extubated uneventfully on 10/02/2024. But remains at constant further aspiration risk. Patient with another aspiration event on 10/04/2024 in the morning on the telemetry unit requiring intubation and transfer back to intensive care unit. No events overnight. Now on minimal ventilatory support Critical Care Time (minutes): 45 Physical Exam Vital Signs: Vital Signs: Last Vital Signs Temp 96.3 F L 10/06/24 10:00 Pulse 72 10/06/24 10:00 Resp 12 10/06/24 10:00 BP 124/57 L 10/06/24 10:00 Pulse Ox 100 10/06/24 10:00 O2 Del Method Mechanical Ventil ation 10/06/24 10:00 O2 Flow Rate 1 10/04/24 04:00 FiO2 21 10/06/24 10:00 Oxygen Flow Rate 15 10/01/24 21:25 BMI result Body Mass Index 20.1 Const: General: no acute distress and other (Sedated on ventilatory support) Nutritional Appearance: malnourished Eyes: Sclerae: sclerae normal EOM: EOMs intact bilaterally Neck: Neck: Yes no lymphadenopathy, Yes trachea midline and Yes supple Resp: Auscultation: clear to auscultation bilaterally Cardio: Rate: regular rate Rhythm: regular rhythm Heart sounds: no gallops, no murmurs and no rubs GI: Palpation (GI): Soft to palpation and Other GI palpation findings present ( Nontender) Auscultation: normal bowel sounds Extrem: General: Yes no pedal edema, No clubbing and No cyanosis Objective Data Labs 10/06/24 09:40 10/06/24 04:35 Labs: Laboratory Results - last 24 hr 10/05/24 10/05/24 10/05/24 11:47 17:43 19:42 WBC RBC Hgb Hct MCV MCH MCHC RDW Plt Count MPV Immature Gran % (Auto) Neut % (Auto) Lymph % (Auto) [place] % (Auto) Eos % (Auto) Baso % (Auto) Lymph # (Auto) [place] # (Auto) Eos # (Auto) Baso # (Auto) Abs Immat Gran (auto) Absolute Neuts (auto) Absolute Nucleated RBC Nucleated RBC % (auto) Neutrophils % (Manual) Band Neutrophils % Lymphocytes % (Manual) Monocytes % (Manual) Eosinophils % (Manual) Metamyelocytes % Abs Neuts (Manual) Lymphocytes # (Manual) Monocytes # (Manual) Eosinophils # (Manual) Metamyelocytes # Smudge Cells Platelet Estimate Large Platelets Plt Morphology Comment RBC Morphology Tear Drop Cells [place]ot Cells Acanthocytes (Spur) VBG pH VBG pCO2 VBG pO2 VBG HCO3 VBG O2 Saturation VBG Base Excess Sodium 139 Potassium 3.6 Chloride 105 Carbon Dioxide 21 L Anion Gap 17 BUN 31 H Creatinine 0.57 Estim Creat Clear Calc 49.1 Estimated GFR > 60 POC Glucose 241 H 176 H Random Glucose 185 H Calcium 8.7 Phosphorus 3.4 Magnesium 2.2 Albumin 4.2 Random Vancomycin 10/05/24 10/05/24 10/06/24 19:44 23:57 04:35 WBC RBC Hgb Hct MCV MCH MCHC RDW Plt Count MPV Immature Gran % (Auto) Neut % (Auto) Lymph % (Auto) [place] % (Auto) Eos % (Auto) Baso % (Auto) Lymph # (Auto) [place] # (Auto) Eos # (Auto) Baso # (Auto) Abs Immat Gran (auto) Absolute Neuts (auto) Absolute Nucleated RBC Nucleated RBC % (auto) Neutrophils % (Manual) Band Neutrophils % Lymphocytes % (Manual) Monocytes % (Manual) Eosinophils % (Manual) Metamyelocytes % Abs Neuts (Manual) Lymphocytes # (Manual) Monocytes # (Manual) Eosinophils # (Manual) Metamyelocytes # Smudge Cells Platelet Estimate Large Platelets Plt Morphology Comment RBC Morphology Tear Drop Cells Navjot Cells Acanthocytes (Spur) VBG pH 7.62 H* VBG pCO2 23 VBG pO2 91 VBG HCO3 24 VBG O2 Saturation 99.0 VBG Base Excess 4.2 Sodium 138 Potassium 4.0 Chloride 101 Carbon Dioxide 20 L Anion Gap 21 H BUN 34 H Creatinine 0.61 Estim Creat Clear Calc 45.9 Estimated GFR > 60 POC Glucose 194 H Random Glucose 176 H Calcium 8.6 Phosphorus 3.6 Magnesium 2.2 Albumin 3.8 Random Vancomycin 10/06/24 10/06/24 04:40 09:40 WBC 5.7 RBC 3.11 L Hgb 9.5 L Hct 27.8 L MCV 89.4 MCH 30.5 MCHC 34.2 RDW 15.3 Plt Count 159 L MPV 10.6 Immature Gran % (Auto) Cancelled Neut % (Auto) Cancelled Lymph % (Auto) Cancelled [place] % (Auto) Cancelled Eos % (Auto) Cancelled Baso % (Auto) Cancelled Lymph # (Auto) Cancelled [place] # (Auto) Cancelled Eos # (Auto) Cancelled Baso # (Auto) Cancelled Abs Immat Gran (auto) Cancelled Absolute Neuts (auto) Cancelled Absolute Nucleated RBC 0.000 Nucleated RBC % (auto) 0.0 Neutrophils % (Manual) 70 Band Neutrophils % 3 Lymphocytes % (Manual) 17 L Monocytes % (Manual) 2 Eosinophils % (Manual) 5 H Metamyelocytes % 3 Abs Neuts (Manual) 4.2 Lymphocytes # (Manual) 1.0 L Monocytes # (Manual) 0.1 Eosinophils # (Manual) 0.3 Metamyelocytes # 0.2 Smudge Cells PRESENT Platelet Estimate NORMAL Large Platelets PRESENT Plt Morphology Comment NOTED RBC Morphology NOTED Tear Drop Cells 1+ (0-2) [place] Cells 1+ (0-2) Acanthocytes (Spur) 1+ (0-2) VBG pH 7.67 H* VBG pCO2 20 VBG pO2 131 VBG HCO3 23 VBG O2 Saturation 100.0 VBG Base Excess 4.9 Sodium Potassium Chloride Carbon Dioxide Anion Gap BUN Creatinine Estim Creat Clear Calc Estimated GFR POC Glucose Random Glucose Calcium Phosphorus Magnesium Albumin Random Vancomycin 17.6 Microbiology Microbiology Results: Microbiology 10/01/24 22:42 Blood - Venous Blood Culture - Final Staphylococcus hominis ssp isha 10/01/24 22:42 Blood - Venous Blood Culture - Final Staphylococcus hominis ssp isha 09/20/24 19:09 Blood - Venous Blood Culture - Final No growth after 5 days. 09/20/24 19:09 Blood - Venous Blood Culture - Final No growth after 5 days. 09/20/24 20:55 Urine clean catch - Clean Catch Midstream Urine Culture - Final Progress Note: A&P Assessment and plan (1) Diabetes: Status: Acute (2) Hypothyroid: Status: Acute (3) Adult failure to thrive: Status: Acute (4) Gram-positive bacteremia: Status: Acute (5) 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: Status: Acute (6) Dementia: Status: Acute (7) Acute hypoxic respiratory failure: Status: Acute (8) Pulmonary aspiration: Status: Acute Plan Assessment: 84-year-old lady with advanced Alzheimer's dementia admitted with worsening cellulitis around decubitus ulcer and UTI with hospital course complicated by pulmonary aspiration required this baseline ventilatory support. Plan: Neuro: No acute issues. Underlying advanced Alzheimer's dementia. Cardiac: No acute issues. Pulmonary: Acute hypoxic respiratory failure secondary to pulmonary aspiration requiring re-intubation and ventilatory support, continue to titrate off ventilatory support as tolerated. Remains at constant risk of recurrent aspirations. Renal: No acute issues. Endo: No acute issues. Underlying diabetes mellitus and hypothyroidism. GI: No acute issues. ID: Gram-positive bacteremia with likely soft tissue source, continue empiric antibiotics. Heme/Onc: No acute issues. Psych: No acute issues. Miscellaneous: Discussions of goals of care are ongoing with the family. Prophylaxis: Heparin, famotidine Diet: PPN Critical care time spent: 45 minutes Quality Stroke Does the patient have a stroke diagnosis?: No VTE Prior VTE?: No VTE Risk Level:: Medical - moderate - high VTE Device Contraindication: Treatment Not Indicated VTE Drug Contraindication: N/A - Med Ordered
[2024-10-06 12:20] LABS: Glucose, Whole Blood 232 mg/dL (60-115)
--- NOTE | 2024-10-06 15:00 | MHC.CM.PN ---
CM SPOKE WITH PT'S SON'S AT BEDSIDE WHO ARE NOW NOT WANTING MOTHER TO BE EXTUBATED AT THIS TIME. PER SONS, THEY NEED MORE TIME AND ARE NOT READY TO PULL THE PLUG . CM OFFERED SUPPORT AND RN UPDATED ON SITUATION. CM WILL CONTINUE TO FOLLOW.
[2024-10-06 18:29] LABS: Glucose, Whole Blood 197 mg/dL (60-115)
[2024-10-06 20:30] LABS: Glucose, Whole Blood 175 mg/dL (60-115)
[2024-10-06] MEDS: Parenteral Nutrition 1,320 ML 55 ML IV (21:32)
[2024-10-07] VITALS (30 sets, daily range): BP systolic 101–175; BP diastolic 48–74; PULSE 67–114; RESP 9–19; TEMP 35–37; O2SAT 95–100; BMI 19.9
[2024-10-07] MEDS: 0.9 % Sodium Chloride Flush 3 ML SYRINGE IVFLUSH ×3 (00:06→23:47)
[2024-10-07 00:27] LABS: Glucose, Whole Blood 195 mg/dL (60-115)
[2024-10-07 04:43] LABS: VBG HCO3 24 mmol/L (22-26); VBG O2 % Saturation 94.0 %
[2024-10-07 04:56] LABS: Hematocrit 28.0 % (37.0-47.0); Hemoglobin 9.6 g/dl (12.0-16.0); Mean Corpuscular HGB Conc 34.3 g/dl (31.0-35.0); Mean Corpuscular Hemoglobin 30.4 pg (27.0-33.0); Mean Corpuscular Volume 88.6 fL (80.0-98.0); NRBC Abs Auto 0.000 X10*3/uL (0.0-0.012); NRBC Pct Auto 0.0 /100WBC (0.0-0.2); PLT CLUMP 1; Red Blood Count 3.16 X10*6/uL (4.20-5.50)
[2024-10-07 05:04] LABS: Albumin Level 3.4 g/dL (3.5-5.0); Anion Gap 15 (12-20); Blood Urea Nitrogen 32 mg/dL (9-16); Calcium 8.4 mg/dL (8.4-10.2); Carbon Dioxide 21 mmol/L (22-29); Chloride 109 mmol/L (96-108); Creatinine Clr Calc Pharmacy 45.9; Estimated Glomerular Filt Rate > 60; Magnesium 2.1 mg/dL (1.6-2.6); Potassium 4.3 mmol/L (3.3-5.1); Sodium 141 mmol/L (135-145)
[2024-10-07 05:25] LABS: Atypical Lymphs Percent Manual 2 % (0-6); Band Neutrophils Percent 3 % (3-5); Eosinophils Percent Manual 4 % (0-4); Lymphocytes Percent Manual 10 % (20-40); Metamyelocytes Percent 4 %; Monocytes Percent Manual 5 % (2-11); Neutrophils Percent Manual 71 % (45-73); Promyelocytes Percent 1 %; RBC Morphology NOTED
[2024-10-07 05:26] LABS: Large Platelet PRESENT; Macrocytosis 1+ (5-14) /OIF; Ovalocytes 1+ (5-14) /OIF; Spherocytes 2+ (3-5) /OIF
[2024-10-07 05:27] LABS: Smudge Cells PRESENT; Toxic Granulation PRESENT
[2024-10-07 05:29] LABS: Atypical Lymph Absolute Manual 0.1 x10*3/uL; Eosinophils Absolute Manual 0.2 X10*3/uL (0.0-0.4); Lymphocytes Absolute Manual 0.6 X10*3/uL (1.2-4.9); Metamyelocytes Absolute 0.2 X10*3/uL; Monocytes Absolute Manual 0.3 X10*3/uL (0.1-1.2); Neutrophils Absolute Manual 4.6 X10*3/uL (2.0-8.3); Platelet Count 110 X10*3/uL (160-400); Promyelocytes Absolute 0.1 X10*3/uL; White Blood Count 6.2 X10*3/uL (4.8-10.8)
[2024-10-07 06:01] LABS: Venous Blood Gas Refer to POC result
--- NOTE | 2024-10-07 09:44 | P.PNCC_ITS ---
Subjective Subjective Date of Service: 10/07/24 Interval History: 84-year-old lady with underlying advanced Alzheimer's, nonverbal, essentially bed bound with large sacral decubitus ulcer, prior history of ESBL UTI, diabetes mellitus, hypothyroidism, chronic hyponatremia, failure to thrive, severe protein calorie malnutrition admitted on 09/02/2024 with alteration of mental status, aspiration pneumonia, UTI and worsening cellulitis around the decubitus ulcer. Patient was treated with broad-spectrum antibiotics in family discussion was not going regarding possible PEG placement when on 10/01/2024 patient had an aspiration event with profound hypoxemia requiring intubation and ventilatory support. Extubated uneventfully on 10/02/2024. But remains at constant further aspiration risk. Patient with another aspiration event on 10/04/2024 in the morning on the telemetry unit requiring intubation and transfer back to intensive care unit. No events overnight. Remains on minimal ventilatory .support Critical Care Time (minutes): 45 Physical Exam 2 Vital Signs: Vital Signs: Last Vital Signs Temp 97.7 F 10/07/24 09:00 Pulse 67 10/07/24 09:00 Resp 12 10/07/24 09:00 BP 101/50 L 10/07/24 09:00 Pulse Ox 97 10/07/24 09:00 O2 Del Method Mechanical Ventil ation 10/07/24 09:00 O2 Flow Rate 1 10/04/24 04:00 FiO2 21 10/07/24 09:00 Oxygen Flow Rate 15 10/01/24 21:25 BMI result Body Mass Index 19.9 Const: General: no acute distress and other (Sedated on ventilatory support) Nutritional Appearance: malnourished Eyes: Sclerae: sclerae normal EOM: EOMs intact bilaterally Neck: Neck: Yes no lymphadenopathy, Yes trachea midline and Yes supple Resp: Auscultation: clear to auscultation bilaterally Cardio: Rate: regular rate Rhythm: regular rhythm Heart sounds: no gallops, no murmurs and no rubs GI: Palpation (GI): Soft to palpation and Other GI palpation findings present ( Nontender) Auscultation: normal bowel sounds Extrem: General: Yes no pedal edema, No clubbing and No cyanosis Objective Data Labs 10/07/24 04:30 10/07/24 04:30 Labs: Laboratory Results - last 24 hr 10/06/24 10/06/24 10/06/24 09:40 12:16 18:22 WBC 5.7 RBC 3.11 L Hgb 9.5 L Hct 27.8 L MCV 89.4 MCH 30.5 MCHC 34.2 RDW 15.3 Plt Count 159 L MPV 10.6 Immature Gran % (Auto) Cancelled Neut % (Auto) Cancelled Lymph % (Auto) Cancelled [place] % (Auto) Cancelled Eos % (Auto) Cancelled Baso % (Auto) Cancelled Lymph # (Auto) Cancelled [place] # (Auto) Cancelled Eos # (Auto) Cancelled Baso # (Auto) Cancelled Abs Immat Gran (auto) Cancelled Absolute Neuts (auto) Cancelled Absolute Nucleated RBC 0.000 Nucleated RBC % (auto) 0.0 Neutrophils % (Manual) 70 Band Neutrophils % 3 Lymphocytes % (Manual) 17 L Atypical Lymphs % (Man) Monocytes % (Manual) 2 Eosinophils % (Manual) 5 H Metamyelocytes % 3 Promyelocytes % Abs Neuts (Manual) 4.2 Lymphocytes # (Manual) 1.0 L Atyp Lymphs # (Manual) Monocytes # (Manual) 0.1 Eosinophils # (Manual) 0.3 Metamyelocytes # 0.2 Promyelocytes # Smudge Cells PRESENT Toxic Granulation Platelet Estimate NORMAL Large Platelets PRESENT Plt Morphology Comment NOTED RBC Morphology NOTED Macrocytosis Spherocytes Tear Drop Cells 1+ (0-2) Ovalocytes [place] Cells 1+ (0-2) Acanthocytes (Spur) 1+ (0-2) VBG pH VBG pCO2 VBG pO2 VBG HCO3 VBG O2 Saturation VBG Base Excess Sodium Potassium Chloride Carbon Dioxide Anion Gap BUN Creatinine Estim Creat Clear Calc Estimated GFR POC Glucose 232 H 197 H Random Glucose Calcium Phosphorus Magnesium Albumin Random Vancomycin 17.6 10/06/24 10/07/24 10/07/24 20:26 00:20 04:30 WBC 6.2 RBC 3.16 L Hgb 9.6 L Hct 28.0 L MCV 88.6 MCH 30.4 MCHC 34.3 RDW 15.4 Plt Count 110 L D MPV 12.0 Immature Gran % (Auto) Cancelled Neut % (Auto) Cancelled Lymph % (Auto) Cancelled [place] % (Auto) Cancelled Eos % (Auto) Cancelled Baso % (Auto) Cancelled Lymph # (Auto) Cancelled [place] # (Auto) Cancelled Eos # (Auto) Cancelled Baso # (Auto) Cancelled Abs Immat Gran (auto) Cancelled Absolute Neuts (auto) Cancelled Absolute Nucleated RBC 0.000 Nucleated RBC % (auto) 0.0 Neutrophils % (Manual) 71 Band Neutrophils % 3 Lymphocytes % (Manual) 10 L Atypical Lymphs % (Man) 2 Monocytes % (Manual) 5 Eosinophils % (Manual) 4 Metamyelocytes % 4 Promyelocytes % 1 Abs Neuts (Manual) 4.6 Lymphocytes # (Manual) 0.6 L Atyp Lymphs # (Manual) 0.1 Monocytes # (Manual) 0.3 Eosinophils # (Manual) 0.2 Metamyelocytes # 0.2 Promyelocytes # 0.1 Smudge Cells PRESENT Toxic Granulation PRESENT Platelet Estimate SLIGHTLY DECREASED Large Platelets PRESENT Plt Morphology Comment NOTED RBC Morphology NOTED Macrocytosis 1+ (5-14) Spherocytes 2+ (3-5) Tear Drop Cells Ovalocytes 1+ (5-14) [place] Cells Acanthocytes (Spur) VBG pH VBG pCO2 VBG pO2 VBG HCO3 VBG O2 Saturation VBG Base Excess Sodium 141 Potassium 4.3 Chloride 109 H Carbon Dioxide 21 L Anion Gap 15 BUN 32 H Creatinine 0.61 Estim Creat Clear Calc 45.9 Estimated GFR > 60 POC Glucose 175 H 195 H Random Glucose 170 H Calcium 8.4 Phosphorus 3.9 Magnesium 2.1 Albumin 3.4 L Random Vancomycin 10/07/24 04:40 WBC RBC Hgb Hct MCV MCH MCHC RDW Plt Count MPV Immature Gran % (Auto) Neut % (Auto) Lymph % (Auto) [place] % (Auto) Eos % (Auto) Baso % (Auto) Lymph # (Auto) [place] # (Auto) Eos # (Auto) Baso # (Auto) Abs Immat Gran (auto) Absolute Neuts (auto) Absolute Nucleated RBC Nucleated RBC % (auto) Neutrophils % (Manual) Band Neutrophils % Lymphocytes % (Manual) Atypical Lymphs % (Man) Monocytes % (Manual) Eosinophils % (Manual) Metamyelocytes % Promyelocytes % Abs Neuts (Manual) Lymphocytes # (Manual) Atyp Lymphs # (Manual) Monocytes # (Manual) Eosinophils # (Manual) Metamyelocytes # Promyelocytes # Smudge Cells Toxic Granulation Platelet Estimate Large Platelets Plt Morphology Comment RBC Morphology Macrocytosis Spherocytes Tear Drop Cells Ovalocytes Navjot Cells Acanthocytes (Spur) VBG pH 7.52 H VBG pCO2 29 VBG pO2 69 VBG HCO3 24 VBG O2 Saturation 94.0 VBG Base Excess 1.9 Sodium Potassium Chloride Carbon Dioxide Anion Gap BUN Creatinine Estim Creat Clear Calc Estimated GFR POC Glucose Random Glucose Calcium Phosphorus Magnesium Albumin Random Vancomycin Microbiology Microbiology Results: Microbiology 10/01/24 22:42 Blood - Venous Blood Culture - Final Staphylococcus hominis ssp isha 10/01/24 22:42 Blood - Venous Blood Culture - Final Staphylococcus hominis ssp isha 09/20/24 19:09 Blood - Venous Blood Culture - Final No growth after 5 days. 09/20/24 19:09 Blood - Venous Blood Culture - Final No growth after 5 days. 09/20/24 20:55 Urine clean catch - Clean Catch Midstream Urine Culture - Final Progress Note: A&P Assessment and plan (1) Adult failure to thrive: Status: Acute (2) Hypothyroidism: Status: Acute (3) Diabetes: Status: Acute (4) Gram-positive bacteremia: Status: Acute (5) 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: Status: Acute (6) Dementia: Status: Acute (7) Acute hypoxic respiratory failure: Status: Acute (8) Pulmonary aspiration: Status: Acute Plan Assessment: 84-year-old lady with advanced Alzheimer's dementia admitted with worsening cellulitis around decubitus ulcer and UTI with hospital course complicated by pulmonary aspiration required this baseline ventilatory support. Plan: Neuro: No acute issues. Underlying advanced Alzheimer's dementia. Cardiac: No acute issues. Pulmonary: Acute hypoxic respiratory failure secondary to pulmonary aspiration requiring re-intubation and ventilatory support, continue to titrate off ventilatory support as tolerated. Remains at constant risk of recurrent aspirations. Renal: No acute issues. Endo: No acute issues. Underlying diabetes mellitus and hypothyroidism. GI: No acute issues. ID: Gram-positive bacteremia with likely soft tissue source, continue empiric antibiotics. Heme/Onc: No acute issues. Psych: No acute issues. Miscellaneous: Discussions of goals of care are ongoing with the family. Family is considering options for hospice home versus general inpatient. Will remain intubated until palliative plan is in place or code status/goals of care are changed, as intubating and re-intubating is likely not consistent with ethical care of this patient. Prophylaxis: Heparin, famotidine Diet: PPN Critical care time spent: 45 minutes Quality Stroke Does the patient have a stroke diagnosis?: No VTE Prior VTE?: No VTE Risk Level:: Medical - moderate - high VTE Device Contraindication: Treatment Not Indicated VTE Drug Contraindication: N/A - Med Ordered
[2024-10-07] MEDS: Chlorhexidine Gluc Oral Rinse 15 ML MOUTHWASH BUCCAL ×3 (10:06→22:36)
[2024-10-07 12:08] LABS: Glucose, Whole Blood 166 mg/dL (60-115)
[2024-10-07 18:24] LABS: Glucose, Whole Blood 184 mg/dL (60-115)
--- NOTE | 2024-10-07 19:03 | PC.NURSE ---
Patient remains on mechanical ventilation with no changes in vent settings. Tolerating current settings well. Respiratory status stable throughout shift. Large amount of oral secretions noted; oral care provided routinely and suctioning as needed. No signs of respiratory distress. Urine output of 1000ml clear, yellow urine. Vital signs stable. No acute events during shift.
[2024-10-07] MEDS: Parenteral Nutrition 1,320 ML 55 ML IV (22:35)
[2024-10-08] VITALS (29 sets, daily range): BP systolic 109–176; BP diastolic 58–82; PULSE 68–82; RESP 11–16; TEMP 35–36.4; O2SAT 95–100; BMI 23.4
[2024-10-08 05:43] LABS: VBG HCO3 21 mmol/L (22-26); VBG O2 % Saturation 99.0 %
[2024-10-08 05:44] LABS: Glucose, Whole Blood 184 mg/dL (60-115)
[2024-10-08 05:44] LABS: Glucose, Whole Blood 189 mg/dL (60-115)
[2024-10-08 05:52] LABS: Venous Blood Gas Refer to POC result
[2024-10-08 06:10] LABS: Albumin Level 2.8 g/dL (3.5-5.0); Anion Gap 21 (12-20); Blood Urea Nitrogen 24 mg/dL (9-16); Calcium 7.4 mg/dL (8.4-10.2); Carbon Dioxide 20 mmol/L (22-29); Chloride 109 mmol/L (96-108); Creatinine Clr Calc Pharmacy 49.1; Estimated Glomerular Filt Rate > 60; Magnesium 2.0 mg/dL (1.6-2.6); Potassium 4.2 mmol/L (3.3-5.1); Sodium 146 mmol/L (135-145)
[2024-10-08 06:15] LABS: Hematocrit 31.0 % (37.0-47.0); Hemoglobin 10.5 g/dl (12.0-16.0); Mean Corpuscular HGB Conc 33.9 g/dl (31.0-35.0); Mean Corpuscular Hemoglobin 30.8 pg (27.0-33.0); Mean Corpuscular Volume 90.9 fL (80.0-98.0); NRBC Abs Auto 0.000 X10*3/uL (0.0-0.012); NRBC Pct Auto 0.0 /100WBC (0.0-0.2); Platelet Count 215 X10*3/uL (160-400); Red Blood Count 3.41 X10*6/uL (4.20-5.50); White Blood Count 7.0 X10*3/uL (4.8-10.8)
[2024-10-08] MEDS: 0.9 % Sodium Chloride Flush 3 ML SYRINGE IVFLUSH ×2 (08:03→16:33)
[2024-10-08 08:37] LABS: Band Neutrophils Percent 6 % (3-5); Eosinophils Absolute Manual 0.2 X10*3/uL (0.0-0.4); Eosinophils Percent Manual 3 % (0-4); Lymphocytes Absolute Manual 1.2 X10*3/uL (1.2-4.9); Lymphocytes Percent Manual 17 % (20-40); Metamyelocytes Absolute 0.1 X10*3/uL; Metamyelocytes Percent 2 %; Monocytes Absolute Manual 0.5 X10*3/uL (0.1-1.2); Monocytes Percent Manual 7 % (2-11); Myelocytes Absolute 0.4 X10*/uL; Myelocytes Percent 5 %; Neutrophils Absolute Manual 4.6 X10*3/uL (2.0-8.3); Neutrophils Percent Manual 60 % (45-73)
[2024-10-08 08:38] LABS: Polychromasia 1+ (0-2) /OIF; RBC Morphology NOTED
--- NOTE | 2024-10-08 09:00 | PM.CCPN ---
Subjective Subjective Date of Service: 10/08/24 Interval History: Continues to be on ventilator support this morning propofol for sedation Critical Care Time (minutes): 35 Physical Exam Vital Signs: Vital Signs: Last Vital Signs Temp 97.5 F 10/08/24 08:00 Pulse 74 10/08/24 08:00 Resp 16 10/08/24 08:00 BP 150/69 H 10/08/24 08:00 Pulse Ox 99 10/08/24 08:00 O2 Del Method Mechanical Ventil ation 10/08/24 08:00 O2 Flow Rate 1 10/04/24 04:00 FiO2 21 10/08/24 08:00 Oxygen Flow Rate 15 10/01/24 21:25 BMI result Body Mass Index 23.4 General: Elderly lady acute distress, ill appearing and tired appearing Nutritional Appearance: Mal nourished and underweight Eyes: appearance normal, both eyes and all related structures; Alignment and Position: alignment normal and position normal Neck: No lymphadenopathy, no thyromegaly Resp: bilateral air entry equal, occasional added sounds present Cardio: Regular rate, regular rhythm; Heart sounds: S1 normal heart sound present and S2 normal heart sound present GI: soft, nontender, no guarding, no hepatosplenomegaly : bladder normal to inspection, bladder normal to palpation, no renal angle tenderness Skin: no rashes or lesions noted and elasticity normal Neuro: Sedated, no focal deficits Objective Data Labs 10/08/24 05:35 10/08/24 05:35 Labs: Laboratory Results - last 24 hr 10/07/24 10/07/24 10/08/24 11:51 18:21 00:22 WBC RBC Hgb Hct MCV MCH MCHC RDW Plt Count MPV Immature Gran % (Auto) Neut % (Auto) Lymph % (Auto) [place] % (Auto) Eos % (Auto) Baso % (Auto) Lymph # (Auto) [place] # (Auto) Eos # (Auto) Baso # (Auto) Abs Immat Gran (auto) Absolute Neuts (auto) Absolute Nucleated RBC Nucleated RBC % (auto) Neutrophils % (Manual) Band Neutrophils % Lymphocytes % (Manual) Monocytes % (Manual) Eosinophils % (Manual) Metamyelocytes % Myelocytes % Abs Neuts (Manual) Lymphocytes # (Manual) Monocytes # (Manual) Eosinophils # (Manual) Metamyelocytes # Myelocytes # Platelet Estimate Plt Morphology Comment RBC Morphology Polychromasia VBG pH VBG pCO2 VBG pO2 VBG HCO3 VBG O2 Saturation VBG Base Excess Sodium Potassium Chloride Carbon Dioxide Anion Gap BUN Creatinine Estim Creat Clear Calc Estimated GFR POC Glucose 166 H 184 H 189 H Random Glucose Calcium Phosphorus Magnesium Albumin 10/08/24 10/08/24 10/08/24 05:35 05:39 05:41 WBC 7.0 RBC 3.41 L Hgb 10.5 L Hct 31.0 L MCV 90.9 MCH 30.8 MCHC 33.9 RDW 15.6 Plt Count 215 D MPV 11.4 Immature Gran % (Auto) Cancelled Neut % (Auto) Cancelled Lymph % (Auto) Cancelled [place] % (Auto) Cancelled Eos % (Auto) Cancelled Baso % (Auto) Cancelled Lymph # (Auto) Cancelled [place] # (Auto) Cancelled Eos # (Auto) Cancelled Baso # (Auto) Cancelled Abs Immat Gran (auto) Cancelled Absolute Neuts (auto) Cancelled Absolute Nucleated RBC 0.000 Nucleated RBC % (auto) 0.0 Neutrophils % (Manual) 60 Band Neutrophils % 6 H Lymphocytes % (Manual) 17 L Monocytes % (Manual) 7 Eosinophils % (Manual) 3 Metamyelocytes % 2 Myelocytes % 5 Abs Neuts (Manual) 4.6 Lymphocytes # (Manual) 1.2 Monocytes # (Manual) 0.5 Eosinophils # (Manual) 0.2 Metamyelocytes # 0.1 Myelocytes # 0.4 Platelet Estimate NORMAL Plt Morphology Comment NORMAL RBC Morphology NOTED Polychromasia 1+ (0-2) VBG pH 7.57 H VBG pCO2 23 VBG pO2 103 VBG HCO3 21 L VBG O2 Saturation 99.0 VBG Base Excess 1.1 Sodium 146 H Potassium 4.2 Chloride 109 H Carbon Dioxide 20 L Anion Gap 21 H BUN 24 H Creatinine 0.62 Estim Creat Clear Calc 49.1 Estimated GFR > 60 POC Glucose 184 H Random Glucose 183 H Calcium 7.4 L D Phosphorus 3.5 Magnesium 2.0 Albumin 2.8 L Microbiology Microbiology Results: Microbiology 10/01/24 22:42 Blood - Venous Blood Culture - Final Staphylococcus hominis ssp isha 10/01/24 22:42 Blood - Venous Blood Culture - Final Staphylococcus hominis ssp isha 09/20/24 19:09 Blood - Venous Blood Culture - Final No growth after 5 days. 09/20/24 19:09 Blood - Venous Blood Culture - Final No growth after 5 days. 09/20/24 20:55 Urine clean catch - Clean Catch Midstream Urine Culture - Final Progress Note: A&P Assessment and plan (1) Acute hypoxic respiratory failure: Status: Acute (2) Aspiration pneumonia: Status: Acute (3) Pulmonary aspiration: Status: Acute (4) Urinary tract infection: Status: Acute Plan 84-year-old lady with underlying advanced Alzheimer's, nonverbal, essentially bed bound with large sacral decubitus ulcer, prior history of ESBL UTI, diabetes mellitus, hypothyroidism, chronic hyponatremia, failure to thrive, severe protein calorie malnutrition admitted on 09/02/2024 with alteration of mental status, aspiration pneumonia, UTI and worsening cellulitis around the decubitus ulcer. Patient was treated with broad-spectrum antibiotics in family discussion was not going regarding possible PEG placement when on 10/01/2024 patient had an aspiration event with profound hypoxemia requiring intubation and ventilatory support. Extubated uneventfully on 10/02/2024. But remains at constant further aspiration risk. Patient with another aspiration event on 10/04/2024 in the morning on the telemetry unit requiring intubation and transfer back to intensive care unit. Neuro: Acute encephalopathy possibly due to metabolic encephalopathy On propofol for sedation, as needed fentanyl for analgesia Close neurological status monitoring in the ICU every hour Respiratory: Acute hypoxemic respiratory failure due to Currently on ventilator support On PRVC mode FiO2 21%, PEEP 5, TV 280, RR12 Peak pressures and plateau pressures are under the curve Ventilator management bundle with head end elevation, aspiration precaution, chlorhexidine mouthwash, daily awakening trials, daily spontaneous breathing trials GI: on PPN for nutrition due to severe protein calorie malnutrition Renal: Acute hypernatremia: Need to adjust water content in the TPN We will closely monitor I's and O's Avoid nephrotoxic medications High anion gap metabolic acidosis along with metabolic alkalosis: Need to adjust the TPN content Heme: Chronic anemia, closely monitor H&H, transfuse for hemoglobin less than 7 grams/deciliter Endocrine: Blood sugars under control Sliding scale insulin as needed Infectious disease: staph hominis x2 in blood will repeat blood cultures on Unasyn for aspiration and vancomycin Musculoskeletal: Decubitus ulcer prevention protocol Lines: peripherals Prophylaxis: Lovenox, pantoprazole Quality Stroke Does the patient have a stroke diagnosis?: No VTE Prior VTE?: No VTE Risk Level:: Medical - moderate - high VTE Device Contraindication: Treatment Not Indicated VTE Drug Contraindication: N/A - Med Ordered
[2024-10-08] MEDS: Chlorhexidine Gluc Oral Rinse 15 ML MOUTHWASH BUCCAL ×3 (10:17→21:09)
--- NOTE | 2024-10-08 10:24 | HE.PHANOTE ---
RE: VANCO Trough returned at 14.4. Will keep current regimen with predicted AUC of 509 and trough 15.9. Next trough 10/10 @0900. Will continue to monitor.
--- NOTE | 2024-10-08 10:48 | MHC.CLN ---
F/U PT REMAINS INTUBATED DISCUSSED AT ROUNDS WITH MD REVIEWED LABS DISCUSSED WT PHARMACY CONTINUE PPN AT MAX GOAL RATE OF 55ML/HR WITH 48G LIPIDS PROVIDES 1153KCALS (30KCALS/KG), 132G DEXTROSE, 56G PROTEIN (1.5G/KG) REPLETE LYTES NEEDED FORMULA WILL PROMOTE WOUND HEALING
[2024-10-08 11:03] LABS: Glucose, Whole Blood 127 mg/dL (60-115)
[2024-10-08 12:15] LABS: Glucose, Whole Blood 88 mg/dL (60-115)
--- NOTE | 2024-10-08 13:50 | MHC.CM.PN ---
Pt remains on ventilatory support in ICU: multiple system impairment - family to decide on goals of care: MD to contact HCP/sons to discuss pt's lack of clinical improvement and continued decline. CM to follow for finalization of d/c needs: GIP vs home w/[facility] hospice
[2024-10-08 18:19] LABS: Glucose, Whole Blood 189 mg/dL (60-115)
--- NOTE | 2024-10-08 20:00 | PC.NURSE ---
Assumed care of patient 0700, Patient sedated and vented, increased sedation due to noted discomfort, PPN infusing as ordered, bladder scanned 1730 >375mls, SC for 400mls, goals of care reviewed with family by Dr Fabian.?
[2024-10-08] MEDS: Parenteral Nutrition 1,320 ML 55 ML IV (21:09)
[2024-10-09] VITALS (31 sets, daily range): BP systolic 83–186; BP diastolic 35–84; PULSE 67–87; RESP 12–17; TEMP 34.6–36.5; O2SAT 94–100; BMI 18.4
[2024-10-09] MEDS: 0.9 % Sodium Chloride Flush 3 ML SYRINGE IVFLUSH ×3 (00:02→16:12)
[2024-10-09 00:11] LABS: Glucose, Whole Blood 222 mg/dL (60-115)
[2024-10-09 04:44] LABS: VBG HCO3 24 mmol/L (22-26); VBG O2 % Saturation 89.0 %
[2024-10-09 04:44] LABS: Hematocrit 33.0 % (37.0-47.0); Hemoglobin 10.7 g/dl (12.0-16.0); Mean Corpuscular HGB Conc 32.4 g/dl (31.0-35.0); Mean Corpuscular Hemoglobin 29.9 pg (27.0-33.0); Mean Corpuscular Volume 92.2 fL (80.0-98.0); NRBC Abs Auto 0.000 X10*3/uL (0.0-0.012); NRBC Pct Auto 0.0 /100WBC (0.0-0.2); Platelet Count 256 X10*3/uL (160-400); Red Blood Count 3.58 X10*6/uL (4.20-5.50); White Blood Count 6.9 X10*3/uL (4.8-10.8)
[2024-10-09 04:50] LABS: Venous Blood Gas Refer to POC result
[2024-10-09 05:04] LABS: Alanine Aminotransferase 17 U/L (0-31); Albumin Level 3.3 g/dL (3.5-5.0); Alkaline Phosphatase 117 U/L (39-117); Anion Gap 16 (12-20); Aspartate Amino Transferase 23 U/L (5-31); Blood Urea Nitrogen 25 mg/dL (9-16); Calcium 8.5 mg/dL (8.4-10.2); Carbon Dioxide 22 mmol/L (22-29); Chloride 106 mmol/L (96-108); Creatinine Clr Calc Pharmacy 54.4; Estimated Glomerular Filt Rate > 60; Magnesium 2.2 mg/dL (1.6-2.6); Potassium 4.2 mmol/L (3.3-5.1); Sodium 140 mmol/L (135-145); Total Protein 5.8 g/dL (6.5-8.0)
[2024-10-09 05:11] LABS: Band Neutrophils Percent 11 % (3-5); Eosinophils Absolute Manual 0.3 X10*3/uL (0.0-0.4); Eosinophils Percent Manual 4 % (0-4); Lymphocytes Absolute Manual 1.1 X10*3/uL (1.2-4.9); Lymphocytes Percent Manual 16 % (20-40); Metamyelocytes Absolute 0.4 X10*3/uL; Metamyelocytes Percent 6 %; Monocytes Absolute Manual 0.3 X10*3/uL (0.1-1.2); Monocytes Percent Manual 5 % (2-11); Myelocytes Absolute 0.1 X10*/uL; Myelocytes Percent 1 %; Neutrophils Absolute Manual 4.7 X10*3/uL (2.0-8.3); Neutrophils Percent Manual 57 % (45-73); RBC Morphology NORMAL
[2024-10-09 06:15] LABS: Glucose, Whole Blood 172 mg/dL (60-115)
--- NOTE | 2024-10-09 07:12 | HO.SKINPHOTO ---
Location: Coccyx/ Sacrum Category: DTI
--- NOTE | 2024-10-09 07:23 | HE.NUR.EV ---
Status Change: x2 episodes of hypotension at approximately 0200 and 0500, SBP 80s. NSR on tele, HR 60-80s. Notifications/Immediate Actions Taken: CARLOS ENRIQUE Cronin notified and Propofol titrated down per PA with good effect. SBP increased to 120-130s. See EMR for further details.
[2024-10-09] MEDS: Chlorhexidine Gluc Oral Rinse 15 ML MOUTHWASH BUCCAL ×3 (08:05→20:41)
--- NOTE | 2024-10-09 08:57 | PM.CCPN ---
Subjective Subjective Date of Service: 10/09/24 Interval History: Continues to be on ventilator support Had a detailed goals of care discussion with 2 sons yesterday evening. One of the son Ralph is very irrational about her treatment plan, thinks her soul will be suffering if she goes on comfort care so wants to leave on ventilator. Understands that we can not leave her on ventilator too long Critical Care Time (minutes): 35 Physical Exam Vital Signs: Vital Signs: Last Vital Signs Temp 97.0 F 10/09/24 08:00 Pulse 75 10/09/24 08:00 Resp 12 10/09/24 08:00 BP 142/62 H 10/09/24 08:00 Pulse Ox 98 10/09/24 08:00 O2 Del Method Mechanical Ventil ation 10/09/24 08:00 O2 Flow Rate 1 10/04/24 04:00 FiO2 21 10/09/24 08:06 Oxygen Flow Rate 15 10/01/24 21:25 BMI result Body Mass Index 18.4 General: Elderly lady in acute distress, ill appearing and tired appearing Nutritional Appearance: ok nourished and underweight Eyes: appearance normal, both eyes and all related structures; Alignment and Position: alignment normal and position normal Neck: No lymphadenopathy, no thyromegaly Resp: bilateral air entry equal, occasional added sounds present Cardio: Regular rate, regular rhythm; Heart sounds: S1 normal heart sound present and S2 normal heart sound present GI: soft, nontender, no guarding, no hepatosplenomegaly : bladder normal to inspection, bladder normal to palpation, no renal angle tenderness Skin: no rashes or lesions noted and elasticity normal Neuro: oriented to person, oriented to place, oriented to time and moves all extremities Objective Data Labs 10/09/24 04:36 10/09/24 04:36 Labs: Laboratory Results - last 24 hr 10/08/24 10/08/24 10/08/24 08:56 10:57 12:09 WBC RBC Hgb Hct MCV MCH MCHC RDW Plt Count MPV Immature Gran % (Auto) Neut % (Auto) Lymph % (Auto) [place] % (Auto) Eos % (Auto) Baso % (Auto) Lymph # (Auto) [place] # (Auto) Eos # (Auto) Baso # (Auto) Abs Immat Gran (auto) Absolute Neuts (auto) Absolute Nucleated RBC Nucleated RBC % (auto) Neutrophils % (Manual) Band Neutrophils % Lymphocytes % (Manual) Monocytes % (Manual) Eosinophils % (Manual) Metamyelocytes % Myelocytes % Abs Neuts (Manual) Lymphocytes # (Manual) Monocytes # (Manual) Eosinophils # (Manual) Metamyelocytes # Myelocytes # Platelet Estimate Plt Morphology Comment RBC Morphology VBG pH VBG pCO2 VBG pO2 VBG HCO3 VBG O2 Saturation VBG Base Excess Sodium Potassium Chloride Carbon Dioxide Anion Gap BUN Creatinine Estim Creat Clear Calc Estimated GFR POC Glucose 127 H 88 Random Glucose Calcium Phosphorus Magnesium Total Bilirubin AST ALT Alkaline Phosphatase Total Protein Albumin Vancomycin Trough 14.4 10/08/24 10/09/24 10/09/24 18:12 00:05 04:36 WBC 6.9 RBC 3.58 L Hgb 10.7 L Hct 33.0 L MCV 92.2 MCH 29.9 MCHC 32.4 RDW 15.9 Plt Count 256 MPV 10.7 Immature Gran % (Auto) Cancelled Neut % (Auto) Cancelled Lymph % (Auto) Cancelled [place] % (Auto) Cancelled Eos % (Auto) Cancelled Baso % (Auto) Cancelled Lymph # (Auto) Cancelled [place] # (Auto) Cancelled Eos # (Auto) Cancelled Baso # (Auto) Cancelled Abs Immat Gran (auto) Cancelled Absolute Neuts (auto) Cancelled Absolute Nucleated RBC 0.000 Nucleated RBC % (auto) 0.0 Neutrophils % (Manual) 57 Band Neutrophils % 11 H Lymphocytes % (Manual) 16 L Monocytes % (Manual) 5 Eosinophils % (Manual) 4 Metamyelocytes % 6 Myelocytes % 1 Abs Neuts (Manual) 4.7 Lymphocytes # (Manual) 1.1 L Monocytes # (Manual) 0.3 Eosinophils # (Manual) 0.3 Metamyelocytes # 0.4 Myelocytes # 0.1 Platelet Estimate NORMAL Plt Morphology Comment NORMAL RBC Morphology NORMAL VBG pH VBG pCO2 VBG pO2 VBG HCO3 VBG O2 Saturation VBG Base Excess Sodium 140 Potassium 4.2 Chloride 106 Carbon Dioxide 22 Anion Gap 16 BUN 25 H Creatinine 0.56 Estim Creat Clear Calc 54.4 Estimated GFR > 60 POC Glucose 189 H 222 H Random Glucose 161 H Calcium 8.5 D Phosphorus 3.8 Magnesium 2.2 Total Bilirubin 0.5 AST 23 ALT 17 Alkaline Phosphatase 117 Total Protein 5.8 L Albumin 3.3 L Vancomycin Trough 10/09/24 10/09/24 04:40 05:46 WBC RBC Hgb Hct MCV MCH MCHC RDW Plt Count MPV Immature Gran % (Auto) Neut % (Auto) Lymph % (Auto) [place] % (Auto) Eos % (Auto) Baso % (Auto) Lymph # (Auto) [place] # (Auto) Eos # (Auto) Baso # (Auto) Abs Immat Gran (auto) Absolute Neuts (auto) Absolute Nucleated RBC Nucleated RBC % (auto) Neutrophils % (Manual) Band Neutrophils % Lymphocytes % (Manual) Monocytes % (Manual) Eosinophils % (Manual) Metamyelocytes % Myelocytes % Abs Neuts (Manual) Lymphocytes # (Manual) Monocytes # (Manual) Eosinophils # (Manual) Metamyelocytes # Myelocytes # Platelet Estimate Plt Morphology Comment RBC Morphology VBG pH 7.54 H VBG pCO2 28 VBG pO2 58 VBG HCO3 24 VBG O2 Saturation 89.0 VBG Base Excess 2.9 Sodium Potassium Chloride Carbon Dioxide Anion Gap BUN Creatinine Estim Creat Clear Calc Estimated GFR POC Glucose 172 H Random Glucose Calcium Phosphorus Magnesium Total Bilirubin AST ALT Alkaline Phosphatase Total Protein Albumin Vancomycin Trough Microbiology Microbiology Results: Microbiology 10/01/24 22:42 Blood - Venous Blood Culture - Final Staphylococcus hominis ssp isha 10/01/24 22:42 Blood - Venous Blood Culture - Final Staphylococcus hominis ssp isha 09/20/24 19:09 Blood - Venous Blood Culture - Final No growth after 5 days. 09/20/24 19:09 Blood - Venous Blood Culture - Final No growth after 5 days. 09/20/24 20:55 Urine clean catch - Clean Catch Midstream Urine Culture - Final Progress Note: A&P Assessment and plan (1) Hypothyroid: Status: Acute (2) Unstageable decubitus ulcer: Status: Acute (3) Acute hypoxic respiratory failure: Status: Acute (4) Aspiration pneumonia: Status: Acute Plan 84-year-old lady with underlying advanced Alzheimer's, nonverbal, essentially bed bound with large sacral decubitus ulcer, prior history of ESBL UTI, diabetes mellitus, hypothyroidism, chronic hyponatremia, failure to thrive, severe protein calorie malnutrition admitted on 09/02/2024 with alteration of mental status, aspiration pneumonia, UTI and worsening cellulitis around the decubitus ulcer. Patient was treated with broad-spectrum antibiotics in family discussion was not going regarding possible PEG placement when on 10/01/2024 patient had an aspiration event with profound hypoxemia requiring intubation and ventilatory support. Extubated uneventfully on 10/02/2024. But remains at constant further aspiration risk. Patient with another aspiration event on 10/04/2024 in the morning on the telemetry unit requiring intubation and transfer back to intensive care unit. Neuro: Acute encephalopathy possibly due to metabolic encephalopathy On propofol for sedation, as needed fentanyl for analgesia; we will leave her sedation the same as we do not have plan for extubation until the family gives his DNI Close neurological status monitoring in the ICU every hour Respiratory: Acute hypoxemic respiratory failure due to Currently on ventilator support On PRVC mode FiO2 21%, PEEP 5, TV 280, RR12; no plans for weaning trial today Peak pressures and plateau pressures are under the curve Ventilator management bundle with head end elevation, aspiration precaution, chlorhexidine mouthwash, daily awakening trials, daily spontaneous breathing trials GI: on PPN for nutrition due to severe protein calorie malnutrition Renal: We will closely monitor I's and O's Avoid nephrotoxic medications Heme: Chronic anemia, closely monitor H&H, transfuse for hemoglobin less than 7 grams/deciliter Endocrine: Blood sugars under control Sliding scale insulin as needed Infectious disease: staph hominis x2 in blood will repeat blood cultures today on Unasyn for aspiration and vancomycin Musculoskeletal: Decubitus ulcer prevention protocol Lines: peripherals Prophylaxis: Lovenox, pantoprazole Had a detailed discussion of part goals of care with her 2 sons Ralph and Diallo. Diallo appears to be understanding the gravity of situation; however Ralph has issues with understanding her current condition. Explained him in detail that patient has advanced dementia, multiple comorbidities, bed-bound status, has decubitus ulcers and currently is aspirating. She is not a good candidate to undergo tracheostomy given her comorbidities. We need to make a decision on DNI and then we will optimize for extubation and then give her a trial of extubation. He thinks going on hospice is torturing her soul while she is medicated, but explained him that even being on ventilator is much more medicated to sleep and induced coma and this is not a residential option. Unsure if Ralph has any other concurrent interests from keep him his mother on ventilator/alive as he clearly understands she is suffering and this is not a way to live given her multiple irreversible advanced comorbidities. Quality Stroke Does the patient have a stroke diagnosis?: No VTE Prior VTE?: No VTE Risk Level:: Medical - moderate - high VTE Device Contraindication: Treatment Not Indicated VTE Drug Contraindication: N/A - Med Ordered
--- NOTE | 2024-10-09 11:11 | MHC.CLN ---
F/U PT REMAINS INTUBATED DISCUSSED AT ROUNDS WITH MD REVIEWED LABS DISCUSSED WT PHARMACY CONTINUE PPN AT MAX GOAL RATE OF 55ML/HR WITH 48G LIPIDS PROVIDES 1153KCALS (1296KCALS TOTAL; 34KCALS/KG), 132G DEXTROSE, 56G PROTEIN (1.5G/KG) REPLETE LYTES NEEDED FORMULA WILL PROMOTE WOUND HEALING
[2024-10-09 11:49] LABS: Glucose, Whole Blood 194 mg/dL (60-115)
--- NOTE | 2024-10-09 16:00 | MHC.CM.PN ---
Pt remains on vent support with multiple comorbid issues and overall poor prognosis: MD has had several detailed discussions w/pt's two sons, one of whom cannot make a decision for [employer]. Pt has a HCP on file listing only one son as proxy - he does not feel comfortable making decisions unless his brother is in agreement. No determinations have been made: CM to follow
[2024-10-09 18:11] LABS: Glucose, Whole Blood 165 mg/dL (60-115)
--- NOTE | 2024-10-09 19:38 | PC.NURSE ---
Patient sedated and vented, sedation reduced overnight due to hypotension, PPN infusing as ordered, 2 large incontinent events this shift and one void in purewick at end of shift noted, turn and repo every 2 hours to maintain skin integrity.
[2024-10-09] MEDS: Parenteral Nutrition 1,320 ML 55 ML IV (20:41)
[2024-10-10] VITALS (36 sets, daily range): BP systolic 66–164; BP diastolic 34–77; PULSE 50–82; RESP 10–13; TEMP 34.9–36.4; O2SAT 94–99; BMI 18.6
[2024-10-10] MEDS: 0.9 % Sodium Chloride Flush 3 ML SYRINGE IVFLUSH ×4 (00:05→23:08)
[2024-10-10 00:06] LABS: Glucose, Whole Blood 138 mg/dL (60-115)
[2024-10-10 05:19] LABS: VBG HCO3 27 mmol/L (22-26); VBG O2 % Saturation 89.0 %
[2024-10-10 05:19] LABS: NRBC Abs Auto 0.000 X10*3/uL (0.0-0.012); NRBC Pct Auto 0.0 /100WBC (0.0-0.2); PLT CLUMP 1
[2024-10-10 05:21] LABS: Hematocrit 32.0 % (37.0-47.0); Hemoglobin 10.8 g/dl (12.0-16.0); Mean Corpuscular HGB Conc 33.8 g/dl (31.0-35.0); Mean Corpuscular Hemoglobin 30.9 pg (27.0-33.0); Mean Corpuscular Volume 91.7 fL (80.0-98.0); Red Blood Count 3.49 X10*6/uL (4.20-5.50)
[2024-10-10 05:24] LABS: White Blood Count 6.3 X10*3/uL (4.8-10.8)
[2024-10-10 05:33] LABS: Venous Blood Gas Refer to POC result
[2024-10-10 05:38] LABS: Alanine Aminotransferase 15 U/L (0-31); Albumin Level 3.4 g/dL (3.5-5.0); Alkaline Phosphatase 131 U/L (39-117); Anion Gap 14 (12-20); Aspartate Amino Transferase 21 U/L (5-31); Blood Urea Nitrogen 29 mg/dL (9-16); Calcium 8.7 mg/dL (8.4-10.2); Carbon Dioxide 24 mmol/L (22-29); Chloride 104 mmol/L (96-108); Creatinine Clr Calc Pharmacy 42.5; Estimated Glomerular Filt Rate > 60; Magnesium 2.3 mg/dL (1.6-2.6); Potassium 4.4 mmol/L (3.3-5.1); Sodium 138 mmol/L (135-145); Total Protein 6.1 g/dL (6.5-8.0)
[2024-10-10 06:02] LABS: Band Neutrophils Percent 9 % (3-5); Eosinophils Absolute Manual 0.2 X10*3/uL (0.0-0.4); Eosinophils Percent Manual 3 % (0-4); Lymphocytes Absolute Manual 0.8 X10*3/uL (1.2-4.9); Lymphocytes Percent Manual 12 % (20-40); Metamyelocytes Absolute 0.3 X10*3/uL; Metamyelocytes Percent 5 %; Monocytes Absolute Manual 0.6 X10*3/uL (0.1-1.2); Monocytes Percent Manual 9 % (2-11); Myelocytes Absolute 0.1 X10*/uL; Myelocytes Percent 1 %; Neutrophils Absolute Manual 4.4 X10*3/uL (2.0-8.3); Neutrophils Percent Manual 61 % (45-73)
[2024-10-10 06:04] LABS: RBC Morphology NOTED
[2024-10-10 06:05] LABS: Burr Cells 1+ (0-2) /OIF; Large Platelet PRESENT; Platelet Count 153 X10*3/uL (160-400)
[2024-10-10] MEDS: Chlorhexidine Gluc Oral Rinse 15 ML MOUTHWASH BUCCAL ×3 (07:31→19:48)
--- NOTE | 2024-10-10 09:01 | PM.CCPN ---
Subjective Subjective Date of Service: 10/10/24 Interval History: No new changes, remains on ventilator support Critical Care Time (minutes): 35 Physical Exam Vital Signs: Vital Signs: Last Vital Signs Temp 96.6 F L 10/10/24 08:00 Pulse 68 10/10/24 08:00 Resp 12 10/10/24 08:00 BP 100/48 L 10/10/24 08:00 Pulse Ox 97 10/10/24 08:00 O2 Del Method Mechanical Ventil ation 10/10/24 08:00 O2 Flow Rate 1 10/04/24 04:00 FiO2 21 10/10/24 08:00 Oxygen Flow Rate 15 10/01/24 21:25 BMI result Body Mass Index 18.6 General: Elderly lady in severe acute distress, ill appearing and tired appearing Nutritional Appearance: well nourished and overweight Eyes: appearance normal, both eyes and all related structures; Alignment and Position: alignment normal and position normal Neck: No lymphadenopathy, no thyromegaly Resp: bilateral air entry equal, occasional added sounds present Cardio: Regular rate, regular rhythm; Heart sounds: S1 normal heart sound present and S2 normal heart sound present GI: soft, nontender, no guarding, no hepatosplenomegaly : bladder normal to inspection, bladder normal to palpation, no renal angle tenderness Skin: no rashes or lesions noted and elasticity normal, bedsores present Neuro: Sedated, significant chronic contractures Objective Data Labs 10/10/24 05:11 10/10/24 05:11 Labs: Laboratory Results - last 24 hr 10/09/24 10/09/24 10/10/24 11:45 18:04 00:02 WBC RBC Hgb Hct MCV MCH MCHC RDW Plt Count MPV Immature Gran % (Auto) Neut % (Auto) Lymph % (Auto) [place] % (Auto) Eos % (Auto) Baso % (Auto) Lymph # (Auto) [place] # (Auto) Eos # (Auto) Baso # (Auto) Abs Immat Gran (auto) Absolute Neuts (auto) Absolute Nucleated RBC Nucleated RBC % (auto) Neutrophils % (Manual) Band Neutrophils % Lymphocytes % (Manual) Monocytes % (Manual) Eosinophils % (Manual) Metamyelocytes % Myelocytes % Abs Neuts (Manual) Lymphocytes # (Manual) Monocytes # (Manual) Eosinophils # (Manual) Metamyelocytes # Myelocytes # Platelet Estimate Large Platelets Plt Morphology Comment RBC Morphology [place] Cells VBG pH VBG pCO2 VBG pO2 VBG HCO3 VBG O2 Saturation VBG Base Excess Sodium Potassium Chloride Carbon Dioxide Anion Gap BUN Creatinine Estim Creat Clear Calc Estimated GFR POC Glucose 194 H 165 H 138 H Random Glucose Calcium Phosphorus Magnesium Total Bilirubin AST ALT Alkaline Phosphatase Total Protein Albumin 10/10/24 10/10/24 05:11 05:15 WBC 6.3 RBC 3.49 L Hgb 10.8 L Hct 32.0 L MCV 91.7 MCH 30.9 MCHC 33.8 RDW 16.1 H Plt Count 153 L D MPV 11.4 Immature Gran % (Auto) Cancelled Neut % (Auto) Cancelled Lymph % (Auto) Cancelled [place] % (Auto) Cancelled Eos % (Auto) Cancelled Baso % (Auto) Cancelled Lymph # (Auto) Cancelled [place] # (Auto) Cancelled Eos # (Auto) Cancelled Baso # (Auto) Cancelled Abs Immat Gran (auto) Cancelled Absolute Neuts (auto) Cancelled Absolute Nucleated RBC 0.000 Nucleated RBC % (auto) 0.0 Neutrophils % (Manual) 61 Band Neutrophils % 9 H Lymphocytes % (Manual) 12 L Monocytes % (Manual) 9 Eosinophils % (Manual) 3 Metamyelocytes % 5 Myelocytes % 1 Abs Neuts (Manual) 4.4 Lymphocytes # (Manual) 0.8 L Monocytes # (Manual) 0.6 Eosinophils # (Manual) 0.2 Metamyelocytes # 0.3 Myelocytes # 0.1 Platelet Estimate NORMAL Large Platelets PRESENT Plt Morphology Comment NOTED RBC Morphology NOTED [place] Cells 1+ (0-2) VBG pH 7.59 H VBG pCO2 28 VBG pO2 55 VBG HCO3 27 H VBG O2 Saturation 89.0 VBG Base Excess 6.4 Sodium 138 Potassium 4.4 Chloride 104 Carbon Dioxide 24 Anion Gap 14 BUN 29 H Creatinine 0.63 Estim Creat Clear Calc 42.5 Estimated GFR > 60 POC Glucose Random Glucose 213 H Calcium 8.7 Phosphorus 4.5 Magnesium 2.3 Total Bilirubin 0.5 AST 21 ALT 15 Alkaline Phosphatase 131 H Total Protein 6.1 L Albumin 3.4 L Microbiology Microbiology Results: Microbiology 10/01/24 22:42 Blood - Venous Blood Culture - Final Staphylococcus hominis ssp isha 10/01/24 22:42 Blood - Venous Blood Culture - Final Staphylococcus hominis ssp isha 09/20/24 19:09 Blood - Venous Blood Culture - Final No growth after 5 days. 09/20/24 19:09 Blood - Venous Blood Culture - Final No growth after 5 days. 09/20/24 20:55 Urine clean catch - Clean Catch Midstream Urine Culture - Final Progress Note: A&P Assessment and plan (1) Urinary tract infection: Status: Acute (2) Acute hypoxic respiratory failure: Status: Acute (3) Aspiration pneumonia: Status: Acute (4) Pulmonary aspiration: Status: Acute Plan 84-year-old lady with underlying advanced Alzheimer's, nonverbal, essentially bed bound with large sacral decubitus ulcer, prior history of ESBL UTI, diabetes mellitus, hypothyroidism, chronic hyponatremia, failure to thrive, severe protein calorie malnutrition admitted on 09/02/2024 with alteration of mental status, aspiration pneumonia, UTI and worsening cellulitis around the decubitus ulcer. Patient was treated with broad-spectrum antibiotics in family discussion was not going regarding possible PEG placement when on 10/01/2024 patient had an aspiration event with profound hypoxemia requiring intubation and ventilatory support. Extubated uneventfully on 10/02/2024. But remains at constant further aspiration risk. Patient with another aspiration event on 10/04/2024 in the morning on the telemetry unit requiring intubation and transfer back to intensive care unit. Neuro: Acute encephalopathy possibly due to metabolic encephalopathy On propofol for sedation, as needed fentanyl for analgesia; we will leave her sedation the same as we do not have plan for extubation until the family gives his DNI Close neurological status monitoring in the ICU every hour Respiratory: Acute hypoxemic respiratory failure due to Currently on ventilator support On PRVC mode FiO2 21%, PEEP 5, TV 280, RR12; no plans for weaning trial today Peak pressures and plateau pressures are under the curve Ventilator management bundle with head end elevation, aspiration precaution, chlorhexidine mouthwash, daily awakening trials, daily spontaneous breathing trials GI: on PPN for nutrition due to severe protein calorie malnutrition Renal: We will closely monitor I's and O's Avoid nephrotoxic medications Heme: Chronic anemia, closely monitor H&H, transfuse for hemoglobin less than 7 grams/deciliter Endocrine: Blood sugars under control Sliding scale insulin as needed Infectious disease: staph hominis x2 in blood will repeat blood cultures today on Unasyn for aspiration and vancomycin Musculoskeletal: Decubitus ulcer prevention protocol Lines: peripherals Prophylaxis: Lovenox, pantoprazole will do labs every 72 hours. Quality Stroke Does the patient have a stroke diagnosis?: No VTE Prior VTE?: No VTE Risk Level:: Medical - moderate - high VTE Device Contraindication: Treatment Not Indicated VTE Drug Contraindication: N/A - Med Ordered
--- NOTE | 2024-10-10 09:53 | HE.PHANOTE ---
RE VANCO DOSE RENAL FUNCTION STABLE, TROUGH TODAY 17.3. WILL CONTINUE DAILY RENAL MONITORING AND RECHECK TROUGH 10/12 @0900 WITH NO ADJUSTMENTS TO DOSING AT THIS TIME.
--- NOTE | 2024-10-10 10:01 | MHC.CLN ---
F/U PT REMAINS INTUBATED DISCUSSED AT ROUNDS WITH MD REVIEWED LABS DISCUSSED WT PHARMACY CONTINUE PPN AT MAX GOAL RATE OF 55ML/HR WITH 48G LIPIDS PROVIDES 1153KCALS (1332KCALS TOTAL; 34.6KCALS/KG), 132G DEXTROSE, 56G PROTEIN (1.5G/KG) REPLETE LYTES NEEDED FORMULA WILL PROMOTE WOUND HEALING
--- NOTE | 2024-10-10 10:57 | MHC.CM.PN ---
Addendum entered by Mora Carolina RN 10/10/24 16:23: PER [facility] [employer] SPOKE W/HCP DURAN, PLAN WILL BE TO EXTUBATE PT AROUND 10AM TOMORROW AND HE WOULD LIKE TO TAKE HER HOME ON HOSPICE IF ALL GOES WELL. CM DIRECTOR UPDATED. Original Note: EMR REVIEWED, PT REMAINS ON VENT W/PPN, PER [employer] PT'S SONS STILL NOT BOTH AGREEING ON PLAN, CM WILL CONT TO FOLLOW DC NEEDS.
[2024-10-10 12:11] LABS: Glucose, Whole Blood 157 mg/dL (60-115)
--- NOTE | 2024-10-10 17:35 | PC.NURSE ---
Assumed care at 0700. At initial assessment pt remains on ventilator with propofol drip running. Per MD, no attempt to extubate until family can reach consensus regarding goals of care. MD to initiate a follow up call today.? Additionally, labs to be drawn q3days. Per MD, plan to extubate tomorrow morning. If pt is well enough and able to tolerate, son Scott would like her to be at home for hospice. Case mgmt made aware.? Pt repositioned q2hr as tolerated. Fall & safety precautions in place. See MAR and assessments for further details.
[2024-10-10 17:44] LABS: Glucose, Whole Blood 133 mg/dL (60-115)
[2024-10-10] MEDS: dexmedeTOMIDine HCL/NS 400 MCG/100 ML PLAST..BAG 10.43 MCG IVCONT (18:23)
[2024-10-10] MEDS: Albumin Human 25 % 100 ML 133.33 ML IV ×2 (19:35→20:29)
[2024-10-10 19:49] LABS: VBG HCO3 27 mmol/L (22-26); VBG O2 % Saturation 100.0 %
[2024-10-10 20:01] LABS: Hematocrit 27.7 % (37.0-47.0); Hemoglobin 9.5 g/dl (12.0-16.0); Mean Corpuscular HGB Conc 34.3 g/dl (31.0-35.0); Mean Corpuscular Hemoglobin 31.4 pg (27.0-33.0); Mean Corpuscular Volume 91.4 fL (80.0-98.0); NRBC Abs Auto 0.000 X10*3/uL (0.0-0.012); NRBC Pct Auto 0.0 /100WBC (0.0-0.2); Platelet Count 267 X10*3/uL (160-400); Red Blood Count 3.03 X10*6/uL (4.20-5.50); White Blood Count 7.1 X10*3/uL (4.8-10.8)
[2024-10-10 20:16] LABS: Alanine Aminotransferase 12 U/L (0-31); Albumin Level 3.0 g/dL (3.5-5.0); Alkaline Phosphatase 119 U/L (39-117); Anion Gap 14 (12-20); Aspartate Amino Transferase 25 U/L (5-31); Blood Urea Nitrogen 30 mg/dL (9-16); Calcium 8.2 mg/dL (8.4-10.2); Carbon Dioxide 24 mmol/L (22-29); Chloride 105 mmol/L (96-108); Creatinine Clr Calc Pharmacy 43.6; Estimated Glomerular Filt Rate > 60; Magnesium 2.4 mg/dL (1.6-2.6); Potassium 4.4 mmol/L (3.3-5.1); Sodium 139 mmol/L (135-145); Total Protein 5.6 g/dL (6.5-8.0)
[2024-10-10] MEDS: Parenteral Nutrition 1,320 ML 55 ML IV (20:58)
[2024-10-10 21:13] LABS: Band Neutrophils Percent 8 % (3-5); Eosinophils Absolute Manual 0.4 X10*3/uL (0.0-0.4); Eosinophils Percent Manual 5 % (0-4); Lymphocytes Absolute Manual 1.2 X10*3/uL (1.2-4.9); Lymphocytes Percent Manual 17 % (20-40); Metamyelocytes Absolute 0.1 X10*3/uL; Metamyelocytes Percent 1 %; Monocytes Absolute Manual 0.3 X10*3/uL (0.1-1.2); Monocytes Percent Manual 4 % (2-11); Myelocytes Absolute 0.2 X10*/uL; Myelocytes Percent 3 %; Neutrophils Absolute Manual 5.0 X10*3/uL (2.0-8.3); Neutrophils Percent Manual 62 % (45-73)
[2024-10-10 21:42] LABS: RBC Morphology NOTED
[2024-10-10 21:43] LABS: Polychromasia 1+ (0-2) /OIF
[2024-10-10 23:04] LABS: Venous Blood Gas Refer to POC result
[2024-10-11] VITALS (32 sets, daily range): BP systolic 97–177; BP diastolic 41–91; PULSE 65–105; RESP 10–24; TEMP 34.7–36.8; O2SAT 91–97; BMI 18.5
[2024-10-11 00:02] LABS: Glucose, Whole Blood 256 mg/dL (60-115)
[2024-10-11 04:50] LABS: VBG HCO3 31 mmol/L (22-26); VBG O2 % Saturation 99.0 %
[2024-10-11 05:02] LABS: Hematocrit 25.4 % (37.0-47.0); Hemoglobin 8.4 g/dl (12.0-16.0); Mean Corpuscular HGB Conc 33.1 g/dl (31.0-35.0); Mean Corpuscular Hemoglobin 30.3 pg (27.0-33.0); Mean Corpuscular Volume 91.7 fL (80.0-98.0); NRBC Abs Auto 0.000 X10*3/uL (0.0-0.012); NRBC Pct Auto 0.0 /100WBC (0.0-0.2); Platelet Count 235 X10*3/uL (160-400); Red Blood Count 2.77 X10*6/uL (4.20-5.50); White Blood Count 4.4 X10*3/uL (4.8-10.8)
[2024-10-11 05:25] LABS: Venous Blood Gas Refer to POC result
[2024-10-11 05:26] LABS: Alanine Aminotransferase 11 U/L (0-31); Albumin Level 3.7 g/dL (3.5-5.0); Alkaline Phosphatase 97 U/L (39-117); Anion Gap 13 (12-20); Aspartate Amino Transferase 21 U/L (5-31); Blood Urea Nitrogen 28 mg/dL (9-16); Calcium 8.6 mg/dL (8.4-10.2); Carbon Dioxide 27 mmol/L (22-29); Chloride 108 mmol/L (96-108); Creatinine Clr Calc Pharmacy 46.7; Estimated Glomerular Filt Rate > 60; Magnesium 2.3 mg/dL (1.6-2.6); Potassium 4.3 mmol/L (3.3-5.1); Sodium 144 mmol/L (135-145); Total Protein 5.6 g/dL (6.5-8.0)
[2024-10-11] MEDS: dexmedeTOMIDine HCL/NS 400 MCG/100 ML PLAST..BAG 6.26 MCG IVCONT (05:49)
[2024-10-11 06:12] LABS: Atypical Lymphs Percent Manual 1 % (0-6); Band Neutrophils Percent 11 % (3-5); Basophils Abs Manual 0.1 X10*3/uL (0.0-0.2); Basophils Percent Manual 2 % (0-2); Eosinophils Percent Manual 1 % (0-4); Large Platelet PRESENT; Lymphocytes Absolute Manual 1.2 X10*3/uL (1.2-4.9); Lymphocytes Percent Manual 27 % (20-40); Monocytes Percent Manual 1 % (2-11); Myelocytes Percent 1 %; Neutrophils Absolute Manual 2.9 X10*3/uL (2.0-8.3); Neutrophils Percent Manual 56 % (45-73); RBC Morphology NORMAL
[2024-10-11 06:13] LABS: Schistocytes 1+ (0-2) /OIF; Smudge Cells PRESENT; Toxic Granulation PRESENT
[2024-10-11] MEDS: 0.9 % Sodium Chloride Flush 3 ML SYRINGE IVFLUSH ×3 (07:22→21:27)
[2024-10-11] MEDS: Chlorhexidine Gluc Oral Rinse 15 ML MOUTHWASH BUCCAL (07:41)
--- NOTE | 2024-10-11 08:59 | P.PNCC_ITS ---
Subjective Subjective Date of Service: 10/11/24 Interval History: On pressure support since 07:00 this morning She has MOLST from previous hospitalization stating DNI/DNR. on precedex 0.2 this morning lala for sometime yesterday followed by Vtach last night Critical Care Time (minutes): 35 Physical Exam 2 Vital Signs: Vital Signs: Last Vital Signs Temp 97.2 F 10/11/24 08:00 Pulse 69 10/11/24 08:00 Resp 24 H 10/11/24 08:00 BP 108/47 L 10/11/24 08:00 Pulse Ox 95 10/11/24 08:00 O2 Del Method Mechanical Ventil ation 10/11/24 08:00 O2 Flow Rate 1 10/04/24 04:00 FiO2 21 10/11/24 08:00 Oxygen Flow Rate 15 10/01/24 21:25 BMI result Body Mass Index 18.5 General: Elderly lady in acute distress, ill appearing and tired appearing Nutritional Appearance: Chronically malnourished and underweight Eyes: appearance normal, both eyes and all related structures; Alignment and Position: alignment normal and position normal Neck: No lymphadenopathy, no thyromegaly Resp: bilateral air entry equal, occasional added sounds present Cardio: Regular rate, regular rhythm; Heart sounds: S1 normal heart sound present and S2 normal heart sound present GI: soft, nontender, no guarding, no hepatosplenomegaly : bladder normal to inspection, bladder normal to palpation, no renal angle tenderness Skin: no rashes or lesions noted and elasticity normal Neuro: No focal deficits Objective Data Labs 10/11/24 04:43 10/11/24 04:43 Labs: Laboratory Results - last 24 hr 10/10/24 10/10/24 10/10/24 09:08 12:05 17:40 WBC RBC Hgb Hct MCV MCH MCHC RDW Plt Count MPV Immature Gran % (Auto) Neut % (Auto) Lymph % (Auto) [place] % (Auto) Eos % (Auto) Baso % (Auto) Lymph # (Auto) [place] # (Auto) Eos # (Auto) Baso # (Auto) Abs Immat Gran (auto) Absolute Neuts (auto) Absolute Nucleated RBC Nucleated RBC % (auto) Neutrophils % (Manual) Band Neutrophils % Lymphocytes % (Manual) Atypical Lymphs % (Man) Monocytes % (Manual) Eosinophils % (Manual) Basophils % (Manual) Metamyelocytes % Myelocytes % Abs Neuts (Manual) Lymphocytes # (Manual) Monocytes # (Manual) Eosinophils # (Manual) Basophils # (Manual) Metamyelocytes # Myelocytes # Smudge Cells Toxic Granulation Platelet Estimate Large Platelets Plt Morphology Comment RBC Morphology Polychromasia Schistocytes VBG pH VBG pCO2 VBG pO2 VBG HCO3 VBG O2 Saturation VBG Base Excess Sodium Potassium Chloride Carbon Dioxide Anion Gap BUN Creatinine Estim Creat Clear Calc Estimated GFR POC Glucose 157 H 133 H Random Glucose Lactic Acid Calcium Phosphorus Magnesium Total Bilirubin AST ALT Alkaline Phosphatase Total Protein Albumin Random Vancomycin 17.3 10/10/24 10/10/24 10/11/24 19:45 23:49 04:43 WBC 7.1 4.4 L RBC 3.03 L 2.77 L Hgb 9.5 L 8.4 L Hct 27.7 L 25.4 L MCV 91.4 91.7 MCH 31.4 30.3 MCHC 34.3 33.1 RDW 16.4 H 16.2 H Plt Count 267 D 235 MPV 10.6 10.9 Immature Gran % (Auto) Cancelled Cancelled Neut % (Auto) Cancelled Cancelled Lymph % (Auto) Cancelled Cancelled [place] % (Auto) Cancelled Cancelled Eos % (Auto) Cancelled Cancelled Baso % (Auto) Cancelled Cancelled Lymph # (Auto) Cancelled Cancelled [place] # (Auto) Cancelled Cancelled Eos # (Auto) Cancelled Cancelled Baso # (Auto) Cancelled Cancelled Abs Immat Gran (auto) Cancelled Cancelled Absolute Neuts (auto) Cancelled Cancelled Absolute Nucleated RBC 0.000 0.000 Nucleated RBC % (auto) 0.0 0.0 Neutrophils % (Manual) 62 56 Band Neutrophils % 8 H 11 H Lymphocytes % (Manual) 17 L 27 Atypical Lymphs % (Man) 1 Monocytes % (Manual) 4 1 L Eosinophils % (Manual) 5 H 1 Basophils % (Manual) 2 Metamyelocytes % 1 Myelocytes % 3 1 Abs Neuts (Manual) 5.0 2.9 Lymphocytes # (Manual) 1.2 1.2 Monocytes # (Manual) 0.3 Eosinophils # (Manual) 0.4 Basophils # (Manual) 0.1 Metamyelocytes # 0.1 Myelocytes # 0.2 Smudge Cells PRESENT Toxic Granulation PRESENT Platelet Estimate NORMAL NORMAL Large Platelets PRESENT Plt Morphology Comment NORMAL NOTED RBC Morphology NOTED NORMAL Polychromasia 1+ (0-2) Schistocytes 1+ (0-2) VBG pH 7.68 H* VBG pCO2 22 VBG pO2 148 VBG HCO3 27 H VBG O2 Saturation 100.0 VBG Base Excess 7.7 Sodium 139 144 Potassium 4.4 4.3 Chloride 105 108 Carbon Dioxide 24 27 Anion Gap 14 13 BUN 30 H 28 H Creatinine 0.62 0.58 Estim Creat Clear Calc 43.6 46.7 Estimated GFR > 60 > 60 POC Glucose 256 H Random Glucose 196 H 186 H Lactic Acid 0.8 Calcium 8.2 L 8.6 Phosphorus 4.7 H 4.2 Magnesium 2.4 2.3 Total Bilirubin 0.4 0.4 AST 25 21 ALT 12 11 Alkaline Phosphatase 119 H 97 Total Protein 5.6 L 5.6 L Albumin 3.0 L 3.7 Random Vancomycin 10/11/24 04:46 WBC RBC Hgb Hct MCV MCH MCHC RDW Plt Count MPV Immature Gran % (Auto) Neut % (Auto) Lymph % (Auto) [place] % (Auto) Eos % (Auto) Baso % (Auto) Lymph # (Auto) [place] # (Auto) Eos # (Auto) Baso # (Auto) Abs Immat Gran (auto) Absolute Neuts (auto) Absolute Nucleated RBC Nucleated RBC % (auto) Neutrophils % (Manual) Band Neutrophils % Lymphocytes % (Manual) Atypical Lymphs % (Man) Monocytes % (Manual) Eosinophils % (Manual) Basophils % (Manual) Metamyelocytes % Myelocytes % Abs Neuts (Manual) Lymphocytes # (Manual) Monocytes # (Manual) Eosinophils # (Manual) Basophils # (Manual) Metamyelocytes # Myelocytes # Smudge Cells Toxic Granulation Platelet Estimate Large Platelets Plt Morphology Comment RBC Morphology Polychromasia Schistocytes VBG pH 7.58 H VBG pCO2 32 VBG pO2 91 VBG HCO3 31 H VBG O2 Saturation 99.0 VBG Base Excess 8.9 Sodium Potassium Chloride Carbon Dioxide Anion Gap BUN Creatinine Estim Creat Clear Calc Estimated GFR POC Glucose Random Glucose Lactic Acid Calcium Phosphorus Magnesium Total Bilirubin AST ALT Alkaline Phosphatase Total Protein Albumin Random Vancomycin Microbiology Microbiology Results: Microbiology 10/01/24 22:42 Blood - Venous Blood Culture - Final Staphylococcus hominis ssp isha 10/01/24 22:42 Blood - Venous Blood Culture - Final Staphylococcus hominis ssp isha 09/20/24 19:09 Blood - Venous Blood Culture - Final No growth after 5 days. 09/20/24 19:09 Blood - Venous Blood Culture - Final No growth after 5 days. 09/20/24 20:55 Urine clean catch - Clean Catch Midstream Urine Culture - Final Progress Note: A&P Assessment and plan (1) Acute hypoxic respiratory failure: Status: Acute (2) Aspiration pneumonia: Status: Acute (3) Pulmonary aspiration: Status: Acute Plan 84-year-old lady with underlying advanced Alzheimer's, nonverbal, essentially bed bound with large sacral decubitus ulcer, prior history of ESBL UTI, diabetes mellitus, hypothyroidism, chronic hyponatremia, failure to thrive, severe protein calorie malnutrition admitted on 09/02/2024 with alteration of mental status, aspiration pneumonia, UTI and worsening cellulitis around the decubitus ulcer. Patient was treated with broad-spectrum antibiotics in family discussion was not going regarding possible PEG placement when on 10/01/2024 patient had an aspiration event with profound hypoxemia requiring intubation and ventilatory support. Extubated uneventfully on 10/02/2024. But remains at constant further aspiration risk. Patient with another aspiration event on 10/04/2024 in the morning on the telemetry unit requiring intubation and transfer back to intensive care unit. Neuro: Acute encephalopathy possibly due to metabolic encephalopathy Propofol change to Precedex to wean from ventilator today Close neurological status monitoring in the ICU every hour Respiratory: Acute hypoxemic respiratory failure due to Currently on ventilator support On PRVC mode FiO2 21%, PEEP 5, TV 280, RR12; currently on pressure support 5/5 since 07:00, doing well Peak pressures and plateau pressures are under the curve Ventilator management bundle with head end elevation, aspiration precaution, chlorhexidine mouthwash, daily awakening trials, daily spontaneous breathing trials GI: on PPN for nutrition due to severe protein calorie malnutrition Renal: We will closely monitor I's and O's Avoid nephrotoxic medications Heme: Chronic anemia, closely monitor H&H, transfuse for hemoglobin less than 7 grams/deciliter Endocrine: Blood sugars under control Sliding scale insulin as needed Infectious disease: staph hominis x2 in blood will repeat blood cultures today on Unasyn for aspiration and vancomycin Musculoskeletal: Decubitus ulcer prevention protocol Lines: peripherals Prophylaxis: Lovenox, pantoprazole Patient has a MOLST from previous hospitalization with his DNI DNR. Once the family is here this morning the plan is to extubate her and then closely monitor her respiratory status, if she worsens we will change her to hospice and comfort care Quality Stroke Does the patient have a stroke diagnosis?: No VTE Prior VTE?: No VTE Risk Level:: Medical - moderate - high VTE Device Contraindication: Treatment Not Indicated VTE Drug Contraindication: N/A - Med Ordered
--- NOTE | 2024-10-11 10:05 | MHC.CLN ---
F/U PT REMAINS INTUBATED; PROPOFOL OFF DISCUSSED AT ROUNDS WITH MD REVIEWED LABS DISCUSSED [facility] CONTINUE PPN AT MAX GOAL RATE OF 55ML/HR WITH 48G LIPIDS PROVIDES 1153KCALS (30KCALS/KG), 132G DEXTROSE, 56G PROTEIN (1.5G/KG) REPLETE LYTES NEEDED FORMULA WILL PROMOTE WOUND HEALING FOLLOWING WITH TEAM
[2024-10-11] MEDS: Albumin Human 25 % 100 ML 133.33 ML IV ×2 (10:24→12:13)
[2024-10-11 11:52] LABS: Glucose, Whole Blood 195 mg/dL (60-115)
--- NOTE | 2024-10-11 13:05 | PC.RT ---
Pt control extubated by RT per MD order. Pt had been on PS/CPAP since this am and kalyan well. RN and pt Family at bedside. Pt had no stridor post extubation and positive cuff leak prior to extubation. Pt currently on RA SATs 97% in no distress.
--- NOTE | 2024-10-11 14:24 | MHC.CM.PN ---
Pt extubated and is expected to be a code status change to DNR/DNI and possibly TEAM PHYSICIAN. Met with pt's son/HCP Scott to discuss pt's return to home w/Hospice. Considerable time spent educating Ralph and assessing his understanding of the goals of Hospice and comfort focused care. Ralph states his goal is to take pt home but is waiting for a miracle to occur within the next 24 hours He states he understands the care delivery will be his continued responsibility. Request sent to Hospice Care in the [facility] - waiting for review and availability for pt to return to home under services. Updated ICU care team. CM to follow
--- NOTE | 2024-10-11 14:47 | P.CDIM_ITS ---
PROVIDER RESPONSE TEXT: To clarify, the appropriate diagnosis supported by the clinical indicators: Clinically unable to determine (explain): unable to determine QUERY TEXT: PHYSICIAN'S DOCUMENTATION REQUEST Date of Query: 10/11/2024 02:37 PM EDT Patient Name: Jaylyn Valenzuela Admit Date: 09/21/2024 Dear Trevor Fabian MD, A review of the medical record indicates additional documentation may be needed. Please review below and update the documentation accordingly. Clinical Indicators: on 10/10/24: BP 66/34 on pressor support with IV Levophed Based on the above, could you clarify the appropriate diagnosis, if significant, that supports the above abnormalities and additional evaluation, monitoring, and/or treatment rendered: Septic shock Cardiogenic shock Other (explain) Clinically unable to determine (explain) Thank you, Alejandrina Colbert RN Use of terms such as suspected, likely, concern for, or probable (associated with a specific diagnosis that is being evaluated, monitored, or treated as if it exists) are acceptable and can be coded in the inpatient setting, when documented at the time of discharge. Please use your independent medical judgment in providing your response. THIS QUERY IS PART OF THE PERMANENT MEDICAL RECORD
[2024-10-11 17:38] LABS: Glucose, Whole Blood 182 mg/dL (60-115)
--- NOTE | 2024-10-11 18:57 | PC.NURSE ---
Assumed care at 0700. Upon initial assessment, pt remained ventilated and on sedative drip. Pt had been on PSV since approx 0600, but had several episodes of apnea. RT placed pt back on ACVC until first vent check. Precedex titrated down per APR. At 0800, RT placed pt back on PSV of 5/5 with fio2 of 21%. RT called to bedside at 1230 for extubation per family wishes and MD order. Pt extubated at 1240, oral suction provided. Pt on room air. Case mgmt made aware. Pt resting comfortably. Pt required deep suction 2x at approx 1800. See MAR and assessments for further details. Fall & safety precautions in place. Pt repositioned q2hrs as tolerated.
[2024-10-11] MEDS: Parenteral Nutrition 1,320 ML 55 ML IV (21:26)
[2024-10-12] VITALS (22 sets, daily range): BP systolic 121–213; BP diastolic 45–94; PULSE 80–119; RESP 18–22; TEMP 36.2–36.6; O2SAT 85–100; BMI 20.5
[2024-10-12 00:09] LABS: Glucose, Whole Blood 170 mg/dL (60-115)
[2024-10-12 04:58] LABS: VBG HCO3 32 mmol/L (22-26); VBG O2 % Saturation 91.0 %
[2024-10-12 04:59] LABS: Hematocrit 28.5 % (37.0-47.0); Hemoglobin 9.7 g/dl (12.0-16.0); Imm Gran Abs Auto 0.21 X10*3/uL (0.00-0.03); Imm Gran Pct Auto 2.1 % (0.0-0.4); Lymphocytes Absolute Auto 1.2 X10*3/uL (1.2-4.9); MANUAL DIFF FLAG NO; Mean Corpuscular HGB Conc 34.0 g/dl (31.0-35.0); Mean Corpuscular Hemoglobin 31.2 pg (27.0-33.0); Mean Corpuscular Volume 91.6 fL (80.0-98.0); NRBC Abs Auto 0.000 X10*3/uL (0.0-0.012); NRBC Pct Auto 0.0 /100WBC (0.0-0.2); Platelet Count 277 X10*3/uL (160-400); Red Blood Count 3.11 X10*6/uL (4.20-5.50); White Blood Count 9.9 X10*3/uL (4.8-10.8)
[2024-10-12 05:10] LABS: Venous Blood Gas Refer to POC result
[2024-10-12 05:20] LABS: Alanine Aminotransferase 25 U/L (0-31); Albumin Level 4.6 g/dL (3.5-5.0); Alkaline Phosphatase 164 U/L (39-117); Anion Gap 15 (12-20); Aspartate Amino Transferase 47 U/L (5-31); Blood Urea Nitrogen 26 mg/dL (9-16); Calcium 9.3 mg/dL (8.4-10.2); Carbon Dioxide 27 mmol/L (22-29); Chloride 104 mmol/L (96-108); Creatinine Clr Calc Pharmacy 45.6; Estimated Glomerular Filt Rate > 60; Magnesium 2.3 mg/dL (1.6-2.6); Potassium 4.2 mmol/L (3.3-5.1); Sodium 142 mmol/L (135-145); Total Protein 6.7 g/dL (6.5-8.0)
[2024-10-12 06:07] LABS: Glucose, Whole Blood 209 mg/dL (60-115)
[2024-10-12] MEDS: 0.9 % Sodium Chloride Flush 3 ML SYRINGE IVFLUSH ×2 (07:54→16:47)
[2024-10-12] MEDS: Chlorhexidine Gluc Oral Rinse 15 ML MOUTHWASH BUCCAL (07:54)
--- NOTE | 2024-10-12 08:56 | PM.CCPN ---
Subjective Subjective Date of Service: 10/12/24 Interval History: has events of desaturations from aspiration hypertensive to 200s. Critical Care Time (minutes): 35 Physical Exam Vital Signs: Vital Signs: Last Vital Signs Temp 97.4 F 10/12/24 08:00 Pulse 104 H 10/12/24 08:00 Resp 18 10/12/24 08:00 BP 211/93 H 10/12/24 08:00 Pulse Ox 87 L 10/12/24 08:00 O2 Del Method Room Air, Oxymask 10/12/24 08:00 O2 Flow Rate 5 10/12/24 08:00 FiO2 21 10/11/24 12:00 Oxygen Flow Rate 15 10/01/24 21:25 BMI result Body Mass Index 20.5 General: Elderly lady who is chronically ill and tired appearing in somewhat acute distress Nutritional Appearance: Poorly nourished and under weight Eyes: appearance normal, both eyes and all related structures; Alignment and Position: alignment normal and position normal Neck: No lymphadenopathy, no thyromegaly Resp: bilateral air entry equal, bilateral crackles heard, poor respiratory function Cardio: Regular rate, regular rhythm; Heart sounds: S1 normal heart sound present and S2 normal heart sound present GI: soft, nontender, no guarding, no hepatosplenomegaly : bladder normal to inspection, bladder normal to palpation, no renal angle tenderness Skin: no rashes or lesions noted and elasticity normal Neuro: Opens her eyes but does not follow commands, does not move any extremities Objective Data Labs 10/12/24 04:51 10/12/24 04:51 Labs: Laboratory Results - last 24 hr 10/11/24 10/11/24 10/12/24 11:48 17:31 00:06 WBC RBC Hgb Hct MCV MCH MCHC RDW Plt Count MPV Immature Gran % (Auto) Neut % (Auto) Lymph % (Auto) [place] % (Auto) Eos % (Auto) Baso % (Auto) Lymph # (Auto) [place] # (Auto) Eos # (Auto) Baso # (Auto) Abs Immat Gran (auto) Absolute Neuts (auto) Absolute Nucleated RBC Nucleated RBC % (auto) VBG pH VBG pCO2 VBG pO2 VBG HCO3 VBG O2 Saturation VBG Base Excess Sodium Potassium Chloride Carbon Dioxide Anion Gap BUN Creatinine Estim Creat Clear Calc Estimated GFR POC Glucose 195 H 182 H 170 H Random Glucose Calcium Phosphorus Magnesium Total Bilirubin AST ALT Alkaline Phosphatase Total Protein Albumin 10/12/24 10/12/24 10/12/24 04:51 04:53 06:02 WBC 9.9 RBC 3.11 L Hgb 9.7 L Hct 28.5 L MCV 91.6 MCH 31.2 MCHC 34.0 RDW 16.4 H Plt Count 277 MPV 10.4 Immature Gran % (Auto) 2.1 H Neut % (Auto) 78.5 H Lymph % (Auto) 12.1 L [place] % (Auto) 5.5 Eos % (Auto) 1.4 Baso % (Auto) 0.4 Lymph # (Auto) 1.2 [place] # (Auto) 0.6 Eos # (Auto) 0.1 Baso # (Auto) 0.0 Abs Immat Gran (auto) 0.21 H Absolute Neuts (auto) 7.8 Absolute Nucleated RBC 0.000 Nucleated RBC % (auto) 0.0 VBG pH 7.47 H VBG pCO2 44 VBG pO2 65 VBG HCO3 32 H VBG O2 Saturation 91.0 VBG Base Excess 8.2 Sodium 142 Potassium 4.2 Chloride 104 Carbon Dioxide 27 Anion Gap 15 BUN 26 H Creatinine 0.59 Estim Creat Clear Calc 45.6 Estimated GFR > 60 POC Glucose 209 H Random Glucose 194 H Calcium 9.3 D Phosphorus 3.2 Magnesium 2.3 Total Bilirubin 0.8 AST 47 H ALT 25 Alkaline Phosphatase 164 H Total Protein 6.7 Albumin 4.6 Microbiology Microbiology Results: Microbiology 10/01/24 22:42 Blood - Venous Blood Culture - Final Staphylococcus hominis ssp isha 10/01/24 22:42 Blood - Venous Blood Culture - Final Staphylococcus hominis ssp isha 09/20/24 19:09 Blood - Venous Blood Culture - Final No growth after 5 days. 09/20/24 19:09 Blood - Venous Blood Culture - Final No growth after 5 days. 09/20/24 20:55 Urine clean catch - Clean Catch Midstream Urine Culture - Final Progress Note: A&P Assessment and plan (1) Acute hypoxic respiratory failure: Status: Acute (2) Aspiration pneumonia: Status: Acute (3) Pulmonary aspiration: Status: Acute (4) Hyperkalemia: Status: Acute (5) Urinary tract infection: Status: Acute (6) Hypothyroidism: Status: Acute Plan 84-year-old lady with underlying advanced Alzheimer's, nonverbal, essentially bed bound with large sacral decubitus ulcer, prior history of ESBL UTI, diabetes mellitus, hypothyroidism, chronic hyponatremia, failure to thrive, severe protein calorie malnutrition admitted on 09/02/2024 with alteration of mental status, aspiration pneumonia, UTI and worsening cellulitis around the decubitus ulcer. Patient was treated with broad-spectrum antibiotics in family discussion was not going regarding possible PEG placement when on 10/01/2024 patient had an aspiration event with profound hypoxemia requiring intubation and ventilatory support. Extubated uneventfully on 10/02/2024. But remains at constant further aspiration risk. Patient with another aspiration event on 10/04/2024 in the morning on the telemetry unit requiring intubation and transfer back to intensive care unit. Neuro: Has significant chronic profound dementia at baseline Respiratory: Acute hypoxemic respiratory failure due to aspiration pneumonia After the code status was changed to DNI DNR she was extubated on 10/11/2024 She still remains a high-risk for aspiration, needing frequent suctioning. Hypertension: will add hydralazine and labetolol as needed GI: on PPN for nutrition due to severe protein calorie malnutrition Renal: We will closely monitor I's and O's Avoid nephrotoxic medications Heme: Chronic anemia, closely monitor H&H, transfuse for hemoglobin less than 7 grams/deciliter Endocrine: Blood sugars under control Sliding scale insulin as needed Infectious disease: staph hominis x2 in blood on Unasyn for aspiration and vancomycin Musculoskeletal: Decubitus ulcer prevention protocol Lines: peripherals Prophylaxis: Lovenox, pantoprazole Quality Stroke Does the patient have a stroke diagnosis?: No VTE Prior VTE?: No VTE Risk Level:: Medical - moderate - high VTE Device Contraindication: Treatment Not Indicated VTE Drug Contraindication: N/A - Med Ordered
--- NOTE | 2024-10-12 09:26 | HE.PHANOTE ---
RE: VANCO Trough returned at 16.5. Renal function is stable. Keeping the same dose of 750 mg Q24H with predicted AUC of 473 and trough of 15 to ensure safety and efficacy. Next trough to be pulled 10/14 @0900. Will continue to monitor.
--- NOTE | 2024-10-12 10:08 | MHC.CM.PN ---
Addendum entered by Brooke Lucero 10/12/24 14:20: Pt will transfer to the medical floor for continued care: no Hospice agencies have been secured for pts return to home Barrier: [place] the [facility] ([place] that is out of coverage zone for the Hospice agencies referred to. CM to continue to follow. Original Note: Pt transitioned to DNR/DNI: experiencing hypoxia with an inability to manage secretions, tachycardia and SBP in the 210's. Per discussion at rounds, pt is not yet stable to transition to the medical floor or to home without HOUSING ASSISTANT order in place. MD to discuss options with pt's son/HCP Ralph. CM to expand Hospice referrals should pt stablilize and be able to return to home.
--- NOTE | 2024-10-12 10:12 | MHC.CLN ---
F/U PT EXTUBATED DISCUSSED AT ROUNDS WITH MD REVIEWED LABS DISCUSSED [facility] CONTINUE PPN AT MAX GOAL RATE OF 55ML/HR WITH 48G LIPIDS PROVIDES 1153KCALS (30KCALS/KG), 132G DEXTROSE, 56G PROTEIN (1.5G/KG) REPLETE LYTES NEEDED FORMULA WILL PROMOTE WOUND HEALING FOLLOWING WITH TEAM
[2024-10-12 11:35] LABS: Glucose, Whole Blood 305 mg/dL (60-115)
--- NOTE | 2024-10-12 12:38 | PC.NURSE ---
P: Alteration in Respiratory Function I: See nursing documentation and MD orders E: Pt on 5L oximask; had multiple episodes of desaturations. Nasopharangeal suctioning done with little affect. 02 increased with some affect. Repositioning with some affect. Dr Fabian aware of declining respiratory status. Pt DNR/DNI. Discussion with family and Dr Fabian about transferring pt home on hospice. Continue to monitor respiratory status. Status improved in afternoon P: Alteration in Cardiac function I: See nursing documentation and MD orders E: Pt hypertensive and tachycardic at beginning of shift. Dr Fabian notified. Pt given 20 of hydralazine with little affect. Pt given 20 of labetalol with positive affect.
--- NOTE | 2024-10-12 16:22 | PM.EVENT ---
Event Note Date of Service: 10/12/24 Event Note: Patient seen and examined Awake, on 10-11 L oxygen Physical exam and assessment and plan discussed with the ICU, please see ICU note for further details. Patient is currently DNR DNI, if patient condition for done deteriorate-please reach out to the family-if consider comfort or hospice Time Spent With Patient Time: Total time managing care of this patient today ____ minutes.
[2024-10-12 17:51] LABS: Glucose, Whole Blood 194 mg/dL (60-115)
--- NOTE | 2024-10-12 18:06 | P.EN_ITS ---
Event Note Date of Service: 10/12/24 Event Note: called by RN regarding family wishing to make patient comfortable due to apparent shortness of breath discussed with pt's sons Diallo and Ralph [latter is HCP and joined by phone] and they clarified they don't mean to place her on WET PROCESS TECHNICIAN status as they wish to contin ue TPN and IV ABX; however, they are OK with her getting IV morphine as needed for dyspnea/air hunger with the primary goal of alleviating suffering; I have ordered this. They do affirm that she is DNR/DNI but they do not want hospice or WET PROCESS TECHNICIAN care for her at this time Time Spent With Patient Time: Total time managing care of this patient today ____ minutes.
[2024-10-12] MEDS: Parenteral Nutrition 1,320 ML 55 ML IV (21:56)
--- NOTE | 2024-10-13 00:20 | P.EN_ITS ---
Event Note Date of Service: 10/13/24 Event Note: Nurse notified that patient was bradycardic and with agonal respirations. Upon my arrival at bedside, patient went into PEA and asystole. Tried to call the sons, Ralph and Diallo but no answer. Reviewed that patient was DNR/DNI with family moving towards comfort care. No spontaneous movements were present. There was no response to verbal or tactile stimulus. Pupils were mid dilated and fixed. No breath sounds were appreciated over either lung field. No c arotid pulses were palpable. No heart sounds were auscultated over entire precordium. Patient pronounced on 10/13/2024 at 00:10. certificate completed. Time Spent With Patient Time: Total time managing care of this patient today ____ minutes.
--- NOTE | 2024-10-13 00:25 | PC.NURSE ---
Addendum entered by Marly Martino RN 10/13/24 00:29: 12:29 [facility] contacted and will arrange for fruit or nut picker. Provided hospital contact information. Original Note: Son Diallo (HCP) contacted and notified of patient passing. States Ok to transport to [facility] family will not be in to view tonight. Family has requested [facility] in [place], [place]. This board writer will contact and notify of .
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
== END 2024-10-13 00:10 | disposition expired | DRG 207 ==
LOC: HO.ED 19:54 → HO.EDOVER 09-21 03:18 → HO.IMC 09-21 07:49 → HO.ICU 10-01 21:37 → HO.IMC 10-03 18:26 → HO.ICU 10-04 08:28 → HO.IMC 10-12 14:09
PROVIDERS: Internal Medicine; Internal Medicine Pulmonary Disease; Nurse Practitioner Family; Physician Assistant Medical; Registered Nurse Community Health; Admitting Provider Hospitalist; Emergency Provider Internal Medicine; PCP Nurse Practitioner Family; Visit Provider Internal Medicine Critical Care Medicine
DX: J69.0 Pneumonitis due to inhalation of food and vomit (principal); A41.9 Sepsis, unspecified organism; E43 Unspecified severe protein-calorie malnutrition; L89.153 Pressure ulcer of sacral region, stage 3; J96.01 Acute respiratory failure with hypoxia; G93.41 Metabolic encephalopathy; J98.19 Other pulmonary collapse; N39.0 Urinary tract infection, site not specified; L03.312 Cellulitis of back [any part except buttock and flank]; T76.01XA Adult neglect or abandonment, suspected, initial encounter; E87.1 Hypo-osmolality and hyponatremia; E03.9 Hypothyroidism, unspecified; K56.41 Fecal impaction; G30.9 Alzheimer's disease, unspecified; F02.80 Dementia in other diseases classified elsewhere, unspecified severity, without behavioral disturbance, psychotic disturbance, mood disturbance, and anxiety; D64.9 Anemia, unspecified; Z66 Do not resuscitate; B95.7 Other staphylococcus as the cause of diseases classified elsewhere; E87.6 Hypokalemia; E11.9 Type 2 diabetes mellitus without complications; R13.10 Dysphagia, unspecified; R00.1 Bradycardia, unspecified; Z68.20 Body mass index [BMI] 20.0-20.9, adult; R62.7 Adult failure to thrive; Z91.148 Patient's other noncompliance with medication regimen for other reason; Z87.440 Personal history of urinary (tract) infections; Z20.822 Contact with and (suspected) exposure to COVID-19; Z79.84 Long term (current) use of oral hypoglycemic drugs; Z79.890 Hormone replacement therapy
CPT/HCPCS: 36415; 70450; 71045; 71260; 74177; 80048; 80053; 80202; 81001; 82040; 82436; 82565; 82803; 82947; 83605; 83735; 83935; 84100; 84132; 84133; 84300; 84439; 84443; 84478; 85007; 85025; 85027; 87040; 87077; 87086; 87186; 87205; 87637; 92526; 92610; 93005; 94002; 94003; 94640; 94799; 99285; 99499; J0295; J0360; J0651; J0696; J1271; J1308; J1644; J1920; J2250; J2543; J2704; J3010; J3374; J3475; J3480; P9047; Q9967

== ENCOUNTER → 2024-09-20 18:34 | Outpatient (BNV) | payer MEDICARE, MEDICAID, SELFPAY | PROVIDERS: Emergency Provider Internal Medicine; PCP Nurse Practitioner Family; Visit Provider Radiology Vascular & Interventional Radiology | DX: K56.41 Fecal impaction (principal); J98.11 Atelectasis | CPT/HCPCS: 71260; 74177 ==

== ENCOUNTER → 2024-09-21 02:00 | Outpatient (BNV) | payer MEDICARE, MEDICAID, SELFPAY | PROVIDERS: Admitting Provider Hospitalist; Emergency Provider Internal Medicine; PCP Nurse Practitioner Family; Visit Provider Radiology Diagnostic Radiology | DX: J90 Pleural effusion, not elsewhere classified (principal) | CPT/HCPCS: 71045 ==

== ENCOUNTER 2024-09-21 02:28 | Outpatient (BNV) | payer MEDICARE, MEDICAID, SELFPAY | END 2024-09-28 08:26 | PROVIDERS: Admitting Provider Hospitalist; Emergency Provider Internal Medicine; PCP Nurse Practitioner Family; Visit Provider Internal Medicine | DX: I49.3 Ventricular premature depolarization (principal) | CPT/HCPCS: 93010 ==

== ENCOUNTER 2024-09-21 02:28 | Outpatient (BNV) | payer MEDICARE, MEDICAID, SELFPAY | END 2024-10-04 06:48 | PROVIDERS: Admitting Provider Hospitalist; Emergency Provider Internal Medicine; PCP Nurse Practitioner Family; Visit Provider Radiology Diagnostic Radiology | DX: J90 Pleural effusion, not elsewhere classified (principal) | CPT/HCPCS: 71045 ==

== ENCOUNTER 2024-09-21 02:28 | Outpatient (BNV) | payer MEDICARE, MEDICAID, SELFPAY | END 2024-10-01 21:17 | PROVIDERS: Admitting Provider Hospitalist; Emergency Provider Internal Medicine; PCP Nurse Practitioner Family; Visit Provider Student in an Organized Health Care Education/Training Program | DX: J90 Pleural effusion, not elsewhere classified (principal) | CPT/HCPCS: 71045 ==

== ENCOUNTER → 2024-09-21 02:28 | Outpatient (BNV) | payer MEDICARE, MEDICAID, SELFPAY | PROVIDERS: Admitting Provider Hospitalist; Emergency Provider Internal Medicine; PCP Nurse Practitioner Family; Visit Provider Internal Medicine Pulmonary Disease | DX: E11.9 Type 2 diabetes mellitus without complications (principal); R62.7 Adult failure to thrive; E03.9 Hypothyroidism, unspecified; R78.81 Bacteremia; L98.429 Non-pressure chronic ulcer of back with unspecified severity; F03.C0 Unspecified dementia, severe, without behavioral disturbance, psychotic disturbance, mood disturbance, and anxiety; J96.01 Acute respiratory failure with hypoxia; T17.900A Unspecified foreign body in respiratory tract, part unspecified causing asphyxiation, initial encounter | CPT/HCPCS: 99291 ==

== ENCOUNTER → 2024-09-21 02:28 | Outpatient (BNV) | payer MEDICARE, MEDICAID, SELFPAY | PROVIDERS: Admitting Provider Hospitalist; Emergency Provider Internal Medicine; PCP Nurse Practitioner Family; Visit Provider Physician Assistant Surgical | DX: R62.7 Adult failure to thrive (principal); K59.00 Constipation, unspecified | CPT/HCPCS: 99222; 99232 ==

== ENCOUNTER → 2024-09-21 02:28 | Outpatient (BNV) | payer MEDICARE, MEDICAID, SELFPAY | PROVIDERS: Admitting Provider Hospitalist; Emergency Provider Internal Medicine; PCP Nurse Practitioner Family; Visit Provider Internal Medicine | DX: R62.7 Adult failure to thrive (principal); E03.9 Hypothyroidism, unspecified | CPT/HCPCS: 99223; 99231; 99232; 99499 ==

== ENCOUNTER → 2024-09-21 02:28 | Outpatient (BNV) | payer MEDICARE, MEDICAID, SELFPAY | PROVIDERS: Admitting Provider Hospitalist; Emergency Provider Internal Medicine; PCP Nurse Practitioner Family; Visit Provider Internal Medicine | DX: E03.9 Hypothyroidism, unspecified (principal); R62.7 Adult failure to thrive | CPT/HCPCS: 99232 ==

== ENCOUNTER → 2024-09-21 02:28 | Outpatient (BNV) | payer MEDICARE, MEDICAID, SELFPAY | PROVIDERS: Admitting Provider Hospitalist; Emergency Provider Internal Medicine; PCP Nurse Practitioner Family; Visit Provider Registered Nurse Community Health | DX: L89.95 Pressure ulcer of unspecified site, unstageable (principal); J69.0 Pneumonitis due to inhalation of food and vomit; J96.01 Acute respiratory failure with hypoxia; A41.9 Sepsis, unspecified organism | CPT/HCPCS: 31500; 99291 ==

== ENCOUNTER → 2024-09-21 02:28 | Outpatient (BNV) | payer MEDICARE, MEDICAID, SELFPAY | PROVIDERS: Admitting Provider Hospitalist; Emergency Provider Internal Medicine; PCP Nurse Practitioner Family; Visit Provider Nurse Practitioner Family | DX: E87.1 Hypo-osmolality and hyponatremia (principal) | CPT/HCPCS: 99231 ==